=== PATIENT | female | born 1970 ===

== ENCOUNTER 2020-02-21 14:40 | Outpatient (REF) | payer MEDICAID, SELFPAY | END 2020-02-21 14:41 | disposition home or self-care (01) | LOC: HO.LAB 14:40 | PROVIDERS: Visit Provider Internal Medicine | DX: Z20.828 Contact with and (suspected) exposure to other viral communicable diseases (principal) | CPT/HCPCS: 36415; C9803; U0003 ==

== ENCOUNTER 2020-06-12 13:34 | Outpatient (REF) | payer MEDICAID, SELFPAY ==
--- NOTE | ~2020-06-12 | US_ITS ---
EXAMINATION: US ABDOMEN LIMITED CLINICAL INFORMATION: Abdominoplasty wound infection. COMPARISON: CT abdomen and pelvis 11/22/2018. TECHNIQUE: Real-time imaging of the incisions at pelvis and umbilicus. FINDINGS: There is tiny anechoic fluid collection adjacent to the right lateral incision measuring 0.4 x 0.2 x 0.6 cm along the anterior abdominal wall. Intimal increased vascularity seen around this collection. Suspect tiny abscess. US/US abdomen limited IMPRESSION: Suspect tiny abscess/fluid collection adjacent to the right lateral incision along the superficial anterior abdominal wall.
== END 2020-06-12 13:35 | disposition home or self-care (01) ==
LOC: HO.US 13:34
PROVIDERS: PCP Nurse Practitioner Primary Care; Visit Provider Nurse Practitioner Primary Care
DX: T81.49XA Infection following a procedure, other surgical site, initial encounter (principal); Z98.890 Other specified postprocedural states
CPT/HCPCS: 76705

== ENCOUNTER → 2020-07-12 10:30 | Outpatient (BNVA) | payer MEDICAID, SELFPAY | PROVIDERS: PCP Nurse Practitioner Primary Care; Referring Provider Internal Medicine; Visit Provider Surgery | DX: T81.41XA Infection following a procedure, superficial incisional surgical site, initial encounter (principal) | CPT/HCPCS: 99202 ==

== ENCOUNTER → 2020-07-27 10:04 | Outpatient (BNVA) | payer MEDICAID, SELFPAY | PROVIDERS: PCP Internal Medicine; Visit Provider Surgery | DX: Z09 Encounter for follow-up examination after completed treatment for conditions other than malignant neoplasm (principal); T81.41XA Infection following a procedure, superficial incisional surgical site, initial encounter | CPT/HCPCS: 99212 ==

== ENCOUNTER 2021-04-01 20:33 | Emergency (ER) | payer MEDICAID, SELFPAY ==
--- NOTE | ~2021-04-01 | CT_ITS ---
EXAMINATION: CT ANGIOGRAM OF THE CHEST WITH AND WITHOUT CONTRAST (CT PULMONARY ANGIOGRAM FOR PE) CLINICAL INFORMATION: Reason for Exam Shortness breath, tachycardia COMPARISON: None TECHNIQUE: Prior to contrast administration, noncontrast localization images were obtained. Subsequently, multidetector volumetric imaging was performed from the thoracic inlet to below the diaphragms following the administration of 65 mL Omnipaque 350 intravenous contrast. No contrast reaction reported Sagittal, coronal, and MIP oblique sagittal reformatted images were obtained on the CT workstation, uploaded to PACS, and reviewed. This CT examination was performed using dose optimization techniques as appropriate, variously including the following: *Automated exposure control *Adjustment of mA and/or kV according to patient size (this includes techniques or standardized protocols for targeted exams where dose is matched to indication/reason for exam; i.e. extremities or head) *Use of iterative reconstruction technique Total exam dose-length product 360 mGy-cm FINDINGS: QUALITY OF STUDY/CONTRAST BOLUS: Satisfactory. PULMONARY ARTERIES: No central or segmental pulmonary emboli. THORACIC AORTA: No aneurysm or dissection. LUNG: No focal consolidation, nodules or masses. PLEURA: No pleural effusion or pneumothorax. MEDIASTINUM: Normal heart size. No pericardial effusion. No hilar or mediastinal lymphadenopathy. No evidence of septal bowing or right heart strain. CHEST WALL/AXILLA: No axillary or internal mammary lymphadenopathy. OSSEOUS STRUCTURES: No acute or suspicious osseous abnormality. UPPER ABDOMEN: Stable simple fluid attenuating peripherally calcified cyst in the spleen measuring 4.[address]/CT angio chest PE protocol IMPRESSION: No pulmonary embolism. No acute pulmonary parenchymal abnormalities. VTE: negative
[2021-04-01 20:36] VITALS: BP 118/86; PULSE 80; RESP 16; TEMP 36.8; O2SAT 98; BMI 35.2
[2021-04-01 21:28] LABS: Influenza A PCR NEGATIVE (Negative); Influenza B PCR NEGATIVE (Negative); Resp Syncy Virus RNA Qual PCR NEGATIVE (Negative); SARS COV2 PCR INHOUSE NEGATIVE (Negative)
[2021-04-02 00:06] VITALS: PULSE 77; RESP 18; O2SAT 99
--- NOTE | 2021-04-02 00:14 | ED.URI ---
HPI - URI/Sore Throat General Chief Complaint: Upper Respiratory Symptoms Stated Complaint: Chest pain Time Seen by Provider: 04/02/21 01:55 Source: patient Mode of arrival: ambulatory Limitations: no limitations History of Present Illness HPI Narrative: 50-year-old female presents with increasing shortness of breath, chest wall pain on inspiration, and fatigue. Patient had to use rescue inhaler several, including twice while in the emergency department waiting room. MD elicited complaint: other (Shortness breath) Pertinent past history: other (COVID-19) Onset (ago): month(s) Consistency: constant and progressively worsening Severity: moderate Description of mucous: clear and watery Able to tolerate fluids by mouth: Yes Exacerbating factors: exertion and deep breaths Relieving factors: nothing Associated symptoms: chest pain and shortness of breath Treatments prior to arrival: other (Inhalers) Related Data Home Medications Medication Instructions Recorded Confirmed acetaminophen 500 mg oral powder 500 mg PO Q6H PRN 07/12/20 packet (Tylenol Extra Strength) albuterol sulfate 90 mcg/actuation 2 puff INHALATION Q6H PRN 07/12/20 aerosol inhaler (ProAir HFA) blood pressure monitor #1 ea 07/12/20 cetirizine 10 mg tablet (Zyrtec) 10 mg PO DAILY PRN 07/12/20 fluticasone propionate 50 2 spray INTRANASAL DAILY 07/12/20 mcg/actuation nasal spray,suspension ketoconazole 2 % shampoo 1 appl TOPICAL 3XW 07/12/20 Previous Rx's Medication Instructions Recorded cefadroxil 500 mg capsule 500 mg PO BID #20 cap 07/27/20 prednisone 20 mg tablet 40 mg PO DAILY 5 Days #10 tab 04/02/21 Allergies Allergy/AdvReac Type Severity Reaction Status Date / Time Penicillins Allergy Unknown UNKNOWN Unverified 11/03/19 17:58 Review of Systems Review of Systems: Constitutional: No Fever, No Chills ENT/Mouth: No Hoarseness, No sore throat, No Rhinorrhea Eyes: No Redness, No Discharge, No Vision Changes Cardiovascular: Positive Chest Pain, positive SOB, positive Dyspnea on Exertion, No Edema Respiratory: Now Cough, No Sputum, positive Wheezing Gastrointestinal: No Nausea, No Vomiting, No Diarrhea, No abdominal Pain Genitourinary: No Dysuria, No Hematuria Musculoskeletal: No joint pain, No Myalgias Skin: No rash Neuro: No Weakness, No Numbness, No Headache Psych: No anxiety, depression Heme/Lymph: No Bruising, No Bleeding Endocrine: No Polyuria, No Polydipsia Yes all other systems are reviewed and are negative [facility] Past Medical History Attestation statement: The following information was validated with the patient. Source: old records reviewed Surgical History History of abdominoplasty (03/28/20) History of hysterectomy Hx of breast surgery (03/28/20) Social History Social History Alcohol intake: current Alcohol intake frequency: holidays/special occasions only Patient Tobacco Use Status: Never used Tobacco Use of substances other than those prescribed or required for medical reasons: No Advance Directives: No Patient : No Physical Exam Vital Signs: Vital Signs: Last Vital Signs Temp 98.3 F 04/01/21 20:36 Pulse 73 04/02/21 00:34 Resp 16 04/02/21 00:34 BP 118/86 04/01/21 20:36 Pulse Ox 99 04/02/21 00:06 BMI result Body Mass Index 35.2 Appearance: Alert. Oriented X3. Moderate distress. Speaking in short sentences. Eyes: Pupils equal, round and reactive to light. EOMI. Sclera nonicteric. ENT: Pharynx normal. Moist mucous membranes. Neck: Normal inspection. Neck supple. CVS: Tachycardic heart rate and rhythm. Pulses normal. Respiratory: No respiratory distress. Poor air flow throughout, expiratory wheezing. Abdomen: Soft and nontender. Skin: Skin warm and dry. Normal skin color. Normal skin turgor. Extremities: No lower extremity edema. Moves all extremities against resistance. Neuro: No motor deficit. No sensory deficit. Cranial nerves 2-12 intact. Course Course Course Narrative: 50-year-old female presents with increased shortness of breath, chest wall pain on inspiration, and dyspnea on minimal exertion. Was tested positive for COVID-19 in January 2021. Has been using her albuterol inhaler multiple past few days, today has used it every 2-3 hours without relief. Poor air flow throughout lungs, will order CT PE study as patient is tachycardic, pain on inspiration, and had COVID approximately 2 months ago. Will order hour long albuterol, Solu-Medrol, and lab values. COVID RSV influenza negative. 00:40 BUN elevated 22. Will give 1 L of fluid. Other labs within normal limits. COVID RSV influenza negative. Patient states to feel better after our long neb, even unlabored respirations, able to speak in full complete sentences. CT PE study pending. 01:[address] Sanchez MDM - URI/Sore Throat MDM Narrative Medical decision making narrative: PE Differential Diagnosis Differential diagnosis: Likely upper respiratory infection, viral infection, bronchitis, influenza and pharyngitis Medical Records Attestation: I reviewed the patient's medical records. Lab Data Attestation: I reviewed the patient's lab results. Result diagrams: 04/02/21 00:35 04/02/21 00:35 Labs: Lab Results 04/01/21 04/02/21 04/02/21 Range/Units 20:45 00:35 00:35 WBC 7.6 (4.8-10.8) X10*3/uL RBC 5.04 (4.20-5.50) X10*6/uL Hgb 12.1 (12.0-16.0) g/dl Hct 40.2 (37.0-47.0) % MCV 79.8 L (80.0-98.0) fL MCH 24.0 L (27.0-33.0) pg MCHC 30.1 L (31.0-35.0) g/dl RDW 14.7 (11.0-16.0) % Plt Count 313 (160-400) X10*3/uL MPV 10.3 (9.4-12.3) fL Immature Gran % (Auto) 0.4 (0.0-0.4) % Neut % (Auto) 53.8 (45-73) % Lymph % (Auto) 35.0 (20-40) % [place] % (Auto) 6.8 (2-11) % Eos % (Auto) 3.5 (0-4) % Baso % (Auto) 0.5 (0-2) % Lymph # (Auto) 2.7 (1.2-4.9) X10*3/uL [place] # (Auto) 0.5 (0.1-1.2) X10*3/uL Eos # (Auto) 0.3 (0.0-0.4) X10*3/uL Baso # (Auto) 0.0 (0.0-0.2) X10*3/uL Abs Immat Gran (auto) 0.03 (0.00-0.03) X10*3/uL Absolute Neuts (auto) 4.1 (2.0-8.3) x10*3/uL Absolute Nucleated RBC 0.000 (0.0-0.012) X10*3/uL Nucleated RBC % (auto) 0.0 (0.0-0.2) /100WBC Sodium 142 (135-145) mmol/L Potassium 4.1 (3.3-5.1) mmol/L Chloride 108 (96-108) mmol/L Carbon Dioxide 28 (22-29) mmol/L Anion Gap 10 L (12-20) BUN 22 H (9-16) mg/dL Creatinine 0.93 (0.5-1.4) mg/dL Estim Creat Clear Calc 80.8 Estimated GFR > 60 Random Glucose 96 (60-115) mg/dL Calcium 10.2 (8.4-10.2) mg/dL Magnesium 2.2 (1.6-2.6) mg/dL Troponin I High Sens (<3.5-17.0) ng/L Influenza Type A (PCR) NEGATIVE (Negative) Influenza Type B (PCR) NEGATIVE (Negative) RSV RNA Qual (PCR) NEGATIVE (Negative) SARS-CoV-2 RNA (RT-PCR) NEGATIVE (Negative) 04/02/21 Range/Units 00:35 WBC (4.8-10.8) X10*3/uL RBC (4.20-5.50) X10*6/uL Hgb (12.0-16.0) g/dl Hct (37.0-47.0) % MCV (80.0-98.0) fL MCH (27.0-33.0) pg MCHC (31.0-35.0) g/dl RDW (11.0-16.0) % Plt Count (160-400) X10*3/uL MPV (9.4-12.3) fL Immature Gran % (Auto) (0.0-0.4) % Neut % (Auto) (45-73) % Lymph % (Auto) (20-40) % [place] % (Auto) (2-11) % Eos % (Auto) (0-4) % Baso % (Auto) (0-2) % Lymph # (Auto) (1.2-4.9) X10*3/uL [place] # (Auto) (0.1-1.2) X10*3/uL Eos # (Auto) (0.0-0.4) X10*3/uL Baso # (Auto) (0.0-0.2) X10*3/uL Abs Immat Gran (auto) (0.00-0.03) X10*3/uL Absolute Neuts (auto) (2.0-8.3) x10*3/uL Absolute Nucleated RBC (0.0-0.012) X10*3/uL Nucleated RBC % (auto) (0.0-0.2) /100WBC Sodium (135-145) mmol/L Potassium (3.3-5.1) mmol/L Chloride (96-108) mmol/L Carbon Dioxide (22-29) mmol/L Anion Gap (12-20) BUN (9-16) mg/dL Creatinine (0.5-1.4) mg/dL Estim Creat Clear Calc Estimated GFR Random Glucose (60-115) mg/dL Calcium (8.4-10.2) mg/dL Magnesium (1.6-2.6) mg/dL Troponin I High Sens < 3.5 (<3.5-17.0) ng/L Influenza Type A (PCR) (Negative) Influenza Type B (PCR) (Negative) RSV RNA Qual (PCR) (Negative) SARS-CoV-2 RNA (RT-PCR) (Negative) Discharge Plan Discharge Clinical Impression: Asthma exacerbation Patient Disposition: Home, Self-Care Instructions: Asthma (ED), Wheezing (ED) Additional Instructions: You were evaluated for asthma exacerbation, shortness of breath and chest pain. CTA is negative for acute findings requiring emergent intervention. You do not have any blood clots or any findings consistent with pneumonia. Please take prednisone 40 mg daily for the next 5 days. Drink plenty of fluids. Please consider following up with pulmonology. I referred you to Dr. Matt Howard. Please call and request an appointment. Thank you for choosing this emergency department for evaluation. Please follow-up with primary care physician as needed. Return to the emergency department for any new, concerning, or worsening symptoms. Prescriptions: New prednisone 20 mg tablet 40 mg PO DAILY 5 Days Qty: 10 0RF No Action (DME) blood pressure monitor Kit See Rx Instructions .ROUTE .MEDSUPPLY Qty: 1 0RF Rx Instructions: As directed fluticasone propionate 50 mcg/actuation spray,suspension 2 spray intranasal DAILY 0RF Rx Instructions: administer into each nostril ketoconazole 2 % shampoo 1 appl topical 3XW 0RF albuterol sulfate [ProAir HFA] 90 mcg/actuation HFA aerosol inhaler 2 puff inhalation Q6H PRN0RF Tylenol Extra Strength 500 mg powder in packet 500 mg PO Q6H PRN0RF cetirizine [Zyrtec] 10 mg tablet 10 mg PO DAILY PRN0RF cefadroxil 500 mg capsule 500 mg PO BID Qty: 20 0RF Referrals: Matt Howard MD [Physician] - 2 days (Poorly controlled asthma) Stand Alone Forms: Work/School Release
--- NOTE | 2021-04-02 00:15 | ECG_ITS ---
Test Reason : upper resp Blood Pressure : / mmHG Vent. Rate : 069 BPM Atrial Rate : 069 BPM P-R Int : 122 ms QRS Dur : 090 ms QT Int : 416 ms P-R-T Axes : 040 -30 029 degrees QTc Int : 445 ms Normal sinus rhythm Left axis deviation Moderate voltage criteria for LVH, may be normal variant ( R in aVL , [place] product ) Abnormal ECG When compared with ECG of 02-OCT-2009 11:22, Vent. rate has decreased BY [address] no longer depressed in Anterior leads T wave inversion now evident in Inferior leads Referred By: Sara Pearson Electronically Signed By:JUANPABLO FONSECA MD
[2021-04-02] MEDS: Albuterol Sulfate (0.083%) 2.5 MG/3 ML VIAL.NEB 10 MG INHALE (00:30)
[2021-04-02 00:34] VITALS: PULSE 73; RESP 16; O2SAT 98
[2021-04-02] MEDS: methylPREDNISolone Sod Succ 125 MG/2 ML VIAL IVPUSH (00:39)
[2021-04-02 00:40] LABS: MANUAL DIFF FLAG NO
[2021-04-02 00:42] LABS: Basophils Percent Auto 0.5 % (0-2); Eosinophils Absolute Auto 0.3 X10*3/uL (0.0-0.4); Eosinophils Percent Auto 3.5 % (0-4); Hematocrit 40.2 % (37.0-47.0); Hemoglobin 12.1 g/dl (12.0-16.0); Imm Gran Abs Auto 0.03 X10*3/uL (0.00-0.03); Imm Gran Pct Auto 0.4 % (0.0-0.4); Lymphocytes Absolute Auto 2.7 X10*3/uL (1.2-4.9); Mean Corpuscular HGB Conc 30.1 g/dl (31.0-35.0); Mean Corpuscular Volume 79.8 fL (80.0-98.0); Mean Platelet Volume 10.3 fL (9.4-12.3); Monocytes Absolute Auto 0.5 X10*3/uL (0.1-1.2); Monocytes Percent Auto 6.8 % (2-11); Neutrophils Absolute Auto 4.1 x10*3/uL (2.0-8.3); Neutrophils Percent Auto 53.8 % (45-73); Platelet Count 313 X10*3/uL (160-400); Red Blood Count 5.04 X10*6/uL (4.20-5.50); Red Cell Distribution Width 14.7 % (11.0-16.0); White Blood Count 7.6 X10*3/uL (4.8-10.8)
[2021-04-02 00:57] LABS: Anion Gap 10 (12-20); Blood Urea Nitrogen 22 mg/dL (9-16); Calcium 10.2 mg/dL (8.4-10.2); Carbon Dioxide 28 mmol/L (22-29); Chloride 108 mmol/L (96-108); Creatinine Clr Calc Pharmacy 80.8; Estimated Glomerular Filt Rate > 60; Glucose Random 96 mg/dL (60-115); Magnesium 2.2 mg/dL (1.6-2.6); Potassium 4.1 mmol/L (3.3-5.1); Sodium 142 mmol/L (135-145)
[2021-04-02 01:02] LABS: Troponin-I High Sensitivity < 3.5 ng/L (<3.5-17.0)
--- NOTE | 2021-04-02 01:46 | PC.NURSE ---
I assumed care of this pt upon her arrival to bed 4 from the waiting room. She presents for evaluation of difficulty breathing. On arrival the pt appears SOB, RR 22-24 with frequent congested sounding non-productive cough noted. She is speaking in 3-4 word sentences, no cyanosis, room air sat's 95%. Famioly is at the bedside. The pt is calm, cooperative, makes eye contact with RN and has a normal affect. IV access/labs obtained. Will continue to monitor.
[2021-04-02] MEDS: 0.9 % Sodium Chloride 1,000 ML 999 ML IVCONT (01:49)
[2021-04-02] MEDS: iohexoL 350 MG/ML 100 ML INFUS..BTL 65 ML IV (01:54)
[2021-04-02 02:08] VITALS: BP 135/80; PULSE 82; RESP 20; TEMP 36.4; O2SAT 98
== END 2021-04-02 03:09 | disposition home or self-care (01) ==
PROVIDERS: Nurse Practitioner Family; Emergency Provider Emergency Medicine; PCP Internal Medicine
DX: J45.901 Unspecified asthma with (acute) exacerbation (principal); Z20.822 Contact with and (suspected) exposure to COVID-19
CPT/HCPCS: 0241U; 36415; 71275; 80048; 83735; 84484; 85025; 93005; 94640; 94644; 96361; 96374; 99284; 99285; J2930; Q9967

== ENCOUNTER → 2021-04-12 10:56 | Outpatient (BNVA) | payer MEDICAID, SELFPAY | PROVIDERS: PCP Internal Medicine; Visit Provider Internal Medicine Pulmonary Disease | DX: J45.909 Unspecified asthma, uncomplicated (principal); R06.00 Dyspnea, unspecified; Z91.09 Other allergy status, other than to drugs and biological substances | CPT/HCPCS: 99202 ==

== ENCOUNTER 2021-05-18 00:59 | Emergency (ER) | payer MEDICAID, SELFPAY ==
--- NOTE | 2021-05-18 | ECG_ITS ---
Test Reason : CHEST PAIN Blood Pressure : / mmHG Vent. Rate : 084 BPM Atrial Rate : 084 BPM P-R Int : 144 ms QRS Dur : 092 ms QT Int : 384 ms P-R-T Axes : 044 -29 036 degrees QTc Int : 453 ms Normal sinus rhythm Moderate voltage criteria for LVH, may be normal variant ( R in aVL , [place] product ) Borderline ECG When compared with ECG of 02-APR-2021 00:19, No significant change was found Referred By: Generic ED Physician Electronically Signed By:ERIK NESS
--- NOTE | ~2021-05-18 | XR_ITS ---
EXAMINATION: XR CHEST CLINICAL INFORMATION: Chest pain COMPARISON: CTA chest 04/02/2021 and chest x-ray 10/02/2009 TECHNIQUE: 2 views of the chest were obtained. FINDINGS: Cardiac silhouette is normal in size. The lungs are well aerated. There is no lobar consolidation. No pleural effusion or pneumothorax. Mild degenerative changes of the spine. XR/XR chest 2V IMPRESSION: No acute pulmonary pathology.
--- NOTE | ~2021-05-18 | CT_ITS ---
EXAMINATION: CT HEAD WITHOUT CONTRAST CLINICAL INFORMATION: Headache COMPARISON: Head CT 02/19/2019 TECHNIQUE: Contiguous axial imaging was performed from the skull base to vertex without intravenous administration of contrast. This CT examination was performed using dose optimization techniques as appropriate, variously including the following: *Automated exposure control *Adjustment of mA and/or kV according to patient size (this includes techniques or standardized protocols for targeted exams where dose is matched to indication/reason for exam; i.e. extremities or head) *Use of iterative reconstruction technique DLP: 631 mGy-cm FINDINGS: There is no evidence of acute intracranial hemorrhage or territorial infarction. No abnormal mass effect or midline shift is seen. Pryor to white matter differentiation is well preserved. No extra-axial fluid collections are identified. The ventricles are normal in size. There is no abnormal attenuation within the brain parenchyma. The osseous structures and soft tissues are normal. The mastoid air cells and visualized portions of the paranasal sinuses are well aerated. CT/CT head/brain wo con IMPRESSION: No acute intracranial pathology.
[2021-05-18 01:33] VITALS: BP 144/95; PULSE 81; RESP 16; TEMP 36.4; O2SAT 98; BMI 36.0
--- NOTE | 2021-05-18 06:31 | ED_ITS ---
HPI - Chest Pain General Chief Complaint: Chest Pain Stated Complaint: chest pain Time Seen by Provider: 05/18/21 06:31 Source: patient Mode of arrival: ambulatory Limitations: no limitations History of Present Illness MD complaint: chest pain Onset (ago): hour(s) (yesterday during the day > 12) Timing of current episode: now resolved Prior episodes: Yes Onset: during rest Pain location: substernal Pain radiation: left arm Severity: moderate Quality: other (pressure) Relieving factors: nothing Exacerbating factors: nothing Associated symptoms: dyspnea and other (L side of body was tingling, R side felt like there was crawling on it, also has a headache, felt her BP was high so took a lisinopril but did not check pressure, was dizzy) Treatment prior to arrival: none Related Data Home Medications Medication Instructions Recorded Confirmed acetaminophen 500 mg oral powder 500 mg PO Q6H PRN 07/12/20 packet (Tylenol Extra Strength) albuterol sulfate 90 mcg/actuation 2 puff INHALATION Q6H PRN 07/12/20 aerosol inhaler (ProAir HFA) blood pressure monitor #1 ea 07/12/20 cetirizine 10 mg tablet (Zyrtec) 10 mg PO DAILY PRN 07/12/20 fluticasone propionate 50 2 spray INTRANASAL DAILY 07/12/20 mcg/actuation nasal spray,suspension ketoconazole 2 % shampoo 1 appl TOPICAL 3XW 07/12/20 Previous Rx's Medication Instructions Recorded cefadroxil 500 mg capsule 500 mg PO BID #20 cap 07/27/20 prednisone 20 mg tablet 40 mg PO DAILY 5 Days #10 tab 04/02/21 budesonide-formoterol HFA 160 2 puff INHALATION BID 30 Days #1 ea 04/14/21 mcg-4.5 mcg/actuation aerosol inhaler (Symbicort) doxycycline hyclate 100 mg capsule 100 mg PO BID 7 Days #14 cap 05/18/21 ondansetron 4 mg disintegrating 4 mg PO Q8H PRN #20 tab 05/18/21 tablet Allergies Allergy/AdvReac Type Severity Reaction Status Date / Time Penicillins Allergy Unknown UNKNOWN Verified 04/12/21 10:59 Review of Systems Review of Systems: Constitutional : No Weight loss, No Fever, No Chills ENT/Mouth : No sore throat, No Rhinorrhea Eyes: No Eye Pain, No Swelling Cardiovascular : pos Chest Pain, pos SOB, no Dyspnea on Exertion, No Orthopnea, No Edema, pos Palpitations Respiratory : No Cough, No Sputum Gastrointestinal : no Nausea, No Vomiting, No Diarrhea, No abdominal Pain, No Hematochezia, No Melena Genitourinary : No Dysuria, No Urinary Frequency Musculoskeletal : No joint pain, No Myalgias, No Joint Swelling Skin : No Skin Lesions, No rash Neuro : No Weakness, pos Numbness, pos Dizziness, pos Headache Psych : No Anxiety/Panic, No Depression Heme/Lymph: No Bruising, No Lymphadenopathy Endocrine : No Polyuria, No Polydipsia All other systems reviewed and are negative [facility] Past Medical History Attestation statement: The following information was validated with the patient. Medical History Asthma HTN (hypertension) Surgical History History of abdominoplasty (03/28/20) History of hysterectomy Hx of breast surgery (03/28/20) Social History Social History Alcohol intake: current Alcohol intake frequency: holidays/special occasions only Patient Tobacco Use Status: Never used Tobacco Advance Directives: No Advance Directives Information Provided: No Patient : No Physical Exam Vital Signs: Vital Signs: Last Vital Signs Temp 97.6 F 05/18/21 01:33 Pulse 66 05/18/21 07:09 Resp 14 05/18/21 07:09 BP 113/72 05/18/21 07:09 Pulse Ox 97 05/18/21 07:09 BMI result Body Mass Index 36.0 Appearance: Alert. Oriented X3. No acute distress. Eyes: Pupils equal, round and reactive to light. ENT: Pharynx normal. Neck: Normal inspection. Neck supple. CVS: Normal heart rate and rhythm. Pulses normal. Respiratory: No respiratory distress. Breath sounds normal. Abdomen: Soft and non-tender. Skin: Skin warm and dry. Normal skin color. Normal skin turgor. L axilla has small boil not to a point 1 cm no surrounding cellulitis Extremities: No lower extremity edema. No calf ttp Neuro: Oriented X 3. No motor deficit. No sensory deficit. Steady gait. Course Course Course Narrative: trop and ddimer negative, symptoms > 12 hours stable for DC, BP stable CT scan normal MDM - Chest Pain MDM Narrative Medical decision making narrative: 50 yo female with hx of HTN, asthma here with multilple complaints - 1. chest pain since yesterday with associated dyspnea she is worried it was a blood clot as she felt her blood get thick and her R leg hurt. Her symptoms are atypical and seem unlikely for ACS - her BP on my exam is 109/75. She has good distal pulses intact - low prob for ACS/PE. given intact distal pulses doubt dissection. Patient also noted her L side of body was tingling and her R side was as well too but more like crawling - she has a normal neuro exam. 2. Compla ins of occipital headache but she is afebrile and her BP is much lower now given lack of fevers and normal neuro exam doubt SAH/[employer] infection. Given normal neuro exam stroke seems unlikely. 3. Boil in L axilla - too small to I/D warm compressess and PO doxycycline Lab Data Result diagrams: 05/18/21 06:41 05/18/21 06:41 Labs: Lab Results 05/18/21 05/18/21 05/18/21 Range/Units 06:41 06:41 06:41 WBC 5.0 (4.8-10.8) X10*3/uL RBC 4.88 (4.20-5.50) X10*6/uL Hgb 12.0 (12.0-16.0) g/dl Hct 38.8 (37.0-47.0) % MCV 79.5 L (80.0-98.0) fL MCH 24.6 L (27.0-33.0) pg MCHC 30.9 L (31.0-35.0) g/dl RDW 14.9 (11.0-16.0) % Plt Count 252 (160-400) X10*3/uL MPV 10.1 (9.4-12.3) fL Immature Gran % (Auto) 0.4 (0.0-0.4) % Neut % (Auto) 52.3 (45-73) % Lymph % (Auto) 36.7 (20-40) % [place] % (Auto) 7.2 (2-11) % Eos % (Auto) 3.0 (0-4) % Baso % (Auto) 0.4 (0-2) % Lymph # (Auto) 1.8 (1.2-4.9) X10*3/uL [place] # (Auto) 0.4 (0.1-1.2) X10*3/uL Eos # (Auto) 0.2 (0.0-0.4) X10*3/uL Baso # (Auto) 0.0 (0.0-0.2) X10*3/uL Abs Immat Gran (auto) 0.02 (0.00-0.03) X10*3/uL Absolute Neuts (auto) 2.6 (2.0-8.3) x10*3/uL Absolute Nucleated RBC 0.000 (0.0-0.012) X10*3/uL Nucleated RBC % (auto) 0.0 (0.0-0.2) /100WBC D-Dimer High Sensitivty NG/ML Sodium 140 (135-145) mmol/L Potassium 4.2 (3.3-5.1) mmol/L Chloride 105 (96-108) mmol/L Carbon Dioxide 28 (22-29) mmol/L Anion Gap 11 L (12-20) BUN 22 H (9-16) mg/dL Creatinine 0.81 (0.5-1.4) mg/dL Estim Creat Clear Calc 94.0 Estimated GFR > 60 Random Glucose 104 (60-115) mg/dL Calcium 9.7 (8.4-10.2) mg/dL Total Bilirubin 0.9 (0.0-1.0) mg/dL AST 18 (5-31) U/L ALT 17 (0-31) U/L Alkaline Phosphatase 125 H (39-117) U/L Troponin I High Sens < 3.5 (<3.5-17.0) ng/L Total Protein 7.2 (6.5-8.0) g/dL Albumin 4.2 (3.5-5.0) g/dL 05/18/21 Range/Units 06:41 WBC (4.8-10.8) X10*3/uL RBC (4.20-5.50) X10*6/uL Hgb (12.0-16.0) g/dl Hct (37.0-47.0) % MCV (80.0-98.0) fL MCH (27.0-33.0) pg MCHC (31.0-35.0) g/dl RDW (11.0-16.0) % Plt Count (160-400) X10*3/uL MPV (9.4-12.3) fL Immature Gran % (Auto) (0.0-0.4) % Neut % (Auto) (45-73) % Lymph % (Auto) (20-40) % [place] % (Auto) (2-11) % Eos % (Auto) (0-4) % Baso % (Auto) (0-2) % Lymph # (Auto) (1.2-4.9) X10*3/uL [place] # (Auto) (0.1-1.2) X10*3/uL Eos # (Auto) (0.0-0.4) X10*3/uL Baso # (Auto) (0.0-0.2) X10*3/uL Abs Immat Gran (auto) (0.00-0.03) X10*3/uL Absolute Neuts (auto) (2.0-8.3) x10*3/uL Absolute Nucleated RBC (0.0-0.012) X10*3/uL Nucleated RBC % (auto) (0.0-0.2) /100WBC D-Dimer High Sensitivty < 150 NG/ML Sodium (135-145) mmol/L Potassium (3.3-5.1) mmol/L Chloride (96-108) mmol/L Carbon Dioxide (22-29) mmol/L Anion Gap (12-20) BUN (9-16) mg/dL Creatinine (0.5-1.4) mg/dL Estim Creat Clear Calc Estimated GFR Random Glucose (60-115) mg/dL Calcium (8.4-10.2) mg/dL Total Bilirubin (0.0-1.0) mg/dL AST (5-31) U/L ALT (0-31) U/L Alkaline Phosphatase (39-117) U/L Troponin I High Sens (<3.5-17.0) ng/L Total Protein (6.5-8.0) g/dL Albumin (3.5-5.0) g/dL ECG Data ECG #1: Attestation: I personally reviewed and interpreted this ECG as follows: ECG interpretation date: 05/18/21 ECG interpretation time: 06:32 Interpretation: Rate: 84 Rhythm: NSR [place]: left , LVH Normal P waves. Normal VICKI. Normal QRS complex. ST T wave : normal no JOANN qTC: normal prior studies: no acute ischemia The study has been interpreted contemporaneously by me. Discharge Plan Discharge Clinical Impression: Atypical chest pain, Acute headache, Boil Patient Disposition: Home, Self-Care Instructions: Chest Pain (ED), Abscess (ED), General Headache (ED) Additional Instructions: return to ED for any worsening symptoms or concerns CT brain normal Prescriptions: New doxycycline hyclate 100 mg capsule 100 mg PO BID 7 Days Qty: 14 0RF ondansetron 4 mg tablet,disintegrating 4 mg PO Q8H PRN (Reason: nausea and vomiting) Qty: 20 0RF No Action budesonide-formoterol [Symbicort] 160-4.5 mcg/actuation HFA aerosol inhaler 2 puff inhalation BID 30 Days Qty: 1 6RF prednisone 20 mg tablet 40 mg PO DAILY 5 Days Qty: 10 0RF (DME) blood pressure monitor Kit See Rx Instructions .ROUTE .MEDSUPPLY Qty: 1 0RF Rx Instructions: As directed fluticasone propionate 50 mcg/actuation spray,suspension 2 spray intranasal DAILY 0RF Rx Instructions: administer into each nostril ketoconazole 2 % shampoo 1 appl topical 3XW 0RF albuterol sulfate [ProAir HFA] 90 mcg/actuation HFA aerosol inhaler 2 puff inhalation Q6H PRN0RF Tylenol Extra Strength 500 mg powder in packet 500 mg PO Q6H PRN0RF cetirizine [Zyrtec] 10 mg tablet 10 mg PO DAILY PRN0RF cefadroxil 500 mg capsule 500 mg PO BID Qty: 20 0RF Referrals: Sharifa Moncada MD [Primary Care Provider] - 2 days (if not better)
[2021-05-18 06:53] LABS: MANUAL DIFF FLAG NO
[2021-05-18 06:54] LABS: Basophils Percent Auto 0.4 % (0-2); Eosinophils Absolute Auto 0.2 X10*3/uL (0.0-0.4); Hematocrit 38.8 % (37.0-47.0); Imm Gran Abs Auto 0.02 X10*3/uL (0.00-0.03); Imm Gran Pct Auto 0.4 % (0.0-0.4); Lymphocytes Absolute Auto 1.8 X10*3/uL (1.2-4.9); Lymphocytes Percent Auto 36.7 % (20-40); Mean Corpuscular HGB Conc 30.9 g/dl (31.0-35.0); Mean Corpuscular Hemoglobin 24.6 pg (27.0-33.0); Mean Corpuscular Volume 79.5 fL (80.0-98.0); Mean Platelet Volume 10.1 fL (9.4-12.3); Monocytes Absolute Auto 0.4 X10*3/uL (0.1-1.2); Monocytes Percent Auto 7.2 % (2-11); Neutrophils Absolute Auto 2.6 x10*3/uL (2.0-8.3); Neutrophils Percent Auto 52.3 % (45-73); Platelet Count 252 X10*3/uL (160-400); Red Blood Count 4.88 X10*6/uL (4.20-5.50); Red Cell Distribution Width 14.9 % (11.0-16.0)
[2021-05-18 07:04] LABS: D Dimer High Sensitivity < 150 NG/ML
[2021-05-18 07:09] VITALS: BP 113/72; PULSE 66; RESP 14; O2SAT 97
[2021-05-18] MEDS: Ondansetron ODT 4 MG TAB.RAPDIS TRANSLINGU (07:10)
[2021-05-18] MEDS: HYDROcodone Bit/Acetam 5/325 TABLET 1 TAB PO (07:10)
[2021-05-18 07:14] LABS: Troponin-I High Sensitivity < 3.5 ng/L (<3.5-17.0)
[2021-05-18 07:15] LABS: Alanine Aminotransferase 17 U/L (0-31); Albumin Level 4.2 g/dL (3.5-5.0); Alkaline Phosphatase 125 U/L (39-117); Anion Gap 11 (12-20); Aspartate Amino Transferase 18 U/L (5-31); Bilirubin Total 0.9 mg/dL (0.0-1.0); Blood Urea Nitrogen 22 mg/dL (9-16); Calcium 9.7 mg/dL (8.4-10.2); Carbon Dioxide 28 mmol/L (22-29); Chloride 105 mmol/L (96-108); Estimated Glomerular Filt Rate > 60; Glucose Random 104 mg/dL (60-115); Potassium 4.2 mmol/L (3.3-5.1); Sodium 140 mmol/L (135-145); Total Protein 7.2 g/dL (6.5-8.0)
[2021-05-18] MEDS: Butalb/Acetamin/Caff 50/325/40 TABLET 1 TAB PO (07:51)
== END 2021-05-18 11:47 | disposition home or self-care (01) ==
PROVIDERS: Student in an Organized Health Care Education/Training Program; Emergency Provider Emergency Medicine; PCP Internal Medicine
DX: R07.89 Other chest pain (principal); R51.9 Headache, unspecified; L02.422 Furuncle of left axilla; M79.604 Pain in right leg
CPT/HCPCS: 36415; 70450; 71046; 80053; 84484; 85025; 85379; 93005; 99284

== ENCOUNTER → 2021-07-02 11:52 | Outpatient (BNVA) | payer MEDICAID, SELFPAY | PROVIDERS: PCP Internal Medicine; Referring Provider Internal Medicine; Visit Provider Physician Assistant | DX: K21.9 Gastro-esophageal reflux disease without esophagitis (principal); F45.8 Other somatoform disorders; F41.9 Anxiety disorder, unspecified | CPT/HCPCS: 99202 ==

== ENCOUNTER 2021-07-18 10:03 | Outpatient (REF) | payer MEDICAID, SELFPAY ==
[2021-07-20 15:09] LABS: H Pylori Breath Test Negative (Negative)
== END 2021-07-18 10:04 | disposition home or self-care (01) ==
LOC: CF 10:03
PROVIDERS: PCP Internal Medicine; Referring Provider Internal Medicine; Visit Provider Physician Assistant
DX: F45.8 Other somatoform disorders (principal); K21.9 Gastro-esophageal reflux disease without esophagitis; Z11.0 Encounter for screening for intestinal infectious diseases
CPT/HCPCS: 36415; 83013

== ENCOUNTER → 2021-08-13 10:07 | Outpatient (BNVA) | payer MEDICAID, SELFPAY | PROVIDERS: PCP Internal Medicine; Visit Provider Physician Assistant | DX: Z01.818 Encounter for other preprocedural examination (principal); K21.9 Gastro-esophageal reflux disease without esophagitis | CPT/HCPCS: 99212 ==

== ENCOUNTER → 2021-09-10 10:35 | Outpatient (BNVA) | payer MEDICAID, SELFPAY | PROVIDERS: PCP Internal Medicine; Visit Provider Surgery Vascular Surgery | DX: I83.11 Varicose veins of right lower extremity with inflammation (principal) | CPT/HCPCS: 99202 ==

== ENCOUNTER 2021-09-30 14:28 | Emergency (ER) | payer MEDICAID, SELFPAY ==
--- NOTE | 2021-09-30 15:45 | PC.NURSE ---
called x 3 to alice. GUEVARAT
== END 2021-09-30 17:09 | disposition left against medical advice (07) ==
LOC: HO.ED 16:50
PROVIDERS: Emergency Provider Emergency Medicine
DX: Z04.2 Encounter for examination and observation following work accident (principal)

== ENCOUNTER 2021-10-20 22:04 | Emergency (ER) | payer MEDICAID, SELFPAY ==
--- NOTE | 2021-10-20 22:06 | ECG_ITS ---
Test Reason : CHEST PAIN Blood Pressure : / mmHG Vent. Rate : 083 BPM Atrial Rate : 083 BPM P-R Int : 116 ms QRS Dur : 090 ms QT Int : 378 ms P-R-T Axes : 052 -39 063 degrees QTc Int : 444 ms Normal sinus rhythm Left axis deviation Moderate voltage criteria for LVH, may be normal variant ( R in aVL , Deputy product ) Abnormal ECG When compared with ECG of 18-MAY-2021 01:01, No significant change was found Referred By: Generic ED Physician Electronically Signed By:JESS MAX
[2021-10-20 22:15] VITALS: BP 173/113; PULSE 93; RESP 20; TEMP 36.4; O2SAT 93; BMI 36.8
[2021-10-20 22:32] LABS: MANUAL DIFF FLAG NO
[2021-10-20 22:36] LABS: Basophils Percent Auto 0.2 % (0-2); Eosinophils Absolute Auto 0.6 X10*3/uL (0.0-0.4); Hematocrit 39.9 % (37.0-47.0); Hemoglobin 12.5 g/dl (12.0-16.0); Imm Gran Abs Auto 0.04 X10*3/uL (0.00-0.03); Imm Gran Pct Auto 0.5 % (0.0-0.4); Lymphocytes Absolute Auto 2.5 X10*3/uL (1.2-4.9); Lymphocytes Percent Auto 30.6 % (20-40); Mean Corpuscular HGB Conc 31.3 g/dl (31.0-35.0); Mean Corpuscular Hemoglobin 24.9 pg (27.0-33.0); Mean Corpuscular Volume 79.3 fL (80.0-98.0); Mean Platelet Volume 9.7 fL (9.4-12.3); Monocytes Absolute Auto 0.4 X10*3/uL (0.1-1.2); Monocytes Percent Auto 4.4 % (2-11); Neutrophils Absolute Auto 4.6 x10*3/uL (2.0-8.3); Neutrophils Percent Auto 57.3 % (45-73); Platelet Count 364 X10*3/uL (160-400); Red Blood Count 5.03 X10*6/uL (4.20-5.50); Red Cell Distribution Width 14.6 % (11.0-16.0)
[2021-10-20 22:47] LABS: Anion Gap 15 (12-20); Blood Urea Nitrogen 21 mg/dL (9-16); Calcium 9.4 mg/dL (8.4-10.2); Carbon Dioxide 23 mmol/L (22-29); Chloride 108 mmol/L (96-108); Creatinine Clr Calc Pharmacy 86.7; Estimated Glomerular Filt Rate > 60; Glucose Random 122 mg/dL (60-115); Potassium 4.2 mmol/L (3.3-5.1); Sodium 142 mmol/L (135-145)
[2021-10-20 22:54] LABS: Troponin-I High Sensitivity < 3.5 ng/L (<3.5-17.0)
[2021-10-20 22:55] LABS: COVID-19 Test Negative (Negative)
--- NOTE | 2021-10-20 23:11 | ED.CHESTPAIN ---
HPI - Chest Pain General Chief Complaint: Chest Pain Stated Complaint: asthma attack, chest pain, vomit Time Seen by Provider: 10/20/21 23:01 Source: patient and family Mode of arrival: ambulatory History of Present Illness HPI narrative: 51-year-old female with history of asthma presents with acute exacerbation today with multiple attempts use nebulize treatments, otherwise denies fever, chills common but has had some mild nausea after multiple episodes of coughing and now states that she has a headache with some chest pain that is associated with deep inspiration and coughing. Related Data Home Medications Medication Instructions Recorded Confirmed acetaminophen 500 mg oral powder 500 mg PO Q6H PRN 07/12/20 08/13/21 packet (Tylenol Extra Strength) albuterol sulfate 90 mcg/actuation 2 puff inhalation Q6H PRN 07/12/20 08/13/21 aerosol inhaler (ProAir HFA) blood pressure monitor #1 ea 07/12/20 08/13/21 cetirizine 10 mg tablet (Zyrtec) 10 mg PO DAILY PRN 07/12/20 08/13/21 fluticasone propionate 50 2 spray intranasal DAILY 07/12/20 08/13/21 mcg/actuation nasal spray,suspension ketoconazole 2 % shampoo 1 appl topical 3XW 07/12/20 08/13/21 lisinopril 20 mg tablet 20 mg PO DAILY 07/02/21 08/13/21 venlafaxine 37.5 mg 37.5 mg PO DAILY 09/10/21 capsule,extended release 24 hr Previous Rx's Medication Instructions Recorded budesonide-formoterol HFA 160 2 puff inhalation BID 30 days #1 ea 04/14/21 mcg-4.5 mcg/actuation aerosol inhaler (Symbicort) qnjeegcbzb-phytqaixovygg-xrzdgjnz 1 tab PO Q6H PRN pain #20 tabs 05/18/21 50 mg-325 mg-40 mg tablet ondansetron 4 mg disintegrating 4 mg PO Q8H PRN nausea and 05/18/21 tablet vomiting #20 tabs omeprazole 20 mg capsule,delayed 20 mg PO DAILY #30 caps 07/02/21 release bisacodyl 5 mg tablet,delayed 10 mg PO ONCE colonoscopy prep 1 08/13/21 release (Dulcolax (bisacodyl)) day #2 tabs polyethylene glycol 3350 17 238 g PO ONCE 1 day #238 grams 08/13/21 gram/dose oral powder (Miralax) prednisone 50 mg tablet 50 mg PO DAILY 4 days #4 tabs 10/21/21 Allergies Allergy/AdvReac Type Severity Reaction Status Date / Time Penicillins Allergy Unknown UNKNOWN Verified 09/10/21 10:39 Review of Systems Review of Systems: Pertinent positives and negatives as stated in HPI 10 point review of systems is otherwise negative. [facility] Past Medical History Source: nursing notes reviewed Medical History Asthma HTN (hypertension) Surgical History History of abdominoplasty (03/28/20) History of hysterectomy Hx of breast surgery (03/28/20) Family History Family History Father HTN (hypertension) Diabetes Mother Epilepsia Social History Social History Alcohol intake: current Alcohol intake frequency: holidays/special occasions only Patient Tobacco Use Status: Never used Tobacco Advance Directives: No Advance Directives Information Provided: No Physical Exam Vital Signs: Vital Signs: Last Vital Signs Temp 97.6 F 10/20/21 22:15 Pulse 87 10/20/21 23:22 Resp 17 10/20/21 23:22 BP 126/101 H 10/20/21 23:15 Pulse Ox 94 10/20/21 23:15 O2 Del Method 10/20/21 23:15 BMI result Body Mass Index 36.8 VITAL SIGNS: Reviewed. GENERAL: Well developed, well nourished, in no acute distress. HEAD: Normocephalic/atraumatic EYES: PERRLA, EOMI EARS: Ext canals without abnormality OROPHARYNX: no oral lesions noted, posterior pharynx clear LUNGS: Decreased breath sounds with limited air movement appreciated and noted expiratory wheeze, increased work of breathing as well as coughing. SpO2<93> CARDIOVASCULAR: Regular rate and rhythm without noted murmurs ABDOMEN: Soft, non-tender, non-distended with bowel sounds. MUSCULOSKELETAL: No tenderness, deformities, or effusions noted on gross inspection. EXTREMITIES: No cyanosis, clubbing or edema. SKIN: Inspection of the skin reveals no rashes NEUROLOGIC: Alert and oriented x 4. Strength and sensation to light touch were grossly intact x 4. Course Course Course Narrative: 51-year-old female with acute asthma exacerbation, she will be given albuterol treatment, Mg, steroids. Review of all investigations without acute findings and on re-evaluation patient is feeling much better, lungs are clear and patient is oxygenating at 98% on room air with no further difficulty breathing and no more vomiting. Patient discharged home in stable condition. MDM - Chest Pain Lab Data Result diagrams: 10/20/21 22:26 10/20/21 22:26 Labs: Lab Results 10/20/21 10/20/21 10/20/21 Range/Units 22:26 22: 22:26 WBC 8.0 (4.8-10.8) X10*3/uL RBC 5.03 (4.20-5.50) X10*6/uL Hgb 12.5 (12.0-16.0) g/dl Hct 39.9 (37.0-47.0) % MCV 79.3 L (80.0-98.0) fL MCH 24.9 L (27.0-33.0) pg MCHC 31.3 (31.0-35.0) g/dl RDW 14.6 (11.0-16.0) % Plt Count 364 D (160-400) X10*3/uL MPV 9.7 (9.4-12.3) fL Immature Gran % (Auto) 0.5 H (0.0-0.4) % Neut % (Auto) 57.3 (45-73) % Lymph % (Auto) 30.6 (20-40) % [place] % (Auto) 4.4 (2-11) % Eos % (Auto) 7.0 H (0-4) % Baso % (Auto) 0.2 (0-2) % Lymph # (Auto) 2.5 (1.2-4.9) X10*3/uL [place] # (Auto) 0.4 (0.1-1.2) X10*3/uL Eos # (Auto) 0.6 H (0.0-0.4) X10*3/uL Baso # (Auto) 0.0 (0.0-0.2) X10*3/uL Abs Immat Gran (auto) 0.04 H (0.00-0.03) X10*3/uL Absolute Neuts (auto) 4.6 (2.0-8.3) x10*3/uL Absolute Nucleated RBC 0.000 (0.0-0.012) X10*3/uL Nucleated RBC % (auto) 0.0 (0.0-0.2) /100WBC Sodium 142 (135-145) mmol/L Potassium 4.2 (3.3-5.1) mmol/L Chloride 108 (96-108) mmol/L Carbon Dioxide 23 (22-29) mmol/L Anion Gap 15 (12-20) BUN 21 H (9-16) mg/dL Creatinine 0.88 (0.5-1.4) mg/dL Estim Creat Clear Calc 86.7 Estimated GFR > 60 Random Glucose 122 H (60-115) mg/dL Calcium 9.4 (8.4-10.2) mg/dL Troponin I High Sens < 3.5 (<3.5-17.0) ng/L COVID-19 (ROVERTO) (Negative) COVID-19 Clin Com 10/20/21 Range/Units 22:26 WBC (4.8-10.8) X10*3/uL RBC (4.20-5.50) X10*6/uL Hgb (12.0-16.0) g/dl Hct (37.0-47.0) % MCV (80.0-98.0) fL MCH (27.0-33.0) pg MCHC (31.0-35.0) g/dl RDW (11.0-16.0) % Plt Count (160-400) X10*3/uL MPV (9.4-12.3) fL Immature Gran % (Auto) (0.0-0.4) % Neut % (Auto) (45-73) % Lymph % (Auto) (20-40) % [place] % (Auto) (2-11) % Eos % (Auto) (0-4) % Baso % (Auto) (0-2) % Lymph # (Auto) (1.2-4.9) X10*3/uL [place] # (Auto) (0.1-1.2) X10*3/uL Eos # (Auto) (0.0-0.4) X10*3/uL Baso # (Auto) (0.0-0.2) X10*3/uL Abs Immat Gran (auto) (0.00-0.03) X10*3/uL Absolute Neuts (auto) (2.0-8.3) x10*3/uL Absolute Nucleated RBC (0.0-0.012) X10*3/uL Nucleated RBC % (auto) (0.0-0.2) /100WBC Sodium (135-145) mmol/L Potassium (3.3-5.1) mmol/L Chloride (96-108) mmol/L Carbon Dioxide (22-29) mmol/L Anion Gap (12-20) BUN (9-16) mg/dL Creatinine (0.5-1.4) mg/dL Estim Creat Clear Calc Estimated GFR Random Glucose (60-115) mg/dL Calcium (8.4-10.2) mg/dL Troponin I High Sens (<3.5-17.0) ng/L COVID-19 (ROVERTO) Negative (Negative) COVID-19 Clin Com See Note Discharge Plan Discharge Clinical Impression: Asthma exacerbation Patient Disposition: Home, Self-Care Instructions: Asthma (ED) Additional Instructions: 1. Reanudar todos los medicamentos caseros seg?n lo prescrito. 2. Complete el curso de esteroides que le lam proporcionado. 3. Seguimiento con el proveedor de atenci?n primaria los pr?ximos 2 a 3 d?as para joselin reevaluaci?n. Regrese a la regine de emergencias si los s?ntomas empeoran. Prescriptions: New prednisone 50 mg tablet 50 mg PO DAILY 4 Days Qty: 4 0RF No Action budesonide-formoterol [Symbicort] 160-4.5 mcg/actuation HFA aerosol inhaler 2 puff inhalation BID 30 Days Qty: 1 6RF ondansetron 4 mg tablet,disintegrating 4 mg PO Q8H PRN (Reason: nausea and vomiting) Qty: 20 0RF nzemjdtytt-blyfedxzrygxy-ddtw 50-325-40 mg tablet 1 tab PO Q6H PRN (Reason: pain) Qty: 20 0RF (DME) blood pressure monitor Kit See Rx Instructions .ROUTE .MEDSUPPLY Qty: 1 Rx Instructions: As directed fluticasone propionate 50 mcg/actuation spray,suspension 2 spray intranasal DAILY Rx Instructions: administer into each nostril ketoconazole 2 % shampoo 1 appl topical 3XW albuterol sulfate [ProAir HFA] 90 mcg/actuation HFA aerosol inhaler 2 puff inhalation Q6H PRN Tylenol Extra Strength 500 mg powder in packet 500 mg PO Q6H PRN cetirizine [Zyrtec] 10 mg tablet 10 mg PO DAILY PRN lisinopril 20 mg tablet 20 mg PO DAILY omeprazole 20 mg capsule,delayed release(DR/EC) 20 mg PO DAILY Qty: 30 5RF bisacodyl [Dulcolax (bisacodyl)] 5 mg tablet,delayed release (DR/EC) 10 mg PO ONCE 1 Days Qty: 2 0RF Rx Instructions: Take 2 tablets by mouth at 12:00pm the day before your procedure. polyethylene glycol 3350 [Miralax] 17 gram/dose powder 238 g PO ONCE 1 Days Qty: 238 0RF Rx Instructions: Take as directed by mouth the day before your procedure. venlafaxine 37.5 mg capsule,extended release 24hr 37.5 mg PO DAILY Referrals: Sharifa Moncada MD [Primary Care Provider] - Print Language: Anguillan
[2021-10-20 23:15] VITALS: BP 126/101; PULSE 96; RESP 22; O2SAT 94
[2021-10-20] MEDS: Albuterol Sulfate (0.083%) 2.5 MG/3 ML VIAL.NEB 10 MG INHALE (23:21)
[2021-10-20 23:22] VITALS: PULSE 87; RESP 17; O2SAT 97
[2021-10-20] MEDS: Acetaminophen 325 MG TABLET 975 MG PO (23:41)
[2021-10-20] MEDS: Magnesium Sulfate/H2O 2 GM/50 ML PIGGYBACK IV (23:42)
[2021-10-20] MEDS: methylPREDNISolone Sod Succ 125 MG/2 ML VIAL IVPUSH (23:42)
[2021-10-20] MEDS: Ketorolac Tromethamine 30 MG/ML VIAL 15 MG IVPUSH (23:42)
[2021-10-21] MEDS: ondansetron HCL 4 MG/2 ML VIAL IVPUSH (00:18)
[2021-10-21] MEDS: Albuterol Sulfate 90 MCG 8 GM INHALER 4 PUFF INHALE (01:22)
== END 2021-10-21 01:31 | disposition home or self-care (01) ==
PROVIDERS: Emergency Provider Student in an Organized Health Care Education/Training Program; PCP Internal Medicine
DX: R07.89 Other chest pain (principal); R51.9 Headache, unspecified; Z79.899 Other long term (current) drug therapy; Z20.822 Contact with and (suspected) exposure to COVID-19
CPT/HCPCS: 80048; 84484; 85025; 87635; 93005; 94640; 96374; 99284; 99285; J1885; J2405; J2930; J3475

== ENCOUNTER → 2021-11-04 11:03 | Outpatient (BNVA) | payer MEDICAID, SELFPAY | PROVIDERS: PCP Internal Medicine; Visit Provider Internal Medicine Pulmonary Disease | DX: J45.909 Unspecified asthma, uncomplicated (principal); Z91.09 Other allergy status, other than to drugs and biological substances | CPT/HCPCS: 99212 ==

== ENCOUNTER 2021-11-11 10:32 | Outpatient (REF) | payer MEDICAID, SELFPAY ==
--- NOTE | ~2021-11-11 | US_ITS ---
EXAMINATION: US LOWER EXTREMITY VENOUS (REFLUX EXAM), BILATERAL CLINICAL INDICATION: Chronic venous insufficiency with varicose veins COMPARISON: None. TECHNIQUE: Color flow triplex imaging and compression Doppler was performed to evaluate both the deep and the superficial systems bilaterally. To evaluate the superficial system, the examination was performed in the upright position. Color-flow Doppler ultrasound and compression ultrasound were utilized. In addition, maneuvers were utilized to demonstrate reflux. FINDINGS: 1. DEEP VENOUS ULTRASOUND OF THE RIGHT LOWER EXTREMITY: Common Femoral Vein: Compressible, normal respiratory variation and augmented flow. Femoral Vein: Compressible, normal color flow and augmentation. Popliteal Vein: Compressible, normal augmentation. Deep Reflux: There is no evidence of reflux in the deep system in either the common femoral vein or the popliteal vein. There is no evidence of a Felton's cyst. 2. SUPERFICIAL ULTRASOUND WITH DOPPLER OF RIGHT LOWER EXTREMITY: GREAT SAPHENOUS VEIN: Saphenofemoral Junction: 0.5 cm; Reflux: 0 ms Proximal Thigh: 0.5 cm; Reflux: 0 ms Mid Thigh: 0.4 cm; Reflux: 0 ms Above Knee: 0.4 cm; Reflux: 0 ms At Knee: 0.4 cm; Reflux: 0 ms Below Knee: 0.3 cm; Reflux: 0 ms Mid Calf: 0.3 cm; Reflux: 0 ms Ankle: 0.3 cm; Reflux: 0 ms DUPLICATED MEDIAL GREAT SAPHENOUS VEIN: Diameter: 0.3 cm Reflux: None DUPLICATED LATERAL GREAT SAPHENOUS VEIN: Diameter: 0.4 cm Reflux: None SMALL SAPHENOUS VEIN: Proximal: 0.3 cm; Reflux: 0 ms Distal: 0.2 cm; Reflux: 0 ms VEIN OF GIACOMINI: None Imaged. PERFORATORS: Location: None Imaged Size: NA Reflux: NA VARICOSITIES: Location: Posterior calf, mid thigh Size: 0.3 cm Reflux: None 3. DEEP VENOUS ULTRASOUND OF THE LEFT LOWER EXTREMITY: Common Femoral Vein: Compressible, normal respiratory variation and augmented flow. Femoral Vein: Compressible, normal color flow and augmentation. Popliteal Vein: Compressible, normal augmentation. Deep Reflux: There is no evidence of reflux in the deep system in either the common femoral vein or the popliteal vein. There is no evidence of a Felton's cyst. 4. SUPERFICIAL ULTRASOUND WITH DOPPLER OF LEFT LOWER EXTREMITY: GREAT SAPHENOUS VEIN: Saphenofemoral Junction: 0.7 cm; Reflux: 0 ms Proximal Thigh: 0.5 cm; Reflux: 0 ms Mid Thigh: 0.5 cm; Reflux: 0 ms Above Knee: 0.5 cm; Reflux: 0 ms At Knee: 0.4 cm; Reflux: 0 ms Below Knee: 0.3 cm; Reflux: 0 ms Mid Calf: 0.2 cm; Reflux: 0 ms Ankle: 0.2 cm; Reflux: 0 ms DUPLICATED MEDIAL GREAT SAPHENOUS VEIN: Diameter: None Imaged Reflux: NA DUPLICATED LATERAL GREAT SAPHENOUS VEIN: Diameter: 0.4 cm Reflux: None SMALL SAPHENOUS VEIN: Proximal: 0.4 cm; Reflux: 0 ms Distal: 0.2 cm; Reflux: 0 ms VEIN OF GIACOMINI: None Imaged. PERFORATORS: Location: None Imaged Size: NA Reflux: NA VARICOSITIES: Location: Posterior calf and proximal thigh Size: 0.3 cm Reflux: None US/US venous duplex LE BI IMPRESSION: Right: No significant superficial venous reflux. Scattered varicose veins without reflux Left: No significant superficial venous reflux. Scattered varicose veins without reflux
== END 2021-11-11 10:33 | disposition home or self-care (01) ==
LOC: HO.US 10:32
PROVIDERS: Visit Provider Surgery Vascular Surgery
DX: I83.11 Varicose veins of right lower extremity with inflammation (principal); I83.12 Varicose veins of left lower extremity with inflammation
CPT/HCPCS: 93970

== ENCOUNTER → 2021-11-28 13:50 | Outpatient (REF) | payer MEDICAID, SELFPAY ==
--- NOTE | 2021-11-28 14:30 | CA_ITS ---
Transthoracic Echocardiogram Patient (Last, First, Middle): Emerita Keller, Gender: Female Date of : 1970 Age: 51 Procedure Date: 11/28/2021 Procedure Type: Transthoracic Echocardiogram Location: OP Height: 162.56 cm Weight: 96.16 kg BSA: 2.01 m2 Heart Rate: bpm BP: 125 / 60 mmHg Tomato Grader: TO Referring MD: Ender Barroso MD Symptoms: R06.09 OTHER FORMS OF DYSPNEA Study Quality: Technically Difficult/Contrast ECG Rhythm: Sinus Conclusions: - The left ventricular systolic function is normal. The calculated ejection fraction is 59% by biplane method. - No obvious valvular pathology seen on this study. - There is no evidence of pulmonary hypertension. Findings Procedure Information Contrast agent, definity, is being given per protocol without apparent complications. Left Ventricle Normal left ventricular cavity size. There is normal left ventricular wall thickness. The left ventricular systolic function is normal. The calculated ejection fraction is 59% by biplane method. There is no evidence of regional wall motion abnormalities. Diastolic function is normal for age. Right Ventricle Normal right ventricular cavity size and systolic function. Atria Both atria are normal in size. Aortic Valve There is a normal trileaflet aortic valve. There is no aortic valve stenosis. There is trace (trivial) aortic valve regurgitation. Mitral Valve The mitral valve appears normal. There is trace mitral valve regurgitation. There is no mitral valve stenosis. Pulmonic Valve The pulmonic valve is likely normal. Tricuspid Valve Normal tricuspid valve structure. There is trace tricuspid valve regurgitation. There is no evidence of pulmonary hypertension. Great Vessels The asc aorta is normal in size. Venous The inferior vena cava is normal in size and collapses greater than 50% with inspiration. Pericardium/Pleural There is no evidence of pericardial effusion. Prior Study Comparison No prior study available for comparison. Recommendations, Care & Conclusions No obvious valvular pathology seen on this study. Measurements 2D Linear Measurements IVSd: 1.05 0.6-0.9/0.6-1.0 cm LVIDd: 4.86 3.9-5.3/4.2-5.9 cm LVIDd Index: 2.42 2.4-3.2/2.2-3.1 cm/m2 LVIDs: 2.50 2.0-3.6 cm LVPWd: 1.02 0.7-1.1 cm LA Diam: 3.60 2.7-3.8/3.0-4.0 cm LAIDs Index: 1.79 1.5-2.3 cm/m2 LV Mass: 226.74 67-162/88-224 g LV Mass Index: 112.81 43-95/49-115 g/m2 LVOT Diam: 2.00 3.0+(-)1.3 cm 2D Systolic Function EF 4C: 59.50 >55% EF 2C: 60.50 >55% EF BiP: 58.80 >55% Mitral Valve MV Pk E: 0.89 MV PK A: 0.65 MV Decel Time: 197.00 E/A: 1.40 E'Lateral: 12.50 E'Medial: 7.40 E/E' Med: 12.00 E/E' Lat: 7.10 PHT: 58.00 MVA PHT: 3.79 Decel [place]: 4.50 Aortic Valve AoV Pk Darin: 1.36 AoV Mn Darin: 0.94 AoV VTI: 0.28 AoV Pk Grad: 7.00 Aov Mn Grad: 4.00 DOMINGO Cont.VTI: 2.83 LVOT LVOT Pk Darin: 1.03 LVOT Mn Darin: 0.68 LVOT VTI: 0.25 LVOT Pk Grad: 4.00 LVOT Mn Grad: 2.00 LVOT Diam: 2.00 LVOT Area: 3.14 Diastolic Function MV Pk E: 0.89 MV Pk A: 0.65 E/A: 1.40 E'Medial: 7.40 E/E' Med: 12.00 E' Laterial: 12.50 E/E' Lat: 7.10 Right Ventricle TAPSE (mm): 21.70 TVS' Darin: 9.90 Tricuspid Valve TR Pk Darin: 2.24 TR Pk Grad: 20.00 RA Press: 3.00 RVSP: 23.00 Great Vessels Aorta Sinus of Valsalva: 3.79 2.0-3.[address] [place]: 2.96 1.7-3.4 cm Ao Asc: 3.60 2.1-3.4 cm Updated in Other Vendor System with Status of Final Hong De Leon MD electronically signed on 11/29/2021 11:17:15 AM with status of Final
== END ==
LOC: HO.CARD 13:50
PROVIDERS: Visit Provider Internal Medicine Pulmonary Disease
DX: R06.09 Other forms of dyspnea (principal)
CPT/HCPCS: 93306; Q9957

== ENCOUNTER → 2021-12-19 09:29 | Outpatient (BNVA) | payer MEDICAID, SELFPAY | PROVIDERS: PCP Internal Medicine; Visit Provider Surgery Vascular Surgery | DX: M79.604 Pain in right leg (principal); M79.605 Pain in left leg | CPT/HCPCS: 99212 ==

== ENCOUNTER 2021-12-20 13:56 | Outpatient (REF) | payer MEDICAID, SELFPAY ==
--- NOTE | 2021-12-20 15:21 | PFT_ITS ---
INDICATION: Dyspnea. SPIROMETRY: FEV1 to FVC of 89% with an FEV1 of 2.35 L, which is 84% predicted and an FVC of 2.62 L, which is 76% predicted. No significant response to bronchodilators noted. Maximum voluntary ventilation 82% predicted. LUNG VOLUMES: Total lung capacity 74% predicted with an expiratory reserve volume of 24% predicted. DIFFUSION CAPACITY: 90% predicted. COMPARISONS: None. INTERPRETATION: No obstructive ventilatory defect. No significant response to bronchodilators noted. Normal maximum voluntary ventilation. The patient does have a restrictive ventilatory defect consistent with mild restrictive lung disease. In part, this could be explained with a decrease in the expiratory reserve volume, which is due to her elevated BMI. Diffusion capacity is within normal limits. Clinical correlation warranted. MD LANI Howell/JOANNE / [id number]
== END 2021-12-20 13:57 | disposition home or self-care (01) ==
LOC: HO.RESP 13:56
PROVIDERS: Visit Provider Internal Medicine Pulmonary Disease
DX: J45.909 Unspecified asthma, uncomplicated (principal)
CPT/HCPCS: 94060; 94727; 94729

== ENCOUNTER → 2021-12-23 10:46 | Outpatient (BNVA) | payer MEDICAID, SELFPAY | PROVIDERS: PCP Internal Medicine; Visit Provider Internal Medicine Pulmonary Disease | DX: J45.909 Unspecified asthma, uncomplicated (principal); Z91.09 Other allergy status, other than to drugs and biological substances | CPT/HCPCS: 99212 ==

== ENCOUNTER 2022-02-03 10:46 | Outpatient (REF) | payer MEDICAID, SELFPAY | END 2022-02-03 10:47 | disposition home or self-care (01) | LOC: HO.MDS 10:46 | PROVIDERS: PCP Internal Medicine; Visit Provider Internal Medicine Pulmonary Disease | DX: J45.50 Severe persistent asthma, uncomplicated (principal) | CPT/HCPCS: 96372; J2182 ==

== ENCOUNTER 2022-03-03 11:46 | Outpatient (REF) | payer MEDICAID, SELFPAY | END 2022-03-03 11:47 | disposition home or self-care (01) | LOC: HO.MDS 11:46 | PROVIDERS: Visit Provider Internal Medicine Pulmonary Disease | DX: J45.50 Severe persistent asthma, uncomplicated (principal) | CPT/HCPCS: 96372; J2182 ==

== ENCOUNTER 2022-03-08 17:38 | Emergency (ER) | payer MEDICAID, SELFPAY ==
--- NOTE | ~2022-03-08 | XR_ITS ---
EXAMINATION: XR CHEST CLINICAL INFORMATION: Chest pain COMPARISON: None TECHNIQUE: Frontal view of the chest was obtained. FINDINGS: No significant abnormality is noted involving the heart, lungs, mediastinum, bony thorax or soft tissues. XR/XR chest 1V IMPRESSION: Unremarkable examination.
[2022-03-08 18:09] VITALS: BP 140/86; PULSE 126; RESP 18; TEMP 37.1; O2SAT 98; BMI 36.8
--- NOTE | 2022-03-08 18:11 | ECG_ITS ---
Test Reason : CHEST PAIN Blood Pressure : / mmHG Vent. Rate : 111 BPM Atrial Rate : 111 BPM P-R Int : 120 ms QRS Dur : 088 ms QT Int : 330 ms P-R-T Axes : 041 -48 073 degrees QTc Int : 448 ms Sinus tachycardia Pulmonary disease pattern Left anterior fascicular block Moderate voltage criteria for LVH, may be normal variant ( R in aVL , Rock product ) Nonspecific ST abnormality Abnormal ECG When compared to the previous EKG of No significant changes seen Referred By: Generic ED Physician Electronically Signed By:JUANPABLO FONSECA MD
[2022-03-08 19:18] LABS: MANUAL DIFF FLAG NO
[2022-03-08 19:20] VITALS: BP 107/65; PULSE 107; RESP 29; TEMP 37.2; O2SAT 90
[2022-03-08 19:21] LABS: Basophils Percent Auto 0.3 % (0-2); Eosinophils Percent Auto 0.1 % (0-4); Hematocrit 42.4 % (37.0-47.0); Hemoglobin 13.3 g/dl (12.0-16.0); Imm Gran Abs Auto 0.03 X10*3/uL (0.00-0.03); Imm Gran Pct Auto 0.4 % (0.0-0.4); Lymphocytes Absolute Auto 1.2 X10*3/uL (1.2-4.9); Lymphocytes Percent Auto 16.7 % (20-40); Mean Corpuscular HGB Conc 31.4 g/dl (31.0-35.0); Mean Corpuscular Hemoglobin 23.8 pg (27.0-33.0); Mean Corpuscular Volume 75.8 fL (80.0-98.0); Mean Platelet Volume 9.6 fL (9.4-12.3); Monocytes Absolute Auto 0.4 X10*3/uL (0.1-1.2); Monocytes Percent Auto 6.3 % (2-11); Neutrophils Absolute Auto 5.4 x10*3/uL (2.0-8.3); Neutrophils Percent Auto 76.2 % (45-73); Platelet Count 326 X10*3/uL (160-400); Red Blood Count 5.59 X10*6/uL (4.20-5.50); Red Cell Distribution Width 14.6 % (11.0-16.0)
[2022-03-08 19:34] LABS: Anion Gap 16 (12-20); Blood Urea Nitrogen 18 mg/dL (9-16); Calcium 9.2 mg/dL (8.4-10.2); Carbon Dioxide 24 mmol/L (22-29); Chloride 103 mmol/L (96-108); Creatinine Clr Calc Pharmacy 87.7; Estimated Glomerular Filt Rate > 60; Glucose Random 113 mg/dL (60-115); Potassium 3.6 mmol/L (3.3-5.1); Sodium 139 mmol/L (135-145)
[2022-03-08 19:43] VITALS: BP 118/80; PULSE 104; RESP 24; O2SAT 96
--- NOTE | 2022-03-08 19:44 | PC.NURSE ---
Assumed care for pt. Pt RODNEY x 4. traffic monitor specialist on pt reading sinus tach pulse 108. Pt c/o mcmullen generalized body aches and mild cp. Ekg and labs obtained awaiting urine sample. Pt verbalized understanding to press call hart when need of assistance to urinate. -
[2022-03-08 19:49] LABS: Troponin-I High Sensitivity < 3.5 ng/L (<3.5-17.0)
--- NOTE | 2022-03-08 20:01 | ED.GENADULT ---
HPI - General Adult General Chief complaint: General Medical Stated complaint: headache,chest pain Time Seen by Provider: 03/08/22 19:46 Source: patient Mode of arrival: ambulatory Limitations: no limitations History of Present Illness HPI narrative: Patient with History of anxiety depression asthma comes here for having low-grade fever chills body aches weakness since early today pressure with nausea and vomiting x6 , no diarrhea no significant abdominal pain no other family member sick no urinary complaint Related Data Home Medications Medication Instructions Recorded Confirmed acetaminophen 500 mg oral powder 500 mg PO Q6H PRN 07/12/20 08/13/21 packet (Tylenol Extra Strength) albuterol sulfate 90 mcg/actuation 2 puff inhalation Q6H PRN 07/12/20 08/13/21 aerosol inhaler (ProAir HFA) blood pressure monitor #1 ea 07/12/20 08/13/21 cetirizine 10 mg tablet (Zyrtec) 10 mg PO DAILY PRN 07/12/20 08/13/21 fluticasone propionate 50 2 spray intranasal DAILY 07/12/20 08/13/21 mcg/actuation nasal spray,suspension ketoconazole 2 % shampoo 1 appl topical 3XW 07/12/20 08/13/21 lisinopril 20 mg tablet 20 mg PO DAILY 07/02/21 08/13/21 venlafaxine 37.5 mg 37.5 mg PO DAILY 09/10/21 capsule,extended release 24 hr Previous Rx's Medication Instructions Recorded budesonide-formoterol HFA 160 2 puff inhalation BID 30 days #1 ea 04/14/21 mcg-4.5 mcg/actuation aerosol inhaler (Symbicort) hvgpanlzkh-bhpjoersqpdfr-yacsbqwx 1 tab PO Q6H PRN pain #20 tabs 05/18/21 50 mg-325 mg-40 mg tablet ondansetron 4 mg disintegrating 4 mg PO Q8H PRN nausea and 05/18/21 tablet vomiting #20 tabs omeprazole 20 mg capsule,delayed 20 mg PO DAILY #30 caps 07/02/21 release bisacodyl 5 mg tablet,delayed 10 mg PO ONCE colonoscopy prep 1 08/13/21 release (Dulcolax (bisacodyl)) day #2 tabs polyethylene glycol 3350 17 238 g PO ONCE 1 day #238 grams 08/13/21 gram/dose oral powder (Miralax) mepolizumab 100 mg/mL subcutaneous 100 mg subcut Q4W 28 days #1 mL 01/02/22 auto-injector (Nucala) prednisone 20 mg tablet See Rx Instructions PO DAILY 10 01/07/22 days #15 tabs ibuprofen 600 mg tablet 600 mg PO Q6H PRN fever or pain 03/09/22 #30 tabs Allergies Allergy/AdvReac Type Severity Reaction Status Date / Time Penicillins Allergy Unknown UNKNOWN Verified 12/23/21 10:54 Review of Systems Review of Systems: Yes all other systems are reviewed and are negative [facility] Past Medical History Medical History Asthma HTN (hypertension) Surgical History History of abdominoplasty (03/28/20) History of hysterectomy Hx of breast surgery (03/28/20) Family History Family History Father HTN (hypertension) Diabetes Mother Epilepsia Social History Social History Alcohol intake: current Alcohol intake frequency: holidays/special occasions only Patient Tobacco Use Status: Never used Tobacco Smoked in Last 30 Days: No Use of substances other than those prescribed or required for medical reasons: No Advance Directives: No Advance Directives Information Provided: Yes Patient : No Physical Exam ED Vital Signs: Vital Signs - 24 hr 03/08/22 18:09 03/08/22 19:20 03/08/22 19:43 Temperature 98.8 F 99 F Pulse Rate 126 H 107 H 104 H Respiratory Rate 18 29 H 24 H Blood Pressure 140/86 H 107/65 118/80 Pulse Oximetry 98 90 L 96 Oxygen Delivery Method Room Air Room Air Nasal Cannula Oxygen Flow Rate 1 03/08/22 22:13 03/09/22 00:48 Temperature 97.7 F Pulse Rate 78 80 Respiratory Rate 17 18 Blood Pressure 118/73 102/74 Pulse Oximetry 97 99 Oxygen Delivery Method Room Air Room Air Oxygen Flow Rate BMI result Body Mass Index 36.8 Appearance: Alert. Oriented X3. No acute distress. Eyes: PERRLA, No Nystagmus ENT: Pharynx normal. Oral Mucosa moist Neck: Normal inspection. Neck supple. CVS: Normal heart rate and rhythm. Pulses normal. Respiratory: No respiratory distress. Equal air entry bilateral, no wheezing/rales/rhonchi Abdomen: Soft and nontender. Bowel sounds are present, no mass palpable, no CVA tenderness Skin: Skin warm and dry. Normal skin color. Normal skin turgor. Extremities: No lower extremity edema. No calf tenderness Neuro: Oriented X 3. No motor deficit. No sensory deficit.No cerebellar signs , cranial nerves II-XII intact Medications Administered Discontinued Medications Generic Name Dose Route Start Last Admin Trade Name Freq PRN Reason Stop Dose Admin Sodium Chloride 1,000 mls @ 999 mls/hr 03/08/22 21:35 03/08/22 23:33 Ns IV 03/08/22 22:35 Infused .Q1H1M ONE Infusion Ibuprofen 600 mg 03/08/22 20:14 03/08/22 20:31 Ibuprofen 600 Mg Tablet PO 03/08/22 20:15 600 mg ONCE ONE Administration Medical Decision Making Medical Decision Making [facility] Narrative: Patient likely with viral syndrome workup negative as such feeling much better now after IV fluids no active vomiting discharge patient home Lab Data [facility] Lab Attestation statement: I reviewed the patient's lab results. 03/08/22 19:12 03/08/22 19:12 Labs: Lab Results 03/08/22 03/08/22 03/08/22 Range/Units 19:12 19:12 19:12 WBC 7.0 (4.8-10.8) X10*3/uL RBC 5.59 H (4.20-5.50) X10*6/uL Hgb 13.3 (12.0-16.0) g/dl Hct 42.4 (37.0-47.0) % MCV 75.8 L (80.0-98.0) fL MCH 23.8 L (27.0-33.0) pg MCHC 31.4 (31.0-35.0) g/dl RDW 14.6 (11.0-16.0) % Plt Count 326 (160-400) X10*3/uL MPV 9.6 (9.4-12.3) fL Immature Gran % (Auto) 0.4 (0.0-0.4) % Neut % (Auto) 76.2 H (45-73) % Lymph % (Auto) 16.7 L (20-40) % [place] % (Auto) 6.3 (2-11) % Eos % (Auto) 0.1 (0-4) % Baso % (Auto) 0.3 (0-2) % Lymph # (Auto) 1.2 (1.2-4.9) X10*3/uL Lander # (Auto) 0.4 (0.1-1.2) X10*3/uL Eos # (Auto) 0.0 (0.0-0.4) X10*3/uL Baso # (Auto) 0.0 (0.0-0.2) X10*3/uL Abs Immat Gran (auto) 0.03 (0.00-0.03) X10*3/uL Absolute Neuts (auto) 5.4 (2.0-8.3) x10*3/uL Absolute Nucleated RBC 0.000 (0.0-0.012) X10*3/uL Nucleated RBC % (auto) 0.0 (0.0-0.2) /100WBC Sodium 139 (135-145) mmol/L Potassium 3.6 (3.3-5.1) mmol/L Chloride 103 (96-108) mmol/L Carbon Dioxide 24 (22-29) mmol/L Anion Gap 16 (12-20) BUN 18 H (9-16) mg/dL Creatinine 0.87 (0.5-1.4) mg/dL Estim Creat Clear Calc 87.7 Estimated GFR > 60 Random Glucose 113 (60-115) mg/dL Calcium 9.2 (8.4-10.2) mg/dL Total Creatine Kinase 72 (26-140) U/L Troponin I High Sens < 3.5 (<3.5-17.0) ng/L Urine Color Urine Appearance Urine pH (5.0-9.0) Ur Specific [place] (1.005-1.025) Urine Protein (Neg-Trace) mg/dL Urine Glucose (UA) (Negative) mg/dL Urine Ketones (Negative) mg/dL Urine Blood (Negative) Urine Nitrite (Negative) Ur Leukocyte Esterase (Negative) Urine RBC (0-2) /HPF Urine WBC (0-5) /HPF Ur Squamous Epith Cells (0-2) /HPF Urine Bacteria (None Seen) Hyaline Casts (0-2) /LPF Influenza Type A (PCR) (Negative) Influenza Type B (PCR) (Negative) RSV RNA Qual (PCR) (Negative) SARS-CoV-2 RNA (RT-PCR) (Negative) 03/08/22 03/09/22 Range/Units 19:12 00:20 WBC (4.8-10.8) X10*3/uL RBC (4.20-5.50) X10*6/uL Hgb (12.0-16.0) g/dl Hct (37.0-47.0) % MCV (80.0-98.0) fL MCH (27.0-33.0) pg MCHC (31.0-35.0) g/dl RDW (11.0-16.0) % Plt Count (160-400) X10*3/uL MPV (9.4-12.3) fL Immature Gran % (Auto) (0.0-0.4) % Neut % (Auto) (45-73) % Lymph % (Auto) (20-40) % Lander % (Auto) (2-11) % Eos % (Auto) (0-4) % Baso % (Auto) (0-2) % Lymph # (Auto) (1.2-4.9) X10*3/uL Lander # (Auto) (0.1-1.2) X10*3/uL Eos # (Auto) (0.0-0.4) X10*3/uL Baso # (Auto) (0.0-0.2) X10*3/uL Abs Immat Gran (auto) (0.00-0.03) X10*3/uL Absolute Neuts (auto) (2.0-8.3) x10*3/uL Absolute Nucleated RBC (0.0-0.012) X10*3/uL Nucleated RBC % (auto) (0.0-0.2) /100WBC Sodium (135-145) mmol/L Potassium (3.3-5.1) mmol/L Chloride (96-108) mmol/L Carbon Dioxide (22-29) mmol/L Anion Gap (12-20) BUN (9-16) mg/dL Creatinine (0.5-1.4) mg/dL Estim Creat Clear Calc Estimated GFR Random Glucose (60-115) mg/dL Calcium (8.4-10.2) mg/dL Total Creatine Kinase (26-140) U/L Troponin I High Sens (<3.5-17.0) ng/L Urine Color Dark Yellow Urine Appearance Cloudy Urine pH 5.5 (5.0-9.0) Ur Specific [place] >= 1.030 H (1.005-1.025) Urine Protein 30 (1+) H (Neg-Trace) mg/dL Urine Glucose (UA) Negative (Negative) mg/dL Urine Ketones Trace (Negative) mg/dL Urine Blood Trace H (Negative) Urine Nitrite Negative (Negative) Ur Leukocyte Esterase Negative (Negative) Urine RBC >20 H (0-2) /HPF Urine WBC 0-5 (0-5) /HPF Ur Squamous Epith Cells 6-10 (0-2) /HPF Urine Bacteria None Seen (None Seen) Hyaline Casts 11-20 (0-2) /LPF Influenza Type A (PCR) NEGATIVE (Negative) Influenza Type B (PCR) NEGATIVE (Negative) RSV RNA Qual (PCR) NEGATIVE (Negative) SARS-CoV-2 RNA (RT-PCR) NEGATIVE (Negative) Discharge Plan Discharge Clinical Impression: Fever, Acute viral syndrome Patient Disposition: Home, Self-Care Instructions: Viral Syndrome (ED) Additional Instructions: Drink plenty of fluids Ibuprofen for pain and fever Follow with PCP if any concern Prescriptions: New ibuprofen 600 mg tablet 600 mg PO Q6H PRN (Reason: fever or pain) Qty: 30 0RF No Action budesonide-formoterol [Symbicort] 160-4.5 mcg/actuation HFA aerosol inhaler 2 puff inhalation BID 30 Days Qty: 1 6RF Nucala 100 mg/mL auto-injector 100 mg subcut Q4W 28 Days Qty: 1 12RF prednisone 20 mg tablet See Rx Instructions PO DAILY 10 Days Qty: 15 0RF Rx Instructions: PO daily; Take 2 tabs daily x 5 days, then 1 tablet daily x 5 days ondansetron 4 mg tablet,disintegrating 4 mg PO Q8H PRN (Reason: nausea and vomiting) Qty: 20 0RF tynvampthl-jdkiuxedurohw-frew 50-325-40 mg tablet 1 tab PO Q6H PRN (Reason: pain) Qty: 20 0RF (DME) blood pressure monitor Kit See Rx Instructions .ROUTE .MEDSUPPLY Qty: 1 Rx Instructions: As directed fluticasone propionate 50 mcg/actuation spray,suspension 2 spray intranasal DAILY Rx Instructions: administer into each nostril ketoconazole 2 % shampoo 1 appl topical 3XW albuterol sulfate [ProAir HFA] 90 mcg/actuation HFA aerosol inhaler 2 puff inhalation Q6H PRN Tylenol Extra Strength 500 mg powder in packet 500 mg PO Q6H PRN cetirizine [Zyrtec] 10 mg tablet 10 mg PO DAILY PRN lisinopril 20 mg tablet 20 mg PO DAILY omeprazole 20 mg capsule,delayed release(DR/EC) 20 mg PO DAILY Qty: 30 5RF bisacodyl [Dulcolax (bisacodyl)] 5 mg tablet,delayed release (DR/EC) 10 mg PO ONCE 1 Days Qty: 2 0RF Rx Instructions: Take 2 tablets by mouth at 12:00pm the day before your procedure. polyethylene glycol 3350 [Miralax] 17 gram/dose powder 238 g PO ONCE 1 Days Qty: 238 0RF Rx Instructions: Take as directed by mouth the day before your procedure. venlafaxine 37.5 mg capsule,extended release 24hr 37.5 mg PO DAILY
[2022-03-08 20:04] LABS: Influenza A PCR NEGATIVE (Negative); Influenza B PCR NEGATIVE (Negative); Resp Syncy Virus RNA Qual PCR NEGATIVE (Negative); SARS COV2 PCR INHOUSE NEGATIVE (Negative)
[2022-03-08] MEDS: Ibuprofen 600 MG TABLET PO (20:31)
[2022-03-08] MEDS: 0.9 % Sodium Chloride 1,000 ML 999 ML IV (22:07)
--- NOTE | 2022-03-08 22:11 | PC.NURSE ---
RN started administration of 1 L IVF. Pt reports pain decreased to 6/10. Pt is sleep no s/sx of distress noted.
[2022-03-08 22:13] VITALS: BP 118/73; PULSE 78; RESP 17; O2SAT 97
[2022-03-09 00:28] LABS: Appearance Urine Cloudy; Color Urine Dark Yellow; Glucose Urine UA Negative (Negative); Leukocyte Esterase Urine Negative (Negative); Nitrite Urine Negative (Negative); PH 5.5 (5.0-9.0); Specific Gravity - Urine >= 1.030 (1.005-1.025); UMIC TRIGGER UACC YES; Urine Blood Trace (Negative); Urine Ketones Trace mg/dL (Negative); Urine Protein 30 (1+) mg/dL (Neg-Trace)
[2022-03-09 00:35] LABS: Bacteria Urine None Seen (None Seen); RBC Urine >20 /HPF (0-2); WBC Urine 0-5 /HPF (0-5)
[2022-03-09 00:48] VITALS: BP 102/74; PULSE 80; RESP 18; TEMP 36.5; O2SAT 99
== END 2022-03-09 01:11 | disposition home or self-care (01) ==
PROVIDERS: Emergency Provider Internal Medicine; PCP Internal Medicine
DX: B34.9 Viral infection, unspecified (principal); R50.9 Fever, unspecified; Z20.822 Contact with and (suspected) exposure to COVID-19; Z20.828 Contact with and (suspected) exposure to other viral communicable diseases
CPT/HCPCS: 0241U; 71045; 80048; 81001; 82550; 84484; 85025; 93005; 96360; 99284; 99285

== ENCOUNTER 2022-04-16 11:20 | Outpatient (REF) | payer MEDICAID, SELFPAY | END 2022-04-16 11:21 | disposition home or self-care (01) | LOC: HO.MDS 11:20 | PROVIDERS: Visit Provider Internal Medicine Pulmonary Disease | DX: J45.50 Severe persistent asthma, uncomplicated (principal) | CPT/HCPCS: 96372; J2182 ==

== ENCOUNTER 2022-05-14 10:39 | Outpatient (REF) | payer MEDICAID, SELFPAY | END 2022-05-14 10:40 | disposition home or self-care (01) | LOC: HO.MDS 10:39 | PROVIDERS: Visit Provider Internal Medicine Pulmonary Disease | DX: J45.50 Severe persistent asthma, uncomplicated (principal) | CPT/HCPCS: 96372; J2182 ==

== ENCOUNTER 2022-05-15 12:44 | Outpatient (REF) | payer MEDICAID, SELFPAY ==
[2022-05-15 13:14] LABS: MANUAL DIFF FLAG NO
[2022-05-15 13:24] LABS: Basophils Percent Auto 0.4 % (0-2); Eosinophils Absolute Auto 0.1 X10*3/uL (0.0-0.4); Eosinophils Percent Auto 1.3 % (0-4); Hematocrit 39.8 % (37.0-47.0); Hemoglobin 12.4 g/dl (12.0-16.0); Imm Gran Abs Auto 0.02 X10*3/uL (0.00-0.03); Imm Gran Pct Auto 0.4 % (0.0-0.4); Lymphocytes Absolute Auto 1.6 X10*3/uL (1.2-4.9); Lymphocytes Percent Auto 30.2 % (20-40); Mean Corpuscular HGB Conc 31.2 g/dl (31.0-35.0); Mean Corpuscular Hemoglobin 23.8 pg (27.0-33.0); Mean Corpuscular Volume 76.2 fL (80.0-98.0); Mean Platelet Volume 9.9 fL (9.4-12.3); Monocytes Absolute Auto 0.3 X10*3/uL (0.1-1.2); Monocytes Percent Auto 6.3 % (2-11); Neutrophils Absolute Auto 3.2 x10*3/uL (2.0-8.3); Neutrophils Percent Auto 61.4 % (45-73); Platelet Count 287 X10*3/uL (160-400); Red Blood Count 5.22 X10*6/uL (4.20-5.50); Red Cell Distribution Width 14.8 % (11.0-16.0); White Blood Count 5.2 X10*3/uL (4.8-10.8)
[2022-05-15 14:01] LABS: Alanine Aminotransferase 33 U/L (0-31); Albumin Level 4.2 g/dL (3.5-5.0); Alkaline Phosphatase 141 U/L (39-117); Anion Gap 12 (12-20); Aspartate Amino Transferase 31 U/L (5-31); Bilirubin Direct 0.2 mg/dL (0.0-0.5); Bilirubin Total 1.1 mg/dL (0.0-1.0); Blood Urea Nitrogen 17 mg/dL (9-16); C Reactive Protein 1.57 mg/dL (< or = 0.50); Calcium 9.6 mg/dL (8.4-10.2); Carbon Dioxide 27 mmol/L (22-29); Chloride 106 mmol/L (96-108); Cholesterol 235 mg/dL; Estimated Glomerular Filt Rate > 60; Glucose Random 101 mg/dL (60-115); HDL Cholesterol 41 mg/dL; LDL Cholesterol Calculated 150 mg/dl; Potassium 4.2 mmol/L (3.3-5.1); Sodium 141 mmol/L (135-145); Total Protein 7.3 g/dL (6.5-8.0); Triglycerides 223 mg/dL
[2022-05-15 14:04] LABS: Erythrocyte Sedimentation Rate 16 MM/HR (0-20)
[2022-05-15 14:06] LABS: Estimated Average Glucose 131 mg/dL; Hemoglobin A1C 149.3309 umol/L; Hemoglobin A1c % 6.2 %
[2022-05-15 14:20] LABS: Rheumatoid Factor 26.5 IU/mL (<15.0)
[2022-05-15 14:23] LABS: Free T4 (Free Thyroxine) 0.86 ng/dL (0.71-1.85); Thyroid Stimulating Hormone 1.03 uIU/mL (0.32-4.0); Vitamin D 25-OH Total 10.7 ng/mL (>30)
[2022-05-15 18:21] LABS: Creatinine Urine 154.55 mg/dL; Microalbum/Creatinine Ratio Ur 10.3 ug/mg cr
[2022-05-16 07:58] LABS: Syphilis Screen Nonreactive (Nonreactive)
[2022-05-16 08:21] LABS: Hepatitis A Antibody IgM 0.43 Index (0-0.79); ~Hepatitis A Antibody IgM Nonreactive (Nonreactive)
[2022-05-16 08:22] LABS: HBS Num1 0.19 mIU/mL (0-7.99); HBc Num1 0.11 S/CO (0.00-0.79); HBsAGNum1 0.34 S/CO (0.00-0.99); HIV AB/AG Nonreactive (Nonreactive); HIV Num 1 0.07 S/CO (0.00-0.99); Hepatitis B Core Antibody Nonreactive (Nonreactive); Hepatitis B Surface Antigen Negative (Negative); ~Hepatitis B Surface Antibody NONREACTIVE (Nonreactive)
[2022-05-16 15:09] LABS: CT PCR NOT DETECTED (Not Detect.); NG PCR NOT DETECTED (Not Detect.)
[2022-05-16 21:48] LABS: Lyme Abs Screen <0.90 index
[2022-05-18 15:28] LABS: Anti Nuclear Antibody Screen NEGATIVE (NEGATIVE)
== END 2022-05-15 12:45 | disposition home or self-care (01) ==
LOC: HO.LAB 12:44
PROVIDERS: PCP Family Medicine; Visit Provider Family Medicine
DX: Z11.4 Encounter for screening for human immunodeficiency virus [HIV] (principal); M25.50 Pain in unspecified joint; I10 Essential (primary) hypertension; J45.909 Unspecified asthma, uncomplicated; Z91.09 Other allergy status, other than to drugs and biological substances
CPT/HCPCS: 0353U; 36415; 80048; 80061; 80076; 82043; 82306; 83036; 84439; 84443; 85025; 85652; 86038; 86039; 86140; 86431; 86617; 86618; 86704; 86706; 86709; 86780; 87340; 87389; 99212

== ENCOUNTER 2022-05-23 16:52 | Outpatient (REF) | payer MEDICAID, SELFPAY ==
--- NOTE | ~2022-05-23 | XR_ITS ---
EXAMINATION: Bilateral shoulder. CLINICAL INDICATION: Worsening joint pain. COMPARISON: None available. TECHNIQUE: 4 views each shoulder. FINDINGS: Left Shoulder: The glenohumeral and the AC joint spaces are maintained normal. No bony erosive changes or loose bodies or periarticular spurring. The soft tissues are normal. Right Shoulder: The glenohumeral and AC joint spaces are normal. No visible acute fracture, dislocation or subluxation seen. No bony erosive changes. The soft tissues are normal. XR/XR shoulder LT min 2V IMPRESSION: Unremarkable bilateral shoulder exam.
--- NOTE | ~2022-05-23 | XR_ITS ---
EXAMINATION: XR HAND, BILATERAL XR KNEE, BILATERAL CLINICAL INDICATION: Bilateral worsening hand and knee pain. COMPARISON: None. TECHNIQUE: 3 views each hand. 3 views each knee. FINDINGS: Bilateral Hands: There is no visible acute fracture, dislocation or subluxation. There is mild loss of PIP, DIP joint spaces without bony erosive changes or deformity or periapical spurring. No soft tissue swelling seen. There is mild dorsal soft tissue swelling left hand. The intercarpal joint spaces are preserved. Bilateral Knees: There is maintained tricompartment joint space. No periarticular spurring, loose bodies or joint effusion seen. There is no abnormal joint effusion. The soft tissues are normal. XR/XR hand RT min 3V IMPRESSION: Mild early degenerative changes bilateral hands. No visible acute fracture or dislocation. Unremarkable bilateral knee exam.
--- NOTE | ~2022-05-23 | XR_ITS ---
EXAMINATION: XR HAND, BILATERAL XR KNEE, BILATERAL CLINICAL INDICATION: Bilateral worsening hand and knee pain. COMPARISON: None. TECHNIQUE: 3 views each hand. 3 views each knee. FINDINGS: Bilateral Hands: There is no visible acute fracture, dislocation or subluxation. There is mild loss of PIP, DIP joint spaces without bony erosive changes or deformity or periapical spurring. No soft tissue swelling seen. There is mild dorsal soft tissue swelling left hand. The intercarpal joint spaces are preserved. Bilateral Knees: There is maintained tricompartment joint space. No periarticular spurring, loose bodies or joint effusion seen. There is no abnormal joint effusion. The soft tissues are normal. XR/XR knee LT 3V IMPRESSION: Mild early degenerative changes bilateral hands. No visible acute fracture or dislocation. Unremarkable bilateral knee exam.
--- NOTE | ~2022-05-23 | XR_ITS ---
EXAMINATION: Bilateral shoulder. CLINICAL INDICATION: Worsening joint pain. COMPARISON: None available. TECHNIQUE: 4 views each shoulder. FINDINGS: Left Shoulder: The glenohumeral and the AC joint spaces are maintained normal. No bony erosive changes or loose bodies or periarticular spurring. The soft tissues are normal. Right Shoulder: The glenohumeral and AC joint spaces are normal. No visible acute fracture, dislocation or subluxation seen. No bony erosive changes. The soft tissues are normal. XR/XR shoulder RT min 2V IMPRESSION: Unremarkable bilateral shoulder exam.
--- NOTE | ~2022-05-23 | XR_ITS ---
EXAMINATION: XR HAND, BILATERAL XR KNEE, BILATERAL CLINICAL INDICATION: Bilateral worsening hand and knee pain. COMPARISON: None. TECHNIQUE: 3 views each hand. 3 views each knee. FINDINGS: Bilateral Hands: There is no visible acute fracture, dislocation or subluxation. There is mild loss of PIP, DIP joint spaces without bony erosive changes or deformity or periapical spurring. No soft tissue swelling seen. There is mild dorsal soft tissue swelling left hand. The intercarpal joint spaces are preserved. Bilateral Knees: There is maintained tricompartment joint space. No periarticular spurring, loose bodies or joint effusion seen. There is no abnormal joint effusion. The soft tissues are normal. XR/XR knee RT 3V IMPRESSION: Mild early degenerative changes bilateral hands. No visible acute fracture or dislocation. Unremarkable bilateral knee exam.
--- NOTE | ~2022-05-23 | XR_ITS ---
EXAMINATION: XR HAND, BILATERAL XR KNEE, BILATERAL CLINICAL INDICATION: Bilateral worsening hand and knee pain. COMPARISON: None. TECHNIQUE: 3 views each hand. 3 views each knee. FINDINGS: Bilateral Hands: There is no visible acute fracture, dislocation or subluxation. There is mild loss of PIP, DIP joint spaces without bony erosive changes or deformity or periapical spurring. No soft tissue swelling seen. There is mild dorsal soft tissue swelling left hand. The intercarpal joint spaces are preserved. Bilateral Knees: There is maintained tricompartment joint space. No periarticular spurring, loose bodies or joint effusion seen. There is no abnormal joint effusion. The soft tissues are normal. XR/XR hand LT min 3V IMPRESSION: Mild early degenerative changes bilateral hands. No visible acute fracture or dislocation. Unremarkable bilateral knee exam.
== END 2022-05-23 16:53 | disposition home or self-care (01) ==
LOC: HO.XRAY 16:52
PROVIDERS: PCP Family Medicine; Visit Provider Family Medicine
DX: M25.50 Pain in unspecified joint (principal)
CPT/HCPCS: 73030; 73130; 73562

== ENCOUNTER 2022-06-11 09:49 | Outpatient (REF) | payer MEDICAID, SELFPAY | END 2022-06-11 09:50 | disposition home or self-care (01) | LOC: HO.MDS 09:49 | PROVIDERS: Visit Provider Internal Medicine Pulmonary Disease | DX: J45.50 Severe persistent asthma, uncomplicated (principal) | CPT/HCPCS: 96372; J2182 ==

== ENCOUNTER 2022-07-09 09:14 | Outpatient (REF) | payer MEDICAID, SELFPAY | END 2022-07-09 09:15 | disposition home or self-care (01) | LOC: HO.MDS 09:14 | PROVIDERS: Visit Provider Internal Medicine Pulmonary Disease | DX: J45.50 Severe persistent asthma, uncomplicated (principal) | CPT/HCPCS: 96372; J2182 ==

== ENCOUNTER 2022-07-24 03:38 | Emergency (ER) | payer MEDICAID, SELFPAY ==
--- NOTE | 2022-07-24 | ECG_ITS ---
Test Reason : CHEST PAIN Blood Pressure : / mmHG Vent. Rate : 084 BPM Atrial Rate : 084 BPM P-R Int : 124 ms QRS Dur : 094 ms QT Int : 382 ms P-R-T Axes : 052 -31 051 degrees QTc Int : 451 ms Normal sinus rhythm Left axis deviation Moderate voltage criteria for LVH, may be normal variant ( R in aVL , [place] product ) Abnormal ECG When compared with ECG of 08-MAR-2022 18:58, Left anterior fascicular block is no longer Present Referred By: Generic ED Physician Electronically Signed By:Sai Parisi
--- NOTE | ~2022-07-24 | XR_ITS ---
EXAMINATION: XR CHEST CLINICAL INFORMATION: Rule out pneumonia COMPARISON: 03/08/2022 TECHNIQUE: Frontal view of the chest was obtained. FINDINGS: Cardiac leads overlie the chest. The lungs are well expanded. There is no focal consolidation, edema, or effusion. No pneumothorax. The cardiomediastinal silhouette is within normal limits. No acute osseous abnormality. XR/XR chest 1V IMPRESSION: No acute pulmonary disease.
[2022-07-24 03:44] VITALS: TEMP 36.8; BMI 39.5
[2022-07-24 03:53] VITALS: BP 119/72; PULSE 82; RESP 18; TEMP 36.8; O2SAT 94
[2022-07-24 04:02] LABS: Hematocrit 38.3 % (37.0-47.0); Hemoglobin 11.9 g/dl (12.0-16.0); Mean Corpuscular HGB Conc 31.1 g/dl (31.0-35.0); Mean Corpuscular Hemoglobin 24.2 pg (27.0-33.0); Mean Corpuscular Volume 77.8 fL (80.0-98.0); Mean Platelet Volume 9.6 fL (9.4-12.3); Platelet Count 316 X10*3/uL (160-400); Red Blood Count 4.92 X10*6/uL (4.20-5.50); White Blood Count 7.6 X10*3/uL (4.8-10.8)
[2022-07-24 04:12] VITALS: BP 128/81; PULSE 81; RESP 16; TEMP 37.1; O2SAT 96
[2022-07-24 04:22] LABS: Alanine Aminotransferase 18 U/L (0-31); Albumin Level 3.9 g/dL (3.5-5.0); Alkaline Phosphatase 162 U/L (39-117); Anion Gap 12 (12-20); Aspartate Amino Transferase 17 U/L (5-31); Bilirubin Total 0.7 mg/dL (0.0-1.0); Blood Urea Nitrogen 20 mg/dL (9-16); Calcium 9.6 mg/dL (8.4-10.2); Carbon Dioxide 26 mmol/L (22-29); Chloride 104 mmol/L (96-108); Creatinine Clr Calc Pharmacy 95.5; Estimated Glomerular Filt Rate > 60; Glucose Random 114 mg/dL (60-115); Potassium 4.3 mmol/L (3.3-5.1); Sodium 138 mmol/L (135-145); Total Protein 7.1 g/dL (6.5-8.0)
[2022-07-24 04:24] LABS: Troponin-I High Sensitivity < 2.7 ng/L (<3.5-17.0)
--- NOTE | 2022-07-24 04:33 | PC.NURSE ---
Patient received on the unit [id number] complaining of chest soreness patient vitals are stable at this time patient states the pain is a 6/10 patient stated she has been coughing for 2 days patient stated she has stop taking all medications because nothing is helping patient will continue to be monitored for safety
--- NOTE | 2022-07-24 04:53 | ED_ITS ---
HPI - Chest Pain General Chief Complaint: Chest Pain Stated Complaint: Chest Pain Time Seen by Provider: 07/24/22 04:47 Source: patient Mode of arrival: ambulatory Limitations: no limitations History of Present Illness HPI narrative: Patient comes to the emergency room complaining of an asthma exacerbation, cough, chest pressure. No shortness of breath, no nausea vomiting diarrhea, no fever chills. Patient states that she has been using her albuterol inhaler more than usual. Patient states that the reason that she came to the emergency room is because of the symptoms she was coughing she had a leg cramp. Related Data Home Medications Medication Instructions Recorded Confirmed acetaminophen 500 mg oral powder 500 mg PO Q6H PRN 07/12/20 08/13/21 packet (Tylenol Extra Strength) albuterol sulfate 90 mcg/actuation 2 puff inhalation Q6H PRN 07/12/20 08/13/21 aerosol inhaler (ProAir HFA) blood pressure monitor #1 ea 07/12/20 08/13/21 cetirizine 10 mg tablet (Zyrtec) 10 mg PO DAILY PRN 07/12/20 08/13/21 fluticasone propionate 50 2 spray intranasal DAILY 07/12/20 08/13/21 mcg/actuation nasal spray,suspension ketoconazole 2 % shampoo 1 appl topical 3XW 07/12/20 08/13/21 lisinopril 20 mg tablet 20 mg PO DAILY 07/02/21 08/13/21 venlafaxine 37.5 mg 37.5 mg PO DAILY 09/10/21 capsule,extended release 24 hr Previous Rx's Medication Instructions Recorded budesonide-formoterol HFA 160 2 puff inhalation BID 30 days #1 ea 04/14/21 mcg-4.5 mcg/actuation aerosol inhaler (Symbicort) vecgkukdnz-pogjunhwaweep-vfjivabt 1 tab PO Q6H PRN pain #20 tabs 05/18/21 50 mg-325 mg-40 mg tablet ondansetron 4 mg disintegrating 4 mg PO Q8H PRN nausea and 05/18/21 tablet vomiting #20 tabs mepolizumab 100 mg/mL subcutaneous 100 mg subcut Q4W 28 days #1 mL 01/02/22 auto-injector (Nucala) ibuprofen 600 mg tablet 600 mg PO Q6H PRN fever or pain 03/09/22 #30 tabs omeprazole 20 mg capsule,delayed 20 mg PO DAILY #30 caps 05/09/22 release prednisone 10 mg tablet 40 mg PO DAILY 7 days #28 tabs 06/11/22 albuterol sulfate 90 mcg/actuation 2 puff inhalation Q4-6H PRN 07/24/22 aerosol inhaler shortness of breath or wheezing #8.5 grams prednisone 50 mg tablet 50 mg PO DAILY #4 tabs 07/24/22 Allergies Allergy/AdvReac Type Severity Reaction Status Date / Time Penicillins Allergy Unknown UNKNOWN Verified 05/15/22 14:40 Review of Systems Review of Systems: Constitutional : No Weight loss, No Fever, No Chills, No Night Sweats, No Fatigue, No Malaise ENT/Mouth : No Hearing loss, No Ear Pain, No Nasal Congestion, No Sinus Pain, No Hoarseness, No sore throat, No Rhinorrhea, No Swallowing Difficulty Eyes: No Eye Pain, No Swelling, No Redness, No Foreign Body, No Discharge, No Vision Changes Cardiovascular : No Chest Pain, complaining of chest pressure No SOB, No Dyspnea on Exertion, No Orthopnea, No Edema, No Palpitations Respiratory : Complaining of cough, wheezing, Gastrointestinal : No Nausea, No Vomiting, No Diarrhea, No Constipation, No abdominal Pain, No Hematochezia, No Melena Genitourinary : no irregular bleeding, No Dysuria, No Urinary Frequency, No Hematuria, No Urinary Incontinence, No Urgency, No Flank Pain, No Urinary Flow Changes, No Hesitancy Musculoskeletal : No joint pain, No Myalgias, No Joint Swelling Skin : No Skin Lesions, No rash Neuro : No Weakness, No Numbness, No Paresthesias, No Loss of Consciousness, No Dizziness, No Headache Psych : No Anxiety/Panic, No Depression, No SI/HI/AH/VH, No Social Issues, Heme/Lymph: No Bruising, No Bleeding,No Lymphadenopathy Endocrine : No Polyuria, No Polydipsia, No Temperature Intolerance [facility] Past Medical History Medical History Asthma HTN (hypertension) Surgical History History of abdominoplasty (03/28/20) History of hysterectomy Hx of breast surgery (03/28/20) Family History Family History Father HTN (hypertension) Diabetes Mother Epilepsia Social History Social History Alcohol intake: former Patient Tobacco Use Status: Never used Tobacco Smoked in Last 30 Days: No Use of substances other than those prescribed or required for medical reasons: No Advance Directives: No Advance Directives Information Provided: No Patient : No Physical Exam Vital Signs: Vital Signs: Last Vital Signs Temp 98.1 F 07/24/22 06:26 Pulse 67 07/24/22 06:26 Resp 18 07/24/22 06:26 BP 118/76 07/24/22 06:26 Pulse Ox 95 07/24/22 06:26 O2 Del Method Room Air 07/24/22 06:26 BMI result Body Mass Index 39.5 Const: Other: Appearance: Alert. Oriented X3. No acute distress. Eyes: Pupils equal, round and reactive to light. ENT: Pharynx normal. Neck: Normal inspection. Neck supple. No lymph nodes noted. No crepitus CVS: Normal heart rate and rhythm. Pulses normal. Normal S1 and S2 Respiratory: No respiratory distress. Breath sounds normal. No Wheezing. No rales Abdomen: Soft and nontender. No rigidity. No distention. Skin: Skin warm and dry. Normal skin color. Normal skin turgor. Extremities: No lower extremity edema. No Lacerations. No Rash Neuro: Oriented X 3. No motor deficit. No sensory deficit. Moving all extremities. No slurred speech. CN 2 through 12 grossly intact Psych: calm, cooperative, normal affect Course Course Course Narrative: Patient denies frequent leg cramps. I discussed with the patient that the leg cramp was an isolated event, no further treatment needed. Medications Administered Discontinued Medications Generic Name Dose Route Start Last Admin Trade Name Freq PRN Reason Stop Dose Admin Prednisone 60 mg 07/24/22 04:55 07/24/22 05:10 Prednisone 20 Mg Tablet PO 07/24/22 04:56 60 mg ONCE ONE Administration Medical Decision Making Medical Decision Making MDM Narrative: -EKG my interpretation: Normal sinus rhythm, heart rate 84, no ST segment depression or elevation, no T-wave inversion, QTC 451 -of the septum within normal limits -patient given p.o. prednisone in the emergency room. -chest x-ray, COVID and strep all negative Lab Data MDM Lab Attestation statement: I reviewed the patient's lab results. 07/24/22 03:59 07/24/22 03:59 Labs: Lab Results 07/24/22 07/24/22 07/24/22 Range/Units 03:59 03:59 03:59 WBC 7.6 (4.8-10.8) X10*3/uL RBC 4.92 (4.20-5.50) X10*6/uL Hgb 11.9 L (12.0-16.0) g/dl Hct 38.3 (37.0-47.0) % MCV 77.8 L (80.0-98.0) fL MCH 24.2 L (27.0-33.0) pg MCHC 31.1 (31.0-35.0) g/dl RDW 15.0 (11.0-16.0) % Plt Count 316 (160-400) X10*3/uL MPV 9.6 (9.4-12.3) fL Absolute Nucleated RBC 0.000 (0.0-0.012) X10*3/uL Nucleated RBC % (auto) 0.0 (0.0-0.2) /100WBC Sodium 138 (135-145) mmol/L Potassium 4.3 (3.3-5.1) mmol/L Chloride 104 (96-108) mmol/L Carbon Dioxide 26 (22-29) mmol/L Anion Gap 12 (12-20) BUN 20 H (9-16) mg/dL Creatinine 0.82 (0.5-1.4) mg/dL Estim Creat Clear Calc 95.5 Estimated GFR > 60 Random Glucose 114 (60-115) mg/dL Calcium 9.6 (8.4-10.2) mg/dL Total Bilirubin 0.7 (0.0-1.0) mg/dL AST 17 (5-31) U/L ALT 18 (0-31) U/L Alkaline Phosphatase 162 H (39-117) U/L Troponin I High Sens < 2.7 (<3.5-17.0) ng/L Total Protein 7.1 (6.5-8.0) g/dL Albumin 3.9 (3.5-5.0) g/dL COVID-19 (ROVERTO) (Negative) COVID-19 Clin Com S. pyogenes GrpA ALEXIS (Negative) 07/24/22 07/24/22 Range/Units 04:56 04:57 WBC (4.8-10.8) X10*3/uL RBC (4.20-5.50) X10*6/uL Hgb (12.0-16.0) g/dl Hct (37.0-47.0) % MCV (80.0-98.0) fL MCH (27.0-33.0) pg MCHC (31.0-35.0) g/dl RDW (11.0-16.0) % Plt Count (160-400) X10*3/uL MPV (9.4-12.3) fL Absolute Nucleated RBC (0.0-0.012) X10*3/uL Nucleated RBC % (auto) (0.0-0.2) /100WBC Sodium (135-145) mmol/L Potassium (3.3-5.1) mmol/L Chloride (96-108) mmol/L Carbon Dioxide (22-29) mmol/L Anion Gap (12-20) BUN (9-16) mg/dL Creatinine (0.5-1.4) mg/dL Estim Creat Clear Calc Estimated GFR Random Glucose (60-115) mg/dL Calcium (8.4-10.2) mg/dL Total Bilirubin (0.0-1.0) mg/dL AST (5-31) U/L ALT (0-31) U/L Alkaline Phosphatase (39-117) U/L Troponin I High Sens (<3.5-17.0) ng/L Total Protein (6.5-8.0) g/dL Albumin (3.5-5.0) g/dL COVID-19 (ROVERTO) Negative (Negative) COVID-19 Clin Com See Note S. pyogenes GrpA ALEXIS Negative (Negative) Radiology Impression Discussion of test interpretation with radiology: I have reviewed the radiologist's reading. Radiologist Impression: NDINGS: Cardiac leads overlie the chest. The lungs are well expanded. There is no focal consolidation, edema, or effusion. No pneumothorax. The cardiomediastinal silhouette is within normal limits. No acute osseous abnormality. XR/XR chest 1V IMPRESSION: No acute pulmonary disease. Discharge Plan Discharge Clinical Impression: Viral URI, Asthma Patient Disposition: Home, Self-Care Instructions: Asthma (ED), Viral Syndrome (ED) Additional Instructions: Please follow-up with your primary care physician tomorrow. If you have any worsening or new symptoms, please return to the emergency room or call 911 Prescriptions: New prednisone 50 mg tablet 50 mg PO DAILY Qty: 4 0RF albuterol sulfate 90 mcg/actuation HFA aerosol inhaler 2 puff inhalation Q4-6H PRN (Reason: shortness of breath or wheezing) Qty: 8.5 0RF No Action budesonide-formoterol [Symbicort] 160-4.5 mcg/actuation HFA aerosol inhaler 2 puff inhalation BID 30 Days Qty: 1 6RF Nucala 100 mg/mL auto-injector 100 mg subcut Q4W 28 Days Qty: 1 12RF omeprazole 20 mg capsule,delayed release(DR/EC) 20 mg PO DAILY Qty: 30 1RF prednisone 10 mg tablet 40 mg PO DAILY 7 Days Qty: 28 0RF ondansetron 4 mg tablet,disintegrating 4 mg PO Q8H PRN (Reason: nausea and vomiting) Qty: 20 0RF bhbcjrqqtn-ujcrjbeexsxfy-hgmb 50-325-40 mg tablet 1 tab PO Q6H PRN (Reason: pain) Qty: 20 0RF ibuprofen 600 mg tablet 600 mg PO Q6H PRN (Reason: fever or pain) Qty: 30 0RF (DME) blood pressure monitor Kit See Rx Instructions .ROUTE .MEDSUPPLY Qty: 1 Rx Instructions: As directed fluticasone propionate 50 mcg/actuation spray,suspension 2 spray intranasal DAILY Rx Instructions: administer into each nostril ketoconazole 2 % shampoo 1 appl topical 3XW albuterol sulfate [ProAir HFA] 90 mcg/actuation HFA aerosol inhaler 2 puff inhalation Q6H PRN Tylenol Extra Strength 500 mg powder in packet 500 mg PO Q6H PRN cetirizine [Zyrtec] 10 mg tablet 10 mg PO DAILY PRN lisinopril 20 mg tablet 20 mg PO DAILY venlafaxine 37.5 mg capsule,extended release 24hr 37.5 mg PO DAILY Interventions: ED Discharge Assessment Last Done: 07/24/22 06:29 Discharge Date/Time: 07/24/22 06:30
[2022-07-24] MEDS: predniSONE 20 MG TABLET 60 MG PO (05:10)
--- NOTE | 2022-07-24 05:10 | PC.NURSE ---
Patient received all medications with no issues patient showing no distress at this time patient vitals remain to be monitored at this time patient will continue to be monitored for safety
[2022-07-24 05:19] LABS: IDNOW Serial# 08D9AD1C; Strep A Nucleic Acid Negative (Negative)
[2022-07-24 05:23] LABS: COVID-19 Test Negative (Negative); IDNOW Serial# BCCEAD1C
[2022-07-24 06:26] VITALS: BP 118/76; PULSE 67; RESP 18; TEMP 36.7; O2SAT 95
--- NOTE | 2022-07-24 06:26 | PC.NURSE ---
Patient remain in bed with eyes closed patient is not showing any distress at this time patient encoraged to open up to staff if any concerns should occur patient will continue to be monitored for safety .
--- NOTE | 2022-07-24 06:28 | PC.NURSE ---
patient in the process of being released to go home
== END 2022-07-24 06:30 | disposition home or self-care (01) ==
LOC: HO.ED 05:06
PROVIDERS: Emergency Provider Emergency Medicine; PCP Family Medicine
DX: J06.9 Acute upper respiratory infection, unspecified (principal); J45.909 Unspecified asthma, uncomplicated; M79.605 Pain in left leg; M79.604 Pain in right leg; Z20.822 Contact with and (suspected) exposure to COVID-19
CPT/HCPCS: 36415; 71045; 80053; 84484; 85027; 87635; 87651; 93005; 99284; 99285

== ENCOUNTER 2022-08-13 12:46 | Outpatient (REF) | payer MEDICAID, SELFPAY | END 2022-08-13 12:47 | disposition home or self-care (01) | LOC: HO.MDS 12:46 | PROVIDERS: Visit Provider Internal Medicine Pulmonary Disease | DX: J45.50 Severe persistent asthma, uncomplicated (principal) | CPT/HCPCS: 96372; J2182 ==

== ENCOUNTER → 2022-08-18 14:38 | Outpatient (BNVA) | payer MEDICAID, SELFPAY | PROVIDERS: PCP Family Medicine; Visit Provider Urology | DX: N81.89 Other female genital prolapse (principal); R32 Unspecified urinary incontinence | CPT/HCPCS: 51798; 99202 ==

== ENCOUNTER 2022-08-22 10:46 | Outpatient (REF) | payer MEDICAID, SELFPAY | END 2022-08-22 10:47 | disposition home or self-care (01) | LOC: HO.US 10:46 | PROVIDERS: PCP Family Medicine; Visit Provider Urology | DX: Z13.89 Encounter for screening for other disorder (principal) ==

== ENCOUNTER 2022-08-25 14:11 | Outpatient (REF) | payer MEDICAID, SELFPAY ==
--- NOTE | ~2022-08-25 | US_ITS ---
EXAMINATION: US RETROPERITONEAL COMPLETE (RENAL) CLINICAL INFORMATION: Unspecified urinary incontinence. COMPARISON: Ultrasound abdomen limited 06/12/2020. CT abdomen and pelvis with contrast 11/22/2018. TECHNIQUE: Real-time imaging of the kidneys and bladder. FINDINGS: RIGHT KIDNEY: 11.7 x 5.4 x 4.9 cm (SAG x AP x TRV). The kidney is normal in size, contour, and echogenicity. Renal cortical thickness is normal. No focal parenchymal lesions or hydronephrosis. Echogenic foci without twinkle artifact or shadowing may reflect vascular reflectors. No definite nephrolithiasis. LEFT KIDNEY: 11.9 x 6.4 x 5.2 cm (SAG x AP x TRV). The kidney is normal in size, contour, and echogenicity. Renal cortical thickness is normal. No focal parenchymal lesions or hydronephrosis. Echogenic foci without twinkle artifact or shadowing may reflect vascular reflectors. 6 mm nonobstructing mid pole renal stone. BLADDER: Well distended and normal. Bilateral ureteral jets are demonstrated. Prevoid bladder volume is 257 mL. Postvoid bladder volume is 1.7 mL. ADDITIONAL FINDINGS: Incidentally noted. 4.1 cm splenic cyst with peripheral calcification. US/US retroperitoneal comp IMPRESSION: 1. A 6 mm nonobstructing left mid pole renal stone.
== END 2022-08-25 14:12 | disposition home or self-care (01) ==
LOC: HO.US 14:11
PROVIDERS: PCP Family Medicine; Visit Provider Urology
DX: R32 Unspecified urinary incontinence (principal)
CPT/HCPCS: 76770

== ENCOUNTER 2022-09-11 08:16 | Outpatient (REF) | payer MEDICAID, SELFPAY | END 2022-09-11 08:17 | disposition home or self-care (01) | LOC: HO.MDS 08:16 | PROVIDERS: Visit Provider Internal Medicine Pulmonary Disease | DX: J45.50 Severe persistent asthma, uncomplicated (principal) | CPT/HCPCS: 96372; J2182 ==

== ENCOUNTER 2022-09-16 10:54 | Outpatient (AMB) | payer MEDICAID, SELFPAY ==
[2022-09-16 10:56] VITALS: BP 118/84; PULSE 68; RESP 16; TEMP 36.2; O2SAT 98; BMI 39.0
--- NOTE | 2022-09-16 10:56 | MHC.OFFVIS ---
Intake Vital Signs 09/16/22 10:56 Height 5 ft 4 in Weight 227 lb BMI 39.0 BP 118/84 Blood Pressure Location Lt brachial Position Sitting Respiration 16 Pulse 68 Pulse Source Pulse Oximeter Temp 97.1 F Temp Source Temporal Artery Scan Pulse Oximetry (%) 98 Oxygen Delivery Method Room Air Intake Visit Reasons: +RF - Confirmed Guide Foreign Tour Required: Yes Guide Foreign Tour Name: Teresa [id number] Information Interpreted: clinical only Allergies Penicillins Allergy (Unknown, Verified 09/16/22 11:02) UNKNOWN Medication List - Last Reconciled 09/16/22 by Darrell Perdue MD acetaminophen (Tylenol Extra Strength) 500 mg PO Q6H PRN albuterol sulfate 90 mcg/actuation 2 puffs inhalation Q4-6H PRN albuterol sulfate 90 mcg/actuation (ProAir HFA) 2 puffs inhalation Q6H PRN blood pressure monitor As directed budesonide-formoterol 160-4.5 mcg/actuation (Symbicort) 2 puffs inhalation BID cetirizine (Zyrtec) 10 mg PO DAILY PRN diclofenac sodium 1% 2 grams topical fluticasone propionate 50 mcg/actuation 2 sprays intranasal DAILY ibuprofen 600 mg PO Q6H PRN ketotifen fumarate 0.025%(0.035%) (Eye Itch Relief) 1 drp ophthalmic (eye) BID lisinopril 20 mg PO DAILY mepolizumab (Nucala) 100 mg subcut Q4W 28 days montelukast 10 mg PO QPM omeprazole 20 mg PO DAILY solifenacin (Vesicare) 5 mg PO DAILY venlafaxine ER 37.5 mg PO DAILY HPI HPI Comments History of Present Illness Details The patient presents for evaluation of widespread pains, positive rheumatoid factor, and elevated CRP. The visit is facilitated through the use of the iPad translating device. The symptoms have been present for number of years, perhaps a bit worse in the last 2 years. In the last year there has been more pain in the left leg. They seem to be located at the top the knee radiating down into the pretibial region. It is worse with weight-bearing activity and on stairs. The patient has not noticed any swelling. She gets heartburn and is on omeprazole so tends to avoid NSAIDs as they make the heartburn worse. She has tried ibuprofen, naproxen, and diclofenac without any improvement. She has trouble sleeping at night because she feels like she has to move her legs to relax. There is also tingling in the hands and feet. This is much more prominent in the hands. The paresthesias occur every night in the hands. It is worse on the left side where she has numbness and pain when she wakes in the morning. She has had no studies for nerve conduction testing. [facility] Medical History Asthma HTN (hypertension) Surgical History History of abdominoplasty (03/28/20) History of hysterectomy Hx of breast surgery (03/28/20) Family History Father HTN (hypertension) Diabetes Mother Epilepsia Social History Alcohol intake: former Patient Tobacco Use Status: Never used Tobacco Review of Systems Const Details: She gets fatigued with most physical activities. Sleep is disrupted by her pains. Negative for appetite change, weight change, fever, chills, malaise Eyes Details: Dry, itchy eyes. Intermittent headaches. Negative for vision change, and dizziness ENT Details: Nasal congestion and rhinorrhea, worsen she had COVID last year. Negative for hearing change, tinnitus, oral ulcer, nose bleeds and oral dryness. Card Details: Occasional ankle swelling. Negative chest pain, palpitations the and syncope Resp Details: Intermittent cough and wheezing attributed to asthma. This has been worse since her COVID infection last fall. Somewhat better on Nucala. GI Details: For occasional heartburn. Negative nausea, abdominal pain, bowel changes, diarrhea, constipation and bloody stool. Details: Negative for dysuria, hematuria, nocturia, decreased force/flow and genital discharge Skin/Breast Details: Negative for itching, rash, hives, Raynaud's symptoms, sun sensitivity, and skin cancer Neuro Details: Negative for epilepsy, palsy, stroke, changes in speech, tingling and weakness Psych Details: Anxiety somewhat better with current medications. Endo Details: Negative for polyuria and polydypsia Deacon/Lymph Details: Negative for excessive bruising or bleeding. Physical Exam Vital Signs: Last Vital Signs Temp 97.1 F 09/16/22 10:56 Pulse 68 09/16/22 10:56 Resp 16 09/16/22 10:56 BP 118/84 09/16/22 10:56 Pulse Ox 98 09/16/22 10:56 Oxygen Delivery Method Room Air 09/16/22 10:56 BMI result Body Mass Index 39.0 APPEARANCE: Patient in no acute distress EYES no redness, pupils equal and reactive to light, eyelids normal EARS: External ear normal, canal clear and tympanic membrane normal. NOSE/SINUS: Airflow through both nares, no nasal discharge, no bleeding THROAT: Oral mucosa moist, no ulcerations NECK: No thyromegaly or masses, no adenopathy, trachea midline. HEART: Regulrar rhythm, S1-S2 heard, no murmurs, rubs or gallops. LUNG: Clear to percussion and auscultation ABD: Normal bowel sounds, no organomegaly, masses or tenderness. EXTREMITIES: No edema, no calf tenderness, normal peripheral pulses. NEURO: Oriented and alert x3. No focal weakness. Reflexes symmetric. Gait normal. SKIN: No inflammatory or neoplastic lesions. Normal color and turgor JOINT EXAM:.?? Cervical Spine:.? Full range of motion with slight discomfort at the extremes. There is some minimal cervical muscle tenderness. Thoracic Spine:.? No scoliosis.? No tenderness on palpation. Lumbar Spine:.? Alignment normal.? The patient has lumbar pain with extremes of flexion or hyperextension. Some paraspinal muscle tenderness. Chest Wall:.? No tenderness, swelling, increased warmth or erythema. Hands:.? Normal pain-free range of motion without tenderness, swelling, increased warmth or erythema. No sensory loss or thenar atrophy. The Wrists:.? Right: Normal pain-free range of motion without tenderness, swelling, increased warmth or erythema. Negative Phalen's and Tinel signs. Left: Normal pain-free range of motion without tenderness or swelling. There is a positive Phalen's test. Elbows:. Normal pain-free range of motion with lateral epicondylar tenderness. Over the joint spaces there is no a tenderness, swelling, increased warmth or erythema. Shoulders:?? Left: Mild pain with extremes of range of motion with some mild anterior tenderness. No abductor weakness or adenopathy. Right: Full range of motion without pain. No tenderness, weakness, swelling, increased warmth or erythema. Hips:.? Full range of motion without pain. Hip bursa:.? Mild trochanteric tenderness. Knees:.?? Normal pain-free range of motion with slight patellofemoral crepitus. There is some minimal medial lateral tenderness on the left but no effusion is evident. In the other knee there is no tenderness, swelling, increased warmth or erythema.? Ankles:.? Normal pain-free range of motion without tenderness, swelling, increased warmth or erythema. Feet:.? Normal pain-free range of motion without tenderness, swelling, increased warmth or erythema. Tender points:.? mild tenderness to digital palpation at the occiput, trapezius, second rib, lateral epicondyle, knees, greater trochanter and gluteal area bilaterally. ? Results Reviewed Results Reviewed: Laboratory Tests 05/15/22 05/15/22 07/24/22 13:12 13:12 03:59 WBC 7.6 Hgb 11.9 L Creatinine Alkaline Phosphatase TSH 1.03 Rheumatoid Factor 26.5 H LUIS Screen NEGATIVE 07/24/22 03:59 WBC Hgb Creatinine 0.82 Alkaline Phosphatase 162 H TSH Rheumatoid Factor LUIS Screen [place] [id number] XRay Report Signed Patient: Emerita Wills MR#: [id number] : 1970 Acct:[id number] Age/Sex: 51 / F ADM Date: 05/23/22 Loc: [facility] Attending Dr: Cindy Clay DO Ordering Physician: Cindy Clay DO Date of Service: 05/23/22 Procedure(s): XR knee LT 3V Accession Number(s): [id number] cc: Cindy Clay DO~ EXAMINATION: XR HAND, BILATERAL XR KNEE, BILATERAL CLINICAL INDICATION: Bilateral worsening hand and knee pain. COMPARISON: None. TECHNIQUE: 3 views each hand. 3 views each knee. FINDINGS: Bilateral Hands: There is no visible acute fracture, dislocation or subluxation. There is mild loss of PIP, DIP joint spaces without bony erosive changes or deformity or periapical spurring. No soft tissue swelling seen. There is mild dorsal soft tissue swelling left hand. The intercarpal joint spaces are preserved. Bilateral Knees:? There is maintained tricompartment joint space. No periarticular spurring, loose bodies or joint effusion seen. There is no abnormal joint effusion. The soft tissues are normal. XR/XR knee LT 3V IMPRESSION: Mild early degenerative changes bilateral hands. No visible acute fracture or dislocation. ? Unremarkable bilateral knee exam. Dictated By: Pedro Luis Cerrato MD Assessment & Plan Assessment & Plan (1) Rheumatoid factor positive: Code(s): R76.8 - Other specified abnormal immunological findings in serum (2) Bilateral hand numbness: Code(s): R20.0 - Anesthesia of skin (3) Restless leg syndrome: Code(s): G25.81 - Restless legs syndrome Plan The patient has longstanding widespread pains. There are no signs of swollen joints to suggest an active inflammatory arthritis. The rheumatoid factor is mildly elevated. She has some mild radiographic changes in the hands of OA. I think she may have some mild OA in the knees but overall the widespread pain is consistent with fibromyalgia given her many tender points. She also has symptoms suggesting restless leg syndrome. I did prescribe some ropinirole for the nighttime symptoms in the legs. She could talk to her primary doctor about increasing that dose as tolerated see if that would help her evening nighttime restlessness. The upper extremities are symptomatic mostly with nocturnal paresthesias and morning stiffness and numbness consistent with carpal tunnel syndrome. We will obtain nerve conduction studies to look into that further. I issued her a prescription for wrist splints to wear nightly for 6 weeks to see if that would help those symptoms. I will check some inflammatory markers. We will schedule follow-up once the nerve conduction study results return. Today's history, exam, and explanation of her she diagnoses took 52 minutes. Orders: Orders Erythrocyte Sedimentation Rate Today R76.8 - Other specified abnormal immunological findings in serum Cyclic Citrullinated Peptide Today R76.8 - Other specified abnormal immunological findings in serum C Reactive Protein Today R76.8 - Other specified abnormal immunological findings in serum NE electromyogram (EMG) Today R20.0 - Anesthesia of skin Medications: New Brace,wrist (Wrist Brace - one) As directed 2 ea 0RF R20.0 - Anesthesia of skin ropinirole administer 1-3 hours before bedtime 0.5 - 1 mg (1 - 2 x 0.5 mg) PO BEDTIME 45 tabs 0RF G25.81 - Restless legs syndrome Coding Level of Care Code New Pt Level 4 (53169) Diagnoses Rheumatoid factor positive R76.8 Bilateral hand numbness R20.0 Restless leg syndrome G25.81
== END 2022-09-16 12:06 | disposition home or self-care (01) ==
PROVIDERS: PCP Family Medicine; Visit Provider Internal Medicine Rheumatology
DX: R76.8 Other specified abnormal immunological findings in serum (principal); R20.0 Anesthesia of skin; G25.81 Restless legs syndrome
CPT/HCPCS: 99204

== ENCOUNTER → 2022-09-16 10:54 | Outpatient (BNVA) | payer MEDICAID, SELFPAY | PROVIDERS: PCP Family Medicine; Visit Provider Internal Medicine Rheumatology | DX: R76.8 Other specified abnormal immunological findings in serum (principal); R20.0 Anesthesia of skin; G25.81 Restless legs syndrome | CPT/HCPCS: 99202 ==

== ENCOUNTER 2022-09-16 12:11 | Outpatient (REF) | payer MEDICAID, SELFPAY ==
[2022-09-16 14:14] LABS: C Reactive Protein 2.04 mg/dL (< or = 0.50)
[2022-09-16 14:33] LABS: Erythrocyte Sedimentation Rate 18 MM/HR (0-20)
[2022-09-17 15:13] LABS: Cyclic Citrullinated Peptide <16 UNITS
== END 2022-09-16 12:12 | disposition home or self-care (01) ==
LOC: HO.10HDL 12:11
PROVIDERS: Visit Provider Internal Medicine Rheumatology
DX: R76.8 Other specified abnormal immunological findings in serum (principal); R20.0 Anesthesia of skin; G25.81 Restless legs syndrome
CPT/HCPCS: 36415; 85652; 86140; 86200

== ENCOUNTER 2022-10-01 13:48 | Outpatient (REF) | payer MEDICAID, SELFPAY ==
[2022-10-03 12:23] LABS: TS Negative Control Passed; TS Panel A 0; TS Panel B 1; TS Positive Control Passed; TSpotTB Negative (Negative)
== END 2022-10-01 13:49 | disposition home or self-care (01) ==
LOC: HO.HHCL 13:48
PROVIDERS: Visit Provider Family Medicine
DX: Z11.1 Encounter for screening for respiratory tuberculosis (principal)
CPT/HCPCS: 36415; 86481

== ENCOUNTER 2022-10-07 06:40 | Outpatient (REF) | payer MEDICAID, SELFPAY ==
[2022-10-07 07:19] LABS: Estimated Average Glucose 120 mg/dL; Hemoglobin A1c % 5.8 % (<6.0)
[2022-10-07 07:41] LABS: Alanine Aminotransferase 26 U/L (0-31); Albumin Level 4.3 g/dL (3.5-5.0); Alkaline Phosphatase 138 U/L (39-117); Anion Gap 12 (12-20); Aspartate Amino Transferase 24 U/L (5-31); Bilirubin Total 0.9 mg/dL (0.0-1.0); Blood Urea Nitrogen 20 mg/dL (9-16); Carbon Dioxide 27 mmol/L (22-29); Chloride 105 mmol/L (96-108); Cholesterol 223 mg/dL (<200); Estimated Glomerular Filt Rate > 60; Glucose Random 114 mg/dL (60-115); HDL Cholesterol 38 mg/dL (>40); LDL Cholesterol Calculated 136 mg/dL (<100); Potassium 4.3 mmol/L (3.3-5.1); Sodium 140 mmol/L (135-145); Total Protein 7.7 g/dL (6.5-8.0); Triglycerides 246 mg/dL (<150)
[2022-10-07 07:54] LABS: ~HepC Num1 0.07 S/CO (0.00-0.79); ~Hepatitis C Antibody Nonreactive (Nonreactive)
[2022-10-07 07:57] LABS: Vitamin D 25-OH Total 12.7 ng/mL (>30)
[2022-10-07 08:09] LABS: Folate 7.5 ng/mL (> or = 4.0); Vitamin B12 438 pg/mL (200-900)
[2022-10-07 10:38] LABS: Microalbum/Creatinine Ratio Ur 5.8 ug/mg cr (<30)
== END 2022-10-07 06:41 | disposition home or self-care (01) ==
LOC: HO.LAB 06:40
PROVIDERS: Visit Provider Student in an Organized Health Care Education/Training Program
DX: Z00.00 Encounter for general adult medical examination without abnormal findings (principal); E78.5 Hyperlipidemia, unspecified
CPT/HCPCS: 36415; 80053; 80061; 82043; 82306; 82607; 82746; 83036; 86803

== ENCOUNTER 2022-10-09 10:32 | Outpatient (REF) | payer MEDICAID, SELFPAY | END 2022-10-09 10:33 | disposition home or self-care (01) | LOC: HO.MDS 10:32 | PROVIDERS: Visit Provider Internal Medicine Pulmonary Disease | DX: J45.50 Severe persistent asthma, uncomplicated (principal) | CPT/HCPCS: 96372; J2182 ==

== ENCOUNTER 2022-11-06 08:31 | Outpatient (REF) | payer MEDICAID, SELFPAY ==
--- NOTE | ~2022-11-06 | US_ITS ---
EXAMINATION: US PELVIS, LIMITED/FOLLOW UP CLINICAL INFORMATION: Right abdominal nodular sensation near umbilical area status post abdominoplasty, rule out hernia or persistent collection COMPARISON: CT abdomen pelvis 11/22/2018 TECHNIQUE: Transabdominal views of the soft tissues were obtained. FINDINGS: No evidence of hernia. No fluid collection. No lymphadenopathy or soft tissue mass. Post surgical scarring. US/US pelvic limited IMPRESSION: No evidence of hernia or fluid collection.
== END 2022-11-06 08:32 | disposition home or self-care (01) ==
LOC: HO.US 08:31
PROVIDERS: PCP Family Medicine; Visit Provider Student in an Organized Health Care Education/Training Program
DX: Q79.59 Other congenital malformations of abdominal wall (principal)
CPT/HCPCS: 76857

== ENCOUNTER 2022-11-06 08:53 | Outpatient (REF) | payer MEDICAID, SELFPAY | END 2022-11-06 08:54 | disposition home or self-care (01) | LOC: HO.MDS 08:53 | PROVIDERS: Visit Provider Internal Medicine Pulmonary Disease | DX: J45.50 Severe persistent asthma, uncomplicated (principal) | CPT/HCPCS: 96372; J2182 ==

== ENCOUNTER 2023-02-19 09:58 | Outpatient (REF) | payer MEDICAID, SELFPAY | END 2023-02-19 09:59 | disposition home or self-care (01) | LOC: HO.NEURO 09:58 | PROVIDERS: PCP Family Medicine; Visit Provider Family Medicine | DX: R20.2 Paresthesia of skin (principal) | CPT/HCPCS: 95886; 95913 ==

== ENCOUNTER 2023-02-25 11:16 | Outpatient (REF) | payer MEDICAID, SELFPAY ==
--- NOTE | ~2023-02-25 | MM_ITS ---
EXAMINATION: MM SCREENING DIGITAL BREAST TOMOSYNTHESIS, BILATERAL WITH BREAST IMPLANTS. CLINICAL INFORMATION: Screening. Asymptomatic. COMPARISON: Mammography: This study is compared with the prior mammograms dating back to 2020. TECHNIQUE: Digital mammography is performed in craniocaudal and mediolateral oblique views along with computer-aided detection (CAD). Digital breast tomosynthesis is performed in implant-displaced craniocaudal and implant-displaced mediolateral oblique views along with computer-aided detection (CAD). Synthesized 2D images are generated from the tomosynthesis. FINDINGS: There are scattered areas of fibroglandular density (ACR BI-RADS breast composition Category b). There are bilateral, retropectoral, mammographically intact silicone breast implants. There are no significant masses, abnormal calcifications, or other abnormalities. MM/MM tomosynthesis screen imp BI IMPRESSION: There are no significant changes from prior study. ASSESSMENT: BI-RADS BI-RADS 1 - Negative RECOMMENDATION: Routine annual mammography screening. 1 year F/U This patient's information was entered into a reminder system with a target due date for their next mammogram.
== END 2023-02-25 11:17 | disposition home or self-care (01) ==
LOC: HO.MAMMO 11:16
PROVIDERS: PCP Family Medicine; Visit Provider Family Medicine
DX: Z12.31 Encounter for screening mammogram for malignant neoplasm of breast (principal)
CPT/HCPCS: 77063; 77067

== ENCOUNTER → 2023-02-25 11:45 | Outpatient (BNV) | payer MEDICAID, SELFPAY | PROVIDERS: PCP Family Medicine; Visit Provider Radiology Diagnostic Radiology | DX: Z12.31 Encounter for screening mammogram for malignant neoplasm of breast (principal) | CPT/HCPCS: 77063; 77067 ==

== ENCOUNTER 2023-03-12 11:33 | Outpatient (REF) | payer MEDICAID, SELFPAY ==
[2023-03-12 13:58] LABS: Hematocrit 43.2 % (37.0-47.0); Hemoglobin 13.4 g/dl (12.0-16.0); Mean Corpuscular Hemoglobin 24.7 pg (27.0-33.0); Mean Corpuscular Volume 79.7 fL (80.0-98.0); Mean Platelet Volume 10.9 fL (9.4-12.3); Platelet Count 356 X10*3/uL (160-400); Red Blood Count 5.42 X10*6/uL (4.20-5.50); Red Cell Distribution Width 14.9 % (11.0-16.0); White Blood Count 5.2 X10*3/uL (4.8-10.8)
[2023-03-12 14:13] LABS: Estimated Average Glucose 117 mg/dL; Hemoglobin A1c % 5.7 % (<6.0)
[2023-03-12 14:41] LABS: Alanine Aminotransferase 19 U/L (0-31); Albumin Level 4.3 g/dL (3.5-5.0); Alkaline Phosphatase 140 U/L (39-117); Anion Gap 12 (12-20); Aspartate Amino Transferase 19 U/L (5-31); Bilirubin Direct 0.3 mg/dL (0.0-0.5); Bilirubin Total 1.1 mg/dL (0.0-1.0); Blood Urea Nitrogen 16 mg/dL (9-16); Calcium 10.2 mg/dL (8.4-10.2); Carbon Dioxide 29 mmol/L (22-29); Chloride 104 mmol/L (96-108); Cholesterol 214 mg/dL (<200); Estimated Glomerular Filt Rate > 60; Glucose Random 94 mg/dL (60-115); HDL Cholesterol 47 mg/dL (>40); LDL Cholesterol Calculated 131 mg/dL (<100); Sodium 141 mmol/L (135-145); Triglycerides 181 mg/dL (<150)
[2023-03-12 14:44] LABS: Erythrocyte Sedimentation Rate 15 MM/HR (0-20)
[2023-03-12 14:50] LABS: Free T4 (Free Thyroxine) 0.94 ng/dL (0.71-1.85); Thyroid Stimulating Hormone 1.49 uIU/mL (0.32-4.0); Vitamin D 25-OH Total 14.5 ng/mL (>30)
[2023-03-12 15:06] LABS: Folate 8.5 ng/mL (> or = 4.0); Vitamin B12 479 pg/mL (200-900)
[2023-03-13 07:28] LABS: HBS Num1 0.07 mIU/mL (0-7.99); HIV AB/AG Nonreactive (Nonreactive); HIV Num 1 0.09 S/CO (0.00-0.99); Hepatitis B Surface Antigen Negative (Negative); ~HepC Num1 0.08 S/CO (0.00-0.79); ~Hepatitis B Surface Antibody NONREACTIVE (Nonreactive); ~Hepatitis C Antibody Nonreactive (Nonreactive)
[2023-03-13 15:19] LABS: Prot Elec - Albumin 4.3 g/dL (3.8-4.8); Prot Elec - Alpha1 0.3 g/dL (0.2-0.3); Prot Elec - Alpha2 0.9 g/dL (0.5-0.9); Prot Elec - Beta 1 0.5 g/dL (0.4-0.6); Prot Elec - Beta 2 0.4 g/dL (0.2-0.5); Prot Elec - Gamma 1.4 g/dL (0.8-1.7); Prot Elec - Total Protein 7.7 g/dL (6.1-8.1)
[2023-03-18 11:03] LABS: Anti Nuclear Antibody Screen NEGATIVE (NEGATIVE)
== END 2023-03-12 11:34 | disposition home or self-care (01) ==
LOC: HO.HHCL 11:33
PROVIDERS: Visit Provider Family Medicine
DX: G62.9 Polyneuropathy, unspecified (principal)
CPT/HCPCS: 36415; 80048; 80061; 80076; 82306; 82607; 82746; 83036; 84165; 84439; 84443; 85027; 85652; 86038; 86706; 86803; 87340; 87389

== ENCOUNTER 2023-04-11 22:56 | Emergency (ER) | payer MEDICAID, SELFPAY ==
--- NOTE | ~2023-04-11 | CT_ITS ---
EXAMINATION: CT HEAD WITHOUT CONTRAST CLINICAL INFORMATION: Headache. COMPARISON: 05/18/2021. TECHNIQUE: Contiguous axial imaging was performed from the skull base to vertex without intravenous administration of contrast. This CT examination was performed using dose optimization techniques as appropriate, variously including the following: *Automated exposure control *Adjustment of mA and/or kV according to patient size (this includes techniques or standardized protocols for targeted exams where dose is matched to indication/reason for exam; i.e. extremities or head) *Use of iterative reconstruction technique DLP: 633 mGy-cm FINDINGS: The right lateral ventricle is prominent in size compared to the left similar to previous. The third and fourth ventricles are normally outlined. The cortical sulci and basal cisterns are normally outlined as well. There is no acute territorial defect, hemorrhage or midline shift. The extra-axial spaces are unremarkable. Calvarium: Intact. Maxillofacial sinuses and mastoids: There is a left maxillary sinus opacity. The remaining maxillofacial sinuses and mastoids are clear. CT/CT head/brain wo IV con IMPRESSION: 1. No acute intracranial pathology. 2. Left maxillary sinus disease.
[2023-04-11 23:00] VITALS: BP 195/122; PULSE 101; RESP 22; TEMP 36.4; O2SAT 98; BMI 37.8
--- NOTE | 2023-04-11 23:17 | ED.HA ---
HPI - Headache General Chief Complaint: Headache Stated Complaint: Headache Time Seen by Provider: 04/11/23 23:09 Source: patient, family and old records reviewed Mode of arrival: ambulatory Limitations: no limitations History of Present Illness HPI Narrative: 52 yo female with PMH of migraines, anxiety, GERD, dysphagia, restless leg syndrome, chronic chest pain, not on thinners here with c/o being out with her teenage granddaughter roel having a mild headache that acutely worsened just prior to arrival on the R side wrapping around radiating from the tooth on the R upper side and causing heat on the R side of her head. She feels tired and weak. She initially walked in now is stating the pain is too much and she cannot talk. Her teenage granddaughter is very anxious and tearful. Her granddaughter states this all started while they were driving home and it occurred suddenly. MD elicited complaint: headache Pertinent past history: migraines Onset (ago): minute(s) (20) Onset description: suddenly Location: right and temporal Severity: severe Quality & Timing: throbbing, constant, pain radiation and progressively worsening Exacerbating factors: movement of head/neck and other (biting down on her R upper tooth) Relieving factors: nothing Context: occurred at rest Associated symptoms: nausea, photophobia and other (R upper tooth pain) Treatments prior to arrival: none Related Data Home Medications Medication Instructions Recorded Confirmed acetaminophen 500 mg oral powder 500 mg PO Q6H PRN 07/12/20 09/16/22 packet (Tylenol Extra Strength) albuterol sulfate 90 mcg/actuation 2 puff inhalation Q6H PRN 07/12/20 09/16/22 aerosol inhaler (ProAir HFA) blood pressure monitor #1 ea 07/12/20 09/16/22 cetirizine 10 mg tablet (Zyrtec) 10 mg PO DAILY PRN 07/12/20 09/16/22 fluticasone propionate 50 2 spray intranasal DAILY 07/12/20 09/16/22 mcg/actuation nasal spray,suspension lisinopril 20 mg tablet 20 mg PO DAILY 07/02/21 09/16/22 venlafaxine 37.5 mg 37.5 mg PO DAILY 09/10/21 09/16/22 capsule,extended release 24 hr diclofenac sodium 1 % topical gel 2 g topical pain 09/16/22 09/16/22 ketotifen fumarate 0.025 % (0.035 1 drp ophthalmic (eye) BID 09/16/22 09/16/22 %) eye drops (Eye Itch Relief) montelukast 10 mg tablet 10 mg PO QPM 09/16/22 09/16/22 Previous Rx's Medication Instructions Recorded mepolizumab 100 mg/mL subcutaneous 100 mg subcut Q4W 28 days #1 mL 01/02/22 auto-injector (Nucala) ibuprofen 600 mg tablet 600 mg PO Q6H PRN fever or pain 03/09/22 #30 tabs omeprazole 20 mg capsule,delayed 20 mg PO DAILY #30 caps 05/09/22 release albuterol sulfate 90 mcg/actuation 2 puff inhalation Q4-6H PRN 07/24/22 aerosol inhaler shortness of breath or wheezing #8.5 grams budesonide-formoterol HFA 160 2 puff inhalation BID #10.2 grams 09/15/22 mcg-4.5 mcg/actuation aerosol inhaler (Symbicort) Brace,wrist (Wrist Brace - one) #2 ea 09/16/22 ropinirole 0.5 mg tablet 0.5 - 1 mg (1 - 2 x 0.5 mg) PO 09/16/22 BEDTIME #45 tabs solifenacin 5 mg tablet 5 mg PO DAILY #30 tabs 02/06/23 cefuroxime axetil 500 mg tablet 500 mg PO BID 7 days #14 tabs 04/12/23 Allergies Allergy/AdvReac Type Severity Reaction Status Date / Time Penicillins Allergy Unknown UNKNOWN Verified 04/11/23 23:00 Review of Systems Review of Systems: Constitutional : No Fever, No Chills, No Fatigue ENT/Mouth : No sore throat, No Rhinorrhea, pos tooth pain Eyes: No Eye Pain, No Swelling, No Redness Cardiovascular : No Chest Pain, No SOB, No Dyspnea on Exertion Respiratory : No Cough, No Sputum Gastrointestinal : pos Nausea, No Vomiting, No Diarrhea, No abdominal Pain Genitourinary : No Dysuria, No Urinary Frequency, No Hematuria, Musculoskeletal : No joint pain, No Myalgias, No Joint Swelling Skin : No Skin Lesions, No rash Neuro : No Weakness, No Numbness, No Dizziness, positive Headache Psych : No Anxiety/Panic, No Depression Heme/Lymph: No Bruising, No Bleeding,No Lymphadenopathy Endocrine : No Polyuria, No Polydipsia All other systems reviewed and are negative [facility] Past Medical History Attestation statement: The following information was validated with the patient. Source: old records reviewed Medical History HTN (hypertension) Asthma Surgical History History of hysterectomy Hx of breast surgery (03/28/20) History of abdominoplasty (03/28/20) Family History Family History Father HTN (hypertension) Diabetes Mother Epilepsia Social History Social History Alcohol intake: current Alcohol intake frequency: holidays/special occasions only Patient Tobacco Use Status: Never used Tobacco Smoked in Last 30 Days: No Use of substances other than those prescribed or required for medical reasons: No Advance Directives: No Advance Directives Information Provided: No Patient : No Physical Exam Vital Signs: Vital Signs: Last Vital Signs Temp 97.6 F 04/12/23 00:43 Pulse 98 04/12/23 00:43 Resp 18 04/12/23 00:43 BP 165/105 H 04/12/23 00:43 Pulse Ox 98 04/12/23 00:43 O2 Del Method Room Air 04/12/23 00:43 BMI result Body Mass Index 37.8 Appearance: Alert. Oriented X3. No acute distress. initially talking normal then closes eyes will not answer questions then is fluent Eyes: Pupils equal, round and reactive to light. Blood shot eyes bilaterally ENT: Pharynx normal. Atraumatic. R upper first molar dental old fractured tooth noted no abscess or fluctuance Neck: Normal inspection. Neck supple. no meningeal signs CVS: Normal heart rate and rhythm. Pulses normal. Respiratory: No respiratory distress. Breath sounds normal. Abdomen: Soft and non-tender. Skin: Skin warm and dry. Normal skin color. Normal skin turgor. Extremities: No lower extremity edema. Neuro: Oriented X 3. No motor deficit. No sensory deficit. Course Course Course Narrative: was asleep had to be woken up to discuss CT scan - discussed low likelihood of SAH in setting of negative CT scan in 6 hours. was asleep BP down aware of plan Medications Administered Discontinued Medications Generic Name Dose Route Start Last Admin Trade Name Abilio PRN Reason Stop Dose Admin Ketorolac Tromethamine 15 mg 04/12/23 00:24 04/12/23 00:40 Ketorolac Tromethamine 15 Mg/Ml Vial IVPUSH 04/12/23 00:25 15 mg ONCE ONE Administration Lorazepam 1 mg 04/11/23 23:16 04/11/23 23:29 Lorazepam 2 Mg/Ml Vial IVPUSH 04/11/23 23:17 1 mg STAT STA Administration Medical Decision Making Medical Decision Making MDM Narrative: 52 yo female with PMH of migraines, anxiety, GERD, dysphagia, restless leg syndrome, chronic chest pain, not on thinners here with c/o abrupt onset headache and R sided dental pain - at this time no signs of infection will need CT head given abrupt onset headache but at this time she has had headache that started in last [address] scan will be done within [address] scan will rule out SAH. She has non focal exam and presentation is atypical. She notes hx of headaches in the past and is blaming pain from the tooth causing this. At this time CT head and IV medications to treat pain ordered. Differential Diagnosis Differential Diagnoses: The differential diagnosis associated with the presentation includes tension headache, migraine, acute headache, ICH Admission/Observation Consideration of admission/observation: Escalation of care including admission/observation considered feels better CT head negative at this time stable for DC Independent Interpretation I performed an independent interpretation of an: CT Scan (no ICH) Radiology Impression Discussion of test interpretation with radiology: I have reviewed the radiologist's reading. Independent Historian Clinical information obtained from an independent historian. History obtained from or confirmed by: Other (granddaughter) External Record Review External record reviewed: Inpatient record Prescription Management I considered prescription management with: Antibiotic Discharge Plan Discharge Clinical Impression: Migraine Qualifiers: Migraine type: unspecified Status migrainosus presence: without status migrainosus Intractability: not intractable Qualified Code(s): G43.909 - Migraine, unspecified, not intractable, without status migrainosus Sinusitis Qualifiers: Sinusitis location: maxillary Chronicity: acute Recurrence: non-recurrent Qualified Code(s): J01.00 - Acute maxillary sinusitis, unspecified Patient Disposition: Home, Self-Care Instructions: Sinusitis (ED), Migraine Headache (ED) Additional Instructions: no bleeding or mass noted on CT scan. return for worsening symptoms, pain, fevers, confusion or any other concerns. take and finish all antibiotics. No se observ? sangrado ni masa en la tomograf?a computarizada. Regrese si los s?ntomas empeoran, dolor, fiebre, confusi?n o cualquier otra inquietud. kelly y terminar todos los antibi?ticos. Prescriptions: New cefuroxime axetil 500 mg tablet 500 mg PO BID 7 Days Qty: 14 0RF No Action Nucala 100 mg/mL auto-injector 100 mg subcut Q4W 28 Days Qty: 1 12RF omeprazole 20 mg capsule,delayed release(DR/EC) 20 mg PO DAILY Qty: 30 1RF budesonide-formoterol [Symbicort] 160-4.5 mcg/actuation HFA aerosol inhaler 2 puff inhalation BID Qty: 10.2 6RF solifenacin 5 mg tablet 5 mg PO DAILY Qty: 30 1RF ibuprofen 600 mg tablet 600 mg PO Q6H PRN (Reason: fever or pain) Qty: 30 0RF albuterol sulfate 90 mcg/actuation HFA aerosol inhaler 2 puff inhalation Q4-6H PRN (Reason: shortness of breath or wheezing) Qty: 8.5 0RF (DME) blood pressure monitor Kit See Rx Instructions .ROUTE .MEDSUPPLY Qty: 1 Rx Instructions: As directed fluticasone propionate 50 mcg/actuation spray,suspension 2 spray intranasal DAILY Rx Instructions: administer into each nostril albuterol sulfate [ProAir HFA] 90 mcg/actuation HFA aerosol inhaler 2 puff inhalation Q6H PRN Tylenol Extra Strength 500 mg powder in packet 500 mg PO Q6H PRN cetirizine [Zyrtec] 10 mg tablet 10 mg PO DAILY PRN lisinopril 20 mg tablet 20 mg PO DAILY venlafaxine 37.5 mg capsule,extended release 24hr 37.5 mg PO DAILY diclofenac sodium 1 % gel 2 g topical ketotifen fumarate [Eye Itch Relief] 0.025 % (0.035 %) drops 1 drp ophthalmic (eye) BID montelukast 10 mg tablet 10 mg PO QPM (DME) Wrist Brace - one Misc See Rx Instructions .Route Qty: 2 0RF Rx Instructions: As directed ropinirole 0.5 mg tablet 0.5 - 1 mg PO BEDTIME Qty: 45 0RF Rx Instructions: administer 1-3 hours before bedtime Print Language: Tamazight
[2023-04-11] MEDS: LORazepam 2 MG/ML VIAL 1 MG IVPUSH (23:29)
[2023-04-12] MEDS: Ketorolac Tromethamine 15 MG/ML VIAL IVPUSH (00:40)
[2023-04-12 00:43] VITALS: BP 165/105; PULSE 98; RESP 18; TEMP 36.4; O2SAT 98
[2023-04-12] MEDS: Acetaminophen 325 MG TABLET 650 MG PO (02:35)
[2023-04-12] MEDS: oxyCODONE HCl Immed Release 5 MG TABLET PO (02:35)
--- NOTE | 2023-04-12 03:17 | PC.NURSE ---
This RN brought pt discharge papers and patient reporting pain not any better. Pt crying in bed. Discussed with . ordered medication which was administered. Pt requested event organizer for discharge. Reviewed discharge instructions with patient with the assistance of fur trimming machine operator. Pt reports she does not agree with discharge and that the pain feels different then her normal headaches. This RN explained that the CT report only indicated sinusitis and that the doctor sent a prescription to the pharmacy.
== END 2023-04-12 03:20 | disposition home or self-care (01) ==
PROVIDERS: Emergency Provider Emergency Medicine; PCP Family Medicine
DX: G43.909 Migraine, unspecified, not intractable, without status migrainosus (principal); J01.00 Acute maxillary sinusitis, unspecified; Z79.899 Other long term (current) drug therapy
CPT/HCPCS: 70450; 96374; 96375; 99284; J1885; J2060

== ENCOUNTER 2023-04-22 12:30 | Outpatient (REF) | payer MEDICAID, SELFPAY ==
[2023-04-22 13:11] LABS: MANUAL DIFF FLAG NO
[2023-04-22 13:30] LABS: Basophils Percent Auto 0.5 % (0-2); Eosinophils Absolute Auto 0.2 X10*3/uL (0.0-0.4); Eosinophils Percent Auto 3.8 % (0-4); Hematocrit 43.9 % (37.0-47.0); Hemoglobin 13.6 g/dl (12.0-16.0); Imm Gran Abs Auto 0.02 X10*3/uL (0.00-0.03); Imm Gran Pct Auto 0.3 % (0.0-0.4); Lymphocytes Percent Auto 34.2 % (20-40); Mean Corpuscular Hemoglobin 24.6 pg (27.0-33.0); Mean Corpuscular Volume 79.4 fL (80.0-98.0); Mean Platelet Volume 10.4 fL (9.4-12.3); Monocytes Absolute Auto 0.4 X10*3/uL (0.1-1.2); Monocytes Percent Auto 6.7 % (2-11); Neutrophils Absolute Auto 3.2 x10*3/uL (2.0-8.3); Neutrophils Percent Auto 54.5 % (45-73); Platelet Count 356 X10*3/uL (160-400); Red Blood Count 5.53 X10*6/uL (4.20-5.50); Red Cell Distribution Width 14.3 % (11.0-16.0); White Blood Count 5.8 X10*3/uL (4.8-10.8)
[2023-04-22 14:08] LABS: Erythrocyte Sedimentation Rate 17 MM/HR (0-20)
[2023-04-22 15:01] LABS: Alanine Aminotransferase 16 U/L (0-31); Albumin Level 4.5 g/dL (3.5-5.0); Alkaline Phosphatase 138 U/L (39-117); Anion Gap 10 (12-20); Aspartate Amino Transferase 17 U/L (5-31); Bilirubin Total 0.8 mg/dL (0.0-1.0); Blood Urea Nitrogen 17 mg/dL (9-16); C Reactive Protein 1.07 mg/dL (< or = 0.50); Calcium 11.2 mg/dL (8.4-10.2); Carbon Dioxide 28 mmol/L (22-29); Chloride 106 mmol/L (96-108); Estimated Glomerular Filt Rate > 60; Glucose Random 95 mg/dL (60-115); Potassium 4.2 mmol/L (3.3-5.1); Sodium 140 mmol/L (135-145); Total Protein 8.2 g/dL (6.5-8.0)
[2023-04-24 12:43] LABS: Prot Elec - Albumin 4.4 g/dL (3.8-4.8); Prot Elec - Alpha1 0.3 g/dL (0.2-0.3); Prot Elec - Alpha2 0.8 g/dL (0.5-0.9); Prot Elec - Beta 1 0.5 g/dL (0.4-0.6); Prot Elec - Beta 2 0.4 g/dL (0.2-0.5); Prot Elec - Gamma 1.4 g/dL (0.8-1.7); Prot Elec - Total Protein 7.8 g/dL (6.1-8.1)
== END 2023-04-22 12:31 | disposition home or self-care (01) ==
LOC: HO.HHCL 12:30
PROVIDERS: Visit Provider Registered Nurse
DX: R51.9 Headache, unspecified (principal); I10 Essential (primary) hypertension
CPT/HCPCS: 36415; 80053; 84165; 85025; 85652; 86140; 87086; 87088; 87186

== ENCOUNTER 2023-04-28 09:58 | Outpatient (REF) | payer MEDICAID, SELFPAY ==
[2023-04-28 12:06] LABS: Parathyroid Hormone Intact 188.7 pg/mL (8.7-77.1)
[2023-04-28 12:10] LABS: Anion Gap 10 (12-20); Blood Urea Nitrogen 17 mg/dL (9-16); Calcium 9.9 mg/dL (8.4-10.2); Carbon Dioxide 29 mmol/L (22-29); Chloride 106 mmol/L (96-108); Estimated Glomerular Filt Rate > 60; Glucose Random 105 mg/dL (60-115); Potassium 4.3 mmol/L (3.3-5.1); Sodium 141 mmol/L (135-145)
[2023-04-28 12:12] LABS: Thyroid Stimulating Hormone 1.15 uIU/mL (0.32-4.0)
[2023-04-28 12:32] LABS: Folate 6.3 ng/mL (> or = 4.0); Vitamin B12 500 pg/mL (200-900)
[2023-04-29 12:49] LABS: RPR Rapid Plasma Reagin NON-REACTIVE (NON-REACTIVE)
[2023-04-30 15:43] LABS: Calcium, Ionized 5.4 mg/dL (4.7-5.5)
[2023-05-01 06:33] LABS: HPV mRNA E6/E7 rflx Not Detected (Not Detected)
== END 2023-04-28 09:59 | disposition home or self-care (01) ==
LOC: HO.HHCL 09:58
PROVIDERS: Visit Provider Family Medicine
DX: Z12.4 Encounter for screening for malignant neoplasm of cervix (principal); Z11.51 Encounter for screening for human papillomavirus (HPV); E83.52 Hypercalcemia; R68.89 Other general symptoms and signs
CPT/HCPCS: 36415; 80048; 82330; 82607; 82746; 83970; 84443; 86592; 87624; 88142

== ENCOUNTER 2023-05-08 18:49 | Outpatient (REF) | payer MEDICAID, SELFPAY ==
--- NOTE | ~2023-05-08 | MR_ITS ---
EXAMINATION: MR BRAIN WITHOUT CONTRAST CLINICAL INFORMATION: Headache. Maxillary sinus disease. 2 months of episodes and confusion. Memory loss. COMPARISON: CT head from 04/11/2023. TECHNIQUE: MRI of the brain was obtained using routine sequences without contrast. FINDINGS: No focal restricted diffusion is demonstrated to suggest acute or subacute cerebral ischemia. No evidence of acute or chronic hemorrhagic products on heme-sensitive imaging. Scattered periventricular and deep white matter T2 FLAIR hyperintensities consistent with mild underlying microangiopathy. Proportional prominence of the ventricles and sulcal spaces without evidence of obstructive hydrocephalus. No abnormal mass effect. No midline shift. Normal appearance of the pituitary gland. Normal positioning of the cerebellar tonsils. Normal arterial and venous vascular flow voids are present. Normal, homogeneous marrow signal. Mild mucosal thickening of the paranasal sinuses. No signal abnormalities within the mastoids. MR/MR head/brain wo con IMPRESSION: 1. No acute intracranial abnormalities. 2. Mild underlying microangiopathy and generalized cerebral volume loss.
== END 2023-05-08 18:50 | disposition home or self-care (01) ==
LOC: HO.MRI 18:49
PROVIDERS: PCP Family Medicine; Visit Provider Registered Nurse
DX: R51.9 Headache, unspecified (principal)
CPT/HCPCS: 70551

== ENCOUNTER 2023-06-03 15:16 | Outpatient (REF) | payer MEDICAID, SELFPAY ==
[2023-06-03 17:38] LABS: Thyroid Stimulating Hormone 0.95 uIU/mL (0.32-4.0)
[2023-06-03 17:42] LABS: Erythrocyte Sedimentation Rate 17 MM/HR (0-20)
[2023-06-04 10:33] LABS: Lyme Abs Screen <0.90 index
[2023-06-05 14:24] LABS: IgA 140 mg/dL (47-310); IgG 1419 mg/dL (600-1640); IgM 164 mg/dL (50-300)
[2023-06-06 16:19] LABS: Anti Nuclear Antibody Pattern Nuclear, Speckled; Anti Nuclear Antibody Screen POSITIVE (NEGATIVE); Anti Nuclear Antibody Titer 1:40 titer
== END 2023-06-03 15:17 | disposition home or self-care (01) ==
LOC: HO.LAB 15:16
PROVIDERS: PCP Family Medicine; Visit Provider Registered Nurse
DX: G62.9 Polyneuropathy, unspecified (principal); M79.10 Myalgia, unspecified site
CPT/HCPCS: 36415; 82550; 82784; 84436; 84443; 85652; 86038; 86039; 86334; 86617; 86618

== ENCOUNTER 2023-06-28 00:36 | Emergency (ER) | payer MEDICAID, SELFPAY ==
--- NOTE | 2023-06-28 | ECG_ITS ---
Test Reason : CHEST PAIN Blood Pressure : / mmHG Vent. Rate : 086 BPM Atrial Rate : 086 BPM P-R Int : 130 ms QRS Dur : 098 ms QT Int : 376 ms P-R-T Axes : 035 -31 044 degrees QTc Int : 449 ms Normal sinus rhythm Left axis deviation Moderate voltage criteria for LVH, may be normal variant ( R in aVL , [place] product ) Abnormal ECG When compared with ECG of 24-JUL-2022 03:44, No significant change was found Referred By: Generic ED Physician Electronically Signed By:Sai Parisi
--- NOTE | ~2023-06-28 | US_ITS ---
EXAMINATION: US ABDOMEN LIMITED CLINICAL INFORMATION: Right upper quadrant pain. Cholecystitis. COMPARISON: Renal ultrasound from 08/25/2022. TECHNIQUE: Real-time imaging of the right upper quadrant abdominal viscera. FINDINGS: PANCREAS: Normal. LIVER: Liver has normal size and contour. The parenchyma is mildly, diffusely hyperechoic consistent with steatosis and there is an area of relative fat sparing adjacent to the gallbladder fossa. No liver masses are seen. No intrahepatic ductal dilatation. GALLBLADDER: Normal. The gallbladder is physiologically distended without evidence of stones, sludge, polyps, wall thickening or pericholecystic fluid. COMMON DUCT: The visualized common hepatic duct is 0.2 cm diameter. The common bile duct is obscured by bowel gas. RIGHT KIDNEY: Normal. No hydronephrosis. No renal calculi or focal parenchymal lesions. The kidney measures 10.3 cm in maximum dimension. FREE FLUID: None. US/US abdomen limited IMPRESSION: * No evidence of cholelithiasis, cholecystitis or biliary tract obstruction. * Diffuse hepatic steatosis.
[2023-06-28 00:40] VITALS: BP 164/83; PULSE 94; RESP 16; TEMP 36; O2SAT 98; BMI 38.6
[2023-06-28 00:58] LABS: Hematocrit 39.6 % (37.0-47.0); Hemoglobin 12.9 g/dl (12.0-16.0); Mean Corpuscular HGB Conc 32.6 g/dl (31.0-35.0); Mean Corpuscular Hemoglobin 25.4 pg (27.0-33.0); Mean Corpuscular Volume 78.1 fL (80.0-98.0); Mean Platelet Volume 10.2 fL (9.4-12.3); Platelet Count 302 X10*3/uL (160-400); Red Blood Count 5.07 X10*6/uL (4.20-5.50); White Blood Count 7.3 X10*3/uL (4.8-10.8)
[2023-06-28 01:12] LABS: Alanine Aminotransferase 15 U/L (0-31); Albumin Level 4.2 g/dL (3.5-5.0); Alkaline Phosphatase 141 U/L (39-117); Anion Gap 12 (12-20); Aspartate Amino Transferase 15 U/L (5-31); Blood Urea Nitrogen 20 mg/dL (9-16); Calcium 10.5 mg/dL (8.4-10.2); Carbon Dioxide 27 mmol/L (22-29); Chloride 104 mmol/L (96-108); Estimated Glomerular Filt Rate > 60; Glucose Random 116 mg/dL (60-115); Potassium 3.8 mmol/L (3.3-5.1); Sodium 139 mmol/L (135-145); Total Protein 7.7 g/dL (6.5-8.0)
[2023-06-28 01:19] LABS: Troponin-I High Sensitivity < 2.7 ng/L (<3.5-17.0)
[2023-06-28 02:42] VITALS: BP 146/92; PULSE 80; RESP 12; TEMP 36.4; O2SAT 100
[2023-06-28 04:00] VITALS: BP 161/93; PULSE 82; RESP 19; TEMP 36.6; O2SAT 99
--- NOTE | 2023-06-28 04:59 | ED_ITS ---
HPI - Chest Pain General Chief Complaint: Chest Pain Stated Complaint: chest pain Time Seen by Provider: 06/28/23 04:58 Source: patient Mode of arrival: ambulatory Limitations: no limitations History of Present Illness HPI narrative: Patient with history of gastric reflux anxiety no known coronary artery disease complaining of pain in the epigastric area radiating to the mid chest and the right upper quadrant started 2 hours prior to arrival with nausea no vomiting no shortness a breath patient is very anxious on arrival Related Data Home Medications ?Medication ?Instructions ?Recorded ?Confirmed acetaminophen 500 mg oral powder 500 mg PO Q6H PRN 07/12/20 09/16/22 packet (Tylenol Extra Strength) albuterol sulfate 90 mcg/actuation 2 puff inhalation Q6H PRN 07/12/20 09/16/22 aerosol inhaler (ProAir HFA) blood pressure monitor #1 ea 07/12/20 09/16/22 cetirizine 10 mg tablet (Zyrtec) 10 mg PO DAILY PRN 07/12/20 09/16/22 fluticasone propionate 50 2 spray intranasal DAILY 07/12/20 09/16/22 mcg/actuation nasal spray,suspension lisinopril 20 mg tablet 20 mg PO DAILY 07/02/21 09/16/22 venlafaxine 37.5 mg 37.5 mg PO DAILY 09/10/21 09/16/22 capsule,extended release 24 hr diclofenac sodium 1 % topical gel 2 g topical pain 09/16/22 09/16/22 ketotifen fumarate 0.025 % (0.035 1 drp ophthalmic (eye) BID 09/16/22 09/16/22 %) eye drops (Eye Itch Relief) montelukast 10 mg tablet 10 mg PO QPM 09/16/22 09/16/22 Previous Rx's ?Medication ?Instructions ?Recorded mepolizumab 100 mg/mL subcutaneous 100 mg subcut Q4W 28 days #1 mL 01/02/22 auto-injector (Nucala) ibuprofen 600 mg tablet 600 mg PO Q6H PRN fever or pain 03/09/22 #30 tabs omeprazole 20 mg capsule,delayed 20 mg PO DAILY #30 caps 05/09/22 release albuterol sulfate 90 mcg/actuation 2 puff inhalation Q4-6H PRN 07/24/22 aerosol inhaler shortness of breath or wheezing #8.5 grams budesonide-formoterol HFA 160 2 puff inhalation BID #10.2 grams 09/15/22 mcg-4.5 mcg/actuation aerosol inhaler (Symbicort) Brace,wrist (Wrist Brace - one) #2 ea 09/16/22 ropinirole 0.5 mg tablet 0.5 - 1 mg (1 - 2 x 0.5 mg) PO 09/16/22 BEDTIME #45 tabs solifenacin 5 mg tablet 5 mg PO DAILY #30 tabs 02/06/23 cefuroxime axetil 500 mg tablet 500 mg PO BID 7 days #14 tabs 04/12/23 omeprazole 40 mg capsule,delayed 40 mg PO DAILY #30 caps 06/28/23 release sucralfate 1 gram tablet 1 g PO TID #90 tabs 06/28/23 Allergies Allergy/AdvReac Type Severity Reaction Status Date / Time Penicillins Allergy Unknown UNKNOWN Verified 06/28/23 00:43 Review of Systems 2 Review of Systems: Yes all other systems are reviewed and are negative [facility] Past Medical History Medical History HTN (hypertension) Asthma Surgical History History of hysterectomy Hx of breast surgery (03/28/20) History of abdominoplasty (03/28/20) Family History Family History Father HTN (hypertension) Diabetes Mother Epilepsia Social History Social History Alcohol intake: current Alcohol intake frequency: holidays/special occasions only Patient Tobacco Use Status: Never used Tobacco Advance Directives: No Advance Directives Information Provided: No Do you have a plan to hurt others: No Plan Physical Exam 2 Vital Signs: Vital Signs: Last Vital Signs Temp 97.8 F 06/28/23 07:15 Pulse 92 06/28/23 07:15 Resp 18 06/28/23 07:15 BP 153/91 H 06/28/23 07:15 Pulse Ox 99 06/28/23 07:15 O2 Del Method Room Air 06/28/23 07:15 BMI result Body Mass Index 38.6 Appearance: Alert. Oriented X3. No acute distress. Anxious Eyes: No pallor or icterus ENT: Pharynx normal. Oral Mucosa moist Neck: Normal inspection. Neck supple. CVS: Normal heart rate and rhythm. Pulses normal. Respiratory: No respiratory distress. Equal air entry bilateral, no wheezing/rales/rhonchi Abdomen: Soft , mild tenderness epigastric area Bowel sounds are present, no mass palpable, no CVA tenderness Skin: Skin warm and dry. Normal skin color. Normal skin turgor. Extremities: No lower extremity edema. No calf tenderness Neuro: Oriented X 3. No motor deficit. Medications Administered Discontinued Medications Generic Name Dose Route Start Last Admin Trade Name Freq PRN Reason Stop Dose Admin Al Hydroxide/Mg Hydroxide 30 ml 06/28/23 06:47 06/28/23 07:13 Magnesium Hydrox/Alum Hydrox 30 Ml Oral.Susp PO 06/28/23 06:48 30 ml ONCE ONE Administration Morphine Sulfate 15 mg 06/28/23 05:25 06/28/23 05:34 Morphine Sulfate Immed Release 15 Mg Tablet PO 06/28/23 05:26 15 mg ONCE ONE Administration Medical Decision Making Medical Decision Making [facility] Narrative: Patient has atypical chest pain with epigastric pain likely gastritis does have history of anxiety EKG without any ischemic changes 2 sets of cardiac enzymes negative heart score of 0 atypical chest pain from gastritis ultrasound of the abdomen done which was negative for gallstones Differential Diagnosis Differential Diagnoses: The differential diagnosis associated with the presentation includes ACS/gastritis/pancreatitis/ gallstones Lab Data [facility] Lab Attestation statement: I reviewed the patient's lab results. 06/28/23 00:53 06/28/23 00:53 Labs: Lab Results 06/28/23 06/28/23 Range/Units 00:53 05:50 WBC 7.3 (4.8-10.8) X10*3/uL RBC 5.07 (4.20-5.50) X10*6/uL Hgb 12.9 (12.0-16.0) g/dl Hct 39.6 (37.0-47.0) % MCV 78.1 L (80.0-98.0) fL MCH 25.4 L (27.0-33.0) pg MCHC 32.6 (31.0-35.0) g/dl RDW 14.0 (11.0-16.0) % Plt Count 302 (160-400) X10*3/uL MPV 10.2 (9.4-12.3) fL Absolute Nucleated RBC 0.000 (0.0-0.012) X10*3/uL Nucleated RBC % (auto) 0.0 (0.0-0.2) /100WBC Sodium 139 (135-145) mmol/L Potassium 3.8 (3.3-5.1) mmol/L Chloride 104 (96-108) mmol/L Carbon Dioxide 27 (22-29) mmol/L Anion Gap 12 (12-20) BUN 20 H (9-16) mg/dL Creatinine 0.73 (0.5-1.4) mg/dL Estim Creat Clear Calc 106.0 Estimated GFR > 60 Random Glucose 116 H (60-115) mg/dL Calcium 10.5 H D (8.4-10.2) mg/dL Total Bilirubin 1.0 (0.0-1.0) mg/dL AST 15 (5-31) U/L ALT 15 (0-31) U/L Alkaline Phosphatase 141 H (39-117) U/L Troponin I High Sens < 2.7 < 2.7 (<3.5-17.0) ng/L Total Protein 7.7 (6.5-8.0) g/dL Albumin 4.2 (3.5-5.0) g/dL Independent Interpretation I performed an independent interpretation of an: EKG and Ultrasound Interpretation: US :Negative gallstones EKGRate: 86 Rhythm: Sinus [place]: Labs Normal P waves. ?Normal VICKI. ST T wave : No acute ischemic changes LVH No acute ischemia Discharge Plan Discharge Clinical Impression: Chest pain, Gastritis Patient Disposition: Home, Self-Care Instructions: Chest Pain (ED), Gastritis (ED) Additional Instructions: Your ultrasound is negative for gallstones Workup is negative for heart attack Take acid medication as prescribed and follow with PCP Prescriptions: New omeprazole 40 mg capsule,delayed release(DR/EC) 40 mg PO DAILY Qty: 30 0RF sucralfate 1 gram tablet 1 g PO TID Qty: 90 0RF No Action Nucala 100 mg/mL auto-injector 100 mg subcut Q4W 28 Days Qty: 1 12RF omeprazole 20 mg capsule,delayed release(DR/EC) 20 mg PO DAILY Qty: 30 1RF budesonide-formoterol [Symbicort] 160-4.5 mcg/actuation HFA aerosol inhaler 2 puff inhalation BID Qty: 10.2 6RF solifenacin 5 mg tablet 5 mg PO DAILY Qty: 30 1RF ibuprofen 600 mg tablet 600 mg PO Q6H PRN (Reason: fever or pain) Qty: 30 0RF albuterol sulfate 90 mcg/actuation HFA aerosol inhaler 2 puff inhalation Q4-6H PRN (Reason: shortness of breath or wheezing) Qty: 8.5 0RF cefuroxime axetil 500 mg tablet 500 mg PO BID 7 Days Qty: 14 0RF (DME) blood pressure monitor Kit See Rx Instructions .ROUTE .MEDSUPPLY Qty: 1 Rx Instructions: As directed fluticasone propionate 50 mcg/actuation spray,suspension 2 spray intranasal DAILY Rx Instructions: administer into each nostril albuterol sulfate [ProAir HFA] 90 mcg/actuation HFA aerosol inhaler 2 puff inhalation Q6H PRN Tylenol Extra Strength 500 mg powder in packet 500 mg PO Q6H PRN cetirizine [Zyrtec] 10 mg tablet 10 mg PO DAILY PRN lisinopril 20 mg tablet 20 mg PO DAILY venlafaxine 37.5 mg capsule,extended release 24hr 37.5 mg PO DAILY diclofenac sodium 1 % gel 2 g topical ketotifen fumarate [Eye Itch Relief] 0.025 % (0.035 %) drops 1 drp ophthalmic (eye) BID montelukast 10 mg tablet 10 mg PO QPM (DME) Wrist Brace - one Misc See Rx Instructions .Route Qty: 2 0RF Rx Instructions: As directed ropinirole 0.5 mg tablet 0.5 - 1 mg PO BEDTIME Qty: 45 0RF Rx Instructions: administer 1-3 hours before bedtime Interventions: ED Discharge Assessment Last Done: 06/28/23 07:15 Print Language: Azeri
[2023-06-28] MEDS: Morphine Sulfate Immed Release 15 MG TABLET PO (05:34)
[2023-06-28 05:40] VITALS: BP 149/96; PULSE 82; RESP 14; TEMP 36.6; O2SAT 100
[2023-06-28 06:14] LABS: Troponin-I High Sensitivity < 2.7 ng/L (<3.5-17.0)
[2023-06-28] MEDS: Magnesium Hydrox/Alum Hydrox 30 ML ORAL.SUSP PO (07:13)
[2023-06-28 07:15] VITALS: BP 153/91; PULSE 92; RESP 18; TEMP 36.6; O2SAT 99
== END 2023-06-28 07:21 | disposition home or self-care (01) ==
PROVIDERS: Emergency Provider Internal Medicine; PCP Family Medicine
DX: R07.89 Other chest pain (principal); K29.70 Gastritis, unspecified, without bleeding; I25.10 Atherosclerotic heart disease of native coronary artery without angina pectoris; Z79.899 Other long term (current) drug therapy
CPT/HCPCS: 36415; 76705; 80053; 84484; 85027; 93005; 99284

== ENCOUNTER → 2023-06-28 00:43 | Outpatient (BNV) | payer MEDICAID, SELFPAY | PROVIDERS: Emergency Provider Internal Medicine; PCP Family Medicine; Visit Provider Internal Medicine Cardiovascular Disease | DX: R94.31 Abnormal electrocardiogram [ECG] [EKG] (principal) | CPT/HCPCS: 93010 ==

== ENCOUNTER 2024-02-12 12:22 | Outpatient (REF) | payer MEDICAID, SELFPAY ==
[2024-02-12 13:08] LABS: Hematocrit 42.7 % (37.0-47.0); Hemoglobin 13.5 g/dl (12.0-16.0); Mean Corpuscular HGB Conc 31.6 g/dl (31.0-35.0); Mean Corpuscular Hemoglobin 25.8 pg (27.0-33.0); Mean Corpuscular Volume 81.6 fL (80.0-98.0); Mean Platelet Volume 10.1 fL (9.4-12.3); Platelet Count 305 X10*3/uL (160-400); Red Blood Count 5.23 X10*6/uL (4.20-5.50); Red Cell Distribution Width 13.2 % (11.0-16.0); White Blood Count 5.3 X10*3/uL (4.8-10.8)
[2024-02-12 13:16] LABS: Estimated Average Glucose 117 mg/dL; Hemoglobin A1C 130.9322 umol/L; Hemoglobin A1c % 5.7 % (<6.0); Total Hemoglobin (HGBA1C) 3351.0436 umol/L
[2024-02-12 13:47] LABS: Creatinine Urine 147.31 mg/dL; Microalbum/Creatinine Ratio Ur 7.4 ug/mg cr (<30)
[2024-02-12 13:50] LABS: Parathyroid Hormone Intact 160.1 pg/mL (8.7-77.1)
[2024-02-12 13:55] LABS: Alanine Aminotransferase 22 U/L (0-31); Albumin Level 4.2 g/dL (3.5-5.0); Alkaline Phosphatase 138 U/L (39-117); Anion Gap 11 (12-20); Aspartate Amino Transferase 22 U/L (5-31); Bilirubin Direct 0.3 mg/dL (0.0-0.5); Blood Urea Nitrogen 21 mg/dL (9-16); Calcium 9.6 mg/dL (8.4-10.2); Carbon Dioxide 30 mmol/L (22-29); Chloride 104 mmol/L (96-108); Cholesterol 229 mg/dL (<200); Estimated Glomerular Filt Rate > 60; Glucose Random 95 mg/dL (60-115); HDL Cholesterol 47 mg/dL (>40); LDL Cholesterol Calculated 141 mg/dL (<100); Sodium 141 mmol/L (135-145); Total Protein 7.5 g/dL (6.5-8.0); Triglycerides 207 mg/dL (<150)
[2024-02-12 13:57] LABS: Free T4 (Free Thyroxine) 0.94 ng/dL (0.71-1.85); Thyroid Stimulating Hormone 1.92 uIU/mL (0.32-4.0); Vitamin D 25-OH Total 19.3 ng/mL (>30)
[2024-02-12 14:01] LABS: Hepatitis A Antibody IgG Nonreactive (Nonreactive)
[2024-02-12 14:02] LABS: HBS Num1 0.68 mIU/mL (0-7.99); HBc Num1 0.11 S/CO (0.00-0.79); HBsAGNum1 0.38 S/CO (0.00-0.99); HIV AB/AG Nonreactive (Nonreactive); HIV Num 1 0.07 S/CO (0.00-0.99); Hepatitis B Core Antibody Nonreactive (Nonreactive); Hepatitis B Surface Antigen Negative (Negative); ~HepC Num1 0.07 S/CO (0.00-0.79); ~Hepatitis B Surface Antibody NONREACTIVE (Nonreactive); ~Hepatitis C Antibody Nonreactive (Nonreactive)
[2024-02-12 14:29] LABS: CT PCR NOT DETECTED (Not Detect.); NG PCR NOT DETECTED (Not Detect.)
[2024-02-16 18:08] LABS: RPR Rapid Plasma Reagin NON-REACTIVE (NON-REACTIVE)
== END 2024-02-12 12:23 | disposition home or self-care (01) ==
LOC: HO.HHCL 12:22
PROVIDERS: Visit Provider Family Medicine
DX: Z00.00 Encounter for general adult medical examination without abnormal findings (principal); I10 Essential (primary) hypertension; E78.49 Other hyperlipidemia; R73.03 Prediabetes; F33.9 Major depressive disorder, recurrent, unspecified; J45.50 Severe persistent asthma, uncomplicated; J30.9 Allergic rhinitis, unspecified; G43.909 Migraine, unspecified, not intractable, without status migrainosus; M25.50 Pain in unspecified joint; R32 Unspecified urinary incontinence; R68.89 Other general symptoms and signs; R79.89 Other specified abnormal findings of blood chemistry; Z68.36 Body mass index [BMI] 36.0-36.9, adult; Z12.11 Encounter for screening for malignant neoplasm of colon
CPT/HCPCS: 80048; 80061; 80076; 82043; 82306; 82570; 83036; 83970; 84439; 84443; 85027; 86592; 86704; 86706; 86708; 86803; 87340; 87389; 87491; 87591

== ENCOUNTER 2024-05-03 13:50 | Outpatient (AMB) | payer MEDICAID, SELFPAY ==
--- NOTE | 2024-05-03 14:02 | MHC.OFFVIS ---
Vital Signs 05/03/24 14:04 Height 5 ft 4 in Weight 222 lb 0.088 oz BMI 38.1 BP 110/86 Blood Pressure Location Rt brachial Position Sitting Pulse 135 H Pulse Source Pulse Oximeter Pulse Oximetry (%) 96 Oxygen Delivery Method Room Air Intake Visit Reasons: Elevated PTH Intake Note: New patient externally referred by PCP for Elevated PTH levels. Straight Knife Machine Cutter Required: Yes Straight Knife Machine Cutter Language: Process Treater Services: Straight Knife Machine Cutter Present Straight Knife Machine Cutter Name: Sharifa Information Interpreted: non-clinical & clinical Accompanied by: Self / Same As Patient Allergies Penicillins Allergy (Unknown, Verified 05/03/24 14:05) UNKNOWN Medication List - Last Reconciled 05/03/24 by Florentino Boss MD acetaminophen (Tylenol Extra Strength) 500 mg PO Q6H PRN albuterol sulfate 90 mcg/actuation 2 puffs inhalation Q4-6H PRN albuterol sulfate 90 mcg/actuation (ProAir HFA) 2 puffs inhalation Q6H PRN blood pressure monitor As directed Brace,wrist (Wrist Brace - one) As directed budesonide-formoterol 160-4.5 mcg/actuation (Symbicort) 2 puffs inhalation BID cetirizine (Zyrtec) 10 mg PO DAILY PRN cholecalciferol (vitamin D3) (Vitamin D3) 50 mcg PO QAM diclofenac sodium 1% 2 grams topical duloxetine 30 mg PO fluticasone propionate 50 mcg/actuation 2 sprays intranasal DAILY ibuprofen 600 mg PO Q6H PRN ketotifen fumarate 0.025%(0.035%) (Eye Itch Relief) 1 drp ophthalmic (eye) BID lisinopril 20 mg PO DAILY mepolizumab (Nucala) 100 mg subcut Q4W 28 days montelukast 10 mg PO QPM omeprazole 40 mg PO DAILY omeprazole 20 mg PO DAILY ropinirole 0.5 - 1 mg (1 - 2 x 0.5 mg) PO BEDTIME solifenacin 5 mg PO DAILY sucralfate 1 g PO TID venlafaxine ER 37.5 mg PO DAILY HPI Comments Details: 53 YO F with who is seen in consultation at the request of PCP for secondary hyperparathyroidism . No previous hx The patient is a 53-year-old female presenting with elevated parathyroid hormone levels and vitamin D deficiency. A previous examination revealed a parathyroid hormone level of 160, which exceeds the normal upper limit of 77. Concurrently, a vitamin D level of 19 was reported, where the desired level is above 30. She has a prescription for vitamin D at 2000 IU daily but admits irregular use. There is no personal history of kidney stones or osteoporosis, despite a family history of these conditions. Additionally, she denies using medications like lithium or hydrochlorothiazide, which could affect calcium levels. Compliance with vitamin D has been inconsistent, partly due to perceived side effects such as fatigue, although these are not definitively linked. The patient's physical activities at home recently led to a minor injury, which, although not related to her endocrine issues, contributes to understanding her overall health and lifestyle. Not Currently using Calcium supplement []. Takes 2000 IU of Vitamin D daily but no taking . Was prescribed 1 yr ago Not Currently using HCTZ. Kidney stones: No Osteoporosis: No History of [place] use: Biotin use: No Family history of high calcium or kidney stones: No Renal imaging: [] DXA: Labs: PTH was 160, 25 hydroxy vitamin-D is 16 PFSH Medical History (Updated 05/03/24 @ 14:06 by Florentino Boss MD) Secondary hyperparathyroidism HTN (hypertension) Asthma Surgical History History of hysterectomy Hx of breast surgery (03/28/20) History of abdominoplasty (03/28/20) Family History Father HTN (hypertension) Diabetes Mother Epilepsia Social History Alcohol intake: current Alcohol intake frequency: holidays/special occasions only Patient Tobacco Use Status: Never used Tobacco Physical Exam Vital Signs: Last Vital Signs Pulse 135 H 05/03/24 14:04 BP 110/86 05/03/24 14:04 Pulse Ox 96 05/03/24 14:04 Oxygen Delivery Method Room Air 05/03/24 14:04 BMI result Body Mass Index 38.1 Assessment & Plan Assessment & Plan (1) Secondary hyperparathyroidism: Code(s): N25.81 - Secondary hyperparathyroidism of renal origin Category: Medical Plan: Is a 53-year-old female with a history of elevated PTH most likely secondary hyperparathyroidism during low vitamin-D level. 1. Elevated Parathyroid Hormone (Hyperparathyroidism): Elevated levels likely linked to vitamin D deficiency, with current emphasis on normalizing vitamin D levels to mitigate secondary effects. Plan includes re-evaluation after a three-month vitamin D regimen to determine if levels normalize. 2. Vitamin D Deficiency: Continued prescription of 2000 IU vitamin D is essential, emphasizing consistent daily intake to address the deficiency and indirectly manage hyperparathyroid hormone levels. The patient had an opportunity to ask questions regarding treatment plan. The patient expressed understanding and agreement with the above treatment plan. The patient and I discussed the implications of her laboratory findings, focusing on elevated parathyroid hormone levels likely driven by vitamin D deficiency. I explained that adequately supplementing with vitamin D should address the hormone imbalance and avert potential complications such as bone density loss and any elevation-related calcium imbalances. We explored the causal relationship of inadequate vitamin D and potential consequences for the bones and calcium levels, framing possible development of kidney stones or osteoporosis if unresolved. I informed the patient about the planned re-evaluation timeline and the necessity of lab work at a different venue to ensure accuracy of parathyroid hormone testing. Compliance with daily vitamin D was reinforced, and strategies for obtaining supplements [id number] were suggested as alternatives to prescriptions to encourage adherence. Any potential for parathyroid growth will be considered only after addressing vitamin D levels successfully. - Take vitamin D 2000 IU daily without missing doses. - Return for lab tests at a [facility] lab ([facility])in three months. - Follow-up two weeks after blood tests. - Seek [id number] vitamin D if needed to ensure compliance. - Patient was informed and verbally consented to the use of an ambient scribe for clinic note documentation during this visit. Orders: Orders Calcium 3 Months N25.81 - Secondary hyperparathyroidism of renal origin Albumin Level 3 Months N25.81 - Secondary hyperparathyroidism of renal origin Vitamin D 25-OH Total 3 Months N25.81 - Secondary hyperparathyroidism of renal origin Parathyroid Hormone Intact 3 Months N25.81 - Secondary hyperparathyroidism of renal origin Coding Level of Care Code New Pt Level 4 (02107) Diagnoses Secondary hyperparathyroidism N25.81
[2024-05-03 14:04] VITALS: BP 110/86; PULSE 135; O2SAT 96; BMI 38.1
== END 2024-05-03 14:32 | disposition home or self-care (01) ==
LOC: HO.ENCR 13:51
PROVIDERS: PCP Family Medicine; Visit Provider Internal Medicine Endocrinology, Diabetes & Metabolism
DX: N25.81 Secondary hyperparathyroidism of renal origin (principal)
CPT/HCPCS: 99204

== ENCOUNTER → 2024-05-03 13:50 | Outpatient (BNVA) | payer MEDICAID, SELFPAY | PROVIDERS: PCP Family Medicine; Visit Provider Internal Medicine Endocrinology, Diabetes & Metabolism | DX: N25.81 Secondary hyperparathyroidism of renal origin (principal) | CPT/HCPCS: 99202 ==

== ENCOUNTER 2024-06-08 14:47 | Outpatient (AMB) | payer MEDICAID, SELFPAY ==
--- NOTE | 2024-06-08 14:51 | A.OFFVIS_ITS ---
Vital Signs 06/08/24 14:52 Height 5 ft 4 in Weight 213 lb BMI 36.6 BP 140/90 H Blood Pressure Location Lt brachial Position Sitting Pulse 92 Pulse Oximetry (%) 97 Oxygen Delivery Method Room Air Intake Visit Reasons: pre colonoscopy/Damari bowen 07/2021 Intake Note: Patient complex follow up for acid reflux. jessi was with damari 08/13/2021. Patient was order a EGD/Colonoscopy but never was schedule. Patient cc: upper abdominal pain with bloating on and off, acid reflux, between soft stool and constipation on and off, and some swallowing difficulty on and off. Slurry Mixer Required: Yes Slurry Mixer Name: [facility] Interpeter Accompanied by: Self / Same As Patient Allergies Penicillins Allergy (Unknown, Verified 06/08/24 14:50) UNKNOWN Medication List - Last Reconciled 06/08/24 by Kathia Irizarry CNP acetaminophen (Tylenol Extra Strength) 500 mg PO Q6H PRN albuterol sulfate 90 mcg/actuation 2 puffs inhalation Q4-6H PRN albuterol sulfate 90 mcg/actuation (ProAir HFA) 2 puffs inhalation Q6H PRN blood pressure monitor As directed Brace,wrist (Wrist Brace - one) As directed budesonide-formoterol 160-4.5 mcg/actuation (Symbicort) 2 puffs inhalation BID cetirizine (Zyrtec) 10 mg PO DAILY PRN cholecalciferol (vitamin D3) (Vitamin D3) 50 mcg PO QAM diclofenac sodium 1% 2 grams topical duloxetine 30 mg PO fluticasone propionate 50 mcg/actuation 2 sprays intranasal DAILY ketotifen fumarate 0.025%(0.035%) (Eye Itch Relief) 1 drp ophthalmic (eye) BID lisinopril 20 mg PO DAILY mepolizumab (Nucala) 100 mg subcut Q4W 28 days montelukast 10 mg PO QPM ropinirole 0.5 - 1 mg (1 - 2 x 0.5 mg) PO BEDTIME solifenacin 5 mg PO DAILY venlafaxine ER 37.5 mg PO DAILY HPI HPI pre colonoscopy/Damari bowen 07/2021: Details: Patient is a 53-year-old female with PMH of hypertension, asthma, anxiety, RLS and acid reflux. Last visit with SIMONE Ferrer 08/13/2021 for follow-up labs. Pt is here today for follow up. States she forgot about the procedure planned for 2021 and also had personal stressors at that time. She reports intermittent burning epigastric pain X 2-3 years. She reports symptoms have slightly improved but continues with: Associated symptoms:pyrosis, regurgitation, heavy when I swallow , intermittent nausea Aggravating factors: unable identify Alleviating attempts: Maalox 2-3x/weeks Patient denies: fever/chills, vomiting, appetite changes or unintentional wt loss She reports barium swallow obtained approximately 3 years ago at [facility]. She reports history of constipation. Shares symptoms improved to type 4 after starting daily consumption of coffee with evaporated milk and cream approx 1.5 years ago. She shares a 15 day period of constipation when she did not have access to her coffee drink last month when visiting [place]. States as of last week her stools are now back to baseline. She is not keen on pharmacological management, including MiraLax. She denies obvious melena/hematochezia but does reports a few days of dark stools approx 4-5 months ago. Social hx: social ETOH use denies recreational drug use former some day a smoker, cessation 2 years. family hx -mother, breast CA denies personal hx of CA reports asthma has been stable the past 4-5 months, using daily inhaler. She denies other significant cardiopulmonary history tolerated anesthesia in the past without difficulty. [facility] Medical History (Updated 06/08/24 @ 16:20 by Kathia Irizarry CNP) Secondary hyperparathyroidism HTN (hypertension) Asthma Surgical History History of hysterectomy Hx of breast surgery (03/28/20) History of abdominoplasty (03/28/20) Family History (Updated 06/08/24 @ 15:53 by Kathia Irizarry CNP) Father HTN (hypertension) Diabetes Mother Epilepsia Breast cancer Social History Alcohol intake: current Alcohol intake frequency: holidays/special occasions only Patient Tobacco Use Status: Never used Tobacco Physical Exam Vital Signs: Last Vital Signs Pulse 92 06/08/24 14:52 BP 140/90 H 06/08/24 14:52 Pulse Ox 97 06/08/24 14:52 Oxygen Delivery Method Room Air 06/08/24 14:52 BMI result Body Mass Index 36.6 Const General: healthy appearing, no acute distress and well developed Nutritional Appearance: obese Orientation/consciousness: patient oriented x3 HEENT Head: Yes normal to inspection, Yes normocephalic and Yes atraumatic Face and sinus: Yes normal facial exam Eyes General: appearance normal, both eyes and all related structures Neck Neck: Yes normal visual inspection Resp Effort & Inspection: normal respiratory effort, able to speak in complete sentences, no tracheal deviation and symmetric chest movement Auscultation: clear to auscultation bilaterally and diminished lung sounds (bases only, otherwise CTA) Cardio Jugular venous distension: no JVD Rate: regular rate Rhythm: regular rhythm Heart sounds: S1 normal heart sound present, S2 normal heart sound present, no gallops and no murmurs GI Inspection: Yes normal to inspection and No distended Palpation (GI): Soft to palpation, not firm, nontender and No hepatosplenomegaly present Auscultation: normal bowel sounds Neuro General: patient oriented x3 Gait exam (Neuro): Normal gait present Psych Appearance: grossly normal Mental Status: mental status grossly normal Speech and movement: Normal speech and movement present Affect: normal affect Attitude: cooperative Thought process: Normal thought process present Thought content: Normal thought content present Insight: Good insight present (Psych) Judgement: Good judgement present (Psych) Results Reviewed Results Reviewed: Laboratory Tests 07/18/21 02/12/24 10:39 12:25 H. pylori Breath Test Negative Hep Bs Antigen Negative Hep Bs Antibody NONREACTIVE Hep B Core Total Ab Nonreactive Hepatitis C Ab (EIA) Nonreactive HIV 1&2 Ab/P24 Ag 4thGn Nonreactive Assessment & Plan Assessment & Plan (1) Acid reflux: Code(s): K21.9 - Gastro-esophageal reflux disease without esophagitis Category: Medical Qualifiers: Esophagitis presence: esophagitis presence not specified Qualified Code(s): K21.9 - Gastro-esophageal reflux disease without esophagitis Plan: She is not keen on taking a daily medication. She is agreeable to trial famotidine 20 mg to take as needed. Unable to locate previous barium swallow results. Given persistent symptoms we will repeat AND obtain EGD as previously planned. Education on GERD prevention-Advised against heavy meals. Encouraged small frequent meals VS large meals, remaining upright after meals x 2-3 hours, avoid late night eating/spicy foods/caffeine/alcohol/known triggers and tight fitting clothes (2) Encounter for screening colonoscopy: Code(s): Z12.11 - Encounter for screening for malignant neoplasm of colon Category: Medical Plan: Overdue for index colonoscopy screening. Previous history of constipation, managed well with lifestyle changes. Reviewed prep and procedure expectations. Prep Rx'd to preferred pharmacy. (3) Need for vaccination: Code(s): Z23 - Encounter for immunization Plan: Lack of hep B immunity per January 2024 labs. We will discuss immunizations status at future visit. Plan Follow-up after EGD/colonoscopy are sooner as needed Time: I spent a total of 45 minutes on the date of encounter which includes: Preparing to see the patient (reviewed previous documentation, test results and medical history) Performing a medically appropriate exam and/or evaluation Ordering medications, tests, and procedures Documenting clinical information in the health record Orders: Orders [place] barium swallow Today R13.10 - Dysphagia, unspecified Medications: New famotidine Take one tablet daily as needed for acid reflux 20 mg PO DAILY PRN 90 tabs 1RF GERD bisacodyl per colonoscopy instructions 5 mg PO ONCE 1 day 3 tabs 0RF polyethylene glycol 3350 (Miralax) per colonoscopy prep instructions 238 grams PO ONCE 238 grams 0RF Coding Level of Care Code New Pt Est Pt Level 3 (83773) Patient Type New Diagnoses Gastroesophageal reflux disease, unspecified whether esophagitis present K21.9 Esophagitis presence: esophagitis presence not specified Encounter for screening colonoscopy Z12.11 Need for vaccination Z23
[2024-06-08 14:52] VITALS: BP 140/90; PULSE 92; O2SAT 97; BMI 36.6
--- OUTSIDE RECORDS SUMMARY | 2024-06-08 17:37 | XMS_ITS | Encounter Summary ---
Author Organization [employer] Address [address] [place] [address] Care Team Providers Care Academy Director Name Role Phone DannaCindy Primary Care Provider + [phone] Reason for Visit * Reason Comments Med Refill Encounter Details Date Type Department Care Team ([facility] st Contact Info) Description 04/03/2024 Refill [facility] MED[facility]INE [address] [place] [address] Taryn Parsons MD [address] [place] [address] Social History Tobacco Use Types Packs/Day Years Used Date Smoking Tobacco: Never Passive Smoke Exposure: Never Smokeless Tobacco: Never Alcohol Use Standard Drinks/Week Comments Yes 0 (1 standard drink = 0.6 oz pur e alcohol) social Depression Answer Date Recorded Patient Health Questionnaire-9 Score 09/04/2023 Patient Health Questionnaire-9 Score 09/04/2023 Last PHQ-9: Questionnaire Data Not on file 0 09/04/2023 Housing Stability Answer Date Recorded What is your housing situation today? I have yelena hope 12/03/[address] you li ve. Do you have problems with any of the following? None of the above 12/03/2022 Food Insecurity Answer Date Recorded Within the past 12 months, y ou worried that your food would run out before you got money to buy more: Never True 12/03/2022 Within the past 12 months,th e food you bought just didn't last and you didn't have enough money to get more: Never True Transportation Answer Date Recorded In the past 12 months, has l ack of transportation kept you from medical appts, meetings, work or from getting things needed for daily living? Yes, it has kept me from non-medical meetings, work, or getting things that I need 09/23/2023 Utilities Answer Date Recorded In the past 12 months, has t he electric, gas, oil or water company threatened to shut off services in your home? No 12/03/2022 Depression Answer Date Recorded Patient Health Questionnaire-2 Score 6 09/04/2023 Internet Access Answer Date Recorded Internet Access Q1 Yes 10/19/2023 Internet Access Q2 Not on file 10/19/2023 Comments Unknown Sex and Gender Information Value Date Recorded Sex Assigned at Female 12/16/2021 10:20 AM EDT Legal Sex Female 10:20 AM EDT Gender Identity Female 12/16/2021 10:20 AM EDT Sexual Orientation Straight 12/16/2021 10 :20 AM EDT documented as of this encounter Plan of Treatment Not on file documented as of this encounter Visit Diagnoses Not on filedocumented in this encounter Additional Health Concerns Assessment Noted Time PHQ-9 Depression Total Score: 19 024 10:31 AM EDT documented as of this encounter Care Teams Academy Director Relationship Specialty Start Date End Date Cindy Clay DO [address] [place] [address] PCP - General Family Medicine 05/13/22 documented as of this encounter
--- OUTSIDE RECORDS SUMMARY | 2024-06-08 17:37 | XMS_ITS | Encounter Summary ---
Author Organization [employer] Address [address] [place] [address] Care Team Providers Care Therapist Respiratory Name Role Phone Sharifa Moncada MD Primary Care Provider + Cindy Clay DO Primary Care Provider + [phone] Encounter Details Date Type Department Care Team ([facility] st Contact Info) Description 05/09/2022 Orders Only [facility] MED[facility]INE [address] [place] [address] Alayna Newberry LPN Social History Tobacco Use Types Packs/Day Years Used Date Smoking Tobacco: Never Assessed Comments Unknown Sex and Gender Information Value Date Recorded Sex Assigned at Female 12/16/2021 10:20 AM EDT Legal Sex Female 10:20 AM EDT Gender Identity Female 12/16/2021 10:20 AM EDT Sexual Orientation Straight 12/16/2021 10 :20 AM EDT COVID-19 Exposure Response Date Recorded In the last 10 days, have yo u been in contact with someone who was confirmed or suspected to have Coronavirus/COVID-19? No / Unsure 05/12/2022 1:59 PM EDT documented as of this encounter Plan of Treatment Not on file documented as of this encounter Visit Diagnoses Not on filedocumented in this encounter Care Teams Therapist Respiratory Relationship Specialty Start Date End Date Sharifa Moncada MD [address] [place] [address] PCP - General Family Medicine 02/25/16 05/12/22 Cindy Clay DO [address] [place] [id number] PCP - General Family Medicine 05/13/22 documented as of this encounter
--- OUTSIDE RECORDS SUMMARY | 2024-06-08 17:37 | XMS_ITS | Clinical Summary ---
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 solifenacin (VESIcare) 5 MG tablet Take 5 mg by mouth in the morning. 08/19/19 23 Active mepolizumab (Nucala) 100 mg/mL solution auto-injector Inject under the skin every 28 (twenty-eight ) days. Active Eye Itch Relief 0.035 % solution INSTILL 1 DROP INTO THE AFFECTED EYE(S) TWICE DAILY 01/15/20 23 Active hydrOXYzine pamoate (Vistaril) 25 MG capsule Take 1 capsule (25 mg) by mouth every 6 (six) hours if needed for anxiety. 30 capsule 2 02/17/19 24 Active Blood Pressure kit 1 each 2 (two) times a week. 1 kit 02/19/19 24 Active ergocalciferol (Vitamin D2) 1.25 MG (60209 UT) capsuleIndicat ions:Vitamin D deficiency Take 1 capsule (1.25 mg) by mouth 1 (one) time per week. 12 capsule 3 03/20/19 24 Active triamcinolone (Nasacort) 55 MCG/ACT nasal inhaler INSTILL 2 SPRAYS IN EACH NOSTRIL ONCE DAILY IN THE MORNING 16.9 mL 11 09/25/19 24 Active gabapentin (Neurontin) 100 MG capsule TAKE 1 CAPSULE BY MOUTH EVERY DAY AT BEDTIME 09/03/19 24 Active albuterol (2.5 MG/3ML) 0.083% nebulizer solution INHALE 1 AMPULE USING A NEBULIZER THREE TIMES DAILY NEEDED SHORTNESS OF BREATH NEEDED FOR ASTHMA 90 mL 3 10/23/19 24 Active polyvinyl alcohol (Liquifilm Tears) 1.4 % ophthalmic solution INSTILL 1 DROP IN EACH EYE NEEDED FOR DRY EYES 15 mL 3 10/28/19 24 Active montelukast (Singulair) 10 MG tablet TAKE 1 TABLET BY MOUTH EVERY DAY IN THE EVENING 90 tablet 1 11/10/19 24 Active SUMAtriptan (Imitrex) 100 MG tablet TAKE 1/2 TO 1 TABLET BY MOUTH AFTER ONSET OF MIGRAINE. MAY REPEAT AFTER 2 HOURS IF HEADACHE RETURN . DO NOT TAKE MORE THAN 2 TABLETS IN 24 HOURS. DO NOT EXCEED 4 TABLETS PER WEEK 9 tablet 2 01/28/20 24 Active melatonin 5 MG tablet Take 2 tablets (10 mg) by mouth at bedtime. 180 tablet 1 02/02/20 24 Active cholecalcifero l (Vitamin D-3) 50 MCG (2000 UT) capsule Take 1 capsule (50 mcg) by mouth Once per day. 90 capsule 3 02/16/20 24 025 Active Symbicort 160-4.5 MCG/ACT inhaler INHALE 2 PUFFS BY MOUTH TWICE DAILY 10.2 g 11 02/25/19 25 Active albuterol (Ventolin HFA) 108 (90 Base) MCG/ACT inhaler INHALE 2 PUFFS BY MOUTH EVERY 4 TO 6 HOURS NEEDED 18 g 1 03/04/19 25 Active topiramate 50 MG tablet TAKE 1 TABLET BY MOUTH TWICE DAILY IN THE MORNING AND IN THE EVENING 60 tablet 2 04/29/19 25 Active omeprazole (PriLOSEC) [address] capsule TAKE 1 CAPSULE BY MOUTH EVERY MORNING 90 capsule 1 04/29/19 25 Active lisinopril 10 MG tablet TAKE 1 TABLET BY MOUTH EVERY MORNING 90 tablet 1 04/29/19 25 Active cetirizine (ZyrTEC) 10 MG tablet TAKE 1 TABLET BY MOUTH EVERY MORNING 90 tablet 1 04/29/19 25 Active Tirzepatide-We ight Management (Zepbound) 2.5 MG/0.5ML solution auto-injector Inject 0.5 mL (2.5 mg) under the skin 1 (one) time per week. 2 mL 3 05/05/19 25 Active amitriptyline (Elavil) 25 MG tablet TAKE 1 TABLET BY MOUTH AT BEDTIME 30 tablet 3 05/27/19 25 Active DULoxetine (Cymbalta) [address] capsule TAKE 1 CAPSULE BY MOUTH TWICE DAILY IN THE MORNING AND IN THE EVENING 60 capsule 3 05/27/19 25 Active amitriptyline (Elavil) 25 MG tablet TAKE 1 TABLET BY MOUTH EVERY DAY AT BEDTIME 30 tablet 3 12/11/19 24 025 Discontinued DULoxetine (Cymbalta) [address] capsule Take 1 capsule (30 mg) by mouth 2 times daily. Do not crush or chew. 60 capsule 3 01/18/20 24 025 Discontinued Active Problems Problem Noted Date Diagnosed Date Healthcare maintenance 10/04/2022 Assessment & Plan (10/04/2022 7:16 PM EDT): -Quantiferon 09/2022 neg. -pap smear: reports >10y per pt, referred today here for Pap smear w Delisa TatumMM: 2020 - BIRADS 2, referred today. -colonoscopy: never - referred today. -vaccines: s/p Covid x2, wants to hold on Bivalent offered today, as well recommended p20 and Shingrix, but wants to hold for now. S/p Tdap 2018. Hep B neg, refused vaccination. -labs x annual exam today -pt agreed to have STI testing including HIV to have for baseline. Pt had multiple labs done already on 05/08/2022 - reviewed w pt. Will order today rest of annual lab exams, and labs that needed to be repeated. -Letter today of physical exam done today w no contraindications for work and neg Quantiferon test, w letter handed to pt. Obesity (BMI 30-39.9) 07/09/2022 Assessment & Plan (10/04/2022 7:09 PM EDT): BMI 38.69 -Advised pt to improve diet and exercise,discussed healthy life style -Will need to discuss anesthesiologist assistant referral at next apt. -Will monitor HbA1c today and will consider for GLP-1 Pre-diabetes 07/09/2022 Assessment & Plan (10/04/2022 7:18 PM EDT): 04/2022: HbA1c 6.2 -Repeat HbA1c today. Hyperlipidemia 07/09/2022 Assessment & Plan (10/04/2022 7:20 PM EDT): 04/2022: total chol: 235, HDL 41, LDL 150, TG 223. ALT 33, Total Bilirubin 1.1, Alk Phos 141. -Will repeat chem and fasting lipids Vitamin D deficiency 05/27/2022 Assessment & Plan (10/04/2022 7:19 PM EDT): 04/2022 Vit D 10.7 - already started on Vit D, will recheck level today. Assessment & Plan (05/27/2022 4:10 PM EDT): I started ergocalciferol weekly Polyarthralgia 05/27/2022 Assessment & Plan (10/04/2022 7:07 PM EDT): Pt w Dx of fibromyalgia and polyarthralgia, has pos LUIS, RF, and elevated CRP. F w research worker encyclopedia. Not yet Dx w inflammatory arthritis. Pt was referred for further lab testing. -Tylenol PRN -Prescribed today Meloxicam PRN for moderate pain. Pt not taking Ibuprofen. -Continue w research worker encyclopedia f up. Assessment & Plan (05/27/2022 4:10 PM EDT): I referred patient to rheumatology Rheumatoid factor positive 05/27/2022 History of COVID-19 05/13/2022 Essential hypertension 05/13/2022 Assessment & Plan (10/04/2022 7:05 PM EDT): BP well controlled. 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 -Microalb ordered today. Chronic gastroesophageal reflux disease 05/14/19 23 Severe persistent asthma 05/13/2022 Assessment & Plan (10/04/2022 7:20 PM EDT): Currently reported as better controlled. -Continue treatment -Pt referred for hole digger operator before. I request medical front desk specialist to check for status of referral. Recommend pt to discuss w hole digger operator as well about penicillin allergy and test to confirm if it's true allergy. -Continue to f w field agronomist. Recurrent major depressive disorder 05/13/2022 Assessment & Plan (10/04/2022 7:10 PM EDT): Currently reports feeling stable w her depression and anxiety. PHQ9 - 8. Denies SI. -Following already w therapist and on waiting list to see psychiatrist. -Continue w antidepressant. Varicose veins of lower extremity 05/13/2022 Chronic migraine 05/13/2022 Assessment & Plan (10/04/2022 7:21 PM EDT): Controlled currently. Pt not taking Amitriptyline. Chronic allergic rhinitis 05/13/2022 Diverticulosis 05/13/2022 History of hysterectomy for benign disease 02/26 Resolved Problems Problem Noted Date Diagnosed Date Resolved Date Abdominal discomfort 10/04/2022 023 Assessment & Plan (10/04/2022 7:03 PM EDT): -Previous abdominal US: Suspect tiny abscess/fluid collection adjacent to the right lateral incision along the superficial anterior abdominal wall. -Pt w right abdominal nodular sensation next to umbilical area causing discomfort -hx of small collection there after abdominoplasty, referred today for abdominal wall US to r/o persisit collection vs hernia. -Pt has apt scheduled w PCP 10/21/2022. Will f image result then Acute bilateral ankle pain 05/27/2022 0 07/09/2022 Bilateral plantar fasciitis 05/27/2022 07/09/2022 Assessment & Plan (05/27/2022 4:11 PM EDT): Patient information for plantar fascitis was provided, patient instructed to do the exercises at home and I referred her to podiatry Allergic rhinitis due to pollen 05/13/2022 05/13/2022 Anxiety 05/13/2022 04/28/2023 Cough 05/13/2022 05/13/2022 Cyst of ovary 05/13/2022 05/13/2022 Disturbance in sleep behavior 05/13/2022 05/13/2022 Elevated blood pressure reading 05/13/2022 05/13/2022 Homeless 05/13/2022 05/13/2022 Lower abdominal pain 05/13/2022 023 Microcytosis 05/13/2022 05/13/2022 Complicated migraine 05/13/2022 023 Migraine with aura 05/13/2022 Neck pain 05/13/2022 05/13/2022 Oropharyngeal dysphagia 05/13/202204/17 Postoperative pain 05/13/2022 Right leg pain 05/13/2022 05/13/2022 Superficial incisional surgi kale site infection 05/13/2022 05/13/2022 Xerostomia 05/13/2022 05/13/2022 Knee pain 03/04/2016 05/13/2022 Skin tag 03/04/2016 05/13/2022 Encounters Date Type Department Care Team Description 05/21/2024 Refill [facility] [address] [facility] [place] [address] Cindy Clay DO 05/04/2024 Orders Only [facility] [address] [facility] [place] [address] Cindy Clay DO 05/03/2024 Telephone [facility] [address] [facility] [address] Beatriz Lee LPN 04/29/2024 Population Health Risk Score [facility] Department [address] [place] [address] [phone] Provider, Population Health Generic 04/28/2024 Refill [facility] [address] [facility] [place] [address] Cindy Clay DO 04/21/2024 Telephone [facility] [address] [facility] [place] [address] Cindy Clay DO Recall Letter (Recall Letter sent 04/21/24) 04/03/2024 Refill [facility] [address] [facility] [place] [address] Taryn Parsons MD 03/28/2024 Orders Only [facility] [address] [facility] [place] [address] Cindy Clay DO Elevated parathyroid hormone (Primary Dx) 03/24/2024 Refill [facility] [address] [facility] [place] [address] Jami Allan MD from Last 3 Months Immunizations Name Administration Dates Next Due Tdap 02/26/2017 Family History Medical History Relation Name Comments Diabetes Brother Heart disease Brother Hypertension Brother Diabetes Father Hypertension Father Breast cancer ? Mother Heart attack Mother Relation Name Status Comments Brother Father Mother Social History Tobacco Use Types Packs/Day Years Used Date Smoking Tobacco: Never Passive Smoke Exposure: Never Smokeless Tobacco: Never Tobacco Cessation:Counseling Given: Not Answered Alcohol Use Standard Drinks/Week Comments Yes 0 (1 standard drink = 0.6 oz pur e alcohol) social Depression Answer Date Recorded Patient Health Questionnaire-9 Score 19 09/04/2023 Patient Health Questionnaire-9 Score 19 09/04/2023 Last PHQ-9: Questionnaire Data Not on file 0 09/04/2023 Housing Stability Answer Date Recorded What is your housing situation today? I have yelena herminia 12/03/[address] you li [...] Orientation Straight 12/16/2021 10 :20 AM EDT Last Filed Vital Signs Vital Sign Reading Time Taken Comments Blood Pressure 136/93 01/08/2024 10:02 AM EST Pulse 107 01/08/2024 10:02 AM EST Temperature 36.1 ??C (97 ??F) 01/08/2024 10:02 AM EST Respiratory Rate 19 01/08/2024 10:02 AM EST Oxygen Saturation 98% 01/08/2024 10:02 AM EST Inhaled Oxygen Concentration - - Weight 98.4 kg (217 lb) 01/08/2024 10:02 AM EST Height 162.6 cm (5' 4 ) 01/08/2024 10:02 AM EST Body Mass Index 37.25 01/08/2024 10:02 AM EST Plan of Treatment Health Maintenance Due Date Last Done Comments CT Colonography 1971 Colonoscopy 1971 Colorectal Cancer Screening 1970 FIT DNA/Cologuard 1971 FIT 1971 FOBT 1970 Sigmoidoscopy 1971 Alcohol/Substance Use Screening 1983 Family Planning (PISQ) 07/06/1986 Hepatitis B Vaccines (1 of 3 - 19+ 3-dose series) 07/06/1990 Pneumococcal Vaccine: 50+ Years (1 of 2 - PCV) 07/06/1990 Zoster Vaccines (1 of 2) 07/06/2021 COVID-19 Vaccine (3 - 2023- season) 2023 11/01/2020, 10/11/2020 Influenza Vaccine (#1) 2023 Depression Monitoring 03/06/2024 09/04/2023, 024 Depression Screening 09/03/2024 09/04/2023, 09/04/19 24 SDOH Screening 09/22/2024 09/23/2023 Tobacco Screening 01/07/2025 01/08/2024 Diabetes: Hemoglobin A1C 02/11/2025 024, 03/12/2023, 02/17/2023, Additional history exists Mammogram 02/25/2025 02/25/2023 DTaP/Tdap/Td Vaccines (2 - Td or Tdap) 02/26/2027 02/26/2017 Cervical Cancer Screening 04/27/2028 HPV/Cotest 04/27/2028 04/28/2023 Pap Smear 04/27/2028 04/28/2023 Lipid Panel 02/11/2029 02/12/2024, 02/17, 10/07/2022, Additional history exists RSV Patients and Patients Aged 60 years or older (1 - 1-dose 75+ series) 07/06/2046 HIV Screening Completed 02/12/2024, 02/17, 05/15/2022 Hepatitis C Screening Completed 02/12/2024 , 03/12/2023, 10/07/2022 HIB Vaccines Aged Out No longer eligi ble based on patient's age to complete this topic HPV Vaccines Aged Out No longer eligi ble based on patient's age to complete this topic Hepatitis A Vaccines Aged Out No long er eligible based on patient's age to complete this topic IPV Vaccines Aged Out No longer eligi ble based on patient's age to complete this topic Meningococcal Vaccine Aged Out No cain sim eligible based on patient's age to complete this topic RSV under 20 months Aged Out No longe r eligible based on patient's age to complete this topic Rotavirus Vaccines Aged Out No longer eligible based on patient's age to complete this topic Procedures Procedure Name Priority Date/Time Associated Diagnosis Comments HEPATITIS C AB W/REFL TO HCV RNA, QN, PCR Routine 02/12/2024 12:25 PM EST Routine history and physical examination of adult Essential hypertension Other hyperlipidemia Pre-diabetes Major depression, recurrent, chronic (CMS/HCC) Severe persistent asthma without complication Chronic allergic rhinitis Chronic migraine Polyarthralgia Urinary incontinence, unspecified type Forgetfulness Elevated parathyroid hormone BMI 36.0-36.9,adult Encounter for screening for malignant neoplasm of colon HIV 1/2 ANTIGEN/ANTIBODY, FOURTH GENERATION W/RFL Routine 02/12/2024 12:25 PM EST Routine history and physical examination of adult Essential hypertension Other hyperlipidemia Pre-diabetes Major depression, recurrent, chronic (CMS/HCC) Severe persistent asthma without complication Chronic allergic rhinitis Chronic migraine Polyarthralgia Urinary incontinence, unspecified type Forgetfulness Elevated parathyroid hormone BMI 36.0-36.9,adult Encounter for screening for malignant neoplasm of colon HEMOGLOBIN A1C Routine 02/12/2024 12:25 PM EST Routine history and physical examination of adult Essential hypertension Other hyperlipidemia Pre-diabetes Major depression, recurrent, chronic (CMS/HCC) Severe persistent asthma without complication Chronic allergic rhinitis Chronic migraine Polyarthralgia Urinary incontinence, unspecified type Forgetfulness Elevated parathyroid hormone BMI 36.0-36.9,adult Encounter for screening for malignant neoplasm of colon LIPID PANEL, STANDARD Routine 02/12/2024 12:25 PM EST Routine history and physical examination of adult Essential hypertension Other hyperlipidemia Pre-diabetes Major depression, recurrent, chronic (CMS/HCC) Severe persistent asthma without complication Chronic allergic rhinitis Chronic migraine Polyarthralgia Urinary incontinence, unspecified type Forgetfulness Elevated parathyroid hormone BMI 36.0-36.9,adult Encounter for screening for malignant neoplasm of colon PAP SMEAR Routine 04/28/2023 1:03 PM EDT HPV MRNA E6/E7 REFLEX TO HPV 16, 18/45 Routine 04/28/2023 10:30 AM EDT BI MAMMOGRAM SCREEN W SCOTT W IMPLANTS ROSALIO Routine 02/25/2023 11:55 AM EST from Last 3 Months or Most Recently Relevant to Health Maintenance Results * Hepatitis C Antibody with Reflex to HCV, RNA, Quantitative, Real-Time PCR (02/12/2024 12:25 PM EST) Hepatitis C Antibody Nonreactive Nonreactive [facility] Comment:Antibodies to HCV no t detected; does not exclude early acuteHCV infection. Blood Venous blood specimen / Unknown 02/12/2024 12:25 PM EST 02/12/2024 1:00 PM EST Cindy Danna DO LAB BLOOD ORDERABLES Final R esult [facility] [address] [place] [address] [phone] * HIV-1/2 Antigen and Antibodies, Fourth Generation, with Reflexes (02/12/2024 12:25 PM EST) HIV AB/AG Nonreactive Nonreactive [facility] Comment:HIV-1 p24 Ag and/or HIV-1/HIV-2 Ab not detected.A test result that is nonreactive does not exclude thepossibility of exposure to or infection with HIV-1 and/orHIV-2. Nonreactive results in this assay for individualswith prior exposure to HIV-1 and/or HIV-2 may be due toantigen and antibody levels that are below the limit ofdetection of this assay.The [employer] HIV Ag/Ab Combo assay result andsupplemental assay results should be interpreted inconjunction with the patient's clinical presentation,history and other laboratory results. If the results areinconsistent with clinical evidence, additional testing issuggested to confirm the result. Blood Venous blood specimen / Unknown 02/12/2024 12:25 PM EST 02/12/2024 1:00 PM EST Cindy Danna DO LAB BLOOD ORDERABLES Final R esult Performing Organization Address City/[facility]/ZIP Co de Phone Number [facility] [address] [place] [address] [phone] * Hemoglobin A1c (02/12/2024 12:25 PM EST) Hemoglobin A1c 5.7 <6.0 % [facility] Comment:Hemoglobin A1C Refer ence Range Adults: 4.8 - 6.0 % Non diabetic: < 6.0 % Goal: < 7.0 %Additional Action Suggested: > 8.0 %Note: Hemoglobin A1c results are invalid for patients with abnormal amounts of HbF. Blood transfusions may impact the HbA1c concentration in the patient sample. Estimated Average Glucose 117 mg/dL [facility] Comment:eAG = Estimated ave rage glucose which is %A1C expressed asaverage glucose, using the formula of the A5R-VzcwcnsVtyvncq Glucose study (ADAG), Diabetes Care, Vol.31,#8,Sep. 2007 Blood Venous blood specimen / Unknown 02/12/2024 12:25 PM EST 02/12/2024 1:00 PM EST Cindy Clay DO LAB BLOOD ORDERABLES Final R esult Performing Organization Address [facility] Co de Phone Number [facility] [address] [place] [phone] * (ABNORMAL) Lipid Panel, Standard (02/12/2024 12:25 PM EST) Triglycerides 207(H) <150 mg/dL [facility] Comment:Desirable Triglyceri de: less than 150 mg/dLBorderline High Triglyceride 150-199 mg/dLHigh Triglyceride: 200-499 mg/dLVery High Triglyceride: greater than or equal to 5OO mg/dL Cholesterol 229(H) <200 mg/dL [facility] Comment:Desirable Cholestero l: less than 200 mg/dLBorderline High Cholesterol: 200-239 mg/dLHigh Cholesterol: greater than 239 mg/dL LDL Cholesterol Calculated 141(H) <100 mg/dL [facility] Comment:Desirable LDL: less than 100 mg/dLNear Optimal/Above Optimal LDL: 110- 129 mg/dLBorderline High LDL: 130-159 mg/dLHigh LDL: 160-189 mg/dLVery High LDL: greater than or equal to 190 mg/dL HDL Cholesterol 47 >40 mg/dL [facility] Comment:Desirable HDL: great er than 40 mg/dL Note: This HDL assay may give artificially low results in patients with liver disease. Blood Venous blood specimen / Unknown 02/12/2024 12:25 PM EST 02/12/2024 1:00 PM EST Cindy Clay DO LAB BLOOD ORDERABLES Final R esult [facility] [address] [place] [address] [phone] * Pap Smear (04/28/2023 1:03 PM EDT) 04/28/2023 1:03 PM EDT 04/29/2023 12:25 PM EDT Narrative [facility] - 05/05/2023 9:33 AM EDT ----- ------- Name: Emerita Wills ? Age/Sex: 52/F ? : 1970 Unit#: [id number] ?? Attend Dr: Cindy Clay DO ?Re04/28/23 ?Status: DEP REF ? Location: [facility] ? Disch: ? ----- ------- SPEC : [id number] ? RECD: 04/29/23-5 ? STATUS: ??SOUT ? REQ NUM: [id number] ? MANJULA: 04/28/23-1303 ? SUBM DR: Cindy Clay DO ? ENTERED: ??04/29/23-1253 ?SP TYPE: Pap Smr ?OTHR DR: ? ORDERED: ??Pap Smear ? Interpretation ?? Satisfactory for evaluation. ?? Negative for intraepithelial lesion or malignancy. ?HPV mRNA E6/E7: ?NOT DETECTED ? This assay detects E6/E7 viral messenger RNA (mRNA) from 14 high-risk HPV types (16, 18, ?? 31, 33, 35, 39, 45, 51, 52, 56, 58, 59, 66, 68) ?? HPV testing performed by [employer], [place], [place]. ??See reference laboratory ?? portion of the EMR for entire report. ?Clinical Information LMP: Unknown date Previous PAP test: Unknown date, WNL Other surgery: s/p hysterectomy ? Material Received ?? ThinPrep-Vaginal ----- ------- Signed (signature on file) RAN Church (ASCP) 05/05/23 0933 ? ----- ------- ? END OF REPORT ? us Cindy Clay DO LAB CYTOLOGY ORDERABLES Jenelle kumar Result [facility] [address] [place] [address] [phone] * HPV mRNA E6/E7 w/Reflex to HPV Genotypes 16, 18/45 (04/28/2023 10:30 AM EDT) HPV nRNA E6/E7 Not Detected Not Detected [facility] Comment:Methodology: Transcr iption-Mediated AmplificationThis assay detects E6/E7 viral messenger RNA (mRNA) from 14high-risk HPV types (16,18,31,33,35,39,45,51,52,56,58,59,66,68).Cervical sources are required for HPV testing.If a vaginal source from a patient who has had atotal hysterectomy with removal of cervix wassubmitted, please contact the testing laboratoryfor alternative testing options.For additional information, please refer [email or web address](This link if provided for information/educational purposes only.)THIS TEST WAS PERFORMED AT:[facility] [place] [phone] YOUNG MD HPV mRNA E6/E7 TNP [facility] HPV 16 RNA TNP [facility] HPV 18/45 RNA [facility] 04/28/2023 10:3 0 AM EDT 04/29/2023 12:25 PM EDT us Cindy Danna DO LAB CYTOLOGY ORDERABLES Jenelle stacy Result [facility] [address] [place] [address] [phone] * BI Mammogram Screen w/ Scott w/ Implants Rosalio (02/25/2023 11:55 AM EST) Anatomical Region Laterality Modality Mammography 02/25/2023 11:5 5 AM EST Narrative 03/16/2023 10:51 AM EST ? [facility] ? [address] ?[place] [id number] ? Mammography Report ? Signed ? Patient: Tosado Gallagher,Emerita ?MR#: ?? [id number] ? : 1970 ?Acct:[id number] ? Age/Sex: 52 / F ?ADM Date: 02/25/23 ? Loc: HO.MAMMO ? Attending : Cindy Clay DO ? Ordering Physician: Cindy Clay DO ?Results: 1N ?? egative ? Date of Service: 02/25/23 ?Follow Up: 1 Year From Orig ?? inal Mammogram ? Procedure(s): MM tomosynthesis screen imp BI ?? Accession Number(s): [id number] ? cc: Cindy Clay DO ? EXAMINATION: ?? MM SCREENING DIGITAL BREAST TOMOSYNTHESIS, BILATERAL WITH BREAST ?? IMPLANTS. ? CLINICAL INFORMATION: ? Screening. Asymptomatic. ? COMPARISON: ?? Mammography: This study is compared with the prior mammograms dating ?? back to 2019. ? TECHNIQUE: ?? Digital mammography is performed in craniocaudal and mediolateral ?? oblique views along with computer-aided detection (CAD). Digital breast ?? tomosynthesis is performed in implant-displaced craniocaudal and ?? implant-displaced mediolateral oblique views along with computer-aided ?? detection (CAD). Synthesized 2D images are generated from the ?? tomosynthesis. ? FINDINGS: ?? There are scattered areas of fibroglandular density (ACR BI-RADS breast ?? composition Category b). ? There are bilateral, retropectoral, mammographically intact silicone ?? breast implants. ? There are no significant masses, abnormal calcifications, or other ?? abnormalities. ? MM/MM tomosynthesis screen imp BI ?? IMPRESSION: ?? There are no significant changes from prior study. ? ASSESSMENT: ? BI-RADS BI-RADS 1 - Negative ? RECOMMENDATION: ?? Routine annual mammography screening. ? 1 year F/U ? This patient's information was entered into a reminder system with a ?? target due date for their next mammogram. ? Dictated By: ?Naila Villeda MD ? Signed By: ?<Electronically signed by Naila Villeda MD in OV> ? 03/16/23 1047 ? DD/ 1155 ? TD/TT: ? Material Man: ? Procedure Note Jessica, Andreina - 03/16/2023 [facility] [address] [place] [address] Dr. Sung, [place] [address] Mammography Report Signed Patient: Jey Wills#: [id number] : 1970Acct:[id number] Age/Sex: 52 / FADM Date: 02/25/23 Loc: HO.MAMMO Attending Dr: Cindy Clay DO Ordering Physician: Cindy Clayults: 1N egative Date of Service: 02/25/23Follow Up: 1 Year From Orig inal Mammogram Procedure(s): MM tomosynthesis screen imp BI Accession Number(s): [id number] cc: Cindy Clay DO EXAMINATION: MM SCREENING DIGITAL BREAST TOMOSYNTHESIS, BILATERAL WITH BREAST IMPLANTS. CLINICAL INFORMATION: Screening. Asymptomatic. COMPARISON: Mammography: This study is compared with the prior mammograms dating back to 2019. TECHNIQUE: Digital mammography is performed in craniocaudal and mediolateral oblique views along with computer-aided detection (CAD). Digital breast tomosynthesis is performed in implant-displaced craniocaudal and implant-displaced mediolateral oblique views along with computer-aided detection (CAD). Synthesized 2D images are generated from the tomosynthesis. FINDINGS: There are scattered areas of fibroglandular density (ACR BI-RADS breast composition Category b). There are bilateral, retropectoral, mammographically intact silicone breast implants. There are no significant masses, abnormal calcifications, or other abnormalities. MM/MM tomosynthesis screen imp BI IMPRESSION: There are no significant changes from prior study. ASSESSMENT: BI-RADS BI-RADS 1 - Negative RECOMMENDATION: Routine annual mammography screening. 1 year F/U This patient's information was entered into a reminder system with a target due date for their next mammogram. Dictated By: Naila Villeda MD Signed By: <Electronically signed by Naila Villeda MD in OV> 03/16/23 1047 DD/ 1155 TD/TT: Material Man: Cindy Clay DO IMG BI PROCEDURES Final Resu lt from Last 3 Months or Most Recently Relevant to Health Maintenance Insurance [facility] C3 HSN PARTIAL Care Teams Field Tax Auditor Relationship Specialty Start Date End Date Cindy Clay DO [address] [place] [address] PCP - General Family Medicine 05/13/22
--- OUTSIDE RECORDS SUMMARY | 2024-06-08 17:37 | XMS_ITS | Encounter Summary ---
Author Organization [employer] Address [address] [facility] 7t [place] [address] Care Team Providers Care Account Development Representative Name Role Phone DannaCindy Primary Care Provider + [phone] Reason for Visit * Reason Comments Med Refill Encounter Details Date Type Department Care Team ([facility] st Contact Info) Description 04/01/2023 Refill [facility] MEDICINE [address] [place] [address] Taryn Parsons MD [address] [place] [address] Vitamin D deficiency Social History Tobacco Use Types Packs/Day Years Used Date Smoking Tobacco: Never Passive Smoke Exposure: Never Smokeless Tobacco: Never Alcohol Use Standard Drinks/Week Comments Yes 0 (1 standard drink = 0.6 oz pur e alcohol) social Depression Answer Date Recorded Patient Health Questionnaire-9 Score 24 10/21/2022 Housing Stability Answer Date Recorded What is [...] from getting things needed for daily living? No 12/03/2022 Utilities Answer Date Recorded In the past 12 months, has t he electric, gas, oil or water company threatened to shut off services in your home? No 12/03/2022 Depression Answer Date Recorded Patient Health Questionnaire-2 Score 6 10/21/2022 Comments Unknown Sex and Gender Information Value Date Recorded Sex Assigned at Female 12/16/2021 10:20 AM EDT Legal Sex Female 10:20 AM EDT Gender Identity Female 12/16/2021 10:20 AM EDT Sexual Orientation Straight 12/16/2021 10 :20 AM EDT documented as of this encounter Plan of Treatment Not on file documented as of this encounter Visit Diagnoses Diagnosis Vitamin D deficiency documented in this encounter Additional Health Concerns Assessment Noted Time PHQ-9 Depression Total Score: 24 023 10:07 AM EDT documented as of this encounter Care Teams Account Development Representative Relationship Specialty Start Date End Date Cindy Clay DO [address] [place] [id number] PCP - General Family Medicine 05/13/22 documented as of this encounter
--- OUTSIDE RECORDS SUMMARY | 2024-06-08 17:37 | XMS_ITS | Encounter Summary ---
Author Organization [employer] Address [address] [facility] 7t [place] [address] Care Team Providers Care Cement Or Concrete Finishing Supervisor Name Role Phone Cindy Clay DO Primary Care Provider + [phone] Reason for Visit * Reason Comments Med Refill Encounter Details Date Type Department Care Team ([facility] st Contact Info) Description 11/03/2022 Refill [facility] MEDICINE [address] [place] [address] Sharifa Moncada MD [address] [place] [address] Anxiety Social History Tobacco Use Types Packs/Day Years Used Date Smoking Tobacco: Never Passive Smoke Exposure: Never Smokeless Tobacco: Never Alcohol Use Standard Drinks/Week Comments Yes 0 (1 standard drink = 0.6 oz pur e alcohol) social Depression Answer Date Recorded Patient Health Questionnaire-9 Score 24 10/21/2022 Depression Answer Date Recorded Patient Health Questionnaire-2 [...] as of this encounter Visit Diagnoses Diagnosis Anxiety Anxiety state, unspecified documented in this encounter Additional Health Concerns Assessment Noted Time PHQ-9 Depression Total Score: 24 023 10:07 AM EDT documented as of this encounter Care Teams Cement Or Concrete Finishing Supervisor Relationship Specialty Start Date End Date Cindy Clay DO [address] [place] [address] PCP - General Family Medicine 05/13/22 documented as of this encounter
--- OUTSIDE RECORDS SUMMARY | 2024-06-08 17:37 | XMS_ITS | Encounter Summary ---
Author Organization [employer] Address [address] [facility] [address] 7[address] [place] [address] Care Team Providers Care Federal Appellate Clerk Name Role Phone Cindy Clay DO Primary Care Provider + [phone] Reason for Visit * Reason Comments Med Refill Encounter Details Date Type Department Care Team ([facility] st Contact Info) Description 07/27/2022 Refill [facility] [address] [place] [address] Kendell Nolasco MD [address] [place] [address] Social History Tobacco Use Types Packs/Day Years Used Date Smoking Tobacco: Former Cigarettes Passive Smoke Exposure: Never Smokeless Tobacco: Never Alcohol Use Standard Drinks/Week Comments Never 0 (1 standard drink = 0.6 oz pur e alcohol) Comments Unknown Sex and Gender Information Value [...] suspected to have Coronavirus/COVID-19? No / Unsure 07/09/2022 10:06 AM EDT documented as of this encounter Plan of Treatment Not on file documented as of this encounter Visit Diagnoses Not on filedocumented in this encounter Additional Health Concerns Assessment Noted Time PHQ-9 Depression Total Score: 18 05/13/2 023 9:31 AM EDT documented as of this encounter Care Teams Federal Appellate Clerk Relationship Specialty Start Date End Date Cindy Clay DO [address] [place] [address] PCP - General Family Medicine 05/13/22 documented as of this encounter
--- OUTSIDE RECORDS SUMMARY | 2024-06-08 17:37 | XMS_ITS | Encounter Summary ---
Author Organization [employer] Address [address] [facility] [address] 7[address] [place] [address] Care Team Providers Care Generation Engineering Technologist Name Role Phone Cindy Clay DO Primary Care Provider + [phone] Encounter Details Date Type Department Care Team ([facility] st Contact Info) Description 02/20/[address] [facility] MEDICINE [address] [place] [address] Cindy Clay DO [address] [place] [address] Social History Tobacco Use Types Packs/Day Years Used Date Smoking Tobacco: Never Passive Smoke Exposure: Never Smokeless Tobacco: Never Alcohol Use Standard Drinks/Week Comments Yes 0 (1 standard drink = 0.6 oz pur e alcohol) social Depression Answer Date Recorded Patient Health Questionnaire-9 Score 24 10/21/2022 Housing Stability Answer Date Recorded What is your housing situation today? I have yelen[employer] hope 12/03/[address] you [...] documented as of this encounter Care Teams Generation Engineering Technologist Relationship Specialty Start Date End Date Cindy lCay DO [address] [place] [address] PCP - General Family Medicine 05/13/22 documented as of this encounter
== END 2024-06-08 15:37 | disposition home or self-care (01) ==
PROVIDERS: PCP Family Medicine; Visit Provider Nurse Practitioner Family
DX: K21.9 Gastro-esophageal reflux disease without esophagitis (principal); Z12.11 Encounter for screening for malignant neoplasm of colon; Z23 Encounter for immunization
CPT/HCPCS: 99204

== ENCOUNTER → 2024-06-08 14:47 | Outpatient (BNVA) | payer MEDICAID, SELFPAY | PROVIDERS: PCP Family Medicine; Visit Provider Nurse Practitioner Family | DX: K21.9 Gastro-esophageal reflux disease without esophagitis (principal); R13.10 Dysphagia, unspecified; K59.00 Constipation, unspecified | CPT/HCPCS: 99212 ==

== ENCOUNTER 2024-11-16 12:09 | Outpatient (REF) | payer MEDICAID, SELFPAY ==
--- NOTE | ~2024-11-16 | XR_ITS ---
EXAMINATION: XR CLAVICLE, RIGHT CLINICAL INFORMATION: painful lump medial R clavicle COMPARISON: Right shoulder x-ray May 23, 2022. TECHNIQUE: AP views of the right clavicle. FINDINGS: No acute cortical disruption. No periosteal bone reaction. No soft tissue calcification. No lytic or blastic lesions. XR/XR clavicle RT IMPRESSION: Normal x-ray right clavicle. Electronically signed by: Benito Pena MD 11/16/2024 12:30 PM EDT
--- OUTSIDE RECORDS SUMMARY | 2024-11-16 13:41 | XMS_ITS | Clinical Summary ---
Author Organization [facility] Address [address] [address] Phone Care Team Providers Care Pipe Fitter Fire Sprinkler Systems Name Role Phone Sharifa Moncada MD Primary Care Provider + Allergies No known active allergies Medications lisinopril (PRINIVIL,ZESTRI L) 5 MG tablet Take 5 mg by mouth daily. 03/12/2021 Active ibuprofen (ADVIL,MOTRIN) 800 MG tablet Take 800 mg by mouth 3 (three) times a day as needed. 01/22/2021 Active PROAIR HFA 90 mcg/actuation inhaler Inhale 1 puff into the lungs every 6 (six) hours as needed. 04/02/2021 Active cetirizine (ZYRTEC) 10 MG tablet Take 10 mg by mouth daily. 02/26/2021 Active FLOVENT HFA 110 mcg/actuation inhaler Inhale 1 puff into the lungs 2 (two) times a day. 04/05/2021 Active Active Problems Problem Noted Date Diagnosed Date Dysarthria 04/16/2021 Assessment & Plan (04/16/2021 6:47 PM EST): Brief episode of dysarthria witnessed by a colleague. With ZHENG and bilateral paraesthesias. Possibility of complex migraine rather than stroke. Status post MRI, showing no stroke. Telemetry neuro reviewed the case and recommended no further work-up. Other dysphagia 04/16/2021 Assessment & Plan (04/16/2021 6:46 PM EST): She mentions difficulty initiating her swallow and intermittent vomiting. She was seen by the speech pathologist who did not have any concerns for aspiration. I discussed the case with GI who recommended doing a barium swallow. This has been ordered for tomorrow. She will be n.p.o. after midnight Social History Tobacco Use Types Packs/Day Years Used Date Smoking Tobacco: Former Smokeless Tobacco: Never Alcohol Use Standard Drinks/Week Comments Yes 0 (1 standard drink = 0.6 oz pur e alcohol) socially Education Answer Date Recorded Are you interested in more education? Not on wali e 06/13/2022 Are you concerned about learning? Not on file 06/13/2022 No 06/13/2022 No 06/13/2022 Digital Access Answer Date Recorded No 07/08/2022 No 07/08/2022 No 07/08/2022 Reliable internet access at home? Not on file 07/08/2022 Device with a working camera? Not on file Comments Unknown Sex and Gender Information Value Date Recorded Sex Assigned at Female 11/11/2019 3:40 PM EDT Legal Sex Female 3:22 PM EDT Gender Identity Female 11/11/2019 3:40 PM EDT Sexual Orientation Straight 06/23/2020 3: 57 PM EDT Last Filed Vital Signs Vital Sign Reading Time Taken Comments Blood Pressure 129/83 10/24/2021 5:27 AM EDT Pulse 78 10/24/2021 5:23 AM EDT Temperature 36.1 C (97 F) 10/24/2021 5:23 AM EDT Respiratory Rate 18 10/24/2021 5:23 AM EDT Oxygen Saturation 96% 10/24/2021 5:23 AM EDT Inhaled Oxygen Concentration - - Weight 97.5 kg (215 lb) 10/10/2021 7:30 AM EDT Height 162.6 cm (5' 4 ) 10/10/2021 7:30 AM EDT Body Mass Index 36.9 10/10/2021 7:30 AM EDT Plan of Treatment Health Maintenance Due Date Last Done Comments LIPID PANEL 1971 DEPRESSION SCREENING 1983 SMOKING Hx and SMOKELESS TOBACCO SCREENING 07/06/1984 HEPATITIS C SCREENING 07/06/1989 HIV ONE-TIME SCREENING (18-65 YEARS) 07/06/1989 MAMMOGRAM 2011 COLOGUARD 07/06/2016 COLONOSCOPY 07/06/2016 COLORECTAL CANCER SCREENING 07/06/2016 FIT TEST 07/06/2016 FOBT 07/06/2016 SIGMOIDOSCOPY 07/06/2016 VIRTUAL COLONOSCOPY 07/06/2016 PNEUMOCOCCAL VACCINES (50+ years) (1 of 1 - PCV) 07/06/2021 ZOSTER VACCINES (1 of 2) 07/06/2021 CREATININE LEVEL 10/24/2022 10/24/2021, , 06/23/2020, Additional history exists POTASSIUM LEVEL 10/24/2022 10/24/2021, 03/20, 06/23/2020, Additional history exists INFLUENZA VACCINE (#1) 2024 COVID-19 VACCINE ( - season) 2024 11/01/2020, 10/11/2020 Adult Td,Tdap Booster 02/26/2027 02/26/2017 HEPATITIS A VACCINES Aged Out No long er eligible based on patient's age to complete this topic HIB VACCINES Aged Out No longer eligi ble based on patient's age to complete this topic MENINGOCOCCAL VACCINES (ACWY) Aged Out No longer eligible based on patient's age to complete this topic MENINGOCOCCAL VACCINES (B) Aged Out N o longer eligible based on patient's age to complete this topic Medical Devices Not on file Procedures Procedure Name Priority Date/Time Associated Diagnosis Comments BASIC METABOLIC PANEL STAT 10/24/2021 6:01 AM EDT from Last 3 Months or Most Recently Relevant to Health Maintenance Results * (ABNORMAL) Basic metabolic panel (10/24/2021 6:01 AM EDT) SODIUM 136 133 - 146 mmol/L [facility] CHLORIDE 101 96 - 108 mmol/L [facility] POTASSIUM 4.5 3.3 - 5.1 mmol/L [facility] CO2 26 21 - 35 mmol/L [facility] BUN 23(H) 6 - 19 mg/dL [facility] CREATININE 0.50 0.5 - 1.5 mg/dL [facility] GLUCOSE 183(H) 70 - 99 mg/dL [facility] CALCIUM 9.3 8.4 - 10.3 mg/dL [facility] EGFR 114 >59 mL/min/1.7 3m2 [facility] Comment:Estimated glomerular filtration rate calculated using the CKD-EPI refit equation. ANION GAP 14 10 - 20 mmol/L [facility] Blood 10/24/2021 6:01 AM EDT 10/24/2021 6:05 AM EDT us Bala Grimm MD LAB BLOOD ORDERABLES Final Resu lt [facility] [address] [place] [address] from Last 3 Months or Most Recently Relevant to Health Maintenance Insurance C3 ACO C3 ACO C3 ACO C3 ACO C3 ACO C3 ACO C3 ACO C3 ACO #[facility] [place] [address] [facility] C3 ACO [place] [facility] [place] [address] WORKERS COMPENSATION Advance Directives For more information, please contact: [phone] (9AM - 5PM [facility], Thursday-Thursday) * Full Code (Latest Code Status on File) Date Activated Date Inactivated Comments 04/16/2021 12:49 AM Question Answer Comments Code Status Confirmed With: Patient Care Teams Pipe Fitter Fire Sprinkler Systems Relationship Specialty Start Date End Date Sharifa Moncada MD [address] [place] [address] [address] [place] [phone] PCP - General Internal Medicine 06/23/20 Additional Source Comments The information contained in this document represents components of the legal health record. It is not the complete legal health record.[facility]
--- OUTSIDE RECORDS SUMMARY | 2024-11-16 13:41 | XMS_ITS | Encounter Summary ---
Author Organization [facility] Address [address] [place] [address] Phone Care Team Providers Care Sterile Processing Tech Name Role Phone Sharifa Moncada MD Primary Care Provider + Encounter Details Date Type Department Care Team (Late st Contact Info) Description 04/15/2021 Procedure Pass [facility], Ct Scan - [address] [address] Social History Tobacco Use Types Packs/Day Years Used Date Smoking Tobacco: Former Smokeless Tobacco: Never Alcohol Use Standard Drinks/Week Comments Yes 0 (1 standard drink = 0.6 oz pur e alcohol) socially Comments Unknown Sex and Gender Information Value Date Recorded Sex Assigned at Female 11/11/2019 3:40 PM EDT Legal Sex Female 3:22 PM EDT Gender Identity Female 11/11/2019 3:40 PM EDT Sexual Orientation Straight 06/23/2020 3: 57 PM EDT documented as of this encounter Functional Status * Calculated C-SSRS Risk Score (Lifetime/Recent) Answer Date of Assessment Author No Risk Indicated 04/15/2021 7:47 PM [place] Haas RN * [place] Suicide Severity Rating Scale (Screener/Recent Self-Report) Question Answer Date of Assessment Author 1. Wish to be (Past 1 Month) No 022 7:47 PM [place] Haas, LEN 2. Non-Specific Active Suici nick Thoughts (Past 1 Month) No 04/15/2021 7:47 PM [place] Haas , LEN 6. Suicidal Behavior (Lifetime) No 7:47 PM [place] Haas, LEN documented as of this encounter Plan of Treatment Not on file documented as of this encounter Visit Diagnoses Not on filedocumented in this encounter Additional Health Concerns Infection Onset Date Last Indicated Resolved Time CoV-Risk 10/24/2021 10/24/2021 11/04/2021 1:22 AM EDT documented as of this encounter Care Teams Sterile Processing Tech Relationship Specialty Start Date End Date Sharifa Moncada MD [address] [place] [phone] PCP - General Internal Medicine 06/23/20 documented as of this encounter Additional Source Comments The information contained in this document represents components of the legal health record. It is not the complete legal health record.[facility]
--- OUTSIDE RECORDS SUMMARY | 2024-11-16 13:41 | XMS_ITS | Encounter Summary ---
Author Organization [facility] Address [address] [place] [address] Phone Care Team Providers Care Belt Turner Name Role Phone Sharifa Moncada MD Primary Care Provider + Encounter Details Date Type Department Care Team (Late st Contact Info) Description 04/16/2021 Procedure Pass [facility], [address] [address] Social History Tobacco Use Types Packs/Day Years [...] documented as of this encounter Care Teams Belt Turner Relationship Specialty Start Date End Date Sharifa Moncada MD [address] [place] [address] [address] [place] [phone] PCP - General Internal Medicine 06/23/20 documented as of this encounter Additional Source Comments The information contained in this document represents components of the legal health record. It is not the complete legal health record.[facility]
--- OUTSIDE RECORDS SUMMARY | 2024-11-16 13:41 | XMS_ITS | Encounter Summary ---
Author Organization [facility] Address [address] [place] [address] Phone Care Team Providers Care Cash Applications Analyst Name Role Phone Sharifa Moncada MD Primary Care Provider + Encounter Details Date Type Department Care Team (Late st Contact Info) Description 04/16/2021 Procedure Pass [facility] [address] [place] [address] Social History Tobacco Use Types Packs/Day Years [...] documented as of this encounter Care Teams Cash Applications Analyst Relationship Specialty Start Date End Date Sharifa Moncada MD [address] [place] [address] [address] [place] [address] PCP - General Internal Medicine 06/23/20 documented as of this encounter Additional Source Comments The information contained in this document represents components of the legal health record. It is not the complete legal health record.[facility]
== END 2024-11-16 12:10 | disposition home or self-care (01) ==
LOC: HO.HHCX 12:09
PROVIDERS: PCP Family Medicine; Visit Provider Family Medicine
DX: R22.9 Localized swelling, mass and lump, unspecified (principal)
CPT/HCPCS: 73000

== ENCOUNTER → 2024-11-16 12:13 | Outpatient (BNV) | payer MEDICAID, SELFPAY | PROVIDERS: PCP Family Medicine; Visit Provider Radiology Diagnostic Radiology | DX: R22.31 Localized swelling, mass and lump, right upper limb (principal); M25.512 Pain in left shoulder | CPT/HCPCS: 73000 ==

== ENCOUNTER 2024-12-03 18:04 | Emergency (ER) | payer MEDICAID, SELFPAY ==
--- NOTE | ~2024-12-03 | CT_ITS ---
CLINICAL HISTORY: fall on Mon, pain radiating down R leg CT lumbar spine without contrast Comparison: None provided Findings: Vertebral alignment is within normal limits. Mild osteopenia. L5-S1: Broad-based disc bulge with mild central canal stenosis and no significant neural foraminal stenosis. Partly visualized splenic partly calcified rim low-attenuation center lesion, 3.9 x 3.2 cm. IMPRESSION: 1. L5-S1 broad-based disc bulge with mild central canal stenosis. 2. Mild osteopenia. 3. Partly visualized splenic lesion with calcified rim and low-attenuation center, measuring 3.9 x 3.2 cm. 4. No acute osseous injury. This document has been electronically signed by: Valdemar Raymundo MD on 12/03/2024 20:42:28
--- NOTE | ~2024-12-03 | CT_ITS ---
CLINICAL HISTORY: Fall; BLQ Pain Tenderness; R Gluteus Tenderness CT abdomen and pelvis with contrast Comparison: None provided Findings: Minor atelectasis at the lung bases. Partially peripherally calcified splenic cyst 4.5 cm. Hepatosplenomegaly. Gallbladder and solid organs otherwise unremarkable. No urolithiasis. No bowel obstruction, pneumoperitoneum, or pneumatosis. Mesenteric vessels patent. Moderate stool. Distal colonic diverticulosis without diverticulitis. Hysterectomy. Ovaries unremarkable. Normal appendix. Mild urinary bladder distention. No inflammatory changes. The bones are intact. IMPRESSION: 1. No acute injury of the abdomen or pelvis. 2. Partially peripherally calcified splenic cyst. Correlate with history of prior infection. 3. Hepatosplenomegaly. This document has been electronically signed by: Dannielle Flores MD on 12/04/2024 03:44:39
--- NOTE | ~2024-12-03 | CT_ITS ---
CLINICAL HISTORY: Fall; Trauma; R leg severe pain limited ROM CT right femur with contrast Comparison: None provided Findings: No fracture, dislocation, arthritic changes, or joint effusions. No mass, adenopathy, or fluid collection. There is edema at the proximal tendon of the semimembranosus muscle. No abnormal contrast enhancement. Impression: 1. There is likely a partial tear at the musculotendinous junction of proximal semimembranosus muscle. This document has been electronically signed by: Dannielle Flores MD on 12/04/2024 03:47:28
[2024-12-03 18:22] VITALS: BP 151/91; PULSE 76; RESP 18; TEMP 37; O2SAT 95; BMI 33.1
--- NOTE | 2024-12-03 18:23 | ED_ITS ---
HPI - General Adult General Chief complaint: Fall Stated complaint: fell and hurt back Time Seen by Provider: 12/04/24 00:06 Source: patient Mode of arrival: ambulatory Limitations: no limitations History of Present Illness ED Provider: Venkatesh NICHOLS HPI narrative: The patient is a 54-year-old female presenting to the ED reporting on Thursday while she was visiting [place] she suffered a mechanical fall on wet floor in her bathroom resulting in a splitting motion before eventually falling onto her back. The patient denies head strike or LOC. The patient was seen at at a local hospital in [place] on the day of the fall. Patient reports she underwent x-rays which showed no acute fracture, however patient had severe pain in the right buttock radiating to the right leg and also up into the right back. The patient was admitted to the hospital until , during hospital admission the patient was receiving IV pain medication and also had a Brush catheter placed due to her pain, not due to retention. The patient reports the Brush catheter was removed on , and she was discharged. The patient reports she flew back home today and came to the ED here for evaluation. The patient reports she has been able to move her urine since Brush catheter was removed, last moved her urine today. The patient denies associated bowel/bladder incontinence or urinary retention. The patient denies lower extremity weakness but reports impaired range of motion of the right lower extremity secondary to pain. The patient denies recurrent fall or other injury. The patient denies surgical spinal history. Related Data Home Medications ?Medication ?Instructions ?Recorded ?Confirmed blood pressure monitor #1 ea 07/12/20 06/08/24 cetirizine 10 mg tablet (Zyrtec) 10 mg PO DAILY 12/04/24 amitriptyline 25 mg tablet 25 mg PO BEDTIME 12/04/24 1 budesonide-formoterol HFA 160 2 puff inhalation BID 12/04/24 mcg-4.5 mcg/actuation aerosol inhaler (Symbicort) cholecalciferol (vitamin D3) 50 50 mcg PO QAM 12/04/24 12/04/24 mcg (2,000 unit) capsule (Vitamin D3) hydrochlorothiazide 25 mg tablet 25 mg PO QAM 12/04/24 12/04/24 hydroxyzine pamoate 25 mg capsule 25 mg PO Q6H PRN anx iety 12/04/24 12/04/24 losartan 25 mg tablet 25 mg PO QAM 12/04/24 melatonin 5 mg tablet 10 mg PO BEDTIME 12/04/24 montelukast 10 mg tablet 10 mg PO QPM 12/04/24 omeprazole 20 mg capsule,delayed 20 mg PO QAM 12/04/24 12/04/24 release sertraline 25 mg tablet 25 mg PO QAM 12/04/24 topiramate 50 mg tablet 50 mg PO BID 12/04/24 Previous Rx's ?Medication ?Instructions ?Recorded Brace,wrist (Wrist Brace - one) #2 ea 09/16/22 oxycodone 5 mg tablet 5 mg PO Q6H PRN pain 3 days #12 12/06/24 tabs Allergies Allergy/AdvReac Type Severity Reaction Status Date / Time Penicillins Allergy Unknown UNKNOWN Verified 12/03/24 18:29 Review of Systems 2 Review of Systems: Yes all other systems are reviewed and are negative [facility] Past Medical History Medical History Secondary hyperparathyroidism HTN (hypertension) Asthma Surgical History History of hysterectomy Hx of breast surgery (03/28/20) History of abdominoplasty (03/28/20) Family History Family History (Updated 06/08/24 @ 15:53 by Kathia Irizarry CNP) Father HTN (hypertension) Diabetes Mother Epilepsia Breast cancer Social History Social History Alcohol intake: current Alcohol intake frequency: does not drink Patient Tobacco Use Status: Never used Tobacco Smoked in Last 30 Days: No Use of substances other than those prescribed or required for medical reasons: No Advance Directives: Yes Advance Directives on File: Yes Advance Directives Date on File: 12/06/24 Patient : No Physical Exam ED Vital Signs: Vital Signs - 24 hr 12/06/24 08:56 12/06/24 08:57 12/06/24 14:00 Temperature 98.2 F Pulse Rate 96 Respiratory Rate 18 Blood Pressure 116/65 116/65 115/60 Pulse Oximetry 97 Oxygen Delivery Method Room Air 12/06/24 20:49 12/07/24 02:29 12/07/24 06:14 Temperature 97.3 F 97.3 F 97.1 F Pulse Rate 97 97 85 Respiratory Rate 18 18 16 Blood Pressure 93/63 93/63 121/78 Pulse Oximetry 94 94 94 Oxygen Delivery Method Room Air Room Air Room Air 12/07/24 08:40 Temperature Pulse Rate 74 Respiratory Rate 12 Blood Pressure Pulse Oximetry Oxygen Delivery Method BMI result Body Mass Index 33.1 CONSTITUTIONAL: The patient appears non-toxic, well nourished and in no acute distress. Vital signs as documented. HEAD: Atraumatic, normocephalic. EYES: EOMs grossly intact, pupils equal, conjunctiva clear, no exudate. ENT: Nares patent, no discharge. Airway patent, no audible stridor, visible mucosa is pink and moist without noted lesions. NECK: Trachea is midline, no obvious masses or gross abnormalities. CHEST: Symmetric movement, normal appearance. LUNGS: LS present and CTAB, no w/r/r. Non-labored work of breathing. CARDIAC: Regular Rhythm, S1/S2 appreciated, no murmurs, rubs or gallops. ABDOMEN: Abdomen soft x4 quadrants, positive tenderness to palpation of the bilateral lower quadrants, negative rebound, no palpable masses or organomegaly. : Deferred. EXTREMITIES: There is tenderness to palpation of the right gluteus and posterior thigh with evidence of healing ecchymosis on the posterior thigh. Distal CSM is intact bilaterally, 2+ DP/PT pulses bilaterally. The patient has strength 5/5 in the bilateral lower extremities, but with painful range of motion on the right. Normal tone, moves all other extremities spontaneously without reported pain. No other obvious acute injury or deformity noted. NEURO: Alert and oriented x3, CN II-XII appear grossly intact. Cerebellar Functioning grossly intact. No obvious sensory or motor deficits. Speech clear and appropriate. PSYCH: normal affect, appropriate eye contact, fluid speech, with appropriate response to questioning. No reported suicidality or homicidality. SKIN: Warm, dry, color appropriate, normal turgor. No rashes noted. Course Course Course Narrative: This is a rapid medical exam performed by C. Laz, PT ESCORT: Additional HPI, ROS, PE not included below will be deferred to primary provider. Patient is a 54y/o Chadian speaking female with pmhx of asthma, RLS, secondary hyperparathyroidism, dysphagia, anxiety presenting to the ED with complaint of lower back pain radiating down right leg to knee. Had a fall on Thursday in [place], had x- rays, told no fractures but states she has been unable to move her right leg. Was given Percocet, meloxicam, and solumedrol without relief. Had a brush from Thu to . Has not been able to go to the bathroom except for yesterday morning. States immediately after the fall she could move her left leg but when put into the ambulance couldn't move either leg. Just flew back from [place] today. When directed back to the waiting room, patient then complained of chest pain/pressure. Plan: lumbar CT, UA, EKG Reevaluation(s) Reevaluation #1: Time: 08:41 Date: 12/06/24 Provider: Ritesh Leyva PA-C Patient in physician observation for case management needs. No acute events reported overnight.? No current issues or complaints. VS stable. Awaiting finalization of placement at [facility] for [facility]. Will continue to monitor as we await disposition. - Patient to discharge to [facility] tomorrow VIA BLS for 11am. Time: 08:41 Reevaluation #2: Time: 08:54 Date: 12/07/24 Provider: Ritesh Leyva PA-C Patient in physician observation for case management needs. No acute events reported overnight.? No current issues or complaints. VS stable. Patient discharging to [facility] at 11am this morning. Will continue to monitor as we await transportation for discharge to [facility]. Time: 08:54 Medications Administered Generic Name Dose Route Start Last Admin Trade Name Freq PRN Reason Stop Dose Admin Acetaminophen 975 mg 12/04/24 10:55 12/06/24 20:06 Acetaminophen 325 Mg Tablet PO 975 mg QID PRN Administration Pain, Moderate(Pain Scale 4-6) Amitriptyline HCl 25 mg 12/04/24 21:00 12/06/24 21:21 Amitriptyline Hcl 25 Mg Tablet PO 25 mg BEDTIME MAHESH Administration Cefuroxime Axetil 250 mg 12/05/24 09:30 12/06/24 20:06 Cefuroxime Axetil 250 Mg Tablet PO 12/10/24 09:29 250 mg Q12H MAHESH Administration Fluticasone/Vilanterol 1 puff 12/05/24 08:00 12/07/24 08:39 Fluticasone/Vilanterol 200/25 Blst.W.Dev INHALE 1 puff RDAILY MAHESH Administration Hydrochlorothiazide 25 mg 12/05/24 09:15 12/06/24 08:56 Hydrochlorothiazide 25 Mg Tablet PO 25 mg DAILY MAHESH Administration Protocol Hydroxyzine HCl 25 mg 12/04/24 16:14 12/06/24 12:31 Hydroxyzine Hcl 25 Mg Tablet PO 25 mg Q6H PRN Administration Anxiety Loratadine 10 mg 12/05/24 09:00 12/06/24 08:08 Loratadine 10 Mg Tablet PO 10 mg DAILY MAHESH Administration Losartan Potassium 25 mg 12/05/24 09:15 12/06/24 08:57 Losartan Potassium 25 Mg Tablet PO 25 mg DAILY MAHESH Administration Protocol Melatonin 9 mg 12/04/24 21:00 12/06/24 20:08 Melatonin 3 Mg Tablet PO Not Given BEDTIME MAHESH Montelukast Sodium 10 mg 12/04/24 21:00 12/06/24 20:06 Montelukast Sodium 10 Mg Tablet PO 10 mg BEDTIME MAHESH Administration Omeprazole 20 mg 12/05/24 06:30 12/07/24 06:08 Omeprazole 20 Mg Capsule.Dr PO 20 mg DAILY@0630 MAHESH Administration Oxycodone HCl 5 mg 12/04/24 10:54 12/07/24 06:08 Oxycodone Hcl Immed Release 5 Mg Tablet PO 5 mg Q6H PRN Administration Pain, Severe (Pain Scale 7-10) Sertraline HCl 25 mg 12/05/24 09:00 12/06/24 08:08 Sertraline Hcl 25 Mg Tablet PO 25 mg DAILY MAHESH Administration Topiramate 50 mg 12/05/24 09:15 12/06/24 21:21 Topiramate 25 Mg Tablet PO 50 mg BID MAHESH Administration Vitamin D 50 mcg 12/05/24 09:15 12/06/24 08:08 Cholecalciferol (Vitamin D3) 25 Mcg Tablet PO 50 mcg DAILY MAHESH Administration Discontinued Medications Generic Name Dose Route Start Last Admin Trade Name Freq PRN Reason Stop Dose Admin Iohexol 100 ml 12/04/24 02:13 12/04/24 02:13 Iohexol 350 Mg/Ml 100 Ml Infus..Btl IV 12/04/24 02:14 100 ml ONCE ONE Administration Ketorolac Tromethamine 15 mg 12/04/24 01:12 12/04/24 02:18 Ketorolac Tromethamine 15 Mg/Ml Vial IVPUSH 12/04/24 01:13 15 mg ONCE ONE Administration Morphine Sulfate 4 mg 12/04/24 01:12 12/04/24 02:18 Morphine Sulfate 4 Mg/Ml Cartridge IVPUSH 12/04/24 01:13 4 mg ONCE ONE Administration Protocol Trimethoprim/Sulfamethoxazole 1 tab 12/04/24 23:15 12/05/24 12:16 Sulfamethox/Trimeth 800/160 Tablet PO Not Given BID MAHEHS Medical Decision Making Medical Decision Making MDM Narrative: 1:19 AM 12/04/2024 (Liane NICHOLS): The patient is a 54-year-old female presenting to the ED reporting on Thursday while she was visiting [place] she suffered a mechanical fall on wet floor in her bathroom resulting in a splitting motion before eventually falling onto her back. The patient denies head strike or LOC. The patient was seen at at a local hospital in [place] on the day of the fall. Patient reports she underwent x-rays which showed no acute fracture, however patient had severe pain in the right buttock radiating to the right leg and also up into the right back. The patient was admitted to the hospital until , during hospital admission the patient was receiving IV pain medication and also had a Brush catheter placed due to her pain, not due to retention. The patient reports the Brush catheter was removed on , and she was discharged. The patient reports she flew back home today and came to the ED here for evaluation. The patient reports she has been able to move her urine since Brush catheter was removed, last moved her urine today. The patient denies associated bowel/bladder incontinence or urinary retention. The patient denies lower extremity weakness but reports impaired range of motion of the right lower extremity secondary to pain. The patient denies recurrent fall or other injury. The patient denies surgical spinal history. On exam the patient appears in discomfort but in no acute distress, vital signs stable. The patient has tenderness to palpation of the right gluteus and posterior thigh with evidence of healing ecchymosis on the posterior thigh. Distal CSM is intact bilaterally, 2+ DP/PT pulses bilaterally. The patient has strength 5/5 in the bilateral lower extremities, but with painful range of motion on the right. The patient also reports tenderness to palpation of the bilateral lower quadrants/pelvis, denies any bony tenderness of the bilateral hips. The patient was sent for a lumbar CT upon triage, CT shows a significant disc bulge at L5/S1 with mild central canal stenosis and no significant neural foraminal stenosis. No other acute findings. The patient's presentation is currently not concerning for cauda equina, we will obtain CT abdomen/pelvis and right lower extremity with contrast to evaluate for musculoskeletal injury versus hematoma. If no evidence of acute pathology the patient will likely require observation in the ED for consideration of MRI tomorrow as she is currently unable to ambulate or bear weight secondary to pain. 4:05 AM 12/04/2024 (Liane NICHOLS): The patient's CT abdomen and pelvis shows no acute findings, CT lower extremity demonstrates likely partial tear of the proximal insertion of the semimembranosus hamstring muscle. This is likely the source of the patient's pain. We will hold the patient overnight for PT/case management consultation as the patient is still expressing severe pain with weight-bearing or ambulation. Time: 16:14 Date: 12/04/24 Provider: SIMONE Calderon Patient in physician observation for case management needs. Med reconciliation performed. Vital signs stable. Pending PT case management evaluation. We will continue to monitor. Attempted to do code status with patient with client business manager at bedside however patient reporting that she is very tired physically. Mention that she did not want to be resuscitated however given patient appearing to be upset regarding injury, I am deferring this decision at this time. Time: 08:33 Date: 12/05/24 Provider: SIMONE Thomason Patient in physician observation for case management needs. No acute events reported overnight.? No current issues or complaints. VS stable. Patient is pending PT eval. Will continue to monitor. Admission/Observation Consideration of admission/observation: Escalation of care including admission/observation considered Lab Data MDM Lab Attestation statement: I reviewed the patient's lab results. 12/04/24 03:03 12/04/24 03:03 Labs: Lab Results 12/04/24 12/04/24 12/05/24 Range/Units 03:03 22:22 10:25 WBC 11.5 H (4.8-10.8) X10*3/uL RBC 5.45 (4.20-5.50) X10*6/uL Hgb 13.9 (12.0-16.0) g/dl Hct 43.5 (37.0-47.0) % MCV 79.8 L (80.0-98.0) fL MCH 25.5 L (27.0-33.0) pg MCHC 32.0 (31.0-35.0) g/dl RDW 13.8 (11.0-16.0) % Plt Count 341 (160-400) X10*3/uL MPV 10.0 (9.4-12.3) fL Immature Gran % (Auto) 0.3 (0.0-0.4) % Neut % (Auto) 67.0 (45-73) % Lymph % (Auto) 26.3 (20-40) % Leslie % (Auto) 5.5 (2-11) % Eos % (Auto) 0.6 (0-4) % Baso % (Auto) 0.3 (0-2) % Lymph # (Auto) 3.0 (1.2-4.9) X10*3/uL Leslie # (Auto) 0.6 (0.1-1.2) X10*3/uL Eos # (Auto) 0.1 (0.0-0.4) X10*3/uL Baso # (Auto) 0.0 (0.0-0.2) X10*3/uL Abs Immat Gran (auto) 0.04 H (0.00-0.03) X10*3/uL Absolute Neuts (auto) 7.7 (2.0-8.3) x10*3/uL Absolute Nucleated RBC 0.000 (0.0-0.012) X10*3/uL Nucleated RBC % (auto) 0.0 (0.0-0.2) /100WBC Sodium 138 (135-145) mmol/L Potassium 4.4 (3.3-5.1) mmol/L Chloride 105 (96-108) mmol/L Carbon Dioxide 25 (22-29) mmol/L Anion Gap 12 (12-20) BUN 25 H (9-16) mg/dL Creatinine 0.67 (0.5-1.4) mg/dL Estim Creat Clear Calc 111.5 Estimated GFR > 60 Random Glucose 90 (60-115) mg/dL Calcium 9.6 (8.4-10.2) mg/dL Total Bilirubin 0.9 (0.0-1.0) mg/dL AST 19 (5-31) U/L ALT 14 (0-31) U/L Alkaline Phosphatase 126 H (39-117) U/L Total Protein 6.9 (6.5-8.0) g/dL Albumin 4.0 (3.5-5.0) g/dL Urine Color Yellow Urine Appearance Clear Urine pH 5.5 (5.0-9.0) Ur Specific [place] >= 1.030 H (1.005-1.025) Urine Protein Negative (Neg-Trace) mg/dL Urine Glucose (UA) Negative (Negative) mg/dL Urine Ketones Negative (Negative) mg/dL Urine Blood Small (1+) H (Negative) Urine Nitrite Positive H (Negative) Ur Leukocyte Esterase Trace H (Negative) Urine RBC 0-2 (0-2) /HPF Urine WBC 0-5 (0-5) /HPF Ur Squamous Epith Cells 6-10 (0-2) /HPF Urine Bacteria 4+ (None Seen) Hyaline Casts 0-2 (0-2) /LPF Influenza Type A (PCR) NEGATIVE (Negative) Influenza Type B (PCR) NEGATIVE (Negative) RSV RNA Qual (PCR) NEGATIVE (Negative) SARS-CoV-2 RNA (RT-PCR) NEGATIVE (Negative) Independent Interpretation I performed an independent interpretation of an: EKG (EKG shows sinus rhythm with a rate of 78, with left axis deviation, no evidence of acute ischemia, no ST elevation, no ectopy. QTC 405. Compared to previous on 06/28/2023 there are no significant morphology changes. ) Radiology Impression Discussion of test interpretation with radiology: I have reviewed the radiologist's reading. Radiologist Impression: CT lumbar spine without contrast Comparison: None provided Findings: Vertebral alignment is within normal limits. Mild osteopenia. L5-S1: Broad-based disc bulge with mild central canal stenosis and no significant neural foraminal stenosis. Partly visualized splenic partly calcified rim low-attenuation center lesion, 3.9 x 3.2 cm. IMPRESSION: 1. L5-S1 broad-based disc bulge with mild central canal stenosis. 2. Mild osteopenia. 3. Partly visualized splenic lesion with calcified rim and low-attenuation center, measuring 3.9 x 3.2 cm. 4. No acute osseous injury. This document has been electronically signed by: Valdemar Raymundo MD on 12/03/2024 20:42:28 CT right femur with contrast Comparison: None provided Findings: No fracture, dislocation, arthritic changes, or joint effusions. No mass, adenopathy, or fluid collection. There is edema at the proximal tendon of the semimembranosus muscle. No abnormal contrast enhancement. Impression: 1. There is likely a partial tear at the musculotendinous junction of proximal semimembranosus muscle. This document has been electronically signed by: Dannielle Flores MD on 12/04/2024 03:47:28 CLINICAL HISTORY: Fall; BLQ Pain Tenderness; R Gluteus Tenderness CT abdomen and pelvis with contrast Comparison: None provided Findings: Minor atelectasis at the lung bases. Partially peripherally calcified splenic cyst 4.5 cm. Hepatosplenomegaly. Gallbladder and solid organs otherwise unremarkable. No urolithiasis. No bowel obstruction, pneumoperitoneum, or pneumatosis. Mesenteric vessels patent. Moderate stool. Distal colonic diverticulosis without diverticulitis. Hysterectomy. Ovaries unremarkable. Normal appendix. Mild urinary bladder distention. No inflammatory changes. The bones are intact. IMPRESSION: 1. No acute injury of the abdomen or pelvis. 2. Partially peripherally calcified splenic cyst. Correlate with history of prior infection. 3. Hepatosplenomegaly. This document has been electronically signed by: Dannielle Flores MD on 12/04/2024 03:44:39 Prescription Management I considered prescription management with: Pain Medication Discharge Plan Discharge Clinical Impression: Partial tear of right hamstring Patient Disposition: er Inpatient Rehab Fac Transfer Details: TO: [facility] ACCEPT[facility] Prescriptions: New oxycodone 5 mg tablet 5 mg PO Q6H PRN (Reason: pain) 3 Days Qty: 12 0RF Rx Instructions: Partial Fill upon patient request. No Action amitriptyline 25 mg tablet 25 mg PO BEDTIME sertraline 25 mg tablet 25 mg PO QAM omeprazole 20 mg capsule,delayed release(DR/EC) 20 mg PO QAM montelukast 10 mg tablet 10 mg PO QPM hydroxyzine pamoate 25 mg capsule 25 mg PO Q6H PRN (Reason: anxiety) topiramate 50 mg tablet 50 mg PO BID budesonide-formoterol [Symbicort] 160-4.5 mcg/actuation HFA aerosol inhaler 2 puff INHALATION BID melatonin 5 mg tablet 10 mg PO BEDTIME losartan 25 mg tablet 25 mg PO QAM hydrochlorothiazide 25 mg tablet 25 mg PO QAM cholecalciferol (vitamin D3) [Vitamin D3] 50 mcg (2,000 unit) capsule 50 mcg PO QAM (DME) blood pressure monitor Kit See Rx Instructions .ROUTE .MEDSUPPLY Qty: 1 Rx Instructions: As directed cetirizine [Zyrtec] 10 mg tablet 10 mg PO DAILY (DME) Wrist Brace - one Misc See Rx Instructions .Route Qty: 2 0RF Rx Instructions: As directed Referrals: [facility] [Outside] Cindy Clay DO [Primary Care Provider, Internal Medicine] Print Language: Chadian
--- NOTE | 2024-12-03 18:34 | ECG_ITS ---
Test Reason : CHEST PAIN Blood Pressure : */* mmHG Vent. Rate : 78 BPM Atrial Rate : 78 BPM P-R Int : 132 ms QRS Dur : 90 ms QT Int : 356 ms P-R-T Axes : 43 -35 50 degrees QTcB Int : 405 ms Normal sinus rhythm Left axis deviation Moderate voltage criteria for LVH, may be normal variant ( R in aVL , [place] product ) Abnormal ECG When compared with ECG of 28-Jun-2023 00:43, No significant change was found Referred By: Radha Nesbitt Electronically Signed By: Sai Parisi
--- OUTSIDE RECORDS SUMMARY | 2024-12-04 00:28 | XMS_ITS | Encounter Summary ---
Author Organization [facility] Address [address] [place] [id number] Phone Care Team Providers Care Core Analyst Name Role Phone Sharifa Moncada MD Primary Care Provider + Encounter Details Date Type Department Care Team (Late st Contact Info) Description 04/15/2021 Procedure Pass [facility], Ct Scan - [address] [id number] Social History Tobacco Use Types Packs/Day Years [...] 04/15/2021 7:47 PM [place] Haas RN * [place] Suicide Severity Rating Scale (Screener/Recent Self-Report) Question [...] documented as of this encounter Care Teams Core Analyst Relationship Specialty Start Date End Date Sharifa Moncada MD [address] [place] [phone] PCP - General Internal Medicine 06/23/20 documented as of this encounter Additional Source Comments The information contained in this document represents components of the legal health record. It is not the complete legal health record[facility]
--- OUTSIDE RECORDS SUMMARY | 2024-12-04 00:28 | XMS_ITS | Encounter Summary ---
Author Organization [employer] Address [address] [facility] [address] [place] [address] Care Team Providers Care Paper Roll Machine Operator Name Role Phone Cindy Clay DO Primary Care Provider + [phone] Reason for Visit * Reason Comments Med Refill Encounter Details Date Type Department Care Team (Late st Contact Info) Description 04/01/2023 Refill [facility] MEDICINE [address] [place] [address] Taryn Parsons MD [address] [place] [address] Vitamin D deficiency Social History Tobacco Use [...] t he electric, gas, oil or water [employer] threatened to shut off services in your [...] documented as of this encounter Care Teams Paper Roll Machine Operator Relationship Specialty Start Date End Date Cindy Clay DO [address] [place] [id number] PCP - General Family Medicine 05/13/22 documented as of this encounter
--- OUTSIDE RECORDS SUMMARY | 2024-12-04 00:28 | XMS_ITS | Clinical Summary ---
Author Organization [facility] Address [address] [address] Phone Care Team Providers Care Reimbursement Spec Name Role Phone Sharifa Moncada MD Primary [...] 11/01/2020, 10/11/2020 Adult Td,Tdap Booster 02/26/2027 02/26/2017 RSV VACCINE (1 - 1-dose 75+ series) 07/06/2046 HEPATITIS A VACCINES Aged Out No long [...] EDT) SODIUM 136 133 - 146 mmol/L [facility] CHLORIDE 101 96 - 108 mmol/L [facility] POTASSIUM 4.5 3.3 - 5.1 mmol/L [facility] CO2 26 21 - 35 mmol/L [facility] BUN 23(H) 6 - 19 mg/dL [facility] CREATININE 0.50 0.5 - 1.5 mg/dL [facility] GLUCOSE 183(H) 70 - 99 mg/dL [facility] CALCIUM 9.3 8.4 - 10.3 mg/dL [facility] EGFR 114 >59 mL/min/1.7 3m2 [facility] Comment:Estimated glomerular filtration rate calculated using the CKD-EPI refit equation. ANION GAP 14 10 - 20 mmol/L [facility] Blood 10/24/2021 6:01 AM EDT 10/24/2021 6:05 AM EDT us Bala Grimm MD LAB BLOOD ORDERABLES Final Resu lt [facility] [address] [place], [place] [phone] from Last 3 Months or Most Recently Relevant to Health Maintenance Insurance [address] [place] [address] [employer] [address] [place] [id number] [facility] [employer]3 [employer]CO [address] [employer] [address] [place] [id number] [place] [address] C3 [employer] [place] [facility] [address] [place] [id number] [facility] C3 [employer] WORKERS COMPENSATION Advance Directives For more information, please contact: [phone] (9AM - 5PM [facility], Thursday-Thursday) * Full Code (Latest Code Status on File) Date Activated Date Inactivated Comments 04/16/2021 12:49 AM Question Answer Comments Code Status Confirmed With: Patient Care Teams Reimbursement Spec Relationship Specialty Start Date End Date Sharifa Moncada MD [address] [place] [address] [address] [place] [id number] PCP - General Internal Medicine 06/23/20 Additional Source Comments The information contained in this document represents components of the legal health record. It is not the complete legal health record.[facility]
--- OUTSIDE RECORDS SUMMARY | 2024-12-04 00:28 | XMS_ITS | Encounter Summary ---
Author Organization [employer] Address [address] [facility] 7[address] [place] [address] Care Team Providers Care Funeral Director/Embalmer Name Role Phone Cindy Clay DO Primary Care Provider + [phone] Encounter Details Date Type Department Care Team (Late st Contact Info) Description 02/20/2023 Orders Only [facility] MEDICINE [address] [place], [place] [phone] Cindy Clay DO [address] [place], [place] [phone] Social History Tobacco Use Types Packs/Day Years [...] documented as of this encounter Care Teams Funeral Director/Embalmer Relationship Specialty Start Date End Date Cindy Clay DO [address] [place] [address] PCP - General Family Medicine 05/13/22 documented as of this encounter
--- OUTSIDE RECORDS SUMMARY | 2024-12-04 00:28 | XMS_ITS | Clinical Summary ---
Author Organization [employer] Address [address] [facility] [address] [place] [address] Care Team Providers Care Head Start Teacher Name Role Phone Cindy Clay DO Primary Care Provider [phone] Allergies Active Allergy Reactions Criticality Noted Date Comments Penicillin G 10/08/2015 Medications * This document contains information received from the source organization and may not represent a complete record from that organization. solifenacin (VESIcare) 5 MG tablet Take 5 mg by mouth in the morning. 023 Active mepolizumab (Nucala) 100 mg/mL solution auto-injector Inject under the skin every 28 (twenty-eight) days. Active Eye Itch Relief 0.035 % solution INSTILL 1 DROP INTO THE AFFECTED EYE(S) TWICE DAILY 023 Active ergocalcifero l (Vitamin D2) 1.25 MG (01913 UT) capsuleIndica tions:Vitamin D deficiency Take 1 capsule (1.25 mg) by mouth 1 (one) time per week. 12 capsule 3 024 Active triamcinolone (Nasacort) 55 MCG/ACT nasal inhaler INSTILL 2 SPRAYS IN EACH NOSTRIL ONCE DAILY IN THE MORNING 16.9 mL 11 024 Active gabapentin (Neurontin) 100 MG capsule TAKE 1 CAPSULE BY MOUTH EVERY DAY AT BEDTIME 024 Active albuterol (2.5 MG/3ML) 0.083% nebulizer solution INHALE 1 AMPULE USING A NEBULIZER THREE TIMES DAILY NEEDED SHORTNESS OF BREATH NEEDED FOR ASTHMA 90 mL 3 024 Active polyvinyl alcohol (Liquifilm Tears) 1.4 % ophthalmic solution INSTILL 1 DROP IN EACH EYE NEEDED FOR DRY EYES 15 mL 3 024 Active SUMAtriptan (Imitrex) 100 MG tablet TAKE 1/2 TO 1 TABLET BY MOUTH AFTER ONSET OF MIGRAINE. MAY REPEAT AFTER 2 HOURS IF HEADACHE RETURN . DO NOT TAKE MORE THAN 2 TABLETS IN 24 HOURS. DO NOT EXCEED 4 TABLETS PER WEEK 9 tablet 2 024 Active Symbicort 160-4.5 MCG/ACT inhaler INHALE 2 PUFFS BY MOUTH TWICE DAILY 10.2 g Active Blood Pressure kit 1 each 2 (two) times a week. 1 kit Active losartan (Cozaar) 25 MG tablet Take 1 tablet (25 mg) by mouth Once per day. 30 tablet 2025 Active hydroCHLOROth iazide (HYDRODiuril) 25 MG tablet Take 1 tablet (25 mg) by mouth Once per day. 30 tablet 025 2025 Active cholecalcifer ol (Vitamin D-3) 50 MCG (2000 UT) capsule Take 1 capsule (50 mcg) by mouth Once per day. 30 capsule Active melatonin 5 MG tablet TAKE 2 TABLETS BY MOUTH EVERY DAY AT BEDTIME 180 tablet 1 025 Active montelukast (Singulair) 10 MG tablet TAKE 1 TABLET BY MOUTH EVERY EVENING 90 tablet 025 Active hydrOXYzine pamoate (Vistaril) 25 MG capsule TAKE 1 CAPSULE BY MOUTH EVERY SIX HOURS NEEDED FOR ANXIETY 60 capsule 1 025 Active amitriptyline (Elavil) 25 MG tablet TAKE 1 TABLET BY MOUTH AT BEDTIME 30 tablet 3 025 Active cetirizine (ZyrTEC) 10 MG tablet TAKE 1 TABLET BY MOUTH EVERY MORNING 90 tablet 1 025 Active omeprazole (PriLOSEC) [address] capsule TAKE 1 CAPSULE BY MOUTH EVERY MORNING 90 capsule 025 Active Ventolin HFA 108 (90 Base) MCG/ACT inhaler INHALE 2 PUFFS BY MOUTH EVERY 4 TO 6 HOURS NEEDED 18 g 025 Active topiramate 50 MG tablet TAKE 1 TABLET BY MOUTH TWICE DAILY IN THE MORNING AND IN THE EVENING 60 tablet 2 025 Active venlafaxine XR (Effexor XR) 37.5 MG 24 hr capsule Take 1 capsule (37.5 mg) by mouth Once per day. Do not crush or chew. 30 capsule 2 025 2025 Active Tirzepatide-W eight Management (Zepbound) 2.5 MG/0.5ML solution auto-injector Inject 0.5 mL (2.5 mg) under the skin 1 (one) time per week. 2 mL 3 Active famotidine (Pepcid) 20 MG tablet TAKE 1 TABLET BY MOUTH ONCE DAILY NEEDED HEARTBURN 025 2024 Discontinued(M ed list cleanup (will not trigger notification to Pharmacy)) Zepbound 2.5 MG/0.5ML solution auto-injector INJECT ONE PEN (=2.5MG) SUBCUTANEOUSLY ONCE A WEEK DIRECTED 2 mL 3 025 2024 Discontinued(R eorder (will not trigger notification to Pharmacy)) sertraline (Zoloft) 25 MG tablet TAKE 1 TABLET BY MOUTH EVERY MORNING 30 tablet 3 025 2024 Discontinued Active Problems Problem Noted Date Diagnosed Date Forgetfulness 06/17/2024 Urinary incontinence 06/17/2024 Elevated parathyroid hormone 06/17/2024 ANDREA (generalized anxiety disorder) 06/17/2024 Housing instability 06/17/2024 History of suicidal ideation 06/17/2024 Healthcare maintenance 10/04/2022 Assessment & Plan (10/04/2022 7:16 PM EDT): -Quantiferon 09/2022 neg. -pap smear: reports >10y per pt, referred today here for Pap smear w Delisa Rob -MM: 2020 - BIRADS 2, referred today. -colonoscopy: [...] healthy life style -Will need to discuss stockroom selector referral at next apt. -Will monitor HbA1c [...] LUIS, RF, and elevated CRP. F w website admin. Not yet Dx w inflammatory arthritis. Pt was referred for further lab testing. -Tylenol PRN -Prescribed today Meloxicam PRN for moderate pain. Pt not taking Ibuprofen. -Continue w website admin f up. Assessment & Plan (05/27/2022 4:10 PM EDT): I referred patient to rheumatology Rheumatoid factor positive 05/27/2022 History of COVID-19 05/13/2022 Essential hypertension 05/13/2022 Assessment & Plan (10/04/2022 7:05 PM EDT): BP well controlled. -Perl Programmer has f up apt on 11/12/2022 w Hx of macular edema of R eye and apt w retinal specialist today. -Microalb ordered today. Chronic gastroesophageal reflux disease 05/14/19 Severe persistent asthma 05/13/2022 Assessment & Plan (10/04/2022 7:20 PM EDT): Currently reported as better controlled. -Continue treatment -Pt referred for child life therapist before. I request refrigeration specialist to check for status of referral. Recommend pt to discuss w child life therapist as well about penicillin allergy and test to confirm if it's true allergy. -Continue to f w jewelry sales coordinator. Major depressive disorder, r ecurrent, severe with psychotic features (CMS/HCC) 05/13/2022 Assessment & Plan (10/04/2022 7:10 PM [...] migraine 05/13/2022 023 Migraine with aura 05/13/2022 3 Neck pain 05/13/2022 05/13/2022 Oropharyngeal dysphagia 05/13/202204/17 Postoperative pain 05/13/2022 3 Right leg pain 05/13/2022 05/13/2022 Superficial incisional surgi kale site infection 05/13/2022 05/13/2022 Xerostomia 05/13/2022 05/13/2022 Knee pain 03/04/2016 05/13/2022 Skin tag 03/04/2016 05/13/2022 Encounters * This document contains information received from the source organization and may not represent a complete record from that organization. Date Type Department Care Team Description 11/30/2024 Telephone [facility] [address] [place] [address] Cindy Clay DO Nurse Triage 11/17/2024 Telephone [facility] [address] [place] [address] Cindy Clay DO EYE CARE REFERRAL 11/16/2024 10:00 AM EDT Office Visit [facility] [address] [facility], [place] [address] Cindy Clay DO Essential hypertension (Primary Dx); Other hyperlipidemia; Pre-diabetes; Obesity (BMI 30-39.9); Major depression, recurrent, chronic (CMS/HCC); Severe persistent asthma without complication (HCC); Chronic allergic rhinitis; Chronic migraine; Chronic gastroesophageal reflux disease; Polyarthralgia; Forgetfulness; Urinary incontinence, unspecified type; Elevated parathyroid hormone; Vitamin D deficiency; Subcutaneous nodule; Healthcare maintenance; Dietary counseling; Exercise counseling; Encounter for screening mammogram for malignant neoplasm of breast 11/16/2024 Travel 11/15/2024 Telephone [facility] [address] [place] [address] Cindy Clay DO Chart Prep 10/22/2024 Refill [facility] [address] [place] [address] Cindy Clay DO 10/20/2024 Refill [facility] [address] [place] [address] Taryn Parsons MD 10/13/2024 Refill [facility] [address] [place] [address] Cindy Clay DO 10/04/2024 Telephone [facility] [address] [place] [address] Cindy Clay DO Recall Letter (Recall Letter sent 10/04/24.) 09/29/2024 Refill [facility] [address] [place] [address] Cindy Clay DO 09/15/2024 Refill [facility] [address] [place] [address] Cindy Clay DO 09/13/2024 Telephone [facility] [address] [place] [address] Cindy Clay DO Prior Authorization 09/08/2024 Refill [facility] [address] [place] [address] Cindy Clay DO from Last 3 Months Immunizations Immunization Administration Dates Next Due Tdap 02/26/2017 Family [...] Date Recorded Patient Health Questionnaire-9 Score 24 11/16/2024 Patient Health Questionnaire-9 Score 24 11/16/2024 Last PHQ-9: Questionnaire Data Not on file 1 Housing Stability Answer Date Recorded What is your housing situation today? I do not have housing (Staying with others, in a hotel, in a long-term, living outside on the street, on a beach, in a car, or in a park 06/17/[address] you li ve. Do you have problems with any of the following? None of the above 06/17/2024 Food Insecurity Answer Date Recorded Within the [...] getting things needed for daily living? No 06/17/2024 Utilities Answer Date Recorded In the past 12 months, has t he electric, gas, oil or water company threatened to shut off services in your home? No 12/03/2022 Depression Answer Date Recorded Patient Health Questionnaire-2 Score 6 11/16/2024 Internet Access Answer Date Recorded Internet Access Q1 Yes 10/19/2023 Internet Access Q2 Not on file 10/19/2023 Comments No Sex and Gender Information Value Date Recorded Sex Assigned at Female 12/16/2021 10:20 AM EDT Legal Sex Female 10:20 AM EDT Gender Identity Female 12/16/2021 10:20 AM EDT Sexual Orientation Straight 12/16/2021 10 :20 AM EDT Last Filed Vital Signs Vital Sign Reading Time Taken Comments Blood Pressure 136/78 11/16/2024 10:11 AM EDT Pulse 89 11/16/2024 10:11 AM EDT Temperature 36.1 C (97 F) 11/16/2024 10:11 AM EDT Respiratory Rate 20 11/16/2024 10:11 AM EDT Oxygen Saturation 97% 11/16/2024 10:11 AM EDT Inhaled Oxygen Concentration - - Weight 93.4 kg (206 lb) 11/16/2024 10:11 AM EDT Height 162.6 cm (5' 4 ) 11/16/2024 10:11 AM EDT Body Mass Index 35.36 11/16/2024 10:11 AM EDT Plan of Treatment Health Maintenance Due Date Last Done Comments CT Colonography 1970 Colonoscopy 1970 Colorectal Cancer Screening 1970 FIT DNA/Cologuard 1971 FIT 1970 FOBT 1970 Sigmoidoscopy 1971 Hepatitis B Vaccines (1 of 3 - 19+ 3-dose series) 07/06/1990 Pneumococcal Vaccine: 50+ Years (1 of 2 - PCV) 07/06/1990 Zoster Vaccines (1 of 2) 07/06/2021 COVID-19 Vaccine (3 - season) 2024 11/01/2020, 10/11/2020 Influenza Vaccine (#1) 2024 Diabetes: Hemoglobin A1C 02/11/2025 024, 03/12/2023, 02/17/2023, Additional history exists Mammogram 02/25/2025 02/25/2023 Depression Monitoring 05/17/2025 11/16/2024, 025 Alcohol/Substance Use Screening 06/17/2025 06/17/2024 Disability Screening 06/17/2025 06/17/2024 SDOH Screening 06/17/2025 06/17/2024 Tobacco Screening 11/16/2025 11/16/2024 DTaP/Tdap/Td Vaccines (2 - Td or Tdap) [...] patient's age to complete this topic Meningococcal B Vaccine Aged Out No l onger eligible based on patient's age to complete [...] Procedure Name Priority Date/Time Associated Diagnosis Comments CT LUMBAR SPINE WO CONTRAST Routine 12/03/2024 8:42 PM EDT XR CLAVICLE RIGHT Routine 11/16/2024 12: 20 PM EDT Subcutaneous nodule HEPATITIS C AB W/REFL TO HCV RNA, [...] Recently Relevant to Health Maintenance Results * CT Lumbar Spine w/o Contrast (12/03/2024 8:42 PM EDT) Anatomical Region Laterality Modality Spine, L-spine Computed Tomogra phy 12/03/2024 8:42 PM EDT Narrative 12/03/2024 8:43 PM EDT [address] [address] [address] Scan Report Signed Patient: Emerita Wills MR#: [id number] : 1970 Acct:[id number] Age/Sex: 54 / F ADM Date: 12/03/24 Loc: HO.ED Attending Dr: Ordering Physician: Radha Nesbitt NP Date of Service: 12/03/24 Procedure(s): CT lumbar spine wo IV con Accession Number(s): [id number] cc: Cindy Clay DO; Radha Nesbitt NP Report Number: [id number]: Total DLP = 683.00 mGy-cm Reason for Exam: fall on Mon, pain radiating down R leg CLINICAL HISTORY: fall on Mon, pain radiating down R leg CT lumbar spine without contrast Comparison: None provided Findings: Vertebral alignment is within normal limits. Mild osteopenia. L5-S1: Broad-based disc bulge with mild central canal stenosis and no significant neural foraminal stenosis. Partly visualized splenic partly calcified rim low-attenuation center lesion, 3.9 x 3.2 cm. IMPRESSION: 1. L5-S1 broad-based disc bulge with mild central canal stenosis. 2. Mild osteopenia. 3. Partly visualized splenic lesion with calcified rim and low-attenuation center, measuring 3.9 x 3.2 cm. 4. No acute osseous injury. This document has been electronically signed by: Valdemar Raymundo MD on 12/03/2024 20:42:28 Dictated By: Valdemar Raymundo MD Signed By: <Electronically signed by Valdemar Raymundo MD in OV> 12/03/242042 DD/ 41 TD/TT: 12/03/242041 Edging Supervisor: Procedure Note Donotuseinterpreter, Image - 12/03/[address] [place] [address] [address] Scan Report Signed Patient: Jey Wills#: [id number] : 1970Acct:[id number] Age/Sex: 54 / FADM Date: 12/03/24 Loc: HO.ED Attending Dr: Ordering Physician: Radha Nesbitt NP Date of Service: 12/03/24 Procedure(s): CT lumbar spine wo IV con Accession Number(s): [id number] cc: Cindy Clay DO; Radha Nesbitt OUTBOARD MOTOR TESTER Report Number: [id number]: Total DLP = 683.00 mGy-cm Reason for Exam: fall on Mon, pain radiating down R leg CLINICAL HISTORY: fall on Mon, pain radiating down R leg CT lumbar spine without contrast Comparison: None provided Findings: Vertebral alignment is within normal limits. Mild osteopenia. L5-S1: Broad-based disc bulge with mild central canal stenosis and no significant neural foraminal stenosis. Partly visualized splenic partly calcified rim low-attenuation center lesion, 3.9 x 3.2 cm. IMPRESSION: 1. L5-S1 broad-based disc bulge with mild central canal stenosis. 2. Mild osteopenia. 3. Partly visualized splenic lesion with calcified rim and low-attenuation center, measuring 3.9 x 3.2 cm. 4. No acute osseous injury. This document has been electronically signed by: Valdemar Raymundo MD on 12/03/2024 20:42:28 Dictated By: Valdemar Raymundo MD Signed By: <Electronically signed by Valdemar Raymundo MD in OV> 12/03/242042 DD/ 41 TD/TT: 12/03/242041 Edging Supervisor: [facility] External Provider IMG CT PROCEDURES Edited Result - Final * XR Clavicle Right (11/16/2024 12:20 PM EDT) Anatomical Region Laterality Modality Body, Clavicle Right Radiographic Latricia ging 11/16/2024 12:2 0 PM EDT Narrative 11/16/2024 12:33 PM EDT [address] [address] XRay Report Signed Patient: Emerita Wills MR#: [id number] : 1970 Acct:[id number] Age/Sex: 54 / F ADM Date: 11/16/24 Loc: HO.HHCX Attending Dr: Cindy Clay DO Ordering Physician: Cindy Clay DO Date of Service: 11/16/24 Procedure(s): XR clavicle RT Accession Number(s): [id number] cc: Cindy Clay DO Reason for Exam: painful lump medial R clavicle EXAMINATION: XR CLAVICLE, RIGHT CLINICAL INFORMATION: painful lump medial R clavicle COMPARISON: Right shoulder x-ray May 23, 2022. TECHNIQUE: AP views of the right clavicle. FINDINGS: No acute cortical disruption. No periosteal bone reaction. No soft tissue calcification. No lytic or blastic lesions. XR/XR clavicle RT IMPRESSION: Normal x-ray right clavicle. Electronically signed by: Benito Pena MD 11/16/2024 12:30 PM EDT RP Dictated By: Benito Finn MD Signed By: <Electronically signed by Benito Rivero MD in OV> 11/16/24 1230 DD/ 1220 TD/TT: 11/16/24 1224 Edging Supervisor: Procedure Note Donotuseinterpreter, Image - 11/16/[address] [address] XRay Report Signed Patient: Jey Wills#: [id number] : 1970Acct:[id number] Age/Sex: 54 / FADM Date: 11/16/24 Loc: HO.HHCX Attending Dr: Cindy Clay DO Ordering Physician: Cindy Clay DO Date of Service: 11/16/24 Procedure(s): XR clavicle RT Accession Number(s): [id number] cc: Cindy Clay DO Reason for Exam: painful lump medial R clavicle EXAMINATION: XR CLAVICLE, RIGHT CLINICAL INFORMATION: painful lump medial R clavicle COMPARISON: Right shoulder x-ray May 23, 2022. TECHNIQUE: AP views of the right clavicle. FINDINGS: No acute cortical disruption. No periosteal bone reaction. No soft tissue calcification. No lytic or blastic lesions. XR/XR clavicle RT IMPRESSION: Normal x-ray right clavicle. Electronically signed by: Benito Pena MD 11/16/2024 12:30 PM EDT RP Dictated By: Benito Finn MD Signed By: <Electronically signed by Vasquez Peñaloza OV> 11/16/24 1230 DD/ 1220 TD/TT: 11/16/24 1224 Edging Supervisor: us Cindy Clay DO IMG XR PROCEDURES Final Resu lt * Hepatitis C Antibody with Reflex to HCV, RNA, Quantitative, Real-Time PCR (02/12/2024 12:25 PM EST) Hepatitis C Antibody Nonreactive Nonreactive [facility] Comment:Antibodies to HCV no t detected; does not exclude early acuteHCV infection. Blood Venous blood specimen / Unknown 02/12/2024 12:25 PM EST 02/12/2024 1:00 PM EST us Cindy Clay DO LAB BLOOD ORDERABLES Final R esult [facility] [address] [place] [address] [phone] * HIV-1/2 Antigen and Antibodies, Fourth Generation, with Reflexes (02/12/2024 12:25 PM EST) HIV AB/AG Nonreactive Nonreactive [facility] Comment:HIV-1 p24 Ag and/or HIV-1/HIV-2 Ab not detected.A test result that is nonreactive does not exclude thepossibility of exposure to or infection with HIV-1 and/orHIV-2. Nonreactive results in this assay for individualswith prior exposure to HIV-1 and/or HIV-2 may be due toantigen and antibody levels that are below the limit ofdetection of this assay.The Apsmart HIV Ag/Ab Combo assay result andsupplemental assay results should be interpreted inconjunction with the patient's clinical presentation,history and other laboratory results. If the results areinconsistent with clinical evidence, additional testing issuggested to confirm the result. Blood Venous blood specimen / Unknown 02/12/2024 12:25 PM EST 02/12/2024 1:00 PM EST Cindy Clay DO LAB BLOOD ORDERABLES Final R esult Performing Organization Address [facility] Co de Phone Number [facility] [address] [place] [address] [phone] * Hemoglobin A1c (02/12/2024 12:25 PM EST) Hemoglobin A1c 5.7 <6.0 % [facility] Comment:Hemoglobin A1C Refer ence Range Adults: 4.8 - 6.0 % Non diabetic: < 6.0 % Goal: < 7.0 %Additional Action Suggested: > 8.0 %Note: Hemoglobin A1c results are invalid for patients with abnormal amounts of HbF. Blood transfusions may impact the HbA1c concentration in the patient sample. Estimated Average Glucose 117 mg/dL [facility] Comment:eAG = Estimated ave rage glucose which is %A1C expressed asaverage glucose, using the formula of the O8H-RafarciNzmmlxx Glucose study (ADAG), Diabetes Care, Vol.31,#8,Sep. 2007 Blood Venous blood specimen / Unknown 02/12/2024 12:25 PM EST 02/12/2024 1:00 PM EST Cindy Clay DO LAB BLOOD ORDERABLES Final R esult Performing Organization Address City/[facility]/ZIP Co de Phone Number [facility] [address] [place] [phone] * (ABNORMAL) Lipid Panel, Standard (02/12/2024 12:25 PM EST) Triglycerides 207(H) <150 mg/dL [facility] Comment:Desirable Triglyceri de: less than 150 mg/dLBorderline High Triglyceride 150-199 mg/dLHigh Triglyceride: 200-499 mg/dLVery High Triglyceride: greater than or equal to 5OO mg/dL Cholesterol 229(H) <200 mg/dL [facility] Comment:Desirable Cholestero l: less than 200 mg/dLBorderline High Cholesterol: 200-239 mg/dLHigh Cholesterol: greater than 239 mg/dL LDL Cholesterol Calculated 141(H) <100 mg/dL [facility] Comment:Desirable LDL: less than 100 mg/dLNear Optimal/Above Optimal LDL: 110- 129 mg/dLBorderline High LDL: 130-159 mg/dLHigh LDL: 160-189 mg/dLVery High LDL: greater than or equal to 190 mg/dL HDL Cholesterol 47 >40 mg/dL [facility] Comment:Desirable HDL: great er than 40 mg/dL Note: This HDL assay may give artificially low results in patients with liver disease. Blood Venous blood specimen / Unknown 02/12/2024 12:25 PM EST 02/12/2024 1:00 PM EST us Cindy Clay DO LAB BLOOD ORDERABLES Final R esult [facility] [address] [place] [phone] * Pap Smear (04/28/2023 1:03 PM EDT) 04/28/2023 1:03 PM EDT 04/29/2023 12:25 PM EDT Narrative [facility] - 05/05/2023 9:33 AM EDT ----- ------- Name: Emerita Wills Age/Sex: 52/F : 1970 Unit#: [id number] Attend Dr: Cindy Clay DO Re04/28/23 Status: DEP REF Location: [facility] Disch: ----- ------- SPEC : [id number] RECD: 04/29/23-1224 STATUS: ASHLEY MACIEL NUM: [id number] MANJULA: 04/28/23-1303 [facility] DR: Cindy Clay DO ENTERED: 04/29/23-1254 SP TYPE: Pap Smr OTHR DR: ORDERED: Pap Smear Interpretation Satisfactory for evaluation. Negative for intraepithelial lesion or malignancy. HPV mRNA E6/E7: NOT DETECTED This assay detects E6/E7 viral messenger RNA (mRNA) from 14 high-risk HPV types (16, 18, 31, 33, 35, 39, 45, 51, 52, 56, 58, 59, 66, 68) HPV testing performed by [facility], [place], [place]. See reference laboratory portion of the EMR for entire report. Clinical Information LMP: Unknown date Previous PAP test: Unknown date, WNL Other surgery: s/p hysterectomy Material Received ThinPrep-Vaginal ----- ------- Signed (signature on file) RAN Church ([facility]) 05/05/23 0933 ----- ------- END OF REPORT Cindy Clay DO LAB CYTOLOGY ORDERABLES Jenelle l Result Performing Organization Address [facility]/ZIP Co de Phone Number [facility] [address] [place] [address] [phone] * HPV mRNA E6/E7 w/Reflex to HPV Genotypes 16, 18/45 (04/28/2023 10:30 AM EDT) HPV nRNA E6/E7 Not Detected Not Detected [facility] Comment:Methodology: Transcr iption-Mediated AmplificationThis assay detects E6/E7 viral messenger RNA (mRNA) from 14high-risk HPV types (16,18,31,33,35,39,45,51,52,56,58,59,66,68).Cervical sources are required for HPV testing.If a vaginal source from a patient who has had atotal hysterectomy with removal of cervix wassubmitted, please contact the testing laboratoryfor alternative testing options.For additional information, please refer [email or web address]/PQT595o8(This link if provided for information/educational purposes only.)THIS TEST WAS PERFORMED AT:[employer] [place] [phone] YOUNG MD HPV mRNA E6/E7 [facility] HPV 16 RNA [facility] HPV 18/45 RNA [facility] 04/28/2023 10:3 0 AM EDT 04/29/2023 12:25 PM EDT Cindy Clay DO LAB CYTOLOGY ORDERABLES Jenelle l Result Performing Organization Address [facility]/ZIP Co de Phone Number [facility] [address] [place] [phone] * BI Mammogram Screen w/ Scott w/ Implants Rosalio (02/25/2023 11:55 AM EST) Anatomical Region Laterality Modality Mammography 02/25/2023 11:5 5 AM EST Narrative 03/16/2023 10:51 AM EST [facility] [address] [place] [address] [place] [address] Mammography Report Signed Patient: Emerita Wills MR#: [id number] : 1970 Acct:[id number] Age/Sex: 52 / F ADM Date: 02/25/23 Loc: EMERITA Attending Dr: Cindy Clay DO Ordering Physician: Cindy Clay DO Results: 1N egative Date of Service: 02/25/23 Follow Up: 1 Year From Orig inal Mammogram Procedure(s): MM tomosynthesis screen imp BI Accession Number(s): [id number] cc: Cindy Clay DO EXAMINATION: MM SCREENING [...] in OV> 03/16/23 1047 DD/ 1155 TD/TT: Edging Supervisor: Procedure Note Donotuseinterpreter, Image - 03/16/2023 [place] [facility] [address] [place] [address] Mammography Report Signed Patient: Jey Wills#: [id number] : 1970Acct:[id number] Age/Sex: 52 / FADM Date: 02/25/23 Loc: HO.MAMMO Attending Dr: Cindy Clay DO Ordering Physician: Cindy Clayults: 1N egative Date of Service: 02/25/23Follow Up: 1 Year From Orig inal Mammogram Procedure(s): MM tomosynthesis screen imp BI Accession Number(s): [id number] cc: Cindy Clay DO EXAMINATION: MM SCREENING [...] in OV> 03/16/23 1047 DD/ 1155 TD/TT: Edging Supervisor: us Cindy Clay DO IMG BI PROCEDURES Final Resu lt from Last 3 Months or Most Recently Relevant to Health Maintenance Insurance [employer] C3 HSN PARTIAL Care Teams Head Start Teacher Relationship Specialty Start Date End Date Cindy Clay DO [address] [place], [place] PCP - General Family Medicine 05/13/22
--- OUTSIDE RECORDS SUMMARY | 2024-12-04 00:28 | XMS_ITS | Encounter Summary ---
Author Organization [employer] Address [address] [place] [address] 7t [place] [address] Care Team Providers Care Solar Field Installation Crew Member Name Role Phone Cindy Clay DO Primary Care Provider + [phone] Reason for Visit * Reason Comments Med Refill Encounter Details Date Type Department Care Team (Late st Contact Info) Description 11/03/[address] [facility] [address] [place] [address] Sharifa Moncada MD [address] [place], [place] [phone] Anxiety Social History Tobacco Use Types Packs/Day [...] documented as of this encounter Care Teams Solar Field Installation Crew Member Relationship Specialty Start Date End Date Cindy Clay DO [address] [place], [place] [phone] PCP - General Family Medicine 05/13/22 documented as of this encounter
--- OUTSIDE RECORDS SUMMARY | 2024-12-04 00:28 | XMS_ITS | Encounter Summary ---
Author Organization [employer] Address [address] [facility] 7t [place] [address] Care Team Providers Care Reserves Clerk Name Role Phone Sharifa Moncada MD Primary Care Provider + Cindy Clay DO Primary Care Provider [phone] Encounter Details Date Type Department Care Team ([facility] st Contact Info) Description 05/09/2022 Orders Only [facility] [address] [place], [place] [phone] Alayna Newberry LPN Social History Tobacco Use [...] on filedocumented in this encounter Care Teams Reserves Clerk Relationship Specialty Start Date End Date Sharifa Moncada MD [address] [place], [place] [phone] PCP - General Family Medicine 02/25/16 05/12/22 Cindy Clay DO [address] [place], [place] [phone] PCP - General Family Medicine 05/13/22 documented as of this encounter
--- OUTSIDE RECORDS SUMMARY | 2024-12-04 00:28 | XMS_ITS | Encounter Summary ---
Author Organization [facility] Address [address] [place] [phone] Phone Care Team Providers Care Geophysical Data Technician Name Role Phone Sharifa Moncada MD Primary Care Provider + Encounter Details Date Type Department Care Team (Late st Contact Info) Description 04/16/2021 Procedure Pass [facility] [address] [place] [address] Social History Tobacco Use Types Packs/Day Years [...] documented as of this encounter Care Teams Geophysical Data Technician Relationship Specialty Start Date End Date Sharifa Moncada MD [address] [place] [address] [address] [place] [address] PCP - General Internal Medicine 06/23/20 documented as of this encounter Additional Source Comments The information contained in this document represents components of the legal health record. It is not the complete legal health record.[facility]
--- OUTSIDE RECORDS SUMMARY | 2024-12-04 00:28 | XMS_ITS | Encounter Summary ---
Author Organization [employer] Address [address] [facility] 7t [place] [address] Care Team Providers Care Unit Manager [employer] Name Role Phone Cindy Clay DO Primary Care Provider + [phone] Reason for Visit * Reason Comments Med Refill Encounter Details Date Type Department Care Team (Late st Contact Info) Description 07/27/2022 Refill [facility] [address] [place] [address] Kendell Nolasco MD [address] [place] [address] Social History Tobacco Use Types Packs/Day Years [...] Noted Time PHQ-9 Depression Total Score: 18 05/13/ 023 9:31 AM EDT documented as of this encounter Care Teams Unit Manager [employer] Relationship Specialty Start Date End Date Cindy Clay DO [address] [place] [address] PCP - General Family Medicine 05/13/22 documented as of this encounter
--- OUTSIDE RECORDS SUMMARY | 2024-12-04 00:28 | XMS_ITS | Encounter Summary ---
Author Organization [facility] Address [address] [place] [address] Phone Care Team Providers Care Cna Gna Name Role Phone Sharifa Moncada MD Primary Care Provider + Encounter Details Date Type Department Care Team (Late st Contact Info) Description 04/16/2021 Procedure Pass [facility], [address] [address] Social History Tobacco Use Types Packs/Day Years [...] documented as of this encounter Care Teams Cna Gna Relationship Specialty Start Date End Date Sharifa Moncada MD [address] [place] [address] [address] [place] [phone] PCP - General Internal Medicine 06/23/20 documented as of this encounter Additional Source Comments The information contained in this document represents components of the legal health record. It is not the complete legal health record.[facility]
--- OUTSIDE RECORDS SUMMARY | 2024-12-04 00:28 | XMS_ITS | Encounter Summary ---
Author Organization [employer] Address [address] [facility] 7t [place] [address] Care Team Providers Care Helminthology Teacher Name Role Phone Cindy Clay DO Primary Care Provider + [phone] Reason for Visit * Reason Comments Med Refill Encounter Details Date Type Department Care Team (Late st Contact Info) Description 08/12/2024 Refill [facility] [address] [place] [address] Cindy Clay DO [address] [place] [address] Social History Tobacco Use Types Packs/Day Years Used Date Smoking Tobacco: Never Passive Smoke Exposure: Never Smokeless Tobacco: Never Alcohol Use Standard Drinks/Week Comments Yes 0 (1 standard drink = 0.6 oz pur e alcohol) social Depression Answer Date Recorded Patient Health Questionnaire-9 Score 25 06/17/2024 Patient Health Questionnaire-9 Score 25 06/17/2024 Last PHQ-9: Questionnaire Data Not on file 0 06/17/2024 Housing Stability Answer Date Recorded What is your housing situation today? I do not have housing (Staying with others, in a hotel, in a mcc, living outside on the street, on a [...] Date Recorded Patient Health Questionnaire-2 Score 6 06/17/2024 Internet Access Answer Date Recorded Internet Access [...] Assessment Noted Time PHQ-9 Depression Total Score: 25 025 12:05 PM EDT documented as of this encounter Care Teams Helminthology Teacher Relationship Specialty Start Date End Date Cindy Clay DO [address] [place] [address] PCP - General Family Medicine 05/13/22 documented as of this encounter
--- OUTSIDE RECORDS SUMMARY | 2024-12-04 00:28 | XMS_ITS | Encounter Summary ---
Author Organization [employer] Address [address] [facility] 7t [place] [address] Care Team Providers Care Product Lead Name Role Phone Cindy Clay DO Primary Care Provider + [phone] Reason for Visit * Reason Onset Date Comments Nurse Triage 11/30/2024 Encounter Details Date Type Department Care Team ([facility] st Contact Info) Description 11/30/2024 Telephone [facility] [address] [place] [address] Cindy Clay DO [address] [place] [address] Nurse Triage Social History Tobacco Use Types Packs/Day Years [...] with others, in a hotel, in a penitentiary, living outside on the street, on a [...] AM EDT documented as of this encounter Miscellaneous Notes * Telephone Encounter - Caren Murrieta RN - 11/30/2024 12:31 PM EDT TC placed to patient [phone] via [employer] (#[id number]) in regards to below message. Patient reports she is currently in [place] d/t an emergency and slipped in the bathroom on Thursday. Patient reports she was unable to get up alone and had to wait for an ambulance to arrive. Patient reports she has been unable to bear any weight on her R leg since the fall. Patient reports she was transported to the ED and has been in the hospital since Thursday. Patient reports they completed a CT scan and Xrays however she is located in the hallway as they have a lot of patients. It is unclear to triagerwhat the patients question/concern is. Initially the gas leak inspector stated she was wondering if we cantransport her from [place] to [place] to the hospital. Patient informed we do not have such transportation to so however patient then stated that wasn't her question. Patient reports she is able to travel back to [place] but will be landing in [place]. RN informed patient we do not have any service to p/u patient at [place] airport and transport patient to hospital in [place]. Patient again repeated that was not her question and reported the gas leak inspector was not translating the information correctly. Patient in [facility] then asked if she could travel back home for her 4 hour flight, RN advised patient we cannot safely make that decision as we have not evaluated the patient as she is in [place]. Patient was advised to discusswith the ED provider in [place] as they are the ones currently evaluating the patient and she should notleave the ED [place]. Patient then stated this is still not her question, stated ok thank you and disconnected the call. Patient to f/u PRN. Protocol Used: Falls and Falling (Adult) Protocol-Based Disposition: Call EMS 911 Now Positive Triage Questions: * Severe weakness (e.g., unable to walk or barely able to walk, requires support) and new-onset or getting worse * Can't stand (bear weight) or walk and new-onset after fall * Unable to get up until help (e.g., caregiver, family, friend) arrived and on the ground 1 hour ormore * All higher-acuity triage questions were negative * Telephone Encounter - Corky Gonsales - 11/30/2024 11:54 AM EDT Symptom: Fall Outcome: Transfer to a nurse or provider NOW! Reason: Trouble walking that started after the fall The caller accepted this outcome. Contact pt at [phone] (sao tomean) Pt currently in [place] , stating she will be coming from . She is saying that she can not move her legs. She is wondering if hospital can set up ambulance merchandise pickup/receiving associate at airport to hospital Contact pt at [phone] (sao tomean) documented in this encounter Plan of Treatment Not on file documented as of this encounter Visit Diagnoses Not on filedocumented in this encounter Additional Health Concerns Assessment Noted Time PHQ-9 Depression Total Score: 24 025 10:42 AM EDT documented as of this encounter Care Teams Product Lead Relationship Specialty Start Date End Date Cindy Clay DO [address] [place] [address] PCP - General Family Medicine 3/28/23 documented as of this encounter
--- OUTSIDE RECORDS SUMMARY | 2024-12-04 00:28 | XMS_ITS | Encounter Summary ---
Author Organization [employer] Address [address] [facility] [address]t [place] [address] Care Team Providers Care Network Desktop Support Specialist Name Role Phone Cindy Clay DO Primary Care Provider + [phone] Reason for Visit * Reason Comments Med Refill Encounter Details Date Type Department Care Team (Late st Contact Info) Description 04/03/2024 Refill [facility] [address] [place] [address] Taryn Parsons MD [address] [place] [address] Social History Tobacco Use Types Packs/Day Years [...] documented as of this encounter Care Teams Network Desktop Support Specialist Relationship Specialty Start Date End Date Cindy Clay DO [address] [place] [address] PCP - General Family Medicine 05/13/22 documented as of this encounter
[2024-12-04 02:00] VITALS: BP 135/85; PULSE 66; RESP 16; TEMP 36.3; O2SAT 97
[2024-12-04] MEDS: iohexoL 350 MG/ML 100 ML INFUS..BTL IV (02:13)
--- NOTE | 2024-12-04 02:22 | PC.NURSE ---
this rn assumed care of pt @ 0215. 20 g iv placed in L Ac pt medicated according to mar
[2024-12-04 03:08] LABS: Hematocrit 43.5 % (37.0-47.0); Hemoglobin 13.9 g/dl (12.0-16.0); Imm Gran Abs Auto 0.04 X10*3/uL (0.00-0.03); Imm Gran Pct Auto 0.3 % (0.0-0.4); Lymphocytes Absolute Auto 3.0 X10*3/uL (1.2-4.9); MANUAL DIFF FLAG NO; Mean Corpuscular HGB Conc 32.0 g/dl (31.0-35.0); Mean Corpuscular Hemoglobin 25.5 pg (27.0-33.0); Mean Corpuscular Volume 79.8 fL (80.0-98.0); NRBC Abs Auto 0.000 X10*3/uL (0.0-0.012); NRBC Pct Auto 0.0 /100WBC (0.0-0.2); Platelet Count 341 X10*3/uL (160-400); Red Blood Count 5.45 X10*6/uL (4.20-5.50); White Blood Count 11.5 X10*3/uL (4.8-10.8)
[2024-12-04 03:22] LABS: Alanine Aminotransferase 14 U/L (0-31); Albumin Level 4.0 g/dL (3.5-5.0); Alkaline Phosphatase 126 U/L (39-117); Anion Gap 12 (12-20); Aspartate Amino Transferase 19 U/L (5-31); Blood Urea Nitrogen 25 mg/dL (9-16); Calcium 9.6 mg/dL (8.4-10.2); Carbon Dioxide 25 mmol/L (22-29); Chloride 105 mmol/L (96-108); Creatinine Clr Calc Pharmacy 111.5; Estimated Glomerular Filt Rate > 60; Potassium 4.4 mmol/L (3.3-5.1); Sodium 138 mmol/L (135-145); Total Protein 6.9 g/dL (6.5-8.0)
[2024-12-04 09:05] VITALS: BP 115/78; PULSE 72; RESP 16; O2SAT 96
--- NOTE | 2024-12-04 11:40 | MHC.CM.PN ---
Received consult for assessment of d/c needs: pt presents after fall with hip/leg/back injury causing pain and impairing her mobility. She is requesting placement in [facility]: PT eval pending. Pt states she lives with people but does not have a residence of her own. She states she has no DME or current services. Discussion limited by pt's complaints of increased pain/anxiety. Broad referrals made: PT eval to occur on 12/05. Declined HCP completion.
[2024-12-04] MEDS: oxyCODONE HCl Immed Release 5 MG TABLET PO ×2 (12:03→21:36)
[2024-12-04 12:06] VITALS: BP 122/84; PULSE 74; RESP 16; TEMP 36.4; O2SAT 98
--- NOTE | 2024-12-04 13:25 | PC.NURSE ---
RE: MED REC. Spoke to patient about home meds. Pt stated she did not know all her meds by name because she gets a med box filled from her pharmacy. Pt also stated she had not taken her meds in at least 3 weeks. Med rec completed from external med fill. CM provider Janice made aware.
--- NOTE | 2024-12-04 14:42 | PC.NURSE ---
Pt requesting pain medication for all over fibromyalgia pain. ED Case Management Provider Janice Kumari made aware. Pt medicated with PRN Tylenol.
--- NOTE | 2024-12-04 17:11 | PHA.MEDREC ---
Pharmacy Consult ? Medication Reconciliation RN has completed the medication reconciliation, pharmacy reviewed.
--- NOTE | 2024-12-04 17:12 | HO.NURTONUR ---
Addendum entered by Lynne Collins RN 12/04/24 17:20: Previous CT done here should L1/L2 compression fxrs. Original Note: PT presenting to ED w/ diffuse pain s/p fall in [place] lower extremity demonstrates likely partial tear of the proximal insertion of the semimembranosus hamstring muscle. Pt continues to be in pain, states she is physically tired after all she has been through . Primarily slovak speaking, alert & oriented, has not gotten OOB during her time in ED. VSS.
[2024-12-04 17:33] VITALS: BP 105/64; PULSE 76; RESP 18; TEMP 36.5; O2SAT 94
--- NOTE | 2024-12-04 19:18 | PC.NURSE ---
Verbal report given to Onel pt transported to overflow unit w/ On[facility].
[2024-12-04 21:11] VITALS: BP 116/69; PULSE 82; RESP 16; TEMP 36.7; O2SAT 97
[2024-12-04 22:32] LABS: Appearance Urine Clear; Glucose Urine UA Negative (Negative); PH 5.5 (5.0-9.0); Specific Gravity - Urine >= 1.030 (1.005-1.025); UMIC TRIGGER UACC YES
[2024-12-04 22:44] LABS: UACC Culture Trigger YES
[2024-12-04] MEDS: Sulfamethox/Trimeth 800/160 TABLET 1 TAB PO (23:53)
[2024-12-05 05:47] VITALS: BP 110/70; PULSE 70; RESP 16; TEMP 37.1; O2SAT 97
[2024-12-05] MEDS: oxyCODONE HCl Immed Release 5 MG TABLET PO ×3 (05:49→20:56)
[2024-12-05 08:51] VITALS: PULSE 73; RESP 16; O2SAT 98
[2024-12-05] MEDS: Fluticasone/Vilanterol 200/25 BLST.W.DEV 1 PUFF INHALE (08:51)
--- NOTE | 2024-12-05 10:21 | PC.NURSE ---
Meds requested from pharmacy, not in ED Overflow Pyxis at this time. Will medicate upon receipt. Meds were previously requested via [employer] (per previous RN Maris Christian), however, [employer] is down/malfunctioning.
--- NOTE | 2024-12-05 11:22 | MHC.CM.ED ---
Addendum entered by Anna Vila 12/05/24 13:01: [facility] able to offer a bed. Patient accepts. MDS will be completed, and sent to [facility] and [facility]. Original Note: Patient remains in ER overflow. Physical therapy eval completed. Short term rehab is rec. [facility] is only facility willing to offer a bed at this time. Met with patient and flap maker. Patient's daughter lives in [place]. Patient requesting referral in that area. Referral will be made. Continue to monitor for d/c needs.
[2024-12-05 11:24] LABS: Resp Syncy Virus RNA Qual PCR NEGATIVE (Negative); SARS COV2 PCR INHOUSE NEGATIVE (Negative)
[2024-12-05 11:46] VITALS: BP 110/70
--- NOTE | 2024-12-05 14:15 | PC.NURSE ---
vs at 1330 [id number] 139/78, 93%
[2024-12-05 14:19] VITALS: BP 139/78; PULSE 81; RESP 18; TEMP 36.6; O2SAT 93
[2024-12-05 21:33] VITALS: BP 103/71; PULSE 82; RESP 20; TEMP 36.8; O2SAT 96
[2024-12-06] VITALS (7 sets, daily range): BP systolic 93–116; BP diastolic 60–78; PULSE 63–97; RESP 16–18; TEMP 36.3–36.8; O2SAT 94–97
[2024-12-06] MEDS: oxyCODONE HCl Immed Release 5 MG TABLET PO ×4 (02:07→21:21)
--- NOTE | 2024-12-06 07:21 | PC.NURSE ---
0710 patient c/o dizzyness while attempting to get to bedside commode and she had to lay back down. ALEXANDRA, h.r 73, b.p 112/65
[2024-12-06] MEDS: Fluticasone/Vilanterol 200/25 BLST.W.DEV 1 PUFF INHALE (08:04)
--- NOTE | 2024-12-06 15:48 | MHC.CM.ED ---
Patient remains in ER overflow. [facility] approval obtained by [facility]. Patient can leave tomorrow 12/07 at 11am. Celeste RODRÍGUEZ booked. Med nec with chart. Patient, Georgie HARRINGTON and Ritesh NICHOLS aware. Continue to monitor for d/c needs.
--- NOTE | 2024-12-06 17:28 | MHC.EDTECH ---
Patient given dinner tray
[2024-12-07 02:29] VITALS: BP 93/63; PULSE 97; RESP 18; TEMP 36.3; O2SAT 94
[2024-12-07] MEDS: oxyCODONE HCl Immed Release 5 MG TABLET PO (06:08)
[2024-12-07 06:14] VITALS: BP 121/78; PULSE 85; RESP 16; TEMP 36.2; O2SAT 94
[2024-12-07] MEDS: Fluticasone/Vilanterol 200/25 BLST.W.DEV 1 PUFF INHALE (08:39)
[2024-12-07 08:40] VITALS: PULSE 74; RESP 12; O2SAT 97
[2024-12-07 11:32] VITALS: BP 121/78; PULSE 74; RESP 12; TEMP -17.7; TEMP 0; O2SAT 94
--- NOTE | 2024-12-07 11:39 | PC.NURSE ---
Nurse to nurse given to Radha at [facility].
== END 2024-12-07 11:40 ==
PROVIDERS: Physician Assistant; Emergency Provider Emergency Medicine; PCP Family Medicine
DX: S86.811A Strain of other muscle(s) and tendon(s) at lower leg level, right leg, initial encounter (principal); M54.50 Low back pain, unspecified; R07.89 Other chest pain; I10 Essential (primary) hypertension; G25.81 Restless legs syndrome; M51.379 Other intervertebral disc degeneration, lumbosacral region without mention of lumbar back pain or lower extremity pain; W01.0XXA Fall on same level from slipping, tripping and stumbling without subsequent striking against object, initial encounter; Y93.89 Activity, other specified; Y92.89 Other specified places as the place of occurrence of the external cause; Y99.8 Other external cause status
CPT/HCPCS: 36415; 72131; 73701; 74177; 80053; 81001; 85025; 87086; 87088; 87186; 87637; 93005; 94640; 96374; 96375; 97162; 99285; J1885; J2270; Q9967

== ENCOUNTER → 2024-12-03 18:28 | Outpatient (BNV) | payer MEDICAID, SELFPAY | PROVIDERS: PCP Family Medicine; Visit Provider Radiology Diagnostic Radiology | DX: M48.07 Spinal stenosis, lumbosacral region (principal); M85.88 Other specified disorders of bone density and structure, other site; M51.87 Other intervertebral disc disorders, lumbosacral region; Z04.3 Encounter for examination and observation following other accident | CPT/HCPCS: 72131 ==

== ENCOUNTER → 2024-12-03 18:34 | Outpatient (BNV) | payer MEDICAID, SELFPAY | PROVIDERS: Emergency Provider Emergency Medicine; PCP Family Medicine; Visit Provider Internal Medicine Cardiovascular Disease | DX: R94.31 Abnormal electrocardiogram [ECG] [EKG] (principal); R07.9 Chest pain, unspecified | CPT/HCPCS: 93010 ==

== ENCOUNTER → 2024-12-04 01:04 | Outpatient (BNV) | payer MEDICAID, SELFPAY | PROVIDERS: Emergency Provider Emergency Medicine; PCP Family Medicine; Visit Provider Radiology Diagnostic Radiology | DX: D73.4 Cyst of spleen (principal); R16.2 Hepatomegaly with splenomegaly, not elsewhere classified; M79.661 Pain in right lower leg; W19.XXXA Unspecified fall, initial encounter | CPT/HCPCS: 73701; 74177 ==

== ENCOUNTER 2025-01-04 11:36 | Outpatient (REF) | payer MEDICAID, SELFPAY ==
--- OUTSIDE RECORDS SUMMARY | 2024-12-30 10:00 | XMS_ITS | Encounter Summary ---
Author Organization [facility] Address [address] [facility] [address] [place] [phone] Phone Care Team Providers Care Advertising Sales Executive Name Role Phone Gaby Clayfer Primary Care Provider [phone] Reason for Visit * Auth/Cert (Routine) Specialty Diagnoses / Procedures Referred By Cholo t Referred To Contact Referral ID Status Reason Start Date Expiration Date Visits Re quested Visits Authorized [id number] 1 1 Encounter Details Date Type Department Care Team (Late st Contact Info) Description 12/30/2024 10:00 AM EST Home Care Visit [facility] [address] [place] [phone] Mark Pepper, OT [address] [place] [address] [email or web address] OT HOME VISIT Social History Tobacco Use Types Packs/Day Years Used Date Smoking Tobacco: Former Smokeless Tobacco: Never Alcohol Use Standard Drinks/Week Comments Yes 0 (1 standard drink = 0.6 oz pur e alcohol) socially Home Health Assessment: Transportation Answer Date Recorded Lack of Transportation (Medical) No 12/26/2024 Lack of Transportation (Non-Medical) No 12/26/2024 Patient Unable or Declines to Respond No 12/26/2024 Education Answer Date Recorded Are you interested [...] PM EDT documented as of this encounter Last Filed Vital Signs Vital Sign Reading Time Taken Comments Blood Pressure 120/78 12/30/2024 10:22 AM EST Pulse 98 12/30/2024 10:22 AM EST Temperature 36.6 C (97.9 F) 12/30/2024 10:22 AM EST Respiratory Rate 16 12/30/2024 10:22 AM EST Oxygen Saturation 96% 12/30/2024 10:22 AM EST Inhaled Oxygen Concentration - - Weight - - Height - - Body Mass Index - - documented in this encounter Plan of Treatment Upcoming Encounters Date Type Department Care Team (Late st Contact Info) Description 01/05/2025 10:00 AM EST Appointment [facility] [address] [place] [address] Melany Bishop, PT [address] [place] [address] 01/05/2025 12:30 PM EST Appointment [facility] [address] [place] [address] Mark Pepper, OT [address] [place] [address] 01/09/2025 Appointment [facility] [address] [place] [address] Melany Bishop, PT [address] [place] [address] 01/10/2025 Appointment [facility] [address] [place] [address] Mark Pepper, OT [address] [place] [address] 01/11/2025 App[facility]ment [facility] [address] [place] [phone] Melany Bishop, PT [address] [place] [address] 01/16/2025 Appointment [facility] [address] [place] [phone] Melany Bishop, PT [address] [place] [address] 01/17/2025 Appointment [facility] [address] [place] [phone] Mark Pepper, OT [address] [place] [address] 01/19/2025 Appointment [facility] [address] [place] [phone] Melany Bishop, PT [address] [place] [address] 01/19/2025 12:45 AM EST Appointment [facility] [address] [place] [phone] Mark Pepper, OT [address] [place] [address] documented as of this encounter Visit Diagnoses Not on filedocumented in this encounter Home Health Visit - Care Plan Visit Details Visit Type -OT HOME VISIT Discipline -Occupational Therapy Problems Problem Description Start Date Status Goals Interve ntions HH - Depression - Actual or Risk of Impairment Disciplines: All Active Home Health Disciplines 12/26/2024 Active 1 goal linked to scheduled/document ed intervention 1 goal intervention scheduled/document ed in this visit HH - Medication Management Disciplines: All Active Home Health Disciplines 12/26/2024 Active 1 goal linked to scheduled/document ed intervention 2 goal interventions scheduled/document ed in this visit HH - Focus of Care and Teaching Disciplines: All Active Home Health Disciplines w/RD 12/26/2024 Active 1 goal linked to scheduled/document ed intervention 1 goal intervention scheduled/document ed in this visit HH - Emergency Planning - Knowledge of Disciplines: All Active Home Health Disciplines 12/26/2024 Active 1 goal linked to scheduled/document ed intervention 2 goal interventions scheduled/document ed in this visit HH - Infection - Actual or Risk of Disciplines: All Active Home Health Disciplines 12/26/2024 Active 1 goal linked to scheduled/document ed intervention 1 goal intervention scheduled/document ed in this visit HH - Community Resources - Lack of Knowledge/Access Disciplines: All Active Home Health Disciplines 12/26/2024 Active 1 goal linked to scheduled/document ed intervention 2 goal interventions scheduled/document ed in this visit HH - Falls - Risk of Disciplines: All Active Home Health Disciplines 12/26/2024 Active 1 goal linked to scheduled/document ed intervention 2 goal interventions scheduled/document ed in this visit HH - Standard of Care Disciplines: All Active Home Health Disciplines 12/26/2024 Active 1 goal linked to scheduled/document ed intervention 4 goal interventions scheduled/document ed in this visit HH - Pain Disciplines: All Active Home Health Disciplines 12/26/2024 Active 1 goal linked to scheduled/document ed intervention 2 goal interventions scheduled/document ed in this visit HH - ADL/IADL Impairment and Therapeutic Interventions Disciplines: Occupational Therapy 12/28/2024 Active 1 goal linked to scheduled/document ed intervention 2 goal interventions scheduled/document ed in this visit Goals Goal Associated Problem Outcome Goal Met? Visit Notes HH - Demonstrate/verbalize improvement in depressive symptoms HH - Depression - Actual or Risk of Impairment No HH - Safe medication management, avoid unnecessary harm related to medication errors and/or interactions HH - Medication Management No HH - Communication and collaboration to achieve patient goals HH - Focus of Care and Teaching No HH - Knowledge of options for managing care in the event of an emergency related situation. HH - Emergency Planning - Knowledge of No HH - Patient will have no new infection; any new infection that occurs will be identified and treated promptly; existing infection will resolve without complication Description: Patient and caregiver(s) will demonstrate understanding of infection prevention, monitoring, and treatment as appropriate HH - Infection - Actual or Risk of No HH - Demonstrate/verbalize knowledge of community resources HH - Community Resources - Lack of Knowledge/Access No HH - Knowledge and management of fall prevention measures. HH - Falls - Risk of No HH - Achieve care management for a safe to home/community discharge from homecare HH - Standard of Care No HH - Frequency of pain interfering with patient's activity or movement will improve with activity or movement by discharge. Description: Pain will be managed over the course of care. Patient's acceptable level of pain is 3 - daily, but not constantly. HH - Pain No HH - Promote higher level of independence with performance of ADLs/IADLs. Description: Pt will be spv with tub xfer using DME/AT/LRAD as needed by 01/20/25. Pt will be spv with showering using DME/AT/LRAD as needed by 01/20/25. Pt will be Mod I with light meal prep using AE/AT/LRAD by 01/20/25. Pt will be ind with HEP focus on strengthenin g, endurance training by 01/20/25. Pt will be ind with ECT by 01/20/25. Pt will be Mod I with LB dressing using AE/AT/LRAD as needed by 01/20/25. Pt will be Mod I with toileting using DME/AT/LRAD as needed by 01/20/25. HH - ADL/IADL Impairment and Therapeutic Interventions Progressing No Interventions Intervention Associated Problem/Goal Status Variance Visit Notes HH - Assess s/s of depression Problem:HH - Depression - Actual or Risk of Impairment Goal:HH - Demonstrate/verbalize improvement in depressive symptoms Performed HH - I/E medication management: administration, purpose, dosages, preparation, setup, scheduling, side effects, food/drug interactions, and potential complications as indicated Description: Update patient's copy of medication list as needed. Problem:HH - Medication Management Goal:HH - Safe medication management, avoid unnecessary harm related to medication errors and/or interactions Performed HH - Complete medication review every visit and medication reconciliation as indicated. Pharmacy information: Problem:HH - Medication Management Goal:HH - Safe medication management, avoid unnecessary harm related to medication errors and/or interactions Performed HH - Focus of care, teaching completed and plan for next visit Problem:HH - Focus of Care and Teaching Goal:HH - Communication and collaboration to achieve patient goals Performed Primary Clinical Focus this Visit & Instruction Provided: Pt agreed to tx session denied fall. pt stated w/c received from [facility] is small and will be changed. OT called [facility] left VM for tub bench, presser cotton ginning, and walker tray. pt ED with proper tech for radha leting and toilet xfer using commode next to couch pt demo her skill at , pt ED with toileting clothing MGMT recommended to place xfer chair in front of commode for hand support if needed pt demo her skill with clothing MGMT at [facility] pt able to WB on L L E, , pt stated can't WB on L LE d/t pain. pt ED with safety and proper use of xfer chair and locking it as needed for fxnl xfers, pt instructed with prper xfer tech for commode<>xfer chair pt returned demonstration at [facility] vc/tc. pt instructed with walkin g feet in xfer chair to go to kitchen pt able to use xfer chair went to kitchen and opened refrigerator door demo ability to retrieve items at [facility] vc/tc. pt participated in therex seated BUE AROM shoulders flex, Abd, horz Abd 1x10 rest btw sets pt limite d shoulder abd/flex. Call back received from [facility] stating pt is too young to receive services from [facility] and they can't help her; notified pt. pt ED with community resources recommended to [facility] agreed. Instruction Provided to: patient Response to Instruction/Teaching : Is partially able to teach back topics as evidenced by vc/tc. Plan for Next Visit Specific Focus & Education Needed: LB dresssing New Orders: n /a Updated Discharge Plan: n/a HH - I/E management of care in an urgent or emergency (ER) situation: When to call your Home Care Team/911, ER plans, supplies, evacuation, when to contact local ER officials and how to stay informed Problem:HH - Emergency Planning - Knowledge of Goal:HH - Knowledge of options for managing care in the event of an emergency related situation. Performed HH - Emergency planning assessment: the emergency plan, supplies needed, emergency contact numbers and an evacuation plan were reviewed Description: Patient and Caregiver is/are knowledgeable of emergency plans. Problem:HH - Emergency Planning - Knowledge of Goal:HH - Knowledge of options for managing care in the event of an emergency related situation. Performed HH - Assess infection risk and s/s Problem: - Infection - Actual or Risk of Goal:HH - Patient will have no new infection; any new infection that occurs will be identified and treated promptly; existing infection will resolve without complication Performed HH - Assess need for community resources Problem:HH - Community Resources - Lack of Knowledge/Access Goal:HH - Demonstrate/verbalize knowledge of community resources Performed HH - Assist in accessing community resources Problem:HH - Community Resources - Lack of Knowledge/Access Goal:HH - Demonstrate/verbalize knowledge of community resources Performed HH - Complete fall risk assessment scale Problem:HH - Falls - Risk of Goal:HH - Knowledge and management of fall prevention measures. Performed HH - I/E fall prevention measures Description: diagnosis/age related changes/prior history of falls: symptoms and side effects of illness/injury/history of falls placing patient at increased risk for falls. may include management of dizziness/orthostasis, environmental hazards: modification of enviro nment to include clear walkways, secure animals, and move frequently used items within reach, use of equipment, impaired functional mobility: supervision for mobility/activity, appropriate footwear and as indicated safe use of assistive device(s), incont inence: management of incontinence to include safe toileting, need for absorbent garments, address urgency/frequency , pain affecting level of function: impact of pain on an increased risk of falls, poly pharmacy: side effects of medications placing a pa tient at high risk for a fall and visual impairment: address need to optimize vision, adequate lighting, and functional vision Problem: - Falls - Risk of Goal: - Knowledge and management of fall prevention measures. Performed HH - Assess vital signs, pulse oximetry, pain, and as indicated, orthostatic vital signs Description: use agency-specific parameters Problem: - Standard of Care Goal:HH - Achieve care management for a safe to home/community discharge from homecare Performed HH - Assess skin integrity Problem: - Standard of Care Goal:HH - Achieve care management for a safe to home/community discharge from homecare Performed HH - Assess safety needs of patient (other than falls) Problem: - Standard of Care Goal:HH - Achieve care management for a safe to home/community discharge from homecare Performed HH - I/E discharge plan Problem:HH - Standard of Care Goal:HH - Achieve care management for a safe to home/community discharge from homecare Performed HH - Assess pain Problem:HH - Pain Goal:HH - Frequency of pain interfering with patient's activity or movement will improve with activity or movement by discharge. Performed HH - I/E pain management Problem:HH - Pain Goal:HH - Frequency of pain interfering with patient's activity or movement will improve with activity or movement by discharge. Performed HH - I/E ADL/IADL performance, safety, and management Description: As indicated: ADL/IADL training, functional mobility training, adaptive equipment: recommendations and use, therapeutic exercise and home exercise program, safety, energy conservation/pacing, cognitive training, and visual/perceptual strategies. Problem:HH - ADL/IADL Impairment and Therapeutic Interventions Goal:HH - Promote higher level of independence with performance of ADLs/IADLs. Performed HH - Assess ADL/IADL performance, safety, management, and durable medical equipment Problem:HH - ADL/IADL Impairment and Therapeutic Interventions Goal:HH - Promote higher level of independence with performance of ADLs/IADLs. Performed documented in this encounter Care Teams Advertising Sales Executive Relationship Specialty Start Date End Date Cindy Clay DO [address] [place] [id number] PCP - General Family Medicine 12/23/24 documented as of this encounter Additional Source Comments The information contained in this document represents components of the legal health record. It is not the complete legal health record.[facility]
--- OUTSIDE RECORDS SUMMARY | 2025-01-03 10:00 | XMS_ITS | Encounter Summary ---
Author Organization [facility] Address [address] [facility] [address] [place] [address] Phone Care Team Providers Care Bank Operations Officer Name Role Phone Gaby Clayfer Primary Care Provider [phone] Reason for Visit * Auth/Cert (Routine) Specialty Diagnoses / Procedures Referred By Cholo t Referred To Contact Referral ID Status Reason Start Date Expiration Date Visits Re quested Visits Authorized [id number] 1 1 Encounter Details Date Type Department Care Team (Late st Contact Info) Description 01/03/2025 10:00 AM EST Home Care Visit [facility] [address] [place] [address] Melany Bishop, PT [address] [place] [address] [email or web address] PT HOME VISIT Social History Tobacco Use Types [...] Sign Reading Time Taken Comments Blood Pressure 120/72 01/03/2025 10:19 AM EST Pulse 100 01/03/2025 10:19 AM EST Temperature 36.6 C (97.9 F) 01/03/2025 10:19 AM EST Respiratory Rate 16 01/03/2025 10:19 AM EST Oxygen Saturation 97% 01/03/2025 10:19 AM EST Inhaled Oxygen Concentration - - Weight - - Height - - Body Mass Index - - documented in this encounter Plan of Treatment Upcoming Encounters Date Type Department Care Team (Late st Contact Info) Description 01/05/2025 10:00 AM EST Appointment [facility] [address] [place] [address] Melany Bishop, PT [address] [place] [address] 01/05/2025 12:30 PM EST Appointment [facility] [address] [place] [address] Mark Pepper, OT [address] [place] [address] 01/09/2025 Appointment [facility] [address] [place] [address] Melany Bishop, PT [address] [place] [address] 01/10/2025 Appointment [facility] [address] [place] [address] Mark Pepper, OT [address] [place] [address] 01/11/2025 Appointment [facility] [address] [place] [phone] Melany Bishop, PT [address] [place] [address] 01/16/2025 Appointment [facility] [address] [place] [address] Melany Bishop, PT [address] [place] [address] 01/17/2025 Appointment [facility] [address] [place] [phone] Mark Pepper, OT [address] [place] [address] 01/19/2025 Appointment [facility] [address] [place] [phone] Melany Bishop, PT [address] [place] [address] 01/19/2025 12:45 AM EST Appointment [facility] [address] [place] [phone] Mark Pepper, OT [address] [place] [address] documented as of this encounter Visit Diagnoses Not on filedocumented in this encounter Home Health Visit - Care Plan Visit Details Visit Type -PT HOME VISIT Discipline -Physical Therapy Problems Problem Description Start Date Status Goals Interve ntions HH - Depression - Actual or Risk of Impairment Disciplines: All Active Home Health Disciplines 12/26/2024 Active 1 goal linked to scheduled/document ed intervention 1 goal intervention scheduled/document ed in this visit HH - Anxiety - Actual or Risk of Impairment Disciplines: All Active Home Health Disciplines 12/26/2024 Active 1 goal linked to scheduled/document ed intervention HH - Medication Management Disciplines: All Active [...] 1 goal linked to scheduled/document ed intervention 3 goal interventions scheduled/document ed in this visit HH - Pain Disciplines: All Active Home Health Disciplines 12/26/2024 Active 1 goal linked to scheduled/document ed intervention 3 goal interventions scheduled/document ed in this visit HH - Mobility and Activity Tolerance - Impaired Disciplines: Physical Therapy 12/26/2024 Active 1 goal linked to scheduled/document ed intervention 2 goal interventions scheduled/document ed in this visit Goals Goal Associated Problem Outcome Goal Met? Visit Notes HH - Demonstrate/verbalize improvement in depressive symptoms HH - Depression - Actual or Risk of Impairment No HH - Decrease anxiety through knowledge and management of triggers. HH - Anxiety - Actual or Risk of Impairment Progressing No HH - Safe medication management, avoid unnecessary harm related to medication errors and/or interactions HH - Medication Management Progressing No HH - Communication and collaboration to achieve patient goals HH - Focus of Care and Teaching Progressing No HH - Knowledge of options for [...] - Infection - Actual or Risk of Progressing No HH - Knowledge and management of fall prevention measures. HH - Falls - Risk of Progressing No HH - Achieve care management for [...] constantly. HH - Pain No HH - Demonstrate maximum mobility and activity level for safe function Description: 1. Patient will demonstrate knowledge in fall prevention techniques so patient can remain safe at home by: 01/21/25. 2. Patient will demonstrate ind transfers using LRD from all surfaces in her home in order to safely access home enviroment by 01/21/25 3. Patient will demon . mod ind standing with LRD WB bilat le's x 10 minutes for task performance, transfers, and ambulation by 01/21/25. 4. Patient will demonsrate mod ind ambulation wbat RLE, using LRD x 100 ft in order to access home enviromen t by 01/21/25. 5. Patient will demonstrate independance with HEP in order to decrease pain and increase strength/ ROM to improve/maintain mobility and safety in home by: 01/21/25. 6. Patient will demonstrate stair negotiation to enter/exit home and FO S to 2nd floor bathroom with supervision (using HR) by 01/21/25. HH - Mobility and Activity Tolerance - Impaired Progressing No Interventions Intervention Associated Problem/Goal Status Variance Visit Notes HH - Assess s/s of depression Problem:HH - Depression - Actual or Risk of Impairment Goal:HH - Demonstrate/verbalize improvement in depressive symptoms Performed no s/sx depression HH - I/E medication management: administration, purpose, [...] Clinical Focus this Visit & Instruction Provided: ther ex, supine RLE arom, and gentle stretching (R ankle DF with knee straight /leg resting on sofa , heel slide, hooklying add squeeze, partial bridge (for assessment of pelvic alignment), positioning for pain relief (back/ le's) in supine , and to avoid L s/l (pt reports does exacerbate back/ RLE pain at times) Pt saw provider at pcp office yesterday. Pt reports provider made referrals for pt to see specialist (for back/ RLE pain) and for MRI (prior to fall/ back injury pt had been referred for cervical MRI, was not done yet, new order for lumbar MRI), and increased gabapentin dose from 100 fto 300 mg at HS. Pt c/o cold sx (dry cough, some post nasal drip) started yesterday . Pt also reports that when back pain is exacerbated (erika with standing, taking some steps and negotiating stairs to exit/ enter home yesterday when went to pcp) feels burning all the way up her back with spasm like feelings. PT rx. ther ex, sup ine RLE arom, and gentle active stretching (R ankle DF with knee in ext /leg resting on sofa , heel slide, hooklying add squeeze 5 reps 5 sec hold, partial bridge (for assessment of pelvic alignment), positioning for pain relief (back/ le's) in supine , and to avoid L s/l (pt reports does exacerbate back/ RLE pain at times) Demonstrated and educated patient on standing with wheel walker, weight-bearing on arms and allowing me to band to provide some gentle decompression of spine. Patient decli mary to perform during visit report she will trial later. Advised patient to do only a few times for a short amount of time and not to overdo. Also, if increases her pain to stop performing Despite cold sx (cough post nasal drip), pt demon good partici pation in supine exercise. Pt declined to work on standing/ off loading using ww due to feeling tired. Ed. pt re: managing cold sx (rest, hydration, and use of inhalers) and to contact pcp if feeling worse (ie cough/ sob / and if develops productive c ough/ fever). Instruction Provided to: patient Response to Instruction/Teaching: Is fully able to teach back topics as evidenced by . Plan for Next Visit Specific Focus & Education Needed: New Orders: Updated Discharge Plan: HH - I/E management of care in [...] HH - Assess infection risk and s/s Problem:HH - Infection - Actual or Risk of Goal:HH - Patient will have no new infection; any new infection that occurs will be identified and treated promptly; existing infection will resolve without complication Performed HH - I/E fall prevention measures [...] vision Problem: - Falls - Risk of Goal:HH - Knowledge and management of fall prevention measures. Performed HH - Assess vital signs, pulse oximetry, pain, and as indicated, orthostatic vital signs Description: use agency-specific parameters Problem:HH - Standard of Care Goal:HH - Achieve care management for a safe to home/community discharge from homecare Performed HH - Assess skin integrity Problem:HH - Standard of Care Goal:HH - Achieve care management for a safe to home/community discharge from homecare Performed HH - I/E management of skin integrity and non-wound impairment Description: s/s of pressure injury, pressure reduction, and injury prevention measures Problem:HH - Standard of Care Goal:HH - Achieve care management for a safe to home/community discharge from homecare Performed HH - Ice/heat therapy Problem:HH - Pain Goal:HH - Frequency of pain interfering with patient's activity or movement will improve with activity or movement by discharge. Performed HH - Assess pain Problem:HH - Pain Goal:HH - Frequency of pain interfering with patient's activity or movement will improve with activity or movement by discharge. Performed HH - I/E pain management Problem:HH - Pain Goal:HH - Frequency of pain interfering with patient's activity or movement will improve with activity or movement by discharge. Performed HH - Therapeutic interventions, as indicated: Description: balance training, bed mobility training, durable medical equipment training, gait/stair training, home modification, manual therapy/soft tissue mobilization , therapeutic exercise/home exercise program, transfer training, including bathroom transfers and wheelchair mobility training Problem:HH - Mobility and Activity Tolerance - Impaired Goal:HH - Demonstrate maximum mobility and activity level for safe function Performed This visit ther ex hooklying/ supine, back protection, instruction to stand as tolerated (support of ww), fall prevention HH - I/E therapeutic function/activity: Description: As indicated: activity promotion and management, functional mobility training, therapeutic exercise and home exercise program, device use. Problem:HH - Mobility and Activity Tolerance - Impaired Goal:HH - Demonstrate maximum mobility and activity level for safe function Performed documented in this encounter Care Teams Bank Operations Officer Relationship Specialty Start Date End Date Cindy Clay DO [address] [place] [phone] PCP - General Family Medicine 12/23/24 documented as of this encounter Additional Source Comments The information contained in this document represents components of the legal health record. It is not the complete legal health record.[facility]
--- OUTSIDE RECORDS SUMMARY | 2025-01-03 13:30 | XMS_ITS | Encounter Summary ---
Author Organization [facility] Address [address] [facility] [address] [place] [address] Phone Care Team Providers Care Dye Feeder Name Role Phone Cindy Clay DO Primary Care Provider [phone] Reason for Visit * Auth/Cert (Routine) Specialty Diagnoses / Procedures Referred By Cholo t Referred To Contact Referral ID Status Reason Start Date Expiration Date Visits Re quested Visits Authorized [id number] 1 1 Encounter Details Date Type Department Care Team (Late st Contact Info) Description 01/03/2025 1:30 PM EST Home Care Visit [facility] [address] [place] [phone] Mark Pepper, OT [address] [place] [address] [email or web address] HOME VISIT Social History [...] Reading Time Taken Comments Blood Pressure 120/78 01/03/2025 1:55 PM EST Pulse 84 01/03/2025 1:55 PM EST Temperature 36.6 C (97.8 F) 01/03/2025 1:55 PM EST Respiratory Rate 16 01/03/2025 1:55 PM EST Oxygen Saturation 97% 01/03/2025 1:55 PM EST Inhaled Oxygen Concentration - - Weight - - Height - - Body Mass Index - - documented in this encounter Plan of Treatment Upcoming Encounters Date Type Department Care Team (Late st Contact Info) Description 01/05/2025 10:00 AM EST Appointment [facility] [address] [place] [address] Melany Bishop, PT [address] [place] [address] [email or web address] 01/05/2025 12:30 PM EST Appointment [facility] [address] [place] [address] Mark Pepper, OT [address] [place] [address] [email or web address] 01/09/2025 Appointment [facility] [address] [place] [address] Melany Bishop, PT [address] [place] [address] [email or web address] 01/10/2025 Appointment [facility] [address] [place] [address] Mark Pepper, OT [address] [place] [address] [email or web address] 01/11/2025 Appointment [facility] [address] [place] [address] Melany Bishop, PT [address] [place] [address] 01/16/2025 Appointment [facility] [address] [place] [address] Melany Bishop, PT [address] [place] [address] 01/17/2025 Appointment [facility] [address] [place] [phone] Mark Pepper, OT [address] [place] [address] [email or web address] 01/19/2025 Appointment [facility] [address] [place] [phone] Melany Bishop, PT [address] [place] [address] [email or web address] 01/19/2025 12:45 AM EST Appointment [facility] [address] [place] [phone] Mark Pepper, OT [address] [place] [address] [email or web address] documented as of this encounter Visit Diagnoses [...] & Instruction Provided: Pt agreed to tx session. pt has a cold with cough. Pt denied fall. pt stated didn't f/u with [facility] for tub bench m y is going to send a prescription for that and takes care of it . Pt stated can't WB on R LE d/t pain. pt participated in dressing training: seated sofa chair pt used locked xfer chair as VICKIE for LB dressing pt demo doff/done short seated hiking aspect standing with one hand support on xfer chair and sofa chair. Pt stated needs help for bra: pt ED AT to done bra pt demo her skill seated on sofa chair done bra SBA vc. pt participated in therex BUE AROM seated shoulders flex, Abd, horz Abd, ER, IR 1x10 rest btw sets vc/vc. pt stated has not gone upstairs d/t unabl e r/t back pain and can't walk. Pt ED with use of microwave shower cap and or dry shampoo for washing hair in the meantime to be able to shower. Pt stated I use dry shampoo sometimes . Instruction Provided to: patient Response to Instruction/Teachi ng: Is partially able to teach back topics as evidenced by vc/vc. Plan for Next Visit Specific Focus & Education Needed: ADL per pt choice, ther ex/act New Orders: n/a Updated Discharge Plan: n/a HH - I/E [...] HH - Assist in accessing community resources Problem: - Community Resources - Lack of Knowledge/Access Goal:HH - Demonstrate/verbalize knowledge of community resources Performed HH - Complete fall risk assessment scale Problem: - Falls - Risk of Goal:HH [...] agency-specific parameters Problem: - Standard of Care Goal: - Achieve care management for a safe [...] homecare Performed HH - I/E discharge plan Problem: - Standard of Care Goal:HH - Achieve care management for a safe to home/community discharge from homecare Performed HH - Assess pain Problem: - Pain Goal:HH - Frequency of pain [...] Performed documented in this encounter Care Teams Dye Feeder Relationship Specialty Start Date End Date Cindy Clay DO [address] [place] [phone] PCP - General Family Medicine 12/23/24 documented as of this encounter Additional Source Comments The information contained in this document represents components of the legal health record. It is not the complete legal health record.[facility]
[2025-01-04 13:37] LABS: Hematocrit 45.2 % (37.0-47.0); Hemoglobin 14.4 g/dl (12.0-16.0); Mean Corpuscular HGB Conc 31.9 g/dl (31.0-35.0); Mean Corpuscular Hemoglobin 25.9 pg (27.0-33.0); Mean Corpuscular Volume 81.1 fL (80.0-98.0); NRBC Abs Auto 0.000 X10*3/uL (0.0-0.012); NRBC Pct Auto 0.0 /100WBC (0.0-0.2); Platelet Count 294 X10*3/uL (160-400); Red Blood Count 5.57 X10*6/uL (4.20-5.50); White Blood Count 6.0 X10*3/uL (4.8-10.8)
[2025-01-04 14:14] LABS: Microalbum/Creatinine Ratio Ur 15.7 ug/mg cr (<30)
[2025-01-04 14:39] LABS: Parathyroid Hormone Intact 136.5 pg/mL (8.7-77.1)
[2025-01-04 15:07] LABS: Alanine Aminotransferase 23 U/L (0-31); Albumin Level 4.5 g/dL (3.5-5.0); Alkaline Phosphatase 135 U/L (39-117); Anion Gap 10 (12-20); Aspartate Amino Transferase 25 U/L (5-31); Blood Urea Nitrogen 17 mg/dL (9-16); Calcium 10.1 mg/dL (8.4-10.2); Carbon Dioxide 28 mmol/L (22-29); Chloride 107 mmol/L (96-108); Cholesterol 241 mg/dL (<200); Estimated Glomerular Filt Rate > 60; HDL Cholesterol 37 mg/dL (>40); Potassium 3.9 mmol/L (3.3-5.1); Sodium 141 mmol/L (135-145); Total Protein 7.6 g/dL (6.5-8.0); Triglycerides 291 mg/dL (<150)
[2025-01-04 15:21] LABS: Free T4 (Free Thyroxine) 0.92 ng/dL (0.71-1.85)
[2025-01-04 15:27] LABS: Thyroid Stimulating Hormone 1.54 uIU/mL (0.32-4.0)
--- OUTSIDE RECORDS SUMMARY | 2025-01-04 22:42 | XMS_ITS | Encounter Summary ---
Author Organization [facility] Address [address] [facility] [address] [place] [address] Phone Care Team Providers Care Au Pair Name Role Phone Sharifa Moncada MD Primary Care Provider + Cindy Clay DO Primary Care Provider + [phone] Encounter Details Date Type Department Care Team (Late st Contact Info) Description 04/16/2021 Procedure [facility], [facility] [address] [place] [address] Social History Tobacco Use Types Packs/Day Years [...] as of this encounter Plan of Treatment Upcoming Encounters Date Type Department Care Team (Late st Contact Info) Description 01/05/2025 10:00 AM EST Appointment [facility] [address] [place] [phone] Melany Bishop, PT [address] [place] [address] 01/05/2025 12:30 PM EST Appointment [facility] [address] [place] [phone] BennieAna Wernerdis, OT [address] [place] [address] 01/09/2025 Appointment [facility] [address] [place] [address] Melany Bishop, PT [address] [place] [address] 01/10/2025 Appointment [facility] [address] [place] [address] Bikhbhaskar Underwood, Anadis, OT [address] [place] [address] 01/11/2025 Appointment [facility] [address] [place] [address] Melany Bishop, PT [address] [place] [address] 01/16/2025 Appointment [facility] [address] [place] [address] Melany Bishop, PT [address] [place] [address] 01/17/2025 Appointment [facility] [address] [place] [address] Ana Pepperdis, OT [address] [place] [address] 01/19/2025 Appointment [facility] [address] [place] [address] Melany Bishop, PT [address] [place] [address] 01/19/2025 12:45 AM EST Appointment [facility] [address] [place], [place] [phone] Mark Pepper, OT [address] [place] [address] [email or web address] documented as of this encounter Visit Diagnoses Not on filedocumented in this encounter Additional Health Concerns Infection Onset Date Last Indicated Resolved Time CoV-Risk 10/24/2021 10/24/2021 11/04/2021 1:22 AM EDT documented as of this encounter Care Teams Au Pair Relationship Specialty Start Date End Date Sharifa Moncada MD [address] [place] [phone] PCP - General Internal Medicine 06/23/20 12/22/24 Cindy Clay DO [address] [place] [phone] PCP - General Family Medicine 12/23/24 documented as of this encounter Additional Source Comments The information contained in this document represents components of the legal health record. It is not the complete legal health record.[facility]
--- OUTSIDE RECORDS SUMMARY | 2025-01-04 22:42 | XMS_ITS | Clinical Summary ---
Author Organization [facility] Address [address] [address] Phone Care Team Providers Care Millstone Cleaner Name Role Phone Danna Cindy Primary Care Provider + [phone] Allergies No known active allergies Medications lisinopril (PRINIVIL,ZESTR IL) 5 MG tablet Take 5 mg by [...] 2 (two) times a day. 04/05/2021 Active gabapentin (NEURONTIN) 100 MG capsule Take 100 mg by mouth nightly at bedtime. 12/26/2024 Active sertraline (ZOLOFT) 25 MG tablet Take 50 mg by mouth daily. daily in am 12/26/2024 Active oxyCODONE 5 MG immediate release tablet Take 5 mg by mouth every 8 (eight) hours as needed for pain (specific location in comments). 12/26/2024 Active budesonide-form oterol 160-4.5 mcg/actuation inhaler Inhale 2 puffs into the lungs 2 (two) times a day. 12/26/2024 Active topiramate (TOPAMAX) 50 MG tablet Take 50 mg by mouth 2 (two) times a day. 12/26/2024 Active hydrOXYzine (VISTARIL) 25 MG capsule Take 25 mg by mouth every 6 (six) hours as needed for anxiety. 12/26/2024 Active montelukast (SINGULAIR) 10 mg tablet Take 10 mg by mouth nightly at bedtime. 12/26/2024 Active omeprazole (PRILOSEC) 20 MG capsule Take 20 mg by mouth daily. in am for GERD 12/26/2024 Active amitriptyline (ELAVIL) 25 MG tablet Take 25 mg by mouth nightly at bedtime. 12/26/2024 Active cholecalciferol (VITAMIN D3) 2,000 unit capsule Take 2,000 Units by mouth daily. 12/26/2024 Active hydroCHLOROthia zide 25 MG tablet Take 25 mg by mouth daily. 12/26/2024 Active losartan (COZAAR) 25 MG tablet Take 25 mg by mouth daily. daily in AM 12/26/2024 Active Active Problems Problem Noted Date Diagnosed [...] tomorrow. She will be n.p.o. after midnight Encounters Date Type Department Care Team Description 01/03/2025 1:30 PM EST Home [facility] Visit [facility] [address] [place] [address] Mark Pepper, OT OT HOME VISIT 01/03/2025 10:00 AM EST [facility] Visit [facility] [address] [place] [address] Melany Bishop, PT PT HOME VISIT 12/30/2024 10:00 AM EST Home Care Visit [facility] [address] [place] [address] Mark Pepper, OT OT HOME VISIT 12/29/2024 10:30 AM EST Home Care Visit [facility] [address] [place] [address] Melany Bishop, PT PT HOME VISIT 12/28/2024 2:30 PM EST Home Care Visit [facility] [address] [place] [address] Mark Pepper, OT OT EVALUATION 12/26/2024 11:45 AM EST Home Care Visit [facility] [address] [place] [address] Melany Bishop, PT PT OASIS START OF CARE (SOC) 12/26/2024 Plan of Care Documentation [facility] [address] [place] [address] 12/25/2024 Home Care Visit [facility] [address] [place] [address] Evelyn Meadows, RN CASE COMMUNICATION 12/21/2024 Orders Only [facility] [address] [place] [address] Homehealth, Interface MD Sunny 12/10/2024 4:08 PM EDT - 12/10/2024 11:59 PM EDT Hospital Encounter [facility] [address] [place] [address] Rhett Palafox MD Discharge Disposition: Home or Self Care 12/10/2024 Transcribe Orders [facility] Main [address] [place] [id number] Rhett Palafox MD Illness (Primary Dx) 12/08/2024 7:27 AM EDT - 12/08/2024 11:59 PM EDT Hospital Encounter [facility] Laboratory [address] [facility] [place] [address] Johnna Bright NP Discharge Disposition: Home or Self Care 12/08/2024 Transcribe Orders [facility] Specimen Processing [address] [place] [address] Johnna Bright NP Fall, subsequent encounter (Primary Dx) from Last 3 Months Social History Tobacco Use Types Packs/Day Years [...] EST Inhaled Oxygen Concentration - - Weight 97.5 kg (215 lb) 10/10/2021 7:30 AM EDT Height 162.6 cm (5' 4 ) 10/10/2021 7:30 AM EDT Body Mass Index 36.9 10/10/2021 7:30 AM EDT Plan of Treatment Upcoming Encounters Date Type Department Care Team (Late st Contact Info) Description 01/05/2025 10:00 AM EST Appointment [facility] [address] [place] [phone] Melany Bishop, PT [address] [place] [address] 01/05/2025 12:30 PM EST Appointment [facility] [address] [place] [phone] Mark Pepper, OT [address] [place] [address] 01/09/2025 Appointment [facility] [address] [place] [phone] Melany Bishop, PT [address] [place] [address] 01/10/2025 Appointment [facility] [address] [place] [phone] Mark Pepper, OT [address] [place] [address] 01/11/2025 Appointment [facility] [address] [place] [phone] Melany Bishop, PT [address] [place] [address] 01/16/2025 Appointment [facility] [address] [place] [phone] Melany Bishop, PT [address] [place] [address] 01/17/2025 Appointment [facility] [address] [place] [address] BiMark Werner, OT [address] [place] [address] 01/19/2025 Appointment [facility] [address] [place] [phone] Melany Bishop, PT [address] [place] [address] 01/19/2025 12:45 AM EST Appointment [facility] [address] [place] [address] Mark Pepper, OT [address] [place] [address] Health Maintenance Due Date Last Done Comments DEPRESSION SCREENING 1983 SMOKING Hx and SMOKELESS TOBACCO SCREENING 07/06/1984 HEPATITIS C SCREENING 07/06/1989 HIV ONE-TIME SCREENING (18-65 YEARS) 07/06/1989 MAMMOGRAM 2011 COLOGUARD 07/06/2016 COLONOSCOPY 07/06/2016 COLORECTAL CANCER SCREENING 07/06/2016 FIT TEST 07/06/2016 FOBT 07/06/2016 SIGMOIDOSCOPY 07/06/2016 VIRTUAL COLONOSCOPY 07/06/2016 PNEUMOCOCCAL VACCINES (50+ years) (1 of 1 - PCV) 07/06/2021 ZOSTER VACCINES (1 of 2) 07/06/2021 INFLUENZA VACCINE (#1) 2024 COVID-19 VACCINE ( - season) 2024 11/01/2020, 10/11/2020 CREATININE LEVEL 12/08/2025 12/08/2024, 09/2021, 04/15/2021, Additional history exists POTASSIUM LEVEL 12/08/2025 12/08/2024, 090 09/2021, 04/15/2021, Additional history exists Adult Td,Tdap Booster 02/26/2027 02/26/2017 LIPID PANEL 02/11/2029 02/12/2024 RSV VACCINE (1 - 1-dose 75+ series) [...] Procedure Name Priority Date/Time Associated Diagnosis Comments URINALYSIS Routine 12/10/2024 1:00 PM EDT Illness URINE CULTURE Routine 12/10/2024 1:00 PM EDT Illness COMPREHENSIVE METABOLIC PANEL (CMP) Routine 12/08/2024 6:30 AM EDT Fall, subsequent encounter CBC Routine 12/08/2024 6:30 AM EDT Fall, subsequent encounter from Last 3 Months Results * (ABNORMAL) Urine Culture (12/10/2024 1:00 PM EDT) Special Requests None 12/10/2024 4:10 PM EDT [facility] Urine Culture 10,000 to 100,000 colony forming units per mL MIXED DIANA (3 OR MORE COLONY TYPES) Culture indicates contamination . Please resubmit if necessary.(A) 12/12/2024 7:31 AM EDT [facility] Urine (Urine) 12/10/2024 1:0 0 PM EDT 12/10/2024 6:15 PM EDT Comment:CLEAN CATCH us Rhett Palafox MD LAB MICROBIOLOGY CULTURE ORDERAB LES Final Result [facility] [address] [place] [address] * Urinalysis (12/10/2024 1:00 PM EDT) COLOR Yellow Yellow [facility] CLARITY Clear [facility] GLUCOSE Negative Negative [facility] BILI Negative Negative [facility] KETONES Negative Negative [facility] SPECIFIC GRAVITY 1.020 1.005 - 1.030 [facility] BLOOD Negative Negative [facility] PH 6.0 5.0 - 8.0 [facility] Protein-UA Negative Negative [facility] NITRITE Negative Negative [facility] Leukocyte esterase, ur Negative Negative [facility] Urine (Urine) 12/10/2024 1:0 0 PM EDT 12/10/2024 6:16 PM EDT us Rhett Palafox MD LAB URINE ORDERABLES Final Resul t Performing Organization Address City/State/[facility] Co de Phone Number [facility] [address] [place] [address] * (ABNORMAL) Comprehensive metabolic panel (12/08/2024 6:30 AM EDT) SODIUM 138 133 - 146 mmol/L [facility] POTASSIUM 4.1 3.3 - 5.1 mmol/L [facility] CHLORIDE 100 96 - 108 mmol/L [facility] CO2 28 21 - 35 mmol/L [facility] BUN 31(H) 6 - 19 mg/dL [facility] CREATININE 1.10 0.5 - 1.5 mg/dL [facility] GLUCOSE 102(H) 70 - 99 mg/dL [facility] ALBUMIN 3.7(L) 3.9 - 4.8 g/dL [facility] TOTAL PROTEIN 6.6 6.5 - 8.0 g/dL [facility] CALCIUM 10.1 8.4 - 10.3 mg/dL [facility] ALKALINE PHOSPHATASE 139(H) 39 - 117 U/L [facility] TOTAL BILIRUBIN 0.6 0.0 - 1.2 mg/dL [facility] AST 15 0 - 37 U/L [facility] ALT 14 0 - 40 U/L [facility] GLOBULIN 2.9 1 - 4.8 g/dL [facility] EGFR 60 >59 mL/min/1.7 3m2 [facility] Comment:Estimated glomerular filtration rate calculated using the CKD-EPI refit equation. ANION GAP 14 10 - 20 mmol/L [facility] Blood 12/08/2024 6:30 AM EDT 12/08/2024 7:32 AM EDT us Johnna Bright CORRESPONDENCE COORDINATOR LAB BLOOD BKR ORDERABLES Final R esult Performing Organization Address City/[facility]/ZIP Co de Phone Number [address] [address] * (ABNORMAL) CBC (12/08/2024 6:30 AM EDT) WBC 7.31 4.00 - 11.00 K/uL [facility] RBC 5.42(H) 4.00 - 5.20 M/uL [facility] HGB 14.1 12.0 - 16.0 g/dL [facility] HCT 44.6 36.0 - 46.0 % [facility] PLT 389 150 - 450 K/uL [facility] MCV 82.3 80.0 - 100.0 fL [facility] MCH 26.0(L) 27.0 - 31.0 pg [facility] MCHC 31.6(L) 32.0 - 36.0 g/dL [facility] RDW 14.0 11.5 - 14.5 % [facility] MPV 10.6 8.4 - 12.0 fL [facility] NRBC 0.00 0.00 /100 WBCs [facility] ABSOLUTE NRBC 0.00 0.00 K/uL [facility] Blood 12/08/2024 6:30 AM EDT 12/08/2024 7:32 AM EDT us Johnna Bright CORRESPONDENCE COORDINATOR LAB BLOOD BKR ORDERABLES Final R esult [address] [address] from Last [address] [address] [place] [address] [employer] [address] [place] [address] [place] [address] [employer]3 [employer] [facility] C3 [employer] [facility] C3 [employer] [facility] C3 [employer] COMPENS[employer] Advance Directives For more information, please contact: [phone] (9AM - 5PM [facility], Thursday-Thursday) * Full Code (Latest Code Status on File) Date Activated Date Inactivated Comments 04/16/2021 12:49 AM Question Answer Comments Code Status Confirmed With: Patient Care Teams Millstone Cleaner Relationship Specialty Start Date End Date Cindy Clay DO [address] [place] [phone] PCP - General Family Medicine 12/23/24 Additional Source Comments The information contained in this document represents components of the legal health record. It is not the complete legal health record.[facility]
--- OUTSIDE RECORDS SUMMARY | 2025-01-04 22:42 | XMS_ITS | Encounter Summary ---
Author Organization [facility] Address [address] [facility] [address] [place] [address] Phone Care Team Providers Care Woods Manager Name Role Phone Sharifa Moncada MD Primary Care Provider + Cindy Clay DO Primary Care Provider + [phone] Encounter Details Date Type Department Care Team (Late st Contact Info) Description 04/16/2021 Procedure Pass [facility] [address] [place] [address] Social History Tobacco Use Types Packs/Day Years [...] Info) Description 01/05/2025 10:00 AM EST Appointment [facility] [address] [place] [address] Melany Bishop, PT [address] [place] [address] 01/05/2025 12:30 PM EST Appointment [facility] [address] [place] [address] Mark Pepper, OT [address] [place] [address] 01/09/2025 Appointment [facility] [address] [place] [address] Melany Bishop, PT [address] [place] [address] 01/10/2025 Appointment [facility] [address] [place] [phone] Mark Pepper, OT [address] [place] [address] 01/11/2025 Appointment [facility] [address] [place] [address] Melany Bishop, PT [address] [place] [address] 01/16/2025 Appointment [facility] [address] [place] [phone] Melany Bishop, PT [address] [place] [address] 01/17/2025 Appointment [facility] [address] [place] [phone] Ana Pepperdis, OT [address] [place] [address] 01/19/2025 Appointment [facility] [address] [place] [address] Melany Bishop, PT [address] [place] [address] 01/19/2025 12:45 AM EST Appointment [facility] [address] [place], [place] [phone] Mark Pepper, OT [address] [place] [address] [email or web address] documented as of this encounter Visit Diagnoses Not on filedocumented in this encounter Additional Health Concerns Infection Onset Date Last Indicated Resolved Time CoV-Risk 10/24/2021 10/24/2021 11/04/2021 1:22 AM EDT documented as of this encounter Care Teams Woods Manager Relationship Specialty Start Date End Date Sharifa Moncada MD [address] [place] [address] [place] [phone] PCP - General Internal Medicine 06/23/20 12/22/24 Cindy Clay DO [address] [place] [phone] PCP - General Family Medicine 12/23/24 documented as of this encounter Additional Source Comments The information contained in this document represents components of the legal health record. It is not the complete legal health record.[facility]
--- OUTSIDE RECORDS SUMMARY | 2025-01-04 22:43 | XMS_ITS | Encounter Summary ---
Author Organization [facility] Address [address] [facility] [address] [place] [address] Phone Care Team Providers Care Wheat Buyer Name Role Phone Sharifa Moncada MD Primary Care Provider + Cindy Clay DO Primary Care Provider + [phone] Encounter Details Date Type Department Care Team (Late st Contact Info) Description 04/15/2021 Procedure Pass [facility], Ct Scan - [address] [address] Social History Tobacco Use Types Packs/Day Years [...] 04/15/2021 7:47 PM Florida Haas RN * [place] Suicide Severity Rating Scale (Screener/Recent Self-Report) Question Answer Date of Assessment Author 1. Wish to be (Past 1 Month) No 022 7:47 PM Florida Haas, LEN 2. Non-Specific Active Suici nick Thoughts (Past 1 Month) No 04/15/2021 7:47 PM Florida Haas , LEN 6. Suicidal Behavior (Lifetime) No 7:47 PM EST Florida Norris RN documented as of this encounter Plan of Treatment Upcoming Encounters Date Type Department Care Team (Late st Contact Info) Description 01/05/2025 10:00 AM EST Appointment [facility] [address] [place] [phone] Melany Bishop, PT [address] [place] [address] [email or web address] 01/05/2025 12:30 PM EST Appointment [facility] [address] [place] [phone] Mark Pepper, OT [address] [place] [address] [email or web address] 01/09/2025 Appointment [facility] [address] [place] [phone] Melany Bishop, PT [address] [place] [address] [email or web address] 01/10/2025 Appointment [facility] [address] [place] [phone] Mark Pepper, OT [address] [place] [address] [email or web address] 01/11/2025 Appointment [facility] [address] [place] [phone] Melany Bishop, PT [address] [place] [address] [email or web address] 01/16/2025 Appointment [facility] [address] [place] [phone] Melany Bishop, PT [address] [place] [address] 01/17/2025 Appointment [facility] [address] [place] [phone] BiMark Werner, OT [address] [place] [address] 01/19/2025 Appointment [facility] [address] [place] [address] Melany Bishop, PT [address] [place] [address] 01/19/2025 12:45 AM EST Appointment [facility] [address] [place] [phone] Salome Millerbhavanachema Mark, OT [address] [place] [address] documented as of this encounter Visit Diagnoses Not on filedocumented in this encounter Additional Health Concerns Infection Onset Date Last Indicated Resolved Time CoV-Risk 10/24/2021 10/24/2021 11/04/2021 1:22 AM EDT documented as of this encounter Care Teams Wheat Buyer Relationship Specialty Start Date End Date Sharifa Moncada MD [address] [place] [phone] PCP - General Internal Medicine 06/23/20 12/22/24 Cindy Clay DO [address] [place] [address] PCP - General Family Medicine 12/23/24 documented as of this encounter Additional Source Comments The information contained in this document represents components of the legal health record. It is not the complete legal health record.[facility]
[2025-01-05 09:27] LABS: HBS Num1 0.12 mIU/mL (0-7.99); HBsAGNum1 0.35 S/CO (0.00-0.99); HIV Num 1 0.06 S/CO (0.00-0.99); Hepatitis B Surface Antigen Negative (Negative); ~HepC Num1 0.09 S/CO (0.00-0.79); ~Hepatitis B Surface Antibody NONREACTIVE (Nonreactive); ~Hepatitis C Antibody Nonreactive (Nonreactive)
== END 2025-01-04 11:37 | disposition home or self-care (01) ==
LOC: HO.HHCL 11:36
PROVIDERS: Internal Medicine Endocrinology, Diabetes & Metabolism; PCP Family Medicine; Visit Provider Family Medicine
DX: Z00.00 Encounter for general adult medical examination without abnormal findings (principal); Z11.4 Encounter for screening for human immunodeficiency virus [HIV]; Z11.3 Encounter for screening for infections with a predominantly sexual mode of transmission; Z11.59 Encounter for screening for other viral diseases; N25.81 Secondary hyperparathyroidism of renal origin; I10 Essential (primary) hypertension; E78.49 Other hyperlipidemia; R73.03 Prediabetes; E66.9 Obesity, unspecified; F33.9 Major depressive disorder, recurrent, unspecified; J45.50 Severe persistent asthma, uncomplicated; G43.909 Migraine, unspecified, not intractable, without status migrainosus; K21.9 Gastro-esophageal reflux disease without esophagitis; M25.50 Pain in unspecified joint; R68.89 Other general symptoms and signs; R32 Unspecified urinary incontinence; R79.89 Other specified abnormal findings of blood chemistry; E55.9 Vitamin D deficiency, unspecified; R22.9 Localized swelling, mass and lump, unspecified; Z71.3 Dietary counseling and surveillance; Z71.82 Exercise counseling; Z12.31 Encounter for screening mammogram for malignant neoplasm of breast
CPT/HCPCS: 36415; 80048; 80061; 80076; 82043; 82306; 82570; 83036; 83970; 84439; 84443; 85027; 86592; 86706; 86803; 87340; 87389

== ENCOUNTER 2025-01-26 14:12 | Outpatient (AMB) | payer MEDICAID, SELFPAY ==
--- OUTSIDE RECORDS SUMMARY | 2025-01-25 15:00 | XMS_ITS | Encounter Summary ---
Author Organization [employer] Address [address] [facility] 7[address] [place] [address] Care Team Providers Care Jacquard Loom Weaver Name Role Phone Cindy Clay DO Primary Care Provider + [phone] Encounter Details Date Type Department Care Team (Late st Contact Info) Description 01/25/2025 3:00 PM EST Office Visit [facility] [address] [place] [address] Cindy Clay DO [address] [place] [address] Pre-diabetes; Partial tear of right hamstring Social History Tobacco Use Types Packs/Day Years [...] with others, in a hotel, in a skilled nursing, living outside on the street, on a [...] AM EDT documented as of this encounter Last Filed Vital Signs Vital Sign Reading Time Taken Comments Blood Pressure 128/70 01/25/2025 3:21 PM EST Pulse 93 01/25/2025 3:21 PM EST Temperature 34.7 C (94.5 F) 01/25/2025 3:21 PM EST Respiratory Rate 20 01/25/2025 3:21 PM EST Oxygen Saturation 99% 01/25/2025 3:21 PM EST Inhaled Oxygen Concentration - - Weight 97.5 kg (215 lb) 01/25/2025 3:21 PM EST Height 162.6 cm (5' 4 ) 01/25/2025 3:21 PM EST Body Mass Index 36.9 01/25/2025 3:21 PM EST documented in this encounter Plan of Treatment Not on file documented as of this encounter Procedures Procedure Name Priority Date/Time Associated Diagnosis Comments POCT GLUCOSE Routine 01/25/2025 3:23 PM EST Pre-diabetes documented in this encounter Results * POCT Glucose (01/25/2025 3:23 PM EST) Glucose Blood, POC 108 60 - 200 mg/dL QC Media Lot # [id number] Lot# Expiration Date 026 Blood Capillary blood specimen / Unknown 01/25/2025 3:23 PM EST Cindy Clay DO POINT OF CARE TEST ENTER/MELISSA T ORDERABLES Final Result documented in this encounter Visit Diagnoses Diagnosis Pre-diabetes Other abnormal glucose Partial tear of right hamstring documented in this encounter Additional Health Concerns Assessment Noted Time PHQ-9 Depression Total Score: 24 025 10:42 AM EDT documented as of this encounter Care Teams Jacquard Loom Weaver Relationship Specialty Start Date End Date Cindy Clay DO [address] [place] [phone] PCP - General Family Medicine 05/13/22 E[facility] 12/28/24 documented as of this encounter
--- NOTE | 2025-01-26 14:20 | MHC.OFFVIS ---
Vital Signs 01/26/25 14:25 Height 5 ft 4 in Weight 220 lb BMI 37.8 BP 140/95 H Blood Pressure Location Rt brachial Position Sitting Pulse 97 Pulse Source Pulse Oximeter Pulse Oximetry (%) 98 Oxygen Delivery Method Room Air Intake Visit Reasons: CHRONIC MIDLINE LOW BACK PAIN Tawer Required: No Accompanied by: Self / Same As Patient Allergies Penicillins Allergy (Unknown, Verified 01/26/25 14:25) UNKNOWN HPI Comments Details: The patient is a 54 year old female presenting for evaluation of chronic low back pain. She has been experiencing low back pain for approximately 3 years, which was significantly exacerbated by a mechanical fall in her bathroom in November. The fall in November resulted in a right hamstring partial tear, for which she received a physical therapy evaluation in the emergency department due to her inability to ambulate. She subsequently started home physical therapy sessions in November after being discharged from a recovery facility, which focused on her leg but not her back. Functionally, the patient is unable to walk without the assistance of a walker, and she reports that using the walker increases her back pain. Today she arrived by wheelchair which she self-maneuvers to get around. A prior CT scan of her back revealed L5-S1 degeneration, and shoulder X-rays were normal. Her medical history is notable for prediabetes. Her current medications include amitriptyline, oxycodone, ibuprofen, and gabapentin. Pain Description - Onset: The patient reports suffering from back pain for approximately three years, with a significant worsening after a fall in November. - Location: The pain is located in the back, starting from the upper back down to the lower back. Constant stabbing, shooting, throbbing, burning, and aching. - Radiation: The pain radiates down bilateral legs, worse on the right. - Exacerbating Factors: Pain is worsened with bending forward and when trying to ambulate with a walker. - Interference with Function: The pain prevents her from walking without a walker. Pain Management - Analgesia: The patient currently takes amitriptyline, oxycodone, ibuprofen, and gabapentin for pain. - Activities of Daily Living: The patient is unable to walk without assistance and uses a walker for mobility, but this device increases her back pain. [facility] Medical History Secondary hyperparathyroidism HTN (hypertension) Asthma Surgical History History of hysterectomy Hx of breast surgery (03/28/20) History of abdominoplasty (03/28/20) Family History Father HTN (hypertension) Diabetes Mother Epilepsia Breast cancer Social History Alcohol intake: current Alcohol intake frequency: does not drink Patient Tobacco Use Status: Never used Tobacco Advance Directives Date on File: 12/06/24 Review of Systems Narrative - Musculoskeletal: Reports chronic low back pain for three years, which worsened after a fall in November. - She also reports a severe pain in the back of her shoulder. - Constitutional: Reports inability to walk without assistance. Uses wheelchair for transfers and mobility. Const All systems reviewed & are unremarkable except as noted in HPI and below Physical Exam Vital Signs: Last Vital Signs Pulse 97 01/26/25 14:25 BP 140/95 H 01/26/25 14:25 Pulse Ox 98 01/26/25 14:25 Oxygen Delivery Method Room Air 01/26/25 14:25 BMI result Body Mass Index 37.8 General: Appears afebrile. Alert and oriented. Mood and affect appropriate. Follows and participates in conversation appropriately. Respiratory effort is unlabored. No cough. Able to transition from sit to stand with assistance. Arrived via wheelchair. Ambulates with left normal heel strike and toe off, avoids stepping on right foot due to right hampstring pain. Back/Spine/Pelvis Other: Limited lumbar ROM due to pain. Lumbar extension and forward flexion is limited and elicits significant pain. Patient experiences difficulty with active right leg lift, which causes midline back pain and posterior right thigh tenderness. Cervical Spine: cervical ROM normal, cervical muscular tenderness, pain with cervical ROM and No Cervical spine tenderness Thoracic/Lumbar Spine: thoracic and lumbar spine normal to inspection, Lasegue's sign positive on the right and diffuse, pain with thoraco-lumbar ROM, paraspinal muscle tenderness bilaterally in the lower thoracic, in the upper lumbar and in the lower lumbar, thoraco-lumbar ROM limited, No thoracic spinal tenderness and lumbar spinal tenderness at L4 and at L5 Sacroiliac joints: bilaterally tender to palpation Results Reviewed Results Reviewed: CT lumbar spine wo IV con 12/03/24 CLINICAL HISTORY: fall on Mon, pain radiating down R leg CT lumbar spine without contrast Comparison: None provided Findings: Vertebral alignment is within normal limits. Mild osteopenia. L5-S1: Broad-based disc bulge with mild central canal stenosis and no significant neural foraminal stenosis. Partly visualized splenic partly calcified rim low-attenuation center lesion, 3.9 x 3.2 cm. IMPRESSION: 1. L5-S1 broad-based disc bulge with mild central canal stenosis. 2. Mild osteopenia. 3. Partly visualized splenic lesion with calcified rim and low-attenuation center, measuring 3.9 x 3.2 cm. 4. No acute osseous injury. CT femur RT w IV con 12/04/24 Comparison: None provided Findings: No fracture, dislocation, arthritic changes, or joint effusions. No mass, adenopathy, or fluid collection. There is edema at the proximal tendon of the semimembranosus muscle. No abnormal contrast enhancement. Impression: 1. There is likely a partial tear at the musculotendinous junction of proximal semimembranosus muscle. Assessment & Plan Assessment & Plan (1) Leg pain, bilateral: Code(s): M79.604 - Pain in right leg; M79.605 - Pain in left leg Category: Medical (2) Partial tear of right hamstring: Code(s): S76.311A - Strain of muscle, fascia and tendon of the posterior muscle group at thigh level, right thigh, initial encounter Category: Medical (3) Lumbar radiculopathy: Code(s): M54.16 - Radiculopathy, lumbar region Category: Medical (4) Lumbosacral spondylosis: Code(s): M47.817 - Spondylosis without myelopathy or radiculopathy, lumbosacral region Category: Medical (5) Lumbar degenerative disc disease: Code(s): M51.369 - Other intervertebral disc degeneration, lumbar region without mention of lumbar back pain or lower extremity pain Category: Medical Plan The patient will undergo a lumbar spine MRI on 02/13, which will guide further management. Based on the MRI findings, an epidural steroid injection could be offered to alleviate radicular symptoms. The patient expressed hesitation about receiving injections. Other procedural options for arthritis pain, such as diagnostic injections for potential nerve ablation or stimulation, were discussed. A referral has been sent to an customer retention specialist for management of the right hamstring partial tear. The patient also has a neck CT scan scheduled for February. The patient was given brochures detailing the procedures offered at the clinic and was instructed to sign up for the patient portal for access to appointments. All questions and concerns have been answered and patient agreed with the treatment plan. Follow up for MRI results and sooner as needed. Patient was informed and verbally consented to the use of an ambient scribe for clinic note documentation during this visit. Orders: Referrals Orthopedics Referral M79.604 - Pain in right leg, M79.605 - Pain in left leg, S76.311A - Strain of muscle, fascia and tendon of the posterior muscle group at thigh level, right thigh, initial encounter Coding Level of Care Code New Pt Level 4 (80474) Diagnoses Leg pain, bilateral M79.604; M79.605 Partial tear of right hamstring S76.311A Lumbar radiculopathy M54.16 Lumbosacral spondylosis M47.817 Lumbar degenerative disc disease M51.369
[2025-01-26 14:25] VITALS: BP 140/95; PULSE 97; O2SAT 98; BMI 37.8
--- OUTSIDE RECORDS SUMMARY | 2025-01-26 21:44 | XMS_ITS | Encounter Summary ---
Author Organization [employer] Address [address] [facility] 7t [place] [address] Care Team Providers Care Explosive Specialist Name Role Phone Sharifa Moncada MD Primary Care Provider + Cindy Clay DO Primary Care Provider [phone] Encounter Details Date Type Department Care Team ([facility] st Contact Info) Description 05/09/2022 Orders Only [facility] MED[facility]INE [address] [place] [address] Alayna Newberry LPN Social History Tobacco Use [...] on filedocumented in this encounter Care Teams Explosive Specialist Relationship Specialty Start Date End Date Sharifa Moncada MD [address] [place] [address] PCP - General Family Medicine 02/25/16 05/12/22 Cindy Clay DO [address] [place] [address] [id number] PCP - General Family Medicine 05/13/22 Erika RIVERA 12/28/24 documented as of this encounter
--- OUTSIDE RECORDS SUMMARY | 2025-01-26 21:44 | XMS_ITS | Encounter Summary ---
Author Organization [employer] Address [address] [facility] 7t [place] [address] Care Team Providers Care Lead Infrastructure Architect Name Role Phone Cindy Clay DO Primary Care Provider + [phone] Reason for Visit * Reason Comments Med Refill Encounter Details Date Type Department Care Team ([facility] st Contact Info) Description 04/01/2023 Refill [facility] MED[facility] [address] [place] [address] Taryn Parsons MD [address] [place] [address] Vitamin D deficiency Social History Tobacco Use [...] documented as of this encounter Care Teams Lead Infrastructure Architect Relationship Specialty Start Date End Date Cindy Clay DO [address] [place] [address] PCP - General Family Medicine 05/13/22 Erika RIVERA 12/28/24 documented as of this encounter
--- OUTSIDE RECORDS SUMMARY | 2025-01-26 21:44 | XMS_ITS | Encounter Summary ---
Author Organization [facility] Address [address] [facility] [address] [place] [address] Phone Care Team Providers Care Bookkeeping Assistant Name Role Phone Cindy Clay DO Primary Care Provider + [phone] Reason for Visit * Auth/Cert (Routine) Specialty Diagnoses / Procedures Referred By Cholo t Referred To Contact Referral ID Status Reason Start Date Expiration Date Visits Re quested Visits Authorized [id number] 1 1 Encounter Details Date Type Department Care Team (Late st Contact Info) Description 01/24/2025 Home Care Visit [facility] [address] [place] [address] Mark Pepper, OT [address] [place] [address] [email or web address] TELEPHONE ENCOUNTER Social History Tobacco Use Types Packs/Day Years [...] Care Team (Late st Contact Info) Description 01/27/2025 12:45 AM EST Appointment [facility] [address] [place] [address] Melany Bishop, PT [address] [place] [address] documented as of this encounter Visit Diagnoses Not on filedocumented in this encounter Care Teams Bookkeeping Assistant Relationship Specialty Start Date End Date Cindy Clay DO [address] [place] [id number] PCP - General Family Medicine 12/23/24 documented as of this encounter Additional Source Comments The information contained in this document represents components of the legal health record. It is not the complete legal health record.[facility]
--- OUTSIDE RECORDS SUMMARY | 2025-01-26 21:44 | XMS_ITS | Encounter Summary ---
Author Organization [employer] Address [address] [facility] 7t [place] [address] Care Team Providers Care Saxophone Teacher Name Role Phone Cindy Clay DO Primary Care Provider + [phone] Encounter Details Date Type Department Care Team (Latest Contact Info) Description 01/25/2025 Travel Social History Tobacco Use Types Packs/Day Years [...] with others, in a hotel, in a group home, living outside on the street, on a [...] documented as of this encounter Care Teams Saxophone Teacher Relationship Specialty Start Date End Date Cindy Clay DO [address] [place] [address] PCP - General Family Medicine 05/13/22 Erika RIVERA 12/28/24 documented as of this encounter
--- OUTSIDE RECORDS SUMMARY | 2025-01-26 21:44 | XMS_ITS | Encounter Summary ---
Author Organization [employer] Address [address] [facility] 7t [place] [address] Care Team Providers Care Geomagnetician Name Role Phone Cindy Clay DO Primary Care Provider + [phone] Reason for Visit * Reason Comments Med Refill Encounter Details Date Type Department Care Team ([facility] st Contact Info) Description 07/27/2022 Refill [facility] [address] [place] [address] Kendell Nolasco MD [address] [place] [address] Social History Tobacco Use Types Packs/Day Years [...] Noted Time PHQ-9 Depression Total Score: 18 03/2 023 9:31 AM EDT documented as of this encounter Care Teams Geomagnetician Relationship Specialty Start Date End Date Cindy Clay DO [address] [place] [address] PCP - General Family Medicine 05/13/22 Erika RIVERA 12/28/24 documented as of this encounter
--- OUTSIDE RECORDS SUMMARY | 2025-01-26 21:44 | XMS_ITS | Encounter Summary ---
Author Organization [employer] Address [address] [facility] [address]t h Floor [place] [id number] Care Team Providers Care Math And Sciences Department Chair Name Role Phone Cindy Clay DO Primary Care Provider + [phone] Reason for Visit * Reason Comments Med Refill Encounter Details Date Type Department Care Team ([facility] st Contact Info) Description 11/03/2022 Refill [facility] [address] [place] [address] Sharifa Moncada MD [address] [place] [address] Anxiety Social History Tobacco Use Types Packs/Day [...] documented as of this encounter Care Teams Math And Sciences Department Chair Relationship Specialty Start Date End Date Cindy Clay DO [address] [place] [address] PCP - General Family Medicine 05/13/22 Erika RIVERA 12/28/24 documented as of this encounter
--- OUTSIDE RECORDS SUMMARY | 2025-01-26 21:44 | XMS_ITS | Encounter Summary ---
Author Organization [employer] Address [address] [facility] 7t [place] [address] Care Team Providers Care Guest Room Inspector Name Role Phone Cindy Clay DO Primary Care Provider + [phone] Reason for Visit * Reason Comments Med Refill Encounter Details Date Type Department Care Team ([facility] st Contact Info) Description 08/12/2024 Refill [facility] MED[facility] [address] [place] [address] Cindy Clay DO [address] [place] [address] Social History Tobacco Use Types Packs/Day Years [...] with others, in a hotel, in a snf, living outside on the street, on a [...] documented as of this encounter Care Teams Guest Room Inspector Relationship Specialty Start Date End Date Cindy Clay DO [address] [place] [id number] PCP - General Family Medicine 05/13/22 Erika RIVERA 12/28/24 documented as of this encounter
--- OUTSIDE RECORDS SUMMARY | 2025-01-26 21:44 | XMS_ITS | Encounter Summary ---
Author Organization [employer] Address [address] [facility] 7[address] [place] [address] Care Team Providers Care Information Services Vice President Name Role Phone Cindy Clay DO Primary Care Provider + [phone] Encounter Details Date Type Department Care Team (Late st Contact Info) Description 02/20/2023 Orders Only [facility] MED[facility]INE [address] [place] [address] Cindy Clay DO [address] [place] [address] Social History Tobacco Use Types Packs/Day Years [...] documented as of this encounter Care Teams Information Services Vice President Relationship Specialty Start Date End Date Cindy Clay DO [address] [place] [address] PCP - General Family Medicine 05/13/22 Erika RIVERA 12/28/24 documented as of this encounter
--- OUTSIDE RECORDS SUMMARY | 2025-01-26 21:44 | XMS_ITS | Encounter Summary ---
Author Organization [employer] Address [address] [facility] 7t [place] [address] Care Team Providers Care Decision Support Manager Name Role Phone Cindy Clay DO Primary Care Provider + [phone] Reason for Visit * Reason Comments Med Refill Encounter Details Date Type Department Care Team ([facility] st Contact Info) Description 04/03/2024 Refill [facility] MED[facility]INE [address] [place] [address] Taryn Parsons MD [address] [place] [address] Social History Tobacco Use Types Packs/Day Years [...] documented as of this encounter Care Teams Decision Support Manager Relationship Specialty Start Date End Date Cindy Clay DO [address] [place] [address] PCP - General Family Medicine 05/13/22 Erika RIVERA 12/28/24 documented as of this encounter
--- OUTSIDE RECORDS SUMMARY | 2025-01-26 21:44 | XMS_ITS | Clinical Summary ---
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 mepolizumab (Nucala) 100 mg/mL solution auto-injector Inject under the skin every 28 (twenty-eight ) days. Active Eye Itch Relief 0.035 % solution INSTILL 1 DROP INTO THE AFFECTED EYE(S) TWICE DAILY 01/15/20 23 Active triamcinolone (Nasacort) 55 MCG/ACT nasal inhaler INSTILL 2 SPRAYS IN EACH NOSTRIL ONCE DAILY IN THE MORNING 16.9 mL 11 09/25/19 24 Active albuterol (2.5 MG/3ML) 0.083% nebulizer solution INHALE 1 AMPULE USING A NEBULIZER THREE TIMES DAILY NEEDED SHORTNESS OF BREATH NEEDED FOR ASTHMA 90 mL 3 10/23/19 24 Active polyvinyl alcohol (Liquifilm Tears) 1.4 % ophthalmic solution INSTILL 1 DROP IN EACH EYE NEEDED FOR DRY EYES 15 mL 3 10/28/19 24 Active SUMAtriptan (Imitrex) 100 MG tablet TAKE 1/2 TO 1 TABLET BY MOUTH AFTER ONSET OF MIGRAINE. MAY REPEAT AFTER 2 HOURS IF HEADACHE RETURN . DO NOT TAKE MORE THAN 2 TABLETS IN 24 HOURS. DO NOT EXCEED 4 TABLETS PER WEEK 9 tablet 2 01/28/20 24 Active Symbicort 160-4.5 MCG/ACT inhaler INHALE 2 PUFFS BY MOUTH TWICE DAILY 10.2 g 11 5 3:54 PM EST 02/25/19 25 Active Blood Pressure kit 1 each 2 (two) times a week. 1 kit 06/21/19 25 Active cholecalcifero l (Vitamin D-3) 50 MCG (1999) capsule Take 1 capsule (50 mcg) by mouth Once per day. 30 capsule 11 06/18/19 25 Active melatonin 5 MG tablet TAKE 2 TABLETS BY MOUTH EVERY DAY AT BEDTIME 180 tablet 1 07/21/19 25 Active montelukast (Singulair) 10 MG tablet TAKE 1 TABLET BY MOUTH EVERY EVENING 90 tablet 1 07/21/19 25 Active amitriptyline (Elavil) 25 MG tablet TAKE 1 TABLET BY MOUTH AT BEDTIME 30 tablet 3 5 3:54 PM EST 09/17/19 25 Active cetirizine (ZyrTEC) 10 MG tablet TAKE 1 TABLET BY MOUTH EVERY MORNING 90 tablet 1 10/14/19 25 Active omeprazole (PriLOSEC) [address] capsule TAKE 1 CAPSULE BY MOUTH EVERY MORNING 90 capsule 1 10/14/19 25 Active Ventolin HFA 108 (90 Base) MCG/ACT inhaler INHALE 2 PUFFS BY MOUTH EVERY 4 TO 6 HOURS NEEDED 18 g 1 5 12:06 PM EST 10/22/19 25 Active topiramate 50 MG tablet TAKE 1 TABLET BY MOUTH TWICE DAILY IN THE MORNING AND IN THE EVENING 60 tablet 2 5 3:54 PM EST 10/26/19 25 Active venlafaxine XR (Effexor XR) 37.5 MG 24 hr capsule Take 1 capsule (37.5 mg) by mouth Once per day. Do not crush or chew. 30 capsule 2 5 2:16 PM EST 11/18/19 25 026 Active Tirzepatide-We ight Management (Zepbound) 2.5 MG/0.5ML solution auto-injector Inject 0.5 mL (2.5 mg) under the skin 1 (one) time per week. 2 mL 3 11/18/19 25 Active hydrOXYzine pamoate (Vistaril) 25 MG capsule TAKE 1 CAPSULE BY MOUTH EVERY SIX HOURS NEEDED FOR ANXIETY 60 capsule 1 5 3:54 PM EST 12/17/19 25 Active gabapentin (Neurontin) 300 MG capsuleIndicat ions:Chronic midline low back pain with bilateral sciatica Take 1 capsule (300 mg) by mouth at bedtime. 30 capsule 2 5 12:06 PM EST 01/03/20 Active losartan (Cozaar) 50 MG tablet Take 1 tablet (50 mg) by mouth Once per day. 30 tablet 11 5 3:54 PM EST 01/06/20 25 Active atorvastatin (Lipitor) 10 MG tablet Take 1 tablet (10 mg) by mouth Once per day. 30 tablet 11 5 3:53 PM EST 01/26/20 25 Active ARIPiprazole (Abilify) 2 MG tablet Take 2 mg by mouth Once per day. 01/06/20 Active DULoxetine (Cymbalta) [address] capsule Take 60 mg by mouth 2 times daily. 01/06/20 Active hydroCHLOROthi azide (HYDRODiuril) 25 MG tablet Take 25 mg by mouth. 12/05/19 Active oxyCODONE (Roxicodone) 5 MG immediate release tabletIndicati ons:Partial tear of right hamstring Take 1 tablet (5 mg) by mouth if needed at bedtime for severe pain. 7 tablet 5 3:54 PM EST 01/26/20 Active acetaminophen (Tylenol 8 Hour) 650 MG ER tablet Take 1 tablet (650 mg) by mouth every 8 (eight) hours if needed for mild pain. Do not crush, chew, or split. 60 tablet 3 5 3:54 PM EST 01/26/20 25 Active baclofen (Lioresal) 10 MG tablet Take 1 tablet (10 mg) by mouth if needed in the morning, at noon, and at bedtime for muscle spasms. 60 tablet 3 5 3:54 PM EST 01/26/20 25 Active naproxen (Naprosyn) 500 MG tablet Take 1 tablet (500 mg) by mouth if needed in the morning and at bedtime for mild pain. 60 tablet 1 5 3:54 PM EST 01/26/20 25 12/10/2 026 Active Diclofenac Sodium 1 % gel Apply 2 g topically if needed in the morning, at noon, in the evening, and at bedtime (pain). 150 g 3 5 3:54 PM EST 01/26/20 Active lidocaine (Lidoderm) 5 % patch Apply 1-2 patches topically if needed each day for mild pain. Remove & discard patch within 12 hours or as directed by MD. 60 patch 3 5 3:54 PM EST 01/26/20 25 Active losartan (Cozaar) 25 MG tablet Take 1 tablet (25 mg) by mouth Once per day. 30 tablet 06/18/19 25 Discontinued hydroCHLOROthi azide (HYDRODiuril) 25 MG tablet Take 1 tablet (25 mg) by mouth Once per day. 30 tablet 06/18/19 Discontinued(Si de effects) gabapentin (Neurontin) 100 MG capsule Discontinued oxyCODONE (Roxicodone) 5 MG immediate release tabletIndicati ons:Partial tear of right hamstring Take 1 tablet (5 mg) by mouth every 8 (eight) hours if needed for severe pain for up to 7 days. Do not start before December 29, 2024. 21 tablet 5 3:22 PM EST 12/30/19 025 Discontinued(Re order (will not trigger notification to Pharmacy)) oxyCODONE (Roxicodone) 5 MG immediate release tabletIndicati ons:Partial tear of right hamstring Take 1 tablet (5 mg) by mouth every 8 (eight) hours if needed for severe pain for up to 7 days. 21 tablet 5 12:50 PM EST 01/03/20 25 025 Discontinued(Re order (will not trigger notification to Pharmacy)) oxyCODONE (Roxicodone) 5 MG immediate release tabletIndicati ons:Partial tear of right hamstring Take 1 tablet (5 mg) by mouth every 12 (twelve) hours if needed for severe pain for up to 7 days. 14 tablet 5 3:04 PM EST 01/12/20 25 025 Discontinued oxyCODONE (Roxicodone) 5 MG immediate release tabletIndicati ons:Partial tear of right hamstring Take 1 tablet (5 mg) by mouth if needed each day for severe pain. 7 tablet 5 12:06 PM EST 01/19/20 25 025 Discontinued(Re order (will not trigger notification to Pharmacy)) Active Problems Problem Noted Date Diagnosed Date Chronic midline low back pain with bilateral sci atica 01/02/2025 Hyperparathyroidism 01/02/2025 Tear of right hamstring 01/02/2025 Partial tear of right hamstring 12/26/2024 Forgetfulness 06/17/2024 Urinary incontinence 06/17/2024 Elevated parathyroid [...] healthy life style -Will need to discuss dye tub tender referral at next apt. -Will monitor HbA1c [...] LUIS, RF, and elevated CRP. 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 Not yet Dx w inflammatory arthritis. Pt was referred for further lab testing. -Tylenol PRN -Prescribed today Meloxicam PRN for moderate pain. Pt not taking Ibuprofen. -Continue w milling machine set up operator f up. Assessment & Plan (05/27/2022 4:10 PM EDT): I referred patient to rheumatology Rheumatoid factor positive 05/27/2022 History of COVID-19 05/13/2022 Essential hypertension 05/13/2022 Assessment & Plan (10/04/2022 7:05 PM EDT): BP well controlled. -Mobile Qa Tester has f up apt on 11/12/2022 w Hx of macular edema of R eye and apt w retinal specialist today. -Microalb ordered today. Chronic gastroesophageal reflux disease 05/14/19 23 Severe persistent asthma 05/13/2022 Assessment & Plan (10/04/2022 7:20 PM EDT): Currently reported as better controlled. -Continue treatment -Pt referred for component technician before. I request applied behavior specialist to check for status of referral. Recommend pt to discuss w component technician as well about penicillin allergy and test to confirm if it's true allergy. 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 Major depressive disorder, r ecurrent, severe with [...] organization. Date Type Department Care Team Description 01/25/2025 3:00 PM EST Office Visit [facility] [place] [address] Cindy Clay DO Pre-diabetes; Partial tear of right hamstring 01/25/2025 Travel 01/24/2025 Travel 01/24/2025 Telephone [facility] [place] [address] Cindy Clay DO chart prep 01/20/2025 Refill [facility] [place] [address] Cindy Clay DO 01/19/2025 Telephone [place] [address] Cindy Clay DO Recall Appointment 01/19/2025 Travel 01/19/2025 Telephone [place] [address] Cindy Clay DO verbal orders 01/18/2025 Telephone [facility] [address] [place] [address] Cindy Clay, FYI 01/17/2025 Refill [facility] [address] [place] [address] Boley, Swetha, AUTOMOBILE BODY REPAIR CHIEF Partial tear of right hamstring 01/16/2025 Telephone [facility] [address] [place] [address] Cindy Clay, FYI 01/10/2025 Telephone [facility] [address] [place] [phone] Cindy Clay, FYI 01/10/2025 Telephone [facility] [address] [place] [phone] Cindy Clay, fyi 01/05/[address] [address] Cindy Clay DO Medication Question 01/04/2025 Orders Only GENERIC EXTERNAL DATA DEPARTMENT Provider, Generic External Data 01/02/2025 1:00 PM EST Office Visit [address] [address] Taryn Parsons MD Chronic midline low back pain with bilateral sciatica; Hyperparathyroidism (CMS/HCC); Tear of right hamstring; Partial tear of right hamstring 01/02/2025 Travel 12/28/[address] [address] Cindy Clay DO verbal order 12/28/2024 Telephone [facility] [address] [place] [phone] Cindy Clay DO Call Back Request 12/27/2024 Telephone [facility] [address] [place] [phone] Cindy Clay DO FYi 12/26/[address] [address] Cindy Clay DO Durable Medical Equipment (DME: Transfer Bench) 12/26/2024 Refill [facility] [address] [place] [phone] Cindy Clay DO Partial tear of right hamstring (Primary Dx) 12/22/2024 Patient Outreach [facility] [address] [place] [phone] Cindy Clay DO Transition Of Care (Tcm) (HDF- Scheduled Direct) 12/16/[address] [address] Cindy Clay DO 12/13/[address] [address] Cindy Clay DO Nurse Triage 12/05/2024 Orders Only GENERIC EXTERNAL DATA DEPARTMENT Provider, Generic External Data 12/04/2024 Orders Only GENERIC EXTERNAL DATA DEPARTMENT Provider, Generic External Data 11/30/[address] [address] Cindy Clay DO Nurse Triage 11/17/2024 Telephone [facility] [address] [place] [phone] Cinyd Clay DO EYE CARE REFERRAL 11/16/2024 10:00 AM EDT Office Visit [address] [phone] Cindy Clay DO Essential hypertension (Primary Dx); Other hyperlipidemia; Pre-diabetes; Obesity (BMI 30-39.9); Major depression, recurrent, chronic (CMS/HCC); Severe persistent asthma without complication ([facility]); Chronic allergic rhinitis; Chronic migraine; Chronic gastroesophageal reflux disease; Polyarthralgia; Forgetfulness; Urinary incontinence, unspecified type; Elevated parathyroid hormone; Vitamin D deficiency; Subcutaneous nodule; Healthcare maintenance; Dietary counseling; Exercise counseling; Encounter for screening mammogram for malignant neoplasm of breast 11/16/2024 Travel 11/15/[address] [address] Cindy Clay DO Chart Prep from Last 3 Months Immunizations Immunization Administration [...] Mass Index 36.9 01/25/2025 3:21 PM EST Plan of Treatment Health Maintenance Due Date Last Done Comments CT Colonography 1971 Colonoscopy 1971 Colorectal Cancer Screening 1971 FIT DNA/Cologuard 1971 FIT 1971 FOBT 1971 Sigmoidoscopy 1971 Hepatitis A Vaccines (1 of 2 - Risk 2-dose series) 07/06/1990 Hepatitis B Vaccines (1 of 3 - 19+ 3-dose series) 07/06/1990 Pneumococcal Vaccine: 50+ Years (1 of 2 - PCV) 07/06/1990 RSV Patients and Patients Aged 60 years or older (1 - Risk 50-74 years 1-dose series) 07/06/2021 Zoster Vaccines (1 of 2) 07/06/2021 COVID-19 Vaccine (3 - 2024- season) 2024 11/01/2020, 10/11/2020 Influenza Vaccine (#1) 2024 Mammogram 02/25/2025 02/25/2023 Depression Monitoring 05/17/2025 11/16/2024, 025 Alcohol/Substance Use Screening 06/17/2025 06/17/2024 SDOH Screening 06/17/2025 06/17/2024 Diabetes: Hemoglobin A1C 01/04/2026 025, 02/12/2024, 03/12/2023, Additional history exists Disability Screening 01/24/2026 01/24/2025 Tobacco Screening 01/25/2026 01/25/2025 DTaP/Tdap/Td Vaccines (2 - Td or Tdap) 02/26/2027 02/26/2017 Cervical Cancer Screening 04/27/2028 HPV/Cotest 04/27/2028 04/28/2023 Pap Smear 04/27/2028 04/28/2023 Lipid Panel 01/04/2030 01/04/2025, 01/17, 03/12/2023, Additional history exists HIV Screening Completed 01/04/2025, 01/17, 03/12/2023, Additional history exists Hepatitis C Screening Completed 01/04/2025 , 02/12/2024, 03/12/2023, Additional history exists HIB Vaccines Aged Out No longer eligi [...] GLUCOSE Routine 01/25/2025 3:23 PM EST Pre-diabetes VITAMIN D,25-OH,TOTAL,IA Routine 01/04/2025 11:44 AM EST PTH, INTACT WITHOUT CALCIUM Routine 01/04/2025 11:44 AM EST HEPATITIS B SURFACE ANTIBODY, QUALITATIVE Routine 01/04/2025 11:44 AM EST Essential hypertension Other hyperlipidemia Pre-diabetes Obesity (BMI 30-39.9) Major depression, recurrent, chronic (CMS/HCC) Severe persistent asthma without complication (HCC) Chronic allergic rhinitis Chronic migraine Chronic gastroesophageal reflux disease Polyarthralgia Forgetfulness Urinary incontinence, unspecified type Elevated parathyroid hormone Vitamin D deficiency Subcutaneous nodule Healthcare maintenance Dietary counseling Exercise counseling Encounter for screening mammogram for malignant neoplasm of breast RPR (MONITOR) W/REFL TITER Routine 01/04/2025 11:44 AM EST Essential hypertension Other hyperlipidemia Pre-diabetes Obesity (BMI 30-39.9) Major depression, recurrent, chronic (CMS/HCC) Severe persistent asthma without complication (HCC) Chronic allergic rhinitis Chronic migraine Chronic gastroesophageal reflux disease Polyarthralgia Forgetfulness Urinary incontinence, unspecified type Elevated parathyroid hormone Vitamin D deficiency Subcutaneous nodule Healthcare maintenance Dietary counseling Exercise counseling Encounter for screening mammogram for malignant neoplasm of breast HEPATITIS C AB W/REFL TO HCV RNA, QN, PCR Routine 01/04/2025 11:44 AM EST Essential hypertension Other hyperlipidemia Pre-diabetes Obesity (BMI 30-39.9) Major depression, recurrent, chronic (CMS/HCC) Severe persistent asthma without complication (HCC) Chronic allergic rhinitis Chronic migraine Chronic gastroesophageal reflux disease Polyarthralgia Forgetfulness Urinary incontinence, unspecified type Elevated parathyroid hormone Vitamin D deficiency Subcutaneous nodule Healthcare maintenance Dietary counseling Exercise counseling Encounter for screening mammogram for malignant neoplasm of breast HIV 1/2 ANTIGEN/ANTIBODY, FOURTH GENERATION W/RFL Routine 01/04/2025 11:44 AM EST Essential hypertension Other hyperlipidemia Pre-diabetes Obesity (BMI 30-39.9) Major depression, recurrent, chronic (CMS/HCC) Severe persistent asthma without complication (HCC) Chronic allergic rhinitis Chronic migraine Chronic gastroesophageal reflux disease Polyarthralgia Forgetfulness Urinary incontinence, unspecified type Elevated parathyroid hormone Vitamin D deficiency Subcutaneous nodule Healthcare maintenance Dietary counseling Exercise counseling Encounter for screening mammogram for malignant neoplasm of breast HEPATITIS B SURFACE ANTIGEN, EIA Routine 01/04/2025 11:44 AM EST Essential hypertension Other hyperlipidemia Pre-diabetes Obesity (BMI 30-39.9) Major depression, recurrent, chronic (CMS/HCC) Severe persistent asthma without complication (HCC) Chronic allergic rhinitis Chronic migraine Chronic gastroesophageal reflux disease Polyarthralgia Forgetfulness Urinary incontinence, unspecified type Elevated parathyroid hormone Vitamin D deficiency Subcutaneous nodule Healthcare maintenance Dietary counseling Exercise counseling Encounter for screening mammogram for malignant neoplasm of breast ALBUMIN, RANDOM URINE W/CREATININE Routine 01/04/2025 11:44 AM EST Essential hypertension Other hyperlipidemia Pre-diabetes Obesity (BMI 30-39.9) Major depression, recurrent, chronic (CMS/HCC) Severe persistent asthma without complication (HCC) Chronic allergic rhinitis Chronic migraine Chronic gastroesophageal reflux disease Polyarthralgia Forgetfulness Urinary incontinence, unspecified type Elevated parathyroid hormone Vitamin D deficiency Subcutaneous nodule Healthcare maintenance Dietary counseling Exercise counseling Encounter for screening mammogram for malignant neoplasm of breast CBC Routine 01/04/2025 11:44 AM EST Essential hypertension Other hyperlipidemia Pre-diabetes Obesity (BMI 30-39.9) Major depression, recurrent, chronic (CMS/HCC) Severe persistent asthma without complication (HCC) Chronic allergic rhinitis Chronic migraine Chronic gastroesophageal reflux disease Polyarthralgia Forgetfulness Urinary incontinence, unspecified type Elevated parathyroid hormone Vitamin D deficiency Subcutaneous nodule Healthcare maintenance Dietary counseling Exercise counseling Encounter for screening mammogram for malignant neoplasm of breast BASIC METABOLIC PANEL Routine 01/04/2025 11:44 AM EST Essential hypertension Other hyperlipidemia Pre-diabetes Obesity (BMI 30-39.9) Major depression, recurrent, chronic (CMS/HCC) Severe persistent asthma without complication (HCC) Chronic allergic rhinitis Chronic migraine Chronic gastroesophageal reflux disease Polyarthralgia Forgetfulness Urinary incontinence, unspecified type Elevated parathyroid hormone Vitamin D deficiency Subcutaneous nodule Healthcare maintenance Dietary counseling Exercise counseling Encounter for screening mammogram for malignant neoplasm of breast HEMOGLOBIN A1C Routine 01/04/2025 11:44 AM EST Essential hypertension Other hyperlipidemia Pre-diabetes Obesity (BMI 30-39.9) Major depression, recurrent, chronic (CMS/HCC) Severe persistent asthma without complication (HCC) Chronic allergic rhinitis Chronic migraine Chronic gastroesophageal reflux disease Polyarthralgia Forgetfulness Urinary incontinence, unspecified type Elevated parathyroid hormone Vitamin D deficiency Subcutaneous nodule Healthcare maintenance Dietary counseling Exercise counseling Encounter for screening mammogram for malignant neoplasm of breast HEPATIC FUNCTION PANEL Routine 01/04/2025 11:44 AM EST Essential hypertension Other hyperlipidemia Pre-diabetes Obesity (BMI 30-39.9) Major depression, recurrent, chronic (CMS/HCC) Severe persistent asthma without complication (HCC) Chronic allergic rhinitis Chronic migraine Chronic gastroesophageal reflux disease Polyarthralgia Forgetfulness Urinary incontinence, unspecified type Elevated parathyroid hormone Vitamin D deficiency Subcutaneous nodule Healthcare maintenance Dietary counseling Exercise counseling Encounter for screening mammogram for malignant neoplasm of breast TSH Routine 01/04/2025 11:44 AM EST Essential hypertension Other hyperlipidemia Pre-diabetes Obesity (BMI 30-39.9) Major depression, recurrent, chronic (CMS/HCC) Severe persistent asthma without complication (HCC) Chronic allergic rhinitis Chronic migraine Chronic gastroesophageal reflux disease Polyarthralgia Forgetfulness Urinary incontinence, unspecified type Elevated parathyroid hormone Vitamin D deficiency Subcutaneous nodule Healthcare maintenance Dietary counseling Exercise counseling Encounter for screening mammogram for malignant neoplasm of breast LIPID PANEL, STANDARD Routine 01/04/2025 11:44 AM EST Essential hypertension Other hyperlipidemia Pre-diabetes Obesity (BMI 30-39.9) Major depression, recurrent, chronic (CMS/HCC) Severe persistent asthma without complication (HCC) Chronic allergic rhinitis Chronic migraine Chronic gastroesophageal reflux disease Polyarthralgia Forgetfulness Urinary incontinence, unspecified type Elevated parathyroid hormone Vitamin D deficiency Subcutaneous nodule Healthcare maintenance Dietary counseling Exercise counseling Encounter for screening mammogram for malignant neoplasm of breast T4, FREE Routine 01/04/2025 11:44 AM EST Essential hypertension Other hyperlipidemia Pre-diabetes Obesity (BMI 30-39.9) Major depression, recurrent, chronic (CMS/HCC) Severe persistent asthma without complication (HCC) Chronic allergic rhinitis Chronic migraine Chronic gastroesophageal reflux disease Polyarthralgia Forgetfulness Urinary incontinence, unspecified type Elevated parathyroid hormone Vitamin D deficiency Subcutaneous nodule Healthcare maintenance Dietary counseling Exercise counseling Encounter for screening mammogram for malignant neoplasm of breast SARS COV2/INFLUENZA A/B AND RSV RNA QL NAAT Routine 12/05/2024 10:25 AM EDT URINALYSIS, COMPLETE, WITH REFLEX TO CULTURE Routine 12/04/2024 10:22 PM EDT CULTURE, URINE, ROUTINE Routine 12/04/2024 10:[address] FEMUR W CONTRAST RIGHT Routine 12/04/2024 3:[address] ABDOMEN PELVIS W CONTRAST Routine 12/04/2024 3:44 AM EDT COMPREHENSIVE METABOLIC PANEL Routine 12/04/2024 3:03 AM EDT CBC WITH AUTO DIFFERENTIAL Routine 12/04/2024 3:[address] LUMBAR SPINE WO CONTRAST Routine 12/03/2024 8:42 PM EDT XR CLAVICLE RIGHT Routine 11/16/2024 12: 20 PM EDT Subcutaneous nodule PAP SMEAR Routine 04/28/2023 1:03 PM EDT HPV MRNA E6/E7 REFLEX TO HPV 16, 18/45 Routine 04/28/2023 10:30 AM EDT BI MAMMOGRAM SCREEN W SCOTT W IMPLANTS ROSALIO Routine 02/25/2023 11:55 AM EST from Last 3 Months or Most Recently Relevant to Health Maintenance Results * POCT Glucose (01/25/2025 3:23 PM EST) Glucose Blood, POC 108 60 - 200 mg/dL QC Media Lot # [id number] Lot# Expiration Date 665 Blood Capillary blood specimen / Unknown 01/25/2025 3:23 PM EST Cindy Clay DO POINT OF CARE TEST ENTER/MELISSA T ORDERABLES Final Result * (ABNORMAL) Vitamin D, 25-Hydroxy, Total, Immunoassay (01/04/2025 11:44 AM EST) Vitamin D 25-OH Total 23.5(L) >30 ng/mL [facility] Comment: Health Based Reference Values*< 20 ng/mL [id number] ng/mL Insufficient> 30 ng/mL Sufficient*Shyann DORADO. N Engl J Med. 2007;357:266-280There is no well-established upper level of normal vitamin Dlevels. Some laboratories use 50 ng/mL as an upper limit ofnormal. However, toxicity is patient-dependent and may occurat any level. Careful correlation with the patient'spresentation is necessary and, if there is concern forvitamin D toxicity, treatment should be consideredirrespective of the serum level.Care must be taken in interpreting Vitamin D results fromdifferent laboratories and methodologies. Published datademonstrated that results from patients undergoinghemodialysis may show a negative bias when tested withvarious automated 25-OH vitamin D assays when compared toLC-MS/MS.When testing samples from patients whose predominant form ofVitamin D is Vitamin D2, such as patients receiving VitaminD2 supplementation, results that are subtherapeutic shouldbe confirmed with another method such as LC-MS/MS. 01/04/2025 11:4 4 AM EST 01/04/2025 1:27 PM EST us Generic External Data Provider LAB BLOOD ORDERAB LES Final Result Performing Organization Address [facility] Co de Phone Number [facility] [address] [place] [phone] * Albumin, Random Urine W/Creatinine (01/04/2025 11:44 AM EST) Creatinine, Urine 184.68 mg/dL [facility] Microalbumin Urine 29.0 mg/L [facility] Microalbum Creatinine Ratio Ur 15.7 <30 ug/mg cr [facility] Comment:Albumin/Creatinine R atio Reference Ranges: Normal: < 30 ug/mg creatinine Microalbuminuria: 30 - 300 ug/mg creatinineClinical Albuminuria: > 300 ug/mg creatinine Urine (Urine, Random) 01/04/2025 11:44 AM EST 01/04/2025 1:04 PM EST us Cindy Clay DO LAB URINE ORDERABLES Final R esult Performing Organization Address City/[facility]/ZIP Co de Phone Number [facility] [facility] [address] [place] [phone] * Hepatitis C Antibody with Reflex to HCV, RNA, Quantitative, Real-Time PCR (01/04/2025 11:44 AM EST) Hepatitis C Antibody Nonreactive Nonreactive [facility] Comment:Antibodies to HCV no t detected; does not exclude early acuteHCV infection. Blood Venous blood specimen / Unknown 01/04/2025 11:44 AM EST 01/04/2025 1:27 PM EST Cindy Clay DO LAB BLOOD ORDERABLES Final R esult Performing Organization Address [facility] Co de Phone Number [facility] [address] [place] [address] [phone] * Hepatitis B surface antigen, EIA (01/04/2025 11:44 AM EST) Hepatitis B Surface Ag Negative Negative [facility] Blood Venous blood specimen / Unknown 01/04/2025 11:44 AM EST 01/04/2025 1:27 PM EST us Cindy Clay DO LAB BLOOD ORDERABLES Final R esult Performing Organization Address [facility] Phone Number [facility] [address] [place] [address] [phone] * RPR (Monitor) with Reflex to??Titer (01/04/2025 11:44 AM EST) RPR (Monitor) w/Refl Titer NON-REACTI VE NON-REACT SANDRA [facility] Comment:THIS TEST WAS PERFOR MED AT:[employer] [place] [phone] YOUNG MD Rapid Plasma Reagin Ab Titer TNP [facility] Blood Venous blood specimen / Unknown 01/04/2025 11:44 AM EST 01/04/2025 1:19 PM EST Cindy Clay DO LAB BLOOD ORDERABLES Final R esult Performing Organization Address [facility] Co de Phone Number [facility] [address] [place] [address] [phone] * HIV-1/2 Antigen and Antibodies, Fourth Generation, with Reflexes (01/04/2025 11:44 AM EST) HIV AB/AG Nonreactive Nonreactive [facility] Comment:HIV-1 p24 Ag and/or HIV-1/HIV-2 Ab not detected.A test result that is nonreactive does not exclude thepossibility of exposure to or infection with HIV-1 and/orHIV-2. Nonreactive results in this assay for individualswith prior exposure to HIV-1 and/or HIV-2 may be due toantigen and antibody levels that are below the limit ofdetection of this assay.[employer] HIV Ag/Ab Combo assay result andsupplemental assay results should be interpreted inconjunction with the patient's clinical presentation,history and other laboratory results. If the results areinconsistent with clinical evidence, additional testing issuggested to confirm the result. Blood Venous blood specimen / Unknown 01/04/2025 11:44 AM EST 01/04/2025 1:27 PM EST Cindy Clay LAB BLOOD ORDERABLES Final R esult Performing Organization Address City/[facility] Co de Phone Number [facility] [address] [place] [address] [phone] * Hepatitis B Surface Antibody, Qualitative (01/04/2025 11:44 AM EST) [facility] ~Hepatitis B Surface Antibody NONREACTIVE Nonreactive [facility] Comment:Nonreactive: < 8.00 mIU/mL Blood Venous blood specimen / Unknown 01/04/2025 11:44 AM EST 01/04/2025 1:27 PM EST Cindy Giveyizaiah [employer] LAB BLOOD ORDERABLES Final R esult Performing Organization Address [facility] Co de Phone Number [facility] [address] [place] [address] [phone] * (ABNORMAL) CBC (01/04/2025 11:44 AM EST) [facility] White Blood Count 6.0 4.8 - 10.8 X10*3/uL [facility] Red Blood Count 5.57(H) 4.20 - 5.50 X10*6/uL [facility] Hemoglobin 14.4 12.0 - 16.0 g/dl [facility] Hematocrit 45.2 37.0 - 47.0 % [facility] Mean Corpuscular Volume 81.1 80.0 - 98.0 fL [facility] Mean Corpuscular Hemoglobin 25.9(L) 27.0 - 33.0 pg [facility] Mean Corpuscular HGB Conc 31.9 31.0 - 35.0 g/dl [facility] Red Cell Distribution Width 14.0 11.0 - 16.0 % [facility] Platelet Count 294 160 - 400 X10*3/uL [facility] Mean Platelet Volume 10.3 9.4 - 12.3 fL [facility] NRBC Pct Auto 0.0 0.0 - 0.2 /100WBC [facility] NRBC Abs Auto 0.000 0.0 - 0.012 X10*3/uL [facility] Blood Venous blood specimen / Unknown 01/04/2025 11:44 AM EST 01/04/2025 1:27 PM EST Cindy Clay DO LAB BLOOD ORDERABLES Final R esult [facility] [address] [place] [address] [phone] * TSH (01/04/2025 11:44 AM EST) Thyroid Stimulating Hormone 1.54 0.32 - 4.0 uIU/mL [facility] Comment:TSH 3rd Generation ( [facility]) Blood Venous blood specimen / Unknown 01/04/2025 11:44 AM EST 01/04/2025 1:27 PM EST Cindy Clay DO LAB BLOOD ORDERABLES Final R esult [facility] [address] [place] [phone] * T4, Free (01/04/2025 11:44 AM EST) Free T4 (Free Thyroxine) 0.92 0.71 - 1.85 ng/dL [facility] Blood Venous blood specimen / Unknown 01/04/2025 11:44 AM EST 01/04/2025 1:27 PM EST us Cindy Clay DO LAB BLOOD ORDERABLES Final R esult Performing Organization Address City/[facility]/ZIP Co de Phone Number [facility] [address] [place] [address] [phone] * (ABNORMAL) PTH, Intact Without Calcium (01/04/2025 11:44 AM EST) Pathologist [facility] Parathyroid Hormone, Intact 136.5(H) 8.7 - 77.1 pg/mL [facility] 01/04/2025 11:4 4 AM EST 01/04/2025 1:19 PM EST us Generic External Data Provider LAB BLOOD ORDERAB LES Final Result Performing Organization Address City/[facility] Co de Phone Number [facility] [address] [place] [address] [phone] * Hemoglobin A1c (01/04/2025 11:44 AM EST) Hemoglobin A1c 5.7 <6.0 % [facility] Comment:Hemoglobin A1C Refer ence Range Adults: 4.8 - 6.0 % Non diabetic: < 6.0 % Goal: < 7.0 %Additional Action Suggested: > 8.0 %Note: Hemoglobin A1c results are invalid for patients with abnormal amounts of HbF. Blood transfusions may impact the HbA1c concentration in the patient sample. Estimated Average Glucose 117 mg/dL [facility] Comment:eAG = Estimated ave rage glucose which is %A1C expressed asaverage glucose, using the formula of the D1K-VrhtuhuUokntne Glucose study (ADAG), Diabetes Care, Vol.31,#8,2007 Blood Venous blood specimen / Unknown 01/04/2025 11:44 AM EST 01/04/2025 1:27 PM EST us Cindy Clay DO LAB BLOOD ORDERABLES Final R esult Performing Organization Address City/[facility]/ZIP Co de Phone Number [facility] [address] [place] [address] [phone] * (ABNORMAL) Hepatic Function Panel (01/04/2025 11:44 AM EST) Bilirubin, Total 0.8 0.0 - 1.0 mg/dL [facility] Bilirubin, Direct 0.2 0.0 - 0.5 mg/dL [facility] Aspartate Amino Transferase 25 5 - 31 U/L [facility] Alanine Aminotransferase 23 0 - 31 U/L [facility] Total Protein 7.6 6.5 - 8.0 g/dL [facility] Albumin Level 4.5 3.5 - 5.0 g/dL [facility] Alkaline Phosphatase 135(H) 39 - 117 U/L [facility] Blood Venous blood specimen / Unknown 01/04/2025 11:44 AM EST 01/04/2025 1:27 PM EST us Cindy Clay DO LAB BLOOD ORDERABLES Final R esult Performing Organization Address City/[facility]/ZIP Co de Phone Number [facility] [address] [place] [address] [phone] * (ABNORMAL) Lipid Panel, Standard (01/04/2025 11:44 AM EST) Triglycerides 291(H) <150 mg/dL [facility] Comment:Desirable Triglyceri de: less than 150 mg/dLBorderline High Triglyceride 150-199 mg/dLHigh Triglyceride: 200-499 mg/dLVery High Triglyceride: greater than or equal to 5OO mg/dL Cholesterol 241(H) <200 mg/dL [facility] Comment:Desirable Cholestero l: less than 200 mg/dLBorderline High Cholesterol: 200-239 mg/dLHigh Cholesterol: greater than 239 mg/dL LDL Cholesterol Calculated 146(H) <100 mg/dL [facility] Comment:Desirable LDL: less than 100 mg/dLNear Optimal/Above Optimal LDL: 110- 129 mg/dLBorderline High LDL: 130-159 mg/dLHigh LDL: 160-189 mg/dLVery High LDL: greater than or equal to 190 mg/dL HDL Cholesterol 37(L) >40 mg/dL [facility] Comment:Desirable HDL: great er than 40 mg/dL Note: This HDL assay may give artificially low results in patients with liver disease. Blood Venous blood specimen / Unknown 01/04/2025 11:44 AM EST 01/04/2025 1:27 PM EST Cindy Clay DO LAB BLOOD ORDERABLES Final R esult [facility] [address] [place] [phone] * (ABNORMAL) Basic Metabolic Panel (01/04/2025 11:44 AM EST) Sodium 141 135 - 145 mmol/L [facility] Potassium 3.9 3.3 - 5.1 mmol/L [facility] Chloride 107 96 - 108 mmol/L [facility] Carbon Dioxide 28 22 - 29 mmol/L [facility] Anion Gap 10(L) 12 - 20 [facility] Urea Nitrogen (BUN) 17(H) 9 - 16 mg/dL [facility] Creatinine, Serum 0.65 0.5 - 1.4 mg/dL [facility] Estimated Glomerular Filt Rate >60 [facility] Comment:Chronic Kidney Disea se: Estimated GFR < 60 mL/min/[id number] Kidney Disease: Estimated GFR < 15 mL/min/1.73m2 Glucose 105 60 - 115 mg/dL [facility] Calcium 10.1 8.4 - 10.2 mg/dL [facility] Blood Venous blood specimen / Unknown 01/04/2025 11:44 AM EST 01/04/2025 1:27 PM EST us Cindy Clya DO LAB BLOOD ORDERABLES Final R esult Performing Organization Address [facility]/ZIP Co de Phone Number [facility] [address] [place] [address] [phone] * SARS-CoV-2 RNA, Influenza A/B, and RSV RNA, Ql NAAT (12/05/2024 10:25 AM EDT) Influenza A PCR NEGATIVE Negative [facility] Influenza B PCR NEGATIVE Negative [facility] Resp Syncy Virus RNA Qual PCR NEGATIVE Negative [facility] SARS COV2 PCR NEGATIVE Negative [facility] Comment:All test results mus t be correlated with clinical findings.Negative results do not preclude SARS-CoV2, influenza Avirus, influenza B virus and/or RSV infectionand should not be used as the sole basis for treatment orother patient management decisions. Negative results must becombined with clinical observations, patient history, andepidemiological information.This test has not been evaluated for monitoring treatment ofinfection.This test has been authorized by the FDA under an EmergencyUse Authorization (EUA) for use by authorized laboratories.Testing performed on the [employer] GeneXpert utilizingreal-time RT-PCR.All SARS CoV2 and positive influenza A/B results arereported to [facility]. 12/05/2024 10:2 5 AM EDT 12/05/2024 10:39 AM EDT us Generic External Data Provider LAB MICROBIOLOGY - GENERAL ORDERABLES Final Result Performing Organization Address City/[facility]/ZIP Co de Phone Number [facility] [address] [place] [address] [phone] * (ABNORMAL) Urinalysis, Complete, with Reflex to Culture (12/04/2024 10:22 PM EDT) Color Urine Yellow [facility] Appearance Urine Clear [facility] PH 5.5 5.0 - 9.0 [facility] Glucose Urine UA Negative Negative mg/dL [facility] Urine Blood Small (1+)(A) Negative [facility] Specific [place] - Urine >=1.030(H) 1.005 - 1.025 [facility] Urine Protein Negative Neg-Trace mg/dL [facility] Urine Ketones Negative Negative mg/dL [facility] Nitrite Urine Positive(A) Negative [facility] Leukocyte Esterase Urine Trace(A) Negative [facility] RBC Urine 0-2 0 - 2 /HPF [facility] Urine WBC 0-5 0 - 5 /HPF [facility] Urine Squamous Epithelial Cell 6-10 0 - 2 /HPF [facility] Urine Bacteria 4+ None Seen [facility] Hyaline Casts, Urine 0-2 0 - 2 /LPF [facility] 12/04/2024 10:2 2 PM EDT 12/04/2024 10:26 PM EDT Narrative [facility] - 12/04/2024 10:45 PM EDT [id number], Clean Catch us Generic External Data Provider LAB URINE ORDERAB LES Final Result Performing Organization Address City/State/[facility] Co de Phone Number [facility] [address] [place] [address] [phone] * Culture, Urine, Routine (12/04/2024 10:22 PM EDT) Urine Urine specimen obtained by clean catch procedure / Unknown 12/04/2024 10:22 PM EDT 12/04/2024 10:46 PM EDT Comment:UACC Narrative [facility] - 12/07/2024 7:30 AM EDT Staphylococcus epidermidis Quant > 100,000 cfu/mL Staphylococcus epidermidis: Clindamycin <=0.25(S) Staphylococcus epidermidis: Erythromycin <=0.25(S) Staphylococcus epidermidis: Nitrofurantoin <=16(S) Staphylococcus epidermidis: Oxacillin >=4(R) Staphylococcus epidermidis: Penicillin-G >=0.5(R) Staphylococcus epidermidis: Tetracycline 2(S) Staphylococcus epidermidis: Trimethoprim/Sulfamethoxazole <=10(S) Staphylococcus epidermidis: Vancomycin 1(S) Specimen Source: Urine clean catch us Generic External Data Provider LAB MICROBIOLOGY - GENERAL ORDERABLES Final Result Performing Organization Address City/State/[facility] Co de Phone Number [facility] [address] [place] [phone] * CT Femur w/ Contrast Right (12/04/2024 3:47 AM EDT) Anatomical Region Laterality Modality Lower Extremities, Femur Right Compute d Tomography 12/04/2024 3:47 AM EDT Narrative 12/04/2024 3:48 AM EDT [address] [address] [address] Scan Report Signed Patient: Emerita Wills MR#: [id number] : 1970 Acct:[id number] Age/Sex: 54 / F ADM Date: 12/04/24 Loc: HO.ED Attending Dr: Ordering Physician: Venkatesh Pino PA-C Date of Service: 12/04/24 Procedure(s): CT femur RT w IV con Accession Number(s): [id number] cc: Cindy Clay DO; Venkatesh Pion PA-C Report Number: [id number]: Total DLP = 294.00 mGy-cm Reason for Exam: Fall; Trauma; R leg severe pain/limited ROM CLINICAL HISTORY: Fall; Trauma; R leg severe pain limited ROM CT right femur with contrast Comparison: None provided Findings: No fracture, dislocation, arthritic changes, or joint effusions. No mass, adenopathy, or fluid collection. There is edema at the proximal tendon of the semimembranosus muscle. No abnormal contrast enhancement. Impression: 1. There is likely a partial tear at the musculotendinous junction of proximal semimembranosus muscle. This document has been electronically signed by: Dannielle Flores MD on 12/04/2024 03:47:28 Dictated By: Dannielle Flores MD Signed By: <Electronically signed by Dannielle Flores MD in OV> 12/04/24347 DD/ 6 TD/TT: 12/04/24346 Ticket Marker: Procedure Note Donotuseinterpreter, Image - 12/04/[address] [place] [address] [address] Scan Report Signed Patient: Jey Wills#: [id number] : 1970Acct:[id number] Age/Sex: 54 / FADM Date: 12/04/24 Loc: HO.ED Attending Dr: Ordering Physician: Venkatesh Pino PA-C Date of Service: 12/04/24 Procedure(s): CT femur RT w IV con Accession Number(s): [id number] cc: Cindy Clay DO; Venkatesh Pino PA-C Report Number: [id number]: Total DLP = 294.00 mGy-cm Reason for Exam: Fall; Trauma; R leg severe pain/limited ROM CLINICAL HISTORY: Fall; Trauma; R leg severe pain limited ROM CT right femur with contrast Comparison: None provided Findings: No fracture, dislocation, arthritic changes, or joint effusions. No mass, adenopathy, or fluid collection. There is edema at the proximal tendon of the semimembranosus muscle. No abnormal contrast enhancement. Impression: 1. There is likely a partial tear at the musculotendinous junction of proximal semimembranosus muscle. This document has been electronically signed by: Dannielle Flores MD on 12/04/2024 03:47:28 Dictated By: Dannielle Flores MD Signed By: <Electronically signed by Dannielle Flores MD in OV> 12/04/24347 DD/ 6 TD/TT: 12/04/24346 Ticket Marker: us [facility] External Provider IMG CT PROCEDURES Edited Result - Final * CT Abdomen Pelvis w/ Contrast (12/04/2024 3:44 AM EDT) Anatomical Region Laterality Modality Body, Pelvis, Abdomen Computed T omography 12/04/2024 3:44 AM EDT Narrative 12/04/2024 3:45 AM EDT [address] [address] [address] Scan Report Signed Patient: Emerita Wills MR#: [id number] : 1970 Acct:[id number] Age/Sex: 54 / F ADM Date: 12/04/24 Loc: HO.ED Attending Dr: Ordering Physician: Venkatesh Pino PA-C Date of Service: 12/04/24 Procedure(s): CT abdomen pelvis w IV con Accession Number(s): [id number] cc: Cindy Clay DO; Venkatesh Pino PA-C Report Number: [id number]: Total DLP = 783.00 mGy-cm Reason for Exam: Fall; BLQ Pain/Tenderness; R Gluteus Tenderness CLINICAL HISTORY: Fall; BLQ Pain Tenderness; R Gluteus Tenderness CT abdomen and pelvis with contrast Comparison: None provided Findings: Minor atelectasis at the lung bases. Partially peripherally calcified splenic cyst 4.5 cm. Hepatosplenomegaly. Gallbladder and solid organs otherwise unremarkable. No urolithiasis. No bowel obstruction, pneumoperitoneum, or pneumatosis. Mesenteric vessels patent. Moderate stool. Distal colonic diverticulosis without diverticulitis. Hysterectomy. Ovaries unremarkable. Normal appendix. Mild urinary bladder distention. No inflammatory changes. The bones are intact. IMPRESSION: 1. No acute injury of the abdomen or pelvis. 2. Partially peripherally calcified splenic cyst. Correlate with history of prior infection. 3. Hepatosplenomegaly. This document has been electronically signed by: Dannielle Flores MD on 12/04/2024 03:44:39 Dictated By: Dannielle Flores MD Signed By: <Electronically signed by Dannielle Flores MD in OV> 12/04/24344 DD/ 3 TD/TT: 12/04/24343 Ticket Marker: Procedure Note Donotuseinterpreter, Image - 12/04/[address] [address] [address] Scan Report Signed Patient: Jey Wills#: [id number] : 1970Acct:[id number] Age/Sex: 54 / FADM Date: 12/04/24 Loc: HO.ED Attending Dr: Ordering Physician: Venkatesh Pino PA-C Date of Service: 12/04/24 Procedure(s): CT abdomen pelvis w IV con Accession Number(s): [id number] cc: Cindy Clay DO; Venkatesh Pino PA-C Report Number: [id number]: Total DLP = 783.00 mGy-cm Reason for Exam: Fall; BLQ Pain/Tenderness; R Gluteus Tenderness CLINICAL HISTORY: Fall; BLQ Pain Tenderness; R Gluteus Tenderness CT abdomen and pelvis with contrast Comparison: None provided Findings: Minor atelectasis at the lung bases. Partially peripherally calcified splenic cyst 4.5 cm. Hepatosplenomegaly. Gallbladder and solid organs otherwise unremarkable. No urolithiasis. No bowel obstruction, pneumoperitoneum, or pneumatosis. Mesenteric vessels patent. Moderate stool. Distal colonic diverticulosis without diverticulitis. Hysterectomy. Ovaries unremarkable. Normal appendix. Mild urinary bladder distention. No inflammatory changes. The bones are intact. IMPRESSION: 1. No acute injury of the abdomen or pelvis. 2. Partially peripherally calcified splenic cyst. Correlate with history of prior infection. 3. Hepatosplenomegaly. This document has been electronically signed by: Dannielle Flores MD on 12/04/2024 03:44:39 Dictated By: Dannielle Flores MD Signed By: <Electronically signed by Dannielle Flores MD in OV> 12/04/24344 DD/ 3 TD/TT: 12/04/24343 Ticket Marker: [facility] External Provider IMG CT PROCEDURES Edited Result - Final * (ABNORMAL) CBC auto differential (12/04/2024 3:03 AM EDT) White Blood Count 11.5(H) 4.8 - 10.8 X10*3/uL [facility] Red Blood Count 5.45 4.20 - 5.50 X10*6/uL [facility] Hemoglobin 13.9 12.0 - 16.0 g/dl [facility] Hematocrit 43.5 37.0 - 47.0 % [facility] Mean Corpuscular Volume 79.8(L) 80.0 - 98.0 fL [facility] Mean Corpuscular Hemoglobin 25.5(L) 27.0 - 33.0 pg [facility] Mean Corpuscular HGB Conc 32.0 31.0 - 35.0 g/dl [facility] Red Cell Distribution Width 13.8 11.0 - 16.0 % [facility] Platelet Count 341 160 - 400 X10*3/uL [facility] Mean Platelet Volume 10.0 9.4 - 12.3 fL [facility] Neutrophils Percent Auto 67.0 45 - 73 % [facility] Imm Gran Pct Auto 0.3 0.0 - 0.4 % [facility] Lymphocytes Percent Auto 26.3 20 - 40 % [facility] Monocytes Percent Auto 5.5 2 - 11 % [facility] Eosinophils Percent Auto 0.6 0 - 4 % [facility] Basophils Percent Auto 0.3 0 - 2 % [facility] NRBC Pct Auto 0.0 0.0 - 0.2 /100WBC [facility] Neutrophils Absolute Auto 7.7 2.0 - 8.3 x10*3/uL [facility] Imm Gran Abs Auto 0.04(H) 0.00 - 0.03 X10*3/uL [facility] Lymphocytes Absolute Auto 3.0 1.2 - 4.9 X10*3/uL [facility] Monocytes Absolute Auto 0.6 0.1 - 1.2 X10*3/uL [facility] Eosinophils Absolute Auto 0.1 0.0 - 0.4 X10*3/uL [facility] Basophils Absolute Auto 0.0 0.0 - 0.2 X10*3/uL [facility] NRBC Abs Auto 0.000 0.0 - 0.012 X10*3/uL [facility] 12/04/2024 3:03 AM EDT 12/04/2024 3:06 AM EDT us Generic External Data Provider LAB BLOOD ORDERAB LES Final Result [facility] [address] [place] [phone] * (ABNORMAL) Comprehensive Metabolic Panel (12/04/2024 3:03 AM EDT) Sodium 138 135 - 145 mmol/L [facility] Potassium 4.4 3.3 - 5.1 mmol/L [facility] Chloride 105 96 - 108 mmol/L [facility] Carbon Dioxide 25 22 - 29 mmol/L [facility] Anion Gap 12 12 - 20 [facility] Urea Nitrogen (BUN) 25(H) 9 - 16 mg/dL [facility] Creatinine, Serum 0.67 0.5 - 1.4 mg/dL [facility] Creatinine Clr Calc Pharmacy 111.5 [facility] Comment:Provided height and weight: 167.64 cm,92.986 kg.eGFR (calculated from the MDRD study equation) and eCrCl(calculated from the Cockcroft-Gault equation) are based ondifferent parameters and may not yield comparable results.If eCrCl result is absurd, please check patient'sheight/weight. Estimated Glomerular Filt Rate >60 [facility] Comment:Chronic Kidney Disea se: Estimated GFR < 60 mL/min/1.15b5Cvdkhn Kidney Disease: Estimated GFR < 15 mL/min/1.73m2 Glucose 90 60 - 115 mg/dL [facility] Calcium 9.6 8.4 - 10.2 mg/dL [facility] Bilirubin, Total 0.9 0.0 - 1.0 mg/dL [facility] Aspartate Amino Transferase 19 5 - 31 U/L [facility] Alanine Aminotransferase 14 0 - 31 U/L [facility] Total Protein 6.9 6.5 - 8.0 g/dL [facility] Albumin Level 4.0 3.5 - 5.0 g/dL [facility] Alkaline Phosphatase 126(H) 39 - 117 U/L [facility] 12/04/2024 3:03 AM EDT 12/04/2024 3:06 AM EDT us Generic External Data Provider LAB BLOOD ORDERAB LES Final Result Performing Organization Address City/State/[facility] [facility] Co de Phone Number [facility] [address] [place] [address] [phone] * CT Lumbar Spine w/o Contrast (12/03/2024 8:42 PM EDT) Anatomical Region Laterality Modality Spine, L-spine Computed Tomogra phy 12/03/2024 8:42 PM EDT Narrative 12/03/2024 8:43 PM EDT [place] [address] [place] Scan Report Signed Patient: Emerita Wills MR#: [id number] : 1970 Acct:[id number] Age/Sex: 54 / F ADM Date: 12/03/24 Loc: HO.ED Attending Dr: Ordering Physician: Radha Nesbitt NP Date of Service: 12/03/24 Procedure(s): CT lumbar spine wo IV con Accession Number(s): [id number] cc: Cindy Clay DO; Radha Nesbitt NP Report Number: [id number]: Total DLP = 683.00 mGy-cm Reason for [...] in OV> 12/03/242042 DD/ 41 TD/TT: 12/03/242041 Ticket Marker: Procedure Note Donotuseinterpreter, Image - 12/03/[address] [place] [address] [address] Scan Report Signed Patient: Jey Wills#: [id number] : 1970Acct:[id number] Age/Sex: 54 / FADM Date: 12/03/24 Loc: HO.ED Attending Dr: Ordering Physician: Radha Nesbitt NP Date of Service: 12/03/24 Procedure(s): CT lumbar spine wo IV con Accession Number(s): [id number] cc: Cindy Clay DO; Radha Nesbitt NP Report Number: [id number]: Total DLP = 683.00 mGy-cm Reason for [...] in OV> 12/03/242042 DD/ 41 TD/TT: 12/03/242041 Ticket Marker: [facility] External Provider IMG CT PROCEDURES Edited Result - Final * XR Clavicle Right (11/16/2024 12:20 PM EDT) Anatomical Region Laterality Modality Body, Clavicle Right Radiographic Larticia ging 11/16/2024 12:2 0 PM EDT Narrative 11/16/2024 12:33 PM EDT [facility] [address] [place] [address] XRay Report Signed Patient: Emerita Wills MR#: [id number] : 1970 Acct:[id number] Age/Sex: 54 / F ADM Date: 11/16/24 Loc: HO.HHCX Attending Dr: Cindy Clay DO Ordering Physician: Cindy Clay DO Date of Service: 11/16/24 Procedure(s): XR clavicle RT Accession Number(s): [id number] cc: Cindy Clay DO Reason for Exam: [...] 11/16/24 1230 DD/ 1220 TD/TT: 11/16/24 1224 Ticket Marker: Procedure Note Donotuseinterpreter, Image - 11/16/2024 [facility] [address] [place] [address] XRay Report Signed Patient: Jey Wills#: [id number] : 1970Acct:[id number] Age/Sex: 54 / FADM Date: 11/16/24 Loc: HO.HHCX Attending Dr: Cindy Clay DO Ordering Physician: Cindy Clay DO Date of Service: 11/16/24 Procedure(s): XR clavicle RT Accession Number(s): [id number] cc: Cindy Clay DO Reason for Exam: [...] Benito Pena MD 11/16/2024 12:30 PM EDT Dictated By: Benito Finn MD Signed By: <Electronically signed by Benito Rivero MDin OV> 11/16/24 1230 DD/ 1220 TD/TT: 11/16/24 1224 Ticket Marker: us Cindy Clay DO IMG XR PROCEDURES Final Resu lt * Pap Smear (04/28/2023 1:03 PM EDT) 04/28/2023 1:03 PM EDT 04/29/2023 12:25 PM EDT [facility] - 05/05/2023 9:33 AM EDT ----- ------- Name: Emerita Wills Age/Sex: 52/F : 1970 Unit#: [id number] Attend Dr: Cindy Clay DO Re04/28/23 Status: DEP REF Location: [facility] Disch: ----- ------- SPEC : [id number] RECD: 04/29/23-1225 STATUS: ASHLEY MACIEL NUM: [id number] MANJULA: 04/28/23-[address] [facility] [address]: Cindy Clay DO ENTERED: 04/29/23-1254 SP TYPE: Pap Smr OTHR DR: ORDERED: Pap Smear Interpretation Satisfactory for evaluation. Negative for intraepithelial lesion or malignancy. HPV mRNA E6/E7: NOT DETECTED This assay detects E6/E7 viral messenger RNA (mRNA) from 14 high-risk HPV types (16, 18, 31, 33, 35, 39, 45, 51, 52, 56, 58, 59, 66, 68) HPV testing performed by [facility], [place], [place]. See reference laboratory portion of the EMR for entire report. Clinical Information LMP: Unknown date Previous PAP test: Unknown date, WNL Other surgery: s/p hysterectomy Material Received ThinPrep-Vaginal ----- ------- Signed (signature on file) RAN Church (ASCP) 05/05/23 0933 ----- ------- END OF REPORT us Cindy Clay DO LAB CYTOLOGY ORDERABLES Jenelle kumar Result [facility] [address] [place] [phone] * HPV mRNA E6/E7 w/Reflex to HPV Genotypes 16, 18/45 (04/28/2023 10:30 AM EDT) HPV nRNA E6/E7 Not Detected Not Detected [facility] Comment:Methodology: Transcr iption-Mediated AmplificationThis assay detects E6/E7 viral messenger RNA (mRNA) from 14high-risk HPV types (16,18,31,33,35,39,45,51,52,56,58,59,66,68).Cervical sources are required for HPV testing.If a vaginal source from a patient who has had atotal hysterectomy with removal of cervix wassubmitted, please contact the testing laboratoryfor alternative testing options.For additional information, please refer tohttp://education.Inmagic/faq/EOE212m3(This link if provided for information/educational purposes only.)THIS TEST WAS PERFORMED AT:[employer] [place] [phone] YOUNG MD HPV mRNA E6/E7 [facility] HPV 16 RNA [facility] HPV 18/45 RNA [facility] 04/28/2023 10:3 0 AM EDT 04/29/2023 12:25 PM EDT Cindy Clay DO LAB CYTOLOGY ORDERABLES Jenelle l Result [facility] [address] [place] [address] [phone] * BI Mammogram Screen w/ Scott w/ Implants Rosalio (02/25/2023 11:55 AM EST) Anatomical Region Laterality Modality Mammography 02/25/2023 11:5 5 AM EST Narrative 03/16/2023 10:51 AM EST [address] [place] [address] Mammography Report Signed Patient: Emerita Wills MR#: [id number] : 1970 Acct:[id number] Age/Sex: 52 / F ADM Date: 02/25/23 Loc: HO.MAMMO Attending Dr: Cindy Clay DO Ordering Physician: Cindy Clay DO Results: 1N egative Date of Service: 02/25/23 Follow Up: 1 Year From [facility] ina Mammogram Procedure(s): MM tomosynthesis screen imp BI Accession Number(s): [id number] cc: Cindy Clay DO EXAMINATION: MM SCREENING [...] in OV> 03/16/23 1047 DD/ 1155 TD/TT: Ticket Marker: Procedure Note Donotuseinterpreter, Image - 03/16/2023 [facility] [address] [place] [address] Mammography Report Signed Patient: Jey Wills#: [id number] : 1970Acct:[id number] Age/Sex: 52 / FADM Date: 02/25/23 Loc: HO.MAMMO Attending Dr: Cindy Clay DO Ordering Physician: Cindy Clayults: 1N egative Date of Service: 02/25/23Follow Up: 1 Year From Orig inal Mammogram Procedure(s): MM tomosynthesis screen imp BI Accession Number(s): [id number] cc: Cindy Clay DO EXAMINATION: MM SCREENING [...] in OV> 03/16/23 1047 DD/ 1155 TD/TT: Ticket Marker: Cindy Clay DO IMG BI PROCEDURES Final Resu lt from Last 3 Months or Most Recently Relevant to Health Maintenance [place] [address] [place] [address] C3 Care Teams Mint Wafer Depositor Relationship Specialty Start Date End Date Cindy Clay DO [address] [place] [address] PCP - General Family Medicine 05/13/22 Erika RIVERA 12/28/24
--- OUTSIDE RECORDS SUMMARY | 2025-01-26 21:44 | XMS_ITS | Clinical Summary ---
Author Organization [facility] Address [address] [address] Phone Care Team Providers Care Corporate Attorney Name Role Phone Danna Cindy Primary Care Provider + [phone] Allergies No known active allergies Medications lisinopril [...] Active gabapentin (NEURONTIN) 100 MG capsule Take 300 mg by mouth nightly at bedtime. 12/26/2024 [...] Encounters Date Type Department Care Team Description 01/24/2025 Home Care Visit [facility] [address] [place] [phone] Mark Pepper, JOSSIE TELEPHONE ENCOUNTER 01/11/2025 Episode Documentation Update [facility] [address] [place] [address] Quita Dee 01/10/2025 Episode Documentation Update [facility] [address] [place] [address] Quita Dee 01/09/2025 10:00 AM EST Home Care Visit [facility] [address] [place] [address] Melany Bishop, PT PT HOME VISIT 01/05/2025 12:30 PM EST Home Care Visit [facility] [address] [place] [address] Mark Pepper, OT OT HOME VISIT 01/05/2025 10:00 AM EST Home Care Visit [facility] [address] [place] [address] Melany Bishop, PT PT HOME VISIT 01/03/2025 1:30 PM EST Home Care Visit [facility] [address] [place] [address] Mark Pepper, OT OT HOME VISIT 01/03/2025 10:00 AM EST Home Care Visit [facility] [address] [place] [address] Melany Bishop, PT PT HOME VISIT 12/30/2024 10:00 AM EST Home Care Visit [facility] [address] [place] [address] Mark Pepper, OT OT HOME VISIT 12/29/2024 10:30 AM EST Home Care Visit [facility] [address] [place] [address] Melany Bishop, PT PT HOME VISIT 12/28/2024 2:30 PM EST Home Care Visit [facility] [address] [place] [address] Mark Pepper, OT OT EVALUATION 12/26/2024 11:45 AM EST Home Care Visit [facility] [address] [place] [phone] Melany Bishop, PT PT OASIS START OF CARE (SOC) 12/26/2024 Plan of Care Documentation [facility] [address] [place] [address] 12/25/2024 Home Care Visit [facility] [address] [place] [address] Evelyn Meadows, RN CASE COMMUNICATION 12/21/2024 Orders Only [facility] [address] [place] [address] Homehealth, Interface ProviderMD 12/10/2024 4:08 PM EDT - 12/10/2024 11:59 PM EDT Hospital Encounter [facility] [address] [place] [address] Rhett Palafox MD Discharge Disposition: Home or Self Care 12/10/2024 Transcribe Orders [facility] Phleb Main [address] [place] [address] Rhett Palafox MD Illness (Primary Dx) 12/08/2024 7:27 AM EDT - 12/08/2024 11:59 PM EDT Hospital Encounter [facility] [address] [place] [address] Johnna Bright NP Discharge Disposition: Home or Self Care 12/08/2024 Transcribe Orders [facility] Specimen Processing [address] [place] [address] Johnna Bright NP Fall, subsequent encounter (Primary [...] Sign Reading Time Taken Comments Blood Pressure 118/70 01/09/2025 10:25 AM EST Pulse 92 01/09/2025 10:25 AM EST Temperature 36.7 C (98 F) 01/09/2025 10:25 AM EST Respiratory Rate 16 01/09/2025 10:25 AM EST Oxygen Saturation 98% 01/09/2025 10:25 AM EST Inhaled Oxygen Concentration - - Weight 97.5 kg (215 lb) 10/10/2021 7:30 AM EDT Height 162.6 cm (5' 4 ) 10/10/2021 7:30 AM EDT Body Mass Index 36.9 10/10/2021 7:30 AM EDT Plan of Treatment Upcoming Encounters Date Type Department Care Team (Late st Contact Info) Description 01/27/2025 12:45 AM EST Appointment [facility] [address] [place], [place] [phone] Melany Bishop, PT [address] [employer] [place] [address] [email or web address] Health Maintenance Due Date Last Done Comments [...] 07/06/2021 INFLUENZA VACCINE (#1) 2024 COVID-19 VACCINE (3 - season) 2024 11/01/2020, 10/11/2020 CREATININE LEVEL 12/08/2025 12/08/2024, 09/2021, 04/15/2021, Additional history exists POTASSIUM LEVEL 12/08/2025 12/08/2024, 0909/2021, 04/15/2021, Additional history exists Adult Td,Tdap Booster 02/26/2027 02/26/2017 LIPID PANEL 01/04/2030 01/04/2025, 02/12/2024 RSV VACCINE (1 - 1-dose 75+ [...] Special Requests None 12/10/2024 4:10 PM EDT [facility] Urine Culture 10,000 to 100,000 colony forming units per mL MIXED DIANA (3 OR MORE COLONY TYPES) Culture indicates contamination . Please resubmit if necessary.(A) 12/12/2024 7:31 AM EDT [facility] Urine (Urine) 12/10/2024 1:0 0 PM EDT 12/10/2024 6:15 PM EDT Comment:CLEAN CATCH Rhett Palafox MD LAB MICROBIOLOGY CULTURE ORDERAB LES Final Result Performing Organization Address [facility] de Phone Number [address] [address] * Urinalysis (12/10/2024 1:00 PM EDT) COLOR Yellow Yellow [facility] CLARITY Clear [facility] GLUCOSE Negative Negative [facility] BILI Negative Negative [facility] KETONES Negative Negative [facility] SPECIFIC GRAVITY 1.020 1.005 - 1.030 [facility] BLOOD Negative Negative [facility] PH 6.0 5.0 - 8.0 [facility] Protein-UA Negative Negative [facility] NITRITE Negative Negative [facility] Leukocyte esterase, ur Negative Negative [facility] Urine (Urine) 12/10/2024 1: 00 PM EDT 12/10/2024 6:16 PM EDT Rhett Palafox MD LAB URINE ORDERABLES Final Resul t Performing Organization Address [facility] Co de Phone Number [address] [address] * (ABNORMAL) Comprehensive metabolic panel (12/08/2024 6:30 AM EDT) SODIUM 138 133 - 146 mmol/L [facility] POTASSIUM 4.1 3.3 - 5.1 mmol/L [facility] CHLORIDE 100 96 - 108 mmol/L [facility] CO2 28 21 - 35 mmol/L [facility] BUN 31(H) 6 - 19 mg/dL [facility] CREATININE 1.10 0.5 - 1.5 mg/dL [facility] GLUCOSE 102(H) 70 - 99 mg/dL [facility] ALBUMIN 3.7(L) 3.9 - 4.8 g/dL [facility] TOTAL PROTEIN 6.6 6.5 - 8.0 g/dL [facility] CALCIUM 10.1 8.4 - 10.3 mg/dL [facility] ALKALINE PHOSPHATASE 139(H) 39 - 117 U/L [facility] TOTAL BILIRUBIN 0.6 0.0 - 1.2 mg/dL [facility] AST 15 0 - 37 U/L [facility] ALT 14 0 - 40 U/L [facility] GLOBULIN 2.9 1 - 4.8 g/dL [facility] EGFR 60 >59 mL/min/1.7 3m2 [facility] Comment:Estimated glomerular filtration rate calculated using the CKD-EPI refit equation. ANION GAP 14 10 - 20 mmol/L [facility] Blood 12/08/2024 6:30 AM EDT 12/08/2024 7:32 AM EDT us Johnna Bright RUG UNDERLAY MACHINE OPERATOR LAB BLOOD BKR ORDERABLES Final R esult Performing Organization Address City/State/[facility] Co de Phone Number [address] [phone] * (ABNORMAL) CBC (12/08/2024 6:30 AM EDT) WBC 7.31 4.00 - 11.00 K/uL [facility] RBC 5.42(H) 4.00 - 5.20 M/uL [facility] HGB 14.1 12.0 - 16.0 g/dL [facility] HCT 44.6 36.0 - 46.0 % [facility] PLT 389 150 - 450 K/uL [facility] MCV 82.3 80.0 - 100.0 fL [facility] MCH 26.0(L) 27.0 - 31.0 pg [facility] MCHC 31.6(L) 32.0 - 36.0 g/dL [facility] RDW 14.0 11.5 - 14.5 % [facility] MPV 10.6 8.4 - 12.0 fL [facility] NRBC 0.00 0.00 /100 WBCs [facility] ABSOLUTE NRBC 0.00 0.00 K/uL [facility] Blood 12/08/2024 6:30 AM EDT 12/08/2024 7:32 AM EDT us Johnna Bright NP LAB BLOOD BKR ORDERABLES Final R esult [facility] [address] [place] [address] from Last 3 Months Insurance C3 ACO C3 ACO #[address] C3 ACO C3 ACO C3 ACO #[address] [place] [id number] [place] [address] [place] [address] [place] [address] C3 ACO [facility] C3 ACO WORKERS COMPENSATION Advance Directives For more information, please contact: [phone] (9AM - 5PM [facility], Thursday-Thursday) * Full Code (Latest Code Status on File) Date Activated Date Inactivated Comments 04/16/2021 12:49 AM Question Answer Comments Code Status Confirmed With: Patient Care Teams Corporate Attorney Relationship Specialty Start Date End Date Cindy Clay DO [address] [place] [phone] PCP - General Family Medicine 12/23/24 Additional Source Comments The information contained in this document represents components of the legal health record. It is not the complete legal health record.[facility]
--- OUTSIDE RECORDS SUMMARY | 2025-01-26 21:45 | XMS_ITS | Encounter Summary ---
Author Organization [employer] Address [address] [facility] 7t [place] [address] Care Team Providers Care Ticket Scheduler Name Role Phone Cindy Clay DO Primary Care Provider + [phone] Encounter Details Date Type Department Care Team (Latest Contact Info) Description 01/24/2025 Travel Social History Tobacco Use Types Packs/Day [...] with others, in a hotel, in a residential, living outside on the street, on a [...] documented as of this encounter Care Teams Ticket Scheduler Relationship Specialty Start Date End Date Cindy Clay DO [address] [place] [address] PCP - General Family Medicine 05/13/22 Erika RIVERA 12/28/24 documented as of this encounter
--- OUTSIDE RECORDS SUMMARY | 2025-01-26 21:45 | XMS_ITS | Encounter Summary ---
Author Organization [facility] Address [address] [facility] [address] [place] [phone] Phone Care Team Providers Care Rehab Technician Name Role Phone Sharifa Moncada MD Primary Care Provider + Cindy Clay DO Primary Care Provider + [phone] Encounter Details Date Type Department Care Team (Late st Contact Info) Description 04/15/2021 Procedure Pass [facility], Ct Scan - [address] [address] Social History Tobacco Use Types Packs/Day Years [...] 04/15/2021 7:47 PM [place] Haas RN * [place] Suicide Severity Rating Scale (Screener/Recent Self-Report) Question [...] Appointment [facility] [address] [place] [phone] Melany Bishop, PT [address] [place] [address] [email or web address] documented as of this encounter Visit Diagnoses Not on filedocumented in this encounter Additional Health Concerns Infection Onset Date Last Indicated Resolved Time CoV-Risk 10/24/2021 10/24/2021 11/04/2021 1:22 AM EDT documented as of this encounter Care Teams Rehab Technician Relationship Specialty Start Date End Date Sharifa Moncada MD [address] [place] [phone] PCP - General Internal Medicine 06/23/20 12/22/24 Cindy Clay DO [address] [place] [address] [phone] PCP - General Family Medicine 12/23/24 documented as of this encounter Additional Source Comments The information contained in this document represents components of the legal health record. It is not the complete legal health record.[facility]
--- OUTSIDE RECORDS SUMMARY | 2025-01-26 21:45 | XMS_ITS | Encounter Summary ---
Author Organization [facility] Address [address] [facility] [address] [place] [phone] Phone Care Team Providers Care Display Decorator Name Role Phone Sharifa Moncada MD Primary Care Provider + Cindy Clay DO Primary Care Provider + [phone] Encounter Details Date Type Department Care Team (Late st Contact Info) Description 04/16/2021 Procedure Pass [facility] [address] [place] [address] Social History Tobacco Use Types Packs/Day Years [...] Info) Description 01/27/2025 12:45 AM EST [facility] [address] [place] [phone] Melany Bishop, PT [address] [place] [address] [email or web address] documented as of this encounter Visit Diagnoses Not on filedocumented in this encounter Additional Health Concerns Infection Onset Date Last Indicated Resolved Time CoV-Risk 10/24/2021 10/24/2021 11/04/2021 1:22 AM EDT documented as of this encounter Care Teams Display Decorator Relationship Specialty Start Date End Date Sharifa Moncada MD [address] [place] [address] [address] [place] [phone] PCP - General Internal Medicine 06/23/20 12/22/24 Cindy Clay DO [address] [place] [address] PCP - General Family Medicine 12/23/24 documented as of this encounter Additional Source Comments The information contained in this document represents components of the legal health record. It is not the complete legal health record.[facility]
--- OUTSIDE RECORDS SUMMARY | 2025-01-26 21:45 | XMS_ITS | Encounter Summary ---
Author Organization [email or web address] Address [address] [facility] 7t [place] [address] Care Team Providers Care International Affairs Vice President Name Role Phone Cindy Clay DO Primary Care Provider + [phone] Reason for Visit * Reason Onset Date Comments chart prep 01/24/2025 Encounter Details Date Type Department Care Team ([facility] st Contact Info) Description 01/24/2025 Telephone [facility] [address] [place] [address] Cindy Clay DO [address] [place] [address] chart prep Social History Tobacco Use Types Packs/Day Years [...] with others, in a hotel, in a long term, living outside on the street, on a [...] encounter Miscellaneous Notes * Telephone Encounter - Shantanu Gonzales [place] - 01/24/2025 1:29 PM EST Chart Prep Labs: done Images: not done Referrals: complete Vaccines due: Covid, Flu, PCV20, Hep B, Hep A, RSV, and Zoster Screenings: colonoscopy and mammogram Overdue care gaps: Glucose documented in this encounter Plan of Treatment Not on file documented as of this encounter Visit Diagnoses Not on filedocumented in this encounter Additional Health Concerns Assessment Noted Time PHQ-9 Depression Total Score: 24 025 10:42 AM EDT documented as of this encounter Care Teams International Affairs Vice President Relationship Specialty Start Date End Date Cindy Clay DO [address] [place] [address] PCP - General Family Medicine 05/13/22 Erika RIVERA 12/28/24 documented as of this encounter
--- OUTSIDE RECORDS SUMMARY | 2025-01-26 21:45 | XMS_ITS | Encounter Summary ---
Author Organization [employer] Address [address] [facility] 7t [place] [address] Care Team Providers Care Actuary Manager Name Role Phone Cindy Clay DO Primary Care Provider + [phone] Reason for Visit * Reason Onset Date Comments Results 01/20/2025 Encounter Details Date Type Department Care Team ([facility] st Contact Info) Description 01/20/2025 Refill [facility] [address] [place] [address] Cindy Clay DO [address] [place] [address] Social History Tobacco Use Types Packs/Day Years [...] as of this encounter Miscellaneous Notes * Addendum Note - Laura Murrieta RN - 01/24/2025 3:30 PM ESTAddended by: LAURA MURRIETA on: 01/24/2025 03:30 PM Modules accepted: Orders * Telephone Encounter - Laura Murrieta RN - 01/24/2025 2:20 PM EST TC placed to patient [phone] in regards to below message. PCP reports she would like patient to start Lipitor 10mg nightly. Patient verbalized understanding and did not have any further questions. Patient to f/u PRN. * Telephone Encounter - Laura Murrieta RN - 01/23/2025 4:06 PM EST TC placed to patient [phone] in regards to below message. Patient reports she WAS fasting at the time of her BW. Patient advised RN would discuss with PCP and return call to patient if PCP wouldlike to initiate medication. Patient verbalized understanding. Patient to f/u PRN. * Telephone Encounter - Yanni Barrientos - 01/23/2025 3:54 PM EST Tc from pt retuning call. Contact pt at [phone] * Telephone Encounter - Laura Murrieta RN - 01/23/2025 1:34 PM EST TC x2 placed to patient [phone] however no answer, RN left VM requesting CB to red team nurses. TC placed to [phone] however also no answer, RN left VM requesting CB to red team nurses. RN will re-attempt in AM. * Telephone Encounter - Laura Murrieta RN - 01/20/2025 2:09 PM EST RN reviewed BW results from 01/04/25 with PCP. Lipid panel returned elevated and PCP would like to know if patient was fasting. If patient was not fasting PCP will repeat BW at next appointment with patient fasting. TC placed to patient [phone] in regards to above message. Patient did not answer, RN left VM requesting CB to red team nurses. RN will re-attempt on Thursday AM. documented in this encounter Plan of Treatment Not on file documented as of this encounter Visit Diagnoses Not on filedocumented in this encounter Additional Health Concerns Assessment Noted Time PHQ-9 Depression Total Score: 24 025 10:42 AM EDT documented as of this encounter Care Teams Actuary Manager Relationship Specialty Start Date End Date Cindy Clay DO [address] [place] [address] PCP - General Family Medicine 05/13/22 Erika RIVERA 12/28/24 documented as of this encounter
--- OUTSIDE RECORDS SUMMARY | 2025-01-26 21:45 | XMS_ITS | Encounter Summary ---
Author Organization [facility] Address [address] [facility] [address] [place] [address] Phone Care Team Providers Care Bag Repairer Name Role Phone Sharifa Moncaad MD Primary Care Provider + Cindy Clay DO Primary Care Provider + [phone] Encounter Details Date Type Department Care Team (Late st Contact Info) Description 04/16/2021 Procedure Pass [facility] [address] [place] [address] Social History Tobacco Use Types Packs/Day Years [...] Appointment [facility] [address] [place], [place] [phone] Melany Bishop, PT [address] [place] [address] [email or web address] documented as of this encounter Visit Diagnoses Not on filedocumented in this encounter Additional Health Concerns Infection Onset Date Last Indicated Resolved Time CoV-Risk 10/24/2021 10/24/2021 11/04/2021 1:22 AM EDT documented as of this encounter Care Teams Bag Repairer Relationship Specialty Start Date End Date Sharifa Moncada MD [address] [place], [place] [id number] [place] [address] PCP - General Internal Medicine 06/23/20 12/22/24 Cindy Clay DO [address] [place] [address] PCP - General Family Medicine 12/23/24 documented as of this encounter Additional Source Comments The information contained in this document represents components of the legal health record. It is not the complete legal health record.[facility]
== END 2025-01-26 15:02 | disposition home or self-care (01) ==
LOC: HO.PMC 14:13
PROVIDERS: PCP Family Medicine; Visit Provider Nurse Practitioner Family
DX: M79.604 Pain in right leg (principal); M79.605 Pain in left leg; S76.311A Strain of muscle, fascia and tendon of the posterior muscle group at thigh level, right thigh, initial encounter; M54.16 Radiculopathy, lumbar region; M47.817 Spondylosis without myelopathy or radiculopathy, lumbosacral region; M51.369 Other intervertebral disc degeneration, lumbar region without mention of lumbar back pain or lower extremity pain
CPT/HCPCS: 99204

== ENCOUNTER → 2025-01-26 14:12 | Outpatient (BNVA) | payer MEDICAID, SELFPAY | PROVIDERS: PCP Family Medicine; Visit Provider Nurse Practitioner Family | DX: M79.604 Pain in right leg (principal); M79.605 Pain in left leg; M47.26 Other spondylosis with radiculopathy, lumbar region; M51.16 Intervertebral disc disorders with radiculopathy, lumbar region; S76.311A Strain of muscle, fascia and tendon of the posterior muscle group at thigh level, right thigh, initial encounter; W19.XXXA Unspecified fall, initial encounter; Y92.9 Unspecified place or not applicable; Y93.9 Activity, unspecified; Y99.9 Unspecified external cause status | CPT/HCPCS: 99212 ==

== ENCOUNTER 2025-02-13 10:18 | Outpatient (REF) | payer MEDICAID, SELFPAY ==
--- OUTSIDE RECORDS SUMMARY | 2025-02-07 09:00 | XMS_ITS | Encounter Summary ---
Author Organization [facility] Address [address] [facility] [address] [place] [address] Phone Care Team Providers Care Payroll Benefits Clerk Name Role Phone Cindy Clay DO Primary Care Provider [phone] Reason for Visit * Auth/Cert (Routine) Specialty Diagnoses / Procedures Referred By Cholo t Referred To Contact Referral ID Status Reason Start Date Expiration Date Visits Re quested Visits Authorized [id number] 1 1 Encounter Details Date Type Department Care Team (Late st Contact Info) Description 02/07/2025 9:00 AM EST Home Care Visit [facility] [address] [place] [address] Melany Bishop, PT [address] [place] [address] PT HOME VISIT Social History Tobacco Use [...] on file 06/13/2022 No 06/13/2022 No 06/13/2022 Food Answer Date Recorded Within the past 6 months we worried whether our food would run out before we got money to buy more. Never True 01/29/2025 Within the past 6 months the food we bought just didn't last and we didn't have enough money to get more. Never True Residential Stability Answer Date Recor ded What is your housing situation today? I have yelena hope 01/29/2025 How many times have you move d in the past 12 months? Zero (I did not move) 01/29/2025 Paying for Meds Answer Date Recorded Do you have trouble paying for medicines? No 01/29/2025 Paying Utility Bills Answer Date Record ed Do you have trouble paying your heating or elect ricity bill? No 01/29/2025 Transportation Answer Date Recorded Has the lack of transportati on kept you from medical appointments or from getting medications? No 01/29/2025 Digital Access Answer Date Recorded No 01/29/2025 Yes 01/29/2025 Do you have reliable internet access at home? Ye s 01/29/2025 Do you have a device (e.g., phone, tablet, computer) with a working camera? Yes 01/29/2025 Intimate Partner Violence Answer Date R ecorded Are you denied basic needs s uch as food, clothing, or medical care? No 01/29/2025 In the past 12 months have y ou been in a relationship with a person who hurts, threatens, or tries to control you? No 01/29/2025 Are you denied basic needs s uch as food, clothing, or medical care? No 01/29/2025 In the past 12 months have y ou been in a relationship with a person who hurts, threatens, or tries to control you? No 01/29/2025 Comments Unknown Sex and Gender Information Value Date Recorded Sex Assigned at Female 11/11/2019 3:40 PM EDT Legal Sex Female 3:22 PM EDT Gender Identity Female 11/11/2019 3:40 PM EDT Sexual Orientation Straight 06/23/2020 3: 57 PM EDT documented as of this encounter Last Filed Vital Signs Vital Sign Reading Time Taken Comments Blood Pressure 122/78 02/07/2025 9:25 AM EST Pulse 78 02/07/2025 9:25 AM EST Temperature 36.6 C (97.8 F) 02/07/2025 9:25 AM EST Respiratory Rate 16 02/07/2025 9:25 AM EST Oxygen Saturation 97% 02/07/2025 9:25 AM EST Inhaled Oxygen Concentration - - Weight - - Height - - Body Mass Index - - documented in this encounter Plan of Treatment Upcoming Encounters Date Type Department Care Team (Late st Contact Info) Description 02/14/2025 9:30 AM EST Appointment [facility] [address] [place], [place] [phone] Melany Bishop, PT [address] [place] [address] 02/17/2025 2:00 PM EST Appointment [facility] [address] [place] [address] Melany Bishop, PT [address] [place] [address] 02/20/2025 3:45 AM EST Appointment [facility] [address] [place] [address] Melany Bishop, PT [address] [place] [address] documented as of this encounter Visit Diagnoses [...] scheduled/document ed in this visit HH - Health Maintenance Disciplines: All Active Home Health Disciplines 12/26/2024 Active 1 goal linked to scheduled/document ed intervention HH - Focus of Care and Teaching [...] scheduled/document ed in this visit HH - Orthopedic Aftercare Disciplines: All Active Home Health Disciplines 12/26/2024 Active 1 goal linked to scheduled/document ed intervention 2 goal interventions scheduled/document ed in this visit Goals Goal Associated Problem Outcome Goal Met? Visit Notes HH - Demonstrate/verbalize improvement in depressive symptoms HH - Depression - Actual or Risk of Impairment Progressing No HH - Decrease anxiety through knowledge and management of triggers. HH - Anxiety - Actual or Risk of Impairment Progressing No HH - Safe medication management, avoid unnecessary harm related to medication errors and/or interactions HH - Medication Management Progressing No HH - Patient preferences will be utilized to achieve optimal wellness and home safety. HH - Health Maintenance Progressing No HH - Communication and collaboration [...] daily, but not constantly. HH - Pain Progressing No HH - Demonstrate maximum mobility and activity level for safe function Description: PT goals started 12/26/24, updated 02/03/25 1. Patient will demonstrate knowledge in fall prevention techniques so patient can remain safe at home by: 01/21/25. 02/03/25 progressing cont to 02/23/25 2. Patient will demonstrate ind transfers using LRD from all surfaces in her home in order to safely access home enviroment by 01/21/25 02/03/25 progressing cont to 02/23/25 3. Patient will demon . mod ind standing with LRD WB bilat le's x 10 minutes for task performance, transfers, and ambulation b y 01/21/25. 02/03/25 progressing cont to 02/23/25 4. Patient will demonsrate mod ind ambulation wbat RLE, using LRD x 100 ft in order to access home enviroment by 01/21/25. 02/03/25 progressing cont to 02/23/25 5. Patient will demonstrate independance wi th HEP in order to decrease pain and increase strength/ ROM to improve/maintain mobility and safety in home by: 01/21/25. 02/03/25 progressing cont to 02/23/25 6. Patient will demonstrate stair negotiation to enter/exit home and FOS to 2nd floor bathroo m with supervision (using HR) by 01/21/25. 02/03/25 progressing cont to 02/23/25 HH - Mobility and Activity Tolerance - Impaired Progressing No HH - Demonstrate/verbalize management of orthopedic aftercare HH - Orthopedic Aftercare Progressing No Interventions Intervention Associated Problem/Goal Status Variance Visit Notes HH - I/E depression management, causes, s/s, treatment options and coping mechanisms Problem:HH - Depression - Actual or Risk of Impairment Goal:HH - Demonstrate/verbalize improvement in depressive symptoms Performed HH - Assess s/s of depression Problem:HH - Depression - Actual or Risk of Impairment Goal:HH - Demonstrate/verbalize improvement in depressive symptoms Performed HH - I/E anxiety management, causes, treatment options and coping mechanisms Problem: - Anxiety - Actual or Risk of Impairment Goal:HH - Decrease anxiety through knowledge and management of triggers. Performed HH - I/E medication management: administration, purpose, dosages, preparation, setup, scheduling, side effects, food/drug interactions, and potential complications as indicated Description: Update patient's copy of medication list as needed. Problem: - Medication Management Goal:HH - Safe medication management, avoid unnecessary harm related to medication errors and/or interactions Performed - Complete medication review every visit and medication reconciliation as indicated. Pharmacy information: Problem: - Medication Management Goal:HH - Safe medication management, avoid unnecessary harm related to medication errors and/or interactions Performed - Focus of care, teaching completed and plan for next visit Problem: - Focus of Care and Teaching Goal: - Communication and collaboration to achieve patient goals Performed Primary Clinical Focus this Visit & Instruction Provided: Manual rx in prone, positioning for pain relief (lower back / RLE ) supine with le's flexed 90/90 supported on arm of sofa/pillows, gait training (short distance with ww), stair training (instru ction/ demon) for modified technique descending (backwards with B hands on HR, leading with RLE). pt declined to return demon today. Instruction Provided to: patient Response to Instruction/Teachin g: Is fully able to teach back topics as evidenced by discussion (for modif technique descending stairs), and discussion/ return demon for improved back protection/ and avoiding overdoing activity Plan for Next Visit Specific Focus & Education Needed: New Orders: Updated Discharge Plan: HH - I/E management of care in an urgent or emergency (ER) situation: When to call your Home Care Team/911, ER plans, supplies, evacuation, when to contact local ER officials and how to stay informed Problem: - Emergency Planning - Knowledge of Goal: - Knowledge of options for managing care in the event of an emergency related situation. Performed - Emergency planning assessment: the emergency plan, supplies needed, emergency contact numbers and an evacuation plan were reviewed Description: Patient and Caregiver is/are knowledgeable of emergency plans. Problem: - Emergency Planning - Knowledge of Goal: - Knowledge of options for managing care [...] optimize vision, adequate lighting, and functional vision Problem:HH - Falls - Risk of Goal:HH [...] level for safe function Performed This visit Manual rx in prone, positioning for pain relief (lower back / RLE ) supine with le's flexed 90/90 supported on arm of sofa/pillows, gait training (short distance with ww), stair training (instruction/ demon) for modified technique descendin g (backwards with B hands on HR, leading with RLE). pt declined to return demon today. HH - I/E therapeutic function/activity: Description: As indicated: activity promotion and management, functional mobility training, therapeutic exercise and home exercise program, device use. Problem:HH - Mobility and Activity Tolerance - Impaired Goal:HH - Demonstrate maximum mobility and activity level for safe function Performed HH - I/E orthopedic management: normal healing process, abnormal findings, use of devices, and precautions/restriction s Problem:HH - Orthopedic Aftercare Goal:HH - Demonstrate/verbalize management of orthopedic aftercare Performed HH - Assess orthopedic aftercare and healing process. Assess peripheral circulation, pulses, color, sensation, and movement Problem:HH - Orthopedic Aftercare Goal:HH - Demonstrate/verbalize management of orthopedic aftercare Performed documented in this encounter Care Teams Payroll Benefits Clerk Relationship Specialty Start Date End Date Cindy Clay DO [address] [place] [address] PCP - General Family Medicine 12/23/24 documented as of this encounter Additional Source Comments The information contained in this document represents components of the legal health record. It is not the complete legal health record.[facility]
--- NOTE | ~2025-02-13 | MR_ITS ---
EXAMINATION: MR LUMBAR SPINE WITHOUT CONTRAST CLINICAL INFORMATION: Low back pain radiating down legs right greater than left, since fall 11/2024. COMPARISON: No prior. TECHNIQUE: Multiplanar multisequence MR imaging of the lumbar spine was done without IV contrast. Examination was performed on a 1.5 Karol Siemens magnet, utilizing standard sequences. FINDINGS: CORONAL ALIGNMENT: -There is a minimal right convex scoliosis, apex at L1-2. This could be positional. SAGITTAL ALIGNMENT: - Normal lordosis. No subluxations. LUMBOSACRAL JUNCTION: -Normal. There are 5 [id number] lumbar-type vertebral bodies. VERTEBRAL BODIES/BONE MARROW: -There are no fractures, compression deformities, regions of bone marrow edema, or abnormal infiltrating bone marrow signal. There are fatty type endplate changes at T11-T12. DISCS: -There is mild loss of disc height and signal diffusely. There is mild to moderate loss at T11-T12. SPINAL CANAL: -No abnormal developmental findings. CONUS MEDULLARIS: -Terminates at L2. Morphology and signal is normal. INTRADURAL NERVE ROOTS: - Within normal limits. No evidence of nerve root clumping or mass. Axial Disc Space Images: T12-L1: There is no central canal or neural foraminal narrowing. Normal facets. L1-L2: There is no central canal or neural foraminal narrowing. There is mild left facet hypertrophic arthropathy. L2-L3: There is no central canal or neural foraminal narrowing. There is very mild bilateral facet hypertrophic arthropathy. L3-L4: There is no central canal or neural foraminal narrowing. There is very mild bilateral facet hypertrophic arthropathy. L4-L5: There is no significant central canal or neural foraminal narrowing. There is very mild facet hypertrophic arthropathy. L5-S1: There is a trace disc bulge present with right foraminal annular fissuring, asymmetrically prominent into the left neural foramen. There are mild degenerative facet changes bilaterally. There is no central canal or subarticular recess narrowing. There is mild left neural foraminal narrowing. The right neural foramen is widely patent. IMAGED SI JOINTS: -Minimal degenerative arthritis bilaterally. PARAVERTEBRAL AND INCLUDED EXTRASPINAL SOFT TISSUES: -There are tiny subcentimeter cysts in the left kidney. Remainder of the imaged retroperitoneal and intraperitoneal soft tissues, as well as the paravertebral and paraspinal soft tissues, are normal. MR/MR lumbar spine wo con IMPRESSION: 1. There are no acute bony or soft tissue findings. 2. Minimal spondylosis most significant at L5-S1 as discussed above. There is no evidence of significant central canal stenosis, or nerve root impingement at any level. Electronically signed by: Venkatesh Hernandez MD 02/13/2025 11:33 AM [facility]
--- OUTSIDE RECORDS SUMMARY | 2025-02-13 11:41 | XMS_ITS | Encounter Summary ---
Author Organization [employer] Address [address] [facility] 7t [place] [address] Care Team Providers Care Paint Line Supervisor Name Role Phone Cindy Clay DO Primary Care Provider + [phone] Reason for Visit * Reason Comments Med Refill Encounter Details Date Type Department Care Team ([facility] st Contact Info) Description 02/11/2025 Refill [facility] MED[facility] [address] [place] [address] Cindy Clay DO [address] [place] [address] Social History Tobacco Use Types Packs/Day Years [...] with others, in a hotel, in a fci, living outside on the street, on a [...] Care Team (Late st Contact Info) Description 02/13/2025 12:00 PM EST Office Visit [facility] [address] [place] [address] Cindy Clay DO [address] [place] [address] documented as of this encounter Visit Diagnoses Not on filedocumented in this encounter Additional Health Concerns Assessment Noted Time PHQ-9 Depression Total Score: 24 025 10:42 AM EDT documented as of this encounter Care Teams Paint Line Supervisor Relationship Specialty Start Date End Date Cindy Clay DO [address] [place] [address] PCP - General Family Medicine 05/13/22 Erika RIVERA 12/28/24 documented as of this encounter
--- OUTSIDE RECORDS SUMMARY | 2025-02-13 11:41 | XMS_ITS | Encounter Summary ---
Author Organization [employer] Address [address] [place] [address] 7t [place] [address] Care Team Providers Care Farmworker Dairy Name Role Phone Cindy Clay DO Primary Care Provider + [phone] Reason for Visit * Reason Comments Med Refill Encounter Details Date Type Department Care Team ([facility] Contact Info) Description 11/03/2022 Refill [facility] [address] [place] [address] Sharifa Moncada MD [address] [place] [phone] Anxiety Social History Tobacco Use Types Packs/Day [...] Encounters Date Type Department Care Team (Late Contact Info) Description 02/13/2025 12:00 PM EST Office Visit [facility] [address] [place] [address] Cindy Clay DO [address] [place] [address] documented as of this encounter Visit Diagnoses Diagnosis Anxiety Anxiety state, unspecified documented in this encounter Additional Health Concerns Assessment Noted Time PHQ-9 Depression Total Score: 24 023 10:07 AM EDT documented as of this encounter Care Teams Farmworker Dairy Relationship Specialty Start Date End Date Cindy Clay DO [address] [place] [address] PCP - General Family Medicine 05/13/22 Erika RIVERA 12/28/24 documented as of this encounter
--- OUTSIDE RECORDS SUMMARY | 2025-02-13 11:41 | XMS_ITS | Encounter Summary ---
Author Organization [employer] Address [address] [facility] 7t [place] [address] Care Team Providers Care Stump Shooter Name Role Phone Cindy Clay DO Primary Care Provider + [phone] Encounter Details Date Type Department Care Team (Late st Contact Info) Description 02/20/2023 Orders Only [facility] MEDICINE [address] [place] [address] Cindy Clay DO [address] [place] [address] Social History Tobacco Use Types Packs/Day Years [...] Description 02/13/2025 12:00 PM EST Office Visit [facility] MED[facility]INE [address] [place] [address] Cindy Clay DO [address] [place] [address] documented as of this encounter Visit Diagnoses Not on filedocumented in this encounter Additional Health Concerns Assessment Noted Time PHQ-9 Depression Total Score: 24 023 10:07 AM EDT documented as of this encounter Care Teams Stump Shooter Relationship Specialty Start Date End Date Cindy Clay DO 230 [place] [address] PCP - General Family Medicine 05/13/22 Erika RIVEAR 12/28/24 documented as of this encounter
--- OUTSIDE RECORDS SUMMARY | 2025-02-13 11:41 | XMS_ITS | Encounter Summary ---
Author Organization [employer] Address [address] [facility] 7t [place] [address] Care Team Providers Care Title Search Manager Name Role Phone MirnaCindy bliss Primary Care Provider + [phone] Encounter Details Date Type Department Care Team ([facility] Contact Info) Description 01/30/[address] [facility] [address] [place] [address] Provider, MD Felix Social History Tobacco Use Types Packs/Day Years [...] with others, in a hotel, in a custodial, living outside on the street, on a [...] Description 02/13/2025 12:00 PM EST Office Visit [facility] [address] [place] [address] Cindy Clay DO [address] [place] [address] documented as of this encounter Procedures Procedure Name Priority Date/Time Associated Diagnosis Comments CT HEAD WO CONTRAST Routine 01/29/2025 documented in this encounter Results * CT Head w/o Contrast (01/29/2025) Anatomical Region Laterality Modality Head, Neck Computed Tomogra phy us Historical Provider MD [facility] CT PROCEDURES Final R esult documented in this encounter Visit Diagnoses Not on filedocumented in this encounter Additional Health Concerns Assessment Noted Time PHQ-9 Depression Total Score: 24 025 10:42 AM EDT documented as of this encounter Care Teams Title Search Manager Relationship Specialty Start Date End Date Cindy Clay DO [address] [place], [place] [phone] PCP - General Family Medicine 05/13/22 Erika RIVERA 12/28/24 documented as of this encounter
--- OUTSIDE RECORDS SUMMARY | 2025-02-13 11:41 | XMS_ITS | Encounter Summary ---
Author Organization [facility] Address [address] [place] [address] Phone Care Team Providers Care Casino Games Dealer Name Role Phone Cindy Clay DO Primary Care Provider + [phone] Encounter Details Date Type Department Care Team (Late st Contact Info) Description 01/29/2025 Procedure Pass [facility] Ct Scan - [address] [address] Social History Tobacco Use Types Packs/Day Years [...] your housing situation today? I have yelena sing 01/29/2025 How many times have you move [...] Info) Description 02/14/2025 9:30 AM EST Appointment [facility] [address] [place], [place] [phone] Melany Bishop, PT [address] [place] [address] 02/17/2025 2:00 PM EST Appointment [facility] [address] [place], [place] [phone] Melany Bishop, PT [address] [place] [address] 02/20/2025 3:45 AM EST Appointment [facility] [address] [place], [place] [phone] Melany Bishop, PT [address] [place] [address] [email or web address] documented as of this encounter Visit Diagnoses Not on filedocumented in this encounter Care Teams Casino Games Dealer Relationship Specialty Start Date End Date Cindy Clay DO [address] [place] [address] PCP - General Family Medicine 12/23/24 documented as of this encounter Additional Source Comments The information contained in this document represents components of the legal health record. It is not the complete legal health record.[facility]
--- OUTSIDE RECORDS SUMMARY | 2025-02-13 11:41 | XMS_ITS | Encounter Summary ---
Author Organization [facility] Address [address] [facility] [address] [place] [address] Phone Care Team Providers Care Web Site Project Manager Name Role Phone Cindy Clay DO Primary Care Provider + [phone] Encounter Details Date Type Department Care Team (Late st Contact Info) Description 01/29/2025 Procedure Pass [facility], Ct Scan - [address] [address] Social History Tobacco Use Types Packs/Day Years [...] Appointment [facility] [address] [place], [place] [phone] Melany Bishop, PT [address] [place] [address] 02/17/2025 2:00 PM EST Appointment [facility] [address] [place], [place] [phone] Melany Bishop, PT [address] [place] [address] 02/20/2025 3:45 AM EST Appointment [facility] [address] [place], [place] [phone] Melany Bishop, PT [address] [place] [address] [email or web address] documented as of this encounter Visit Diagnoses Not on filedocumented in this encounter Care Teams Web Site Project Manager Relationship Specialty Start Date End Date Cindy Clay DO [address] [place] [address] PCP - General Family Medicine 12/23/24 documented as of this encounter Additional Source Comments The information contained in this document represents components of the legal health record. It is not the complete legal health record.[facility]
--- OUTSIDE RECORDS SUMMARY | 2025-02-13 11:41 | XMS_ITS | Encounter Summary ---
Author Organization [employer] Address [address] [facility] 7t [place] [address] Care Team Providers Care Intellectual Property Paralegal Name Role Phone Sharifa Moncada MD Primary Care Provider + Cindy Clay DO Primary Care Provider [phone] Encounter Details Date Type Department Care Team ([facility] Contact Info) Description 05/09/2022 Orders Only [facility] [address] [place] [id number] Alayna Newberry LPN Social History Tobacco Use [...] Upcoming Encounters Date Type Department Care Team ([facility] Contact Info) Description 02/13/2025 12:00 PM EST Office Visit [facility] [address] [place] [address] [phone] Cindy Clay DO [address] [place] [address] [phone] documented as of this encounter Visit Diagnoses Not on filedocumented in this encounter Care Teams Intellectual Property Paralegal Relationship Specialty Start Date End Date Sharifa Moncada MD [address] [place] [address] PCP - General Family Medicine 02/25/16 05/12/22 Cindy Clay DO [address] [place] [address] PCP - General Family Medicine 05/13/22 Erika RIVERA 12/28/24 documented as of this encounter
--- OUTSIDE RECORDS SUMMARY | 2025-02-13 11:41 | XMS_ITS | Encounter Summary ---
Author Organization [employer] Address [address] [facility] 7t [place] [address] Care Team Providers Care Customer Service Coordinator Name Role Phone Cindy Clay DO Primary Care Provider + [phone] Reason for Visit * Reason Comments Med Refill Encounter Details Date Type Department Care Team (Late Contact Info) Description 07/27/2022 Refill [facility] [address] [place] [phone] Kendell Nolasco MD [address] [place] [address] Social History Tobacco Use Types Packs/Day Years [...] Description 02/13/2025 12:00 PM EST Office Visit [facility] [address] [place] [phone] Cindy Clay DO [address] [place] [address] documented as of this encounter Visit Diagnoses Not on filedocumented in this encounter Additional Health Concerns Assessment Noted Time PHQ-9 Depression Total Score: 18 023 9:31 AM EDT documented as of this encounter Care Teams Customer Service Coordinator Relationship Specialty Start Date End Date Cindy Clay DO [address] [place] [address] PCP - General Family Medicine 05/13/22 Erika RIVERA 12/28/24 documented as of this encounter
--- OUTSIDE RECORDS SUMMARY | 2025-02-13 11:41 | XMS_ITS | Encounter Summary ---
Author Organization [employer] Address [address] [facility] 7t [place] [address] Care Team Providers Care Laborer Brush Clearing Name Role Phone Cindy Clay DO Primary Care Provider + [phone] Reason for Visit * Reason Comments Med Refill Encounter Details Date Type Department Care Team ([facility] st Contact Info) Description 08/12/2024 Refill [facility] [address] [place] [address] Cindy Clay DO [address] [place] [address] Social History Tobacco Use Types Packs/Day Years [...] with others, in a hotel, in a [place] [facility], living outside on the street, on a [...] EST Office Visit [facility] [address] [place] [address] Cindy Clay DO [address] [place] [address] documented as of this encounter Visit Diagnoses Not on filedocumented in this encounter Additional Health Concerns Assessment Noted Time PHQ-9 Depression Total Score: 25 025 12:05 PM EDT documented as of this encounter Care Teams Laborer Brush Clearing Relationship Specialty Start Date End Date Cindy Clay DO [address] [place] [address] PCP - General Family Medicine 05/13/22 Erika RIVERA 12/28/24 documented as of this encounter
--- OUTSIDE RECORDS SUMMARY | 2025-02-13 11:41 | XMS_ITS | Encounter Summary ---
Author Organization [facility] Address [address] [place] [phone] Phone Care Team Providers Care Front Office Director Name Role Phone Cindy Clay DO Primary Care Provider + [phone] Encounter Details Date Type Department Care Team (Late st Contact Info) Description 01/29/2025 Procedure Pass [facility], Ct Scan - [address] [address] Social History Tobacco Use Types Packs/Day Years [...] Appointment [facility] [address] [place], [place] [phone] Melany Bishop, PT [address] [place] [address] 02/17/2025 2:00 PM EST Appointment [facility] [address] [place], [place] [phone] Melany Bishop, PT [address] [place] [address] 02/20/2025 3:45 AM EST Appointment [facility] [address] [place], [place] [phone] Melany Bishop, PT [address] [place] [address] [email or web address] documented as of this encounter Visit Diagnoses Not on filedocumented in this encounter Care Teams Front Office Director Relationship Specialty Start Date End Date Cindy Clay DO [address] [place] [address] PCP - General Family Medicine 12/23/24 documented as of this encounter Additional Source Comments The information contained in this document represents components of the legal health record. It is not the complete legal health record.[facility]
--- OUTSIDE RECORDS SUMMARY | 2025-02-13 11:41 | XMS_ITS | Encounter Summary ---
Author Organization [facility] Address [address] [facility] [address] [place] [address] Phone Care Team Providers Care Mailroom Assistant Name Role Phone Cindy Clay DO Primary Care Provider + [phone] Encounter Details Date Type Department Care Team (Late st Contact Info) Description 01/29/2025 Procedure Pass [facility], Ct Scan - [address] [address] Social History Tobacco Use Types Packs/Day Years [...] Appointment [facility] [address] [place], [place] [phone] Melany Bishop, PT [address] [place] [address] 02/17/2025 2:00 PM EST Appointment [facility] [address] [place], [place] [phone] Melany Bishop, PT [address] [place] [address] 02/20/2025 3:45 AM EST Appointment [facility] [address] [place], [place] [phone] Melany Bishop, PT [address] [place] [address] [email or web address] documented as of this encounter Visit Diagnoses Not on filedocumented in this encounter Care Teams Mailroom Assistant Relationship Specialty Start Date End Date Cindy Clay DO [address] [place] [address] PCP - General Family Medicine 12/23/24 documented as of this encounter Additional Source Comments The information contained in this document represents components of the legal health record. It is not the complete legal health record.[facility]
--- OUTSIDE RECORDS SUMMARY | 2025-02-13 11:41 | XMS_ITS | Encounter Summary ---
Author Organization [employer] Address [address] [facility] 7t [place] [address] Care Team Providers Care Surfacer Name Role Phone Cindy Clay DO Primary Care Provider + [phone] Reason for Visit * Reason Comments Med Refill Encounter Details Date Type Department Care Team ([facility] st Contact Info) Description 04/01/2023 Refill [facility] [address] [place] [address] Taryn Parsons MD [address] [place] [address] Vitamin D deficiency Social History Tobacco Use [...] Description 02/13/2025 12:00 PM EST Office Visit [facility] [address] [place] [address] Cindy Clay DO [address] [place] [address] documented as of this encounter Visit Diagnoses Diagnosis Vitamin D deficiency documented in this encounter Additional Health Concerns Assessment Noted Time PHQ-9 Depression Total Score: 24 023 10:07 AM EDT documented as of this encounter Care Teams Surfacer Relationship Specialty Start Date End Date Cindy Clay DO [address] [place] [address] PCP - General Family Medicine 05/13/22 Erika RIVERA 12/28/24 documented as of this encounter
--- OUTSIDE RECORDS SUMMARY | 2025-02-13 11:41 | XMS_ITS | Encounter Summary ---
Author Organization [employer] Address [address] [facility] 7t [place] [address] Care Team Providers Care Golf Ball Molder Name Role Phone Cindy Clay DO Primary Care Provider + [phone] Reason for Visit * Reason Comments Med Refill Encounter Details Date Type Department Care Team ([facility] st Contact Info) Description 04/03/2024 Refill [facility] [address] [place] [address] Taryn Parsons MD [address] [place] [address] Social History Tobacco Use Types Packs/Day Years [...] Description 02/13/2025 12:00 PM EST Office Visit [facility] [address] [place] [address] Cindy Clay DO [address] [place] [address] documented as of this encounter Visit Diagnoses Not on filedocumented in this encounter Additional Health Concerns Assessment Noted Time PHQ-9 Depression Total Score: 19 024 10:31 AM EDT documented as of this encounter Care Teams Golf Ball Molder Relationship Specialty Start Date End Date Cindy Clay DO [address] [place] [address] PCP - General Family Medicine 05/13/22 Erika RIVERA 12/28/24 documented as of this encounter
--- OUTSIDE RECORDS SUMMARY | 2025-02-13 11:42 | XMS_ITS | Encounter Summary ---
Author Organization [facility] Address [address] [facility] [address] [place] [phone] Phone Care Team Providers Care Pet Sitter Name Role Phone Sharifa Moncada MD Primary Care Provider + Cindy Clay DO Primary Care Provider + [phone] Encounter Details Date Type Department Care Team (Late st Contact Info) Description 04/16/2021 Procedure Pass [facility], [address] [address] Social History Tobacco Use Types Packs/Day Years [...] Description 02/14/2025 9:30 AM EST Appointment [facility] [address] [place] [phone] Melany Bishop, PT [address] [place] [address] 02/17/2025 2:00 PM EST Appointment [facility] [address] [place] [phone] Melany Bishop, PT [address] [place] [address] [email or web address] 02/20/2025 3:45 AM EST Appointment [facility] [address] [place] [phone] Melany Bishop, PT [address] [place] [address] documented as of this encounter Visit Diagnoses Not on filedocumented in this encounter Additional Health Concerns Infection Onset Date Last Indicated Resolved Time CoV-Risk 10/24/2021 10/24/2021 11/04/2021 1:22 AM EDT documented as of this encounter Care Teams Pet Sitter Relationship Specialty Start Date End Date Sharifa Moncada MD [address] [place] [phone] PCP - General Internal Medicine 06/23/20 12/22/24 Cindy Clay DO [address] [place] [address] [phone] PCP - General Family Medicine 12/23/24 documented as of this encounter Additional Source Comments The information contained in this document represents components of the legal health record. It is not the complete legal health record.[facility]
--- OUTSIDE RECORDS SUMMARY | 2025-02-13 11:42 | XMS_ITS | Encounter Summary ---
Author Organization [facility] Address [address] [facility] [address] [place] [address] Phone Care Team Providers Care Mortarman Name Role Phone Sharifa Moncada MD Primary Care Provider + Cindy Clay DO Primary Care Provider + [phone] Encounter Details Date Type Department Care Team (Late st Contact Info) Description 04/16/2021 Procedure Pass [facility] [address] [place] [address] Social History Tobacco Use Types Packs/Day Years [...] Appointment [facility] [address] [place] [phone] Melany Bishop, PT [address] [place] [address] 02/17/2025 2:00 PM EST Appointment [facility] [address] [place] [phone] Melany Bishop, PT [address] [place] [address] 02/20/2025 3:45 AM EST Appointment [facility] [address] [place] [phone] Melany Bishop, PT [address] [place] [address] documented as of this encounter Visit Diagnoses Not on filedocumented in this encounter Additional Health Concerns Infection Onset Date Last Indicated Resolved Time CoV-Risk 10/24/2021 10/24/2021 11/04/2021 1:22 AM EDT documented as of this encounter Care Teams Mortarman Relationship Specialty Start Date End Date Sharifa Moncada MD [address] [place] [phone] PCP - General Internal Medicine 06/23/20 12/22/24 Cindy Clay DO [address] [place] [address] [phone] PCP - General Family Medicine 12/23/24 documented as of this encounter Additional Source Comments The information contained in this document represents components of the legal health record. It is not the complete legal health record.[facility]
--- OUTSIDE RECORDS SUMMARY | 2025-02-13 11:42 | XMS_ITS | Clinical Summary ---
Author Organization [employer] Address [address] [facility] [address] [place] [address] Care Team Providers Care Continuing Education Dean Name Role Phone Cindy Clay DO Primary Care Provider [phone] Allergies Active Allergy Reactions Criticality Noted Date [...] Active cholecalcifero l (Vitamin D-3) 50 MCG (1999 UT) capsule Take 1 capsule (50 mcg) by mouth Once per day. 30 capsule 11 06/18/19 25 Active amitriptyline (Elavil) 25 MG tablet [...] capsule 2 5 12:06 PM EST 01/03/20 25 026 Active losartan (Cozaar) 50 MG tablet Take [...] by mouth Once per day. 01/06/20 Active hydroCHLOROthi azide (HYDRODiuril) 25 MG tablet Take 25 mg by mouth. 12/05/19 Active acetaminophen (Tylenol 8 Hour) 650 MG [...] 1 5 3:54 PM EST 01/26/20 25 Active Diclofenac Sodium 1 % gel Apply [...] patch 3 5 3:54 PM EST 01/26/20 Active melatonin 5 MG tablet TAKE 2 TABLETS BY MOUTH EVERY DAY AT BEDTIME 180 tablet 1 02/03/20 Active montelukast (Singulair) 10 MG tablet TAKE 1 TABLET BY MOUTH EVERY EVENING 90 tablet 1 12/18/20 25 Active oxyCODONE (Roxicodone) 5 MG immediate release tabletIndicati ons:Partial tear of right hamstring TAKE 1 TABLET BY MOUTH AT BEDTIME NEEDED FOR SEVERE PAIN 7 tablet 5 5:58 PM EST 02/03/20 25 Active melatonin 5 MG tablet TAKE 2 TABLETS BY MOUTH EVERY DAY AT BEDTIME 180 tablet 1 07/21/19 25 025 Discontinued montelukast (Singulair) 10 MG tablet TAKE 1 TABLET BY MOUTH EVERY EVENING 90 tablet 1 07/21/19 25 025 Discontinued gabapentin (Neurontin) 100 MG capsule 025 Discontinued oxyCODONE (Roxicodone) 5 MG immediate [...] order (will not trigger notification to Pharmacy)) DULoxetine (Cymbalta) [address] capsule Take 60 mg by mouth 2 times daily. 01/06/20 25 025 oxyCODONE (Roxicodone) 5 MG immediate release tabletIndicati ons:Partial tear of right hamstring Take 1 tablet (5 mg) by mouth if needed at bedtime for severe pain. 7 tablet 5 3:54 PM EST 01/26/20 25 025 Discontinued Active Problems Problem Noted Date [...] wants to hold for now. S/p Tdap 2017. Hep B neg, refused vaccination. -labs x [...] healthy life style -Will need to discuss embedded case manager referral at next apt. -Will monitor HbA1c [...] LUIS, RF, and elevated CRP. F w machine welt butter. Not yet Dx w inflammatory arthritis. Pt was referred for further lab testing. -Tylenol PRN -Prescribed today Meloxicam PRN for moderate pain. Pt not taking Ibuprofen. -Continue w machine welt butter f up. Assessment & Plan (05/27/2022 4:10 PM EDT): I referred patient to rheumatology Rheumatoid factor positive 05/27/2022 History of COVID-19 05/13/2022 Essential hypertension 05/13/2022 Assessment & Plan (10/04/2022 7:05 PM EDT): BP well controlled. 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 -Microalb ordered today. Chronic gastroesophageal reflux disease 05/14/19 23 Severe persistent asthma 05/13/2022 Assessment & Plan (10/04/2022 7:20 PM EDT): Currently reported as better controlled. -Continue treatment -Pt referred for nuclear scientist before. I request court specialist to check for status of referral. Recommend pt to discuss w nuclear scientist as well about penicillin allergy and test to confirm if it's true allergy. 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 Major depressive disorder, r ecurrent, severe with [...] 05/13/2022 Neck pain 05/13/2022 05/13/2022 Oropharyngeal dysphagia 05/13/202204/173 Postoperative pain 05/13/2022 Right leg pain 05/13/2022 05/13/2022 Superficial incisional surgi kale site infection 05/13/2022 05/13/2022 Xerostomia 05/13/2022 05/13/2022 Knee pain 03/04/2016 05/13/2022 Skin tag 03/04/2016 05/13/2022 Encounters * This document contains information received from the source organization and may not represent a complete record from that organization. Date Type Department Care Team Description 02/11/2025 Refill [facility] [place] [address] Cindy Clay DO 02/07/2025 Telephone [facility] [place] [address] Cindy Clay DO Chart Prep 02/03/2025 Telephone [facility] [place] [address] Cindy Clay DO FYI 02/02/2025 Refill [facility] [place] [address] Cinyd Clay DO Partial tear of right hamstring 01/30/2025 Orders Only [facility] [place] [address] Provider, MD Felix 01/27/2025 Telephone [facility] MED[facility]INE [address] [place] [phone] Cindy Clay DO 01/25/2025 3:00 PM EST Office Visit [facility] [place] [address] Cindy Clay DO Pre-diabetes; Partial tear of right hamstring 01/25/2025 Travel 01/24/2025 Travel 01/24/2025 Telephone [facility] [place] [address] Cindy Clay DO chart prep 01/20/2025 Refill [facility] [place] [address] Cindy Clay DO 01/19/2025 Telephone [facility] MEDICINE [address] [place] [address], [place] [address] Cindy Clay, Recall Appointment 01/19/2025 Travel 01/19/[address] [place] [address] Cindy Clay, verbal orders 01/18/[address] [place] [address] Cindy Clay, FYI 01/17/[address] [place] [address] [place], [place]a, 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 Partial tear of right hamstring 01/16/[address] [place] [address] Cindy Clay, FYI 01/10/[address] [address] Cindy Clay, FYI 01/10/[address] [address] Cindy Clay, fyi 01/05/[address] [address] Cindy Clay, Medication Question 01/04/2025 Orders Only GENERIC EXTERNAL DATA DEPARTMENT Provider, Generic External Data 01/02/2025 1:00 PM EST Office Visit [address] [address] Taryn Parsons MD Chronic midline low back pain with bilateral sciatica; Hyperparathyroidism (CMS/HCC); Tear of right hamstring; Partial tear of right hamstring 01/02/2025 Travel 12/28/[address] [place] [address] Cindy Clay, verbal order 12/28/[address] [address] Cindy Clay DO Call Back Request 12/27/[address] [address] Cindy Clay DO FYi 12/26/[address] [address] Cindy Clay DO Durable Medical Equipment (DME: Transfer Bench) 12/26/[address] [address] Cindy Clay DO Partial tear of right hamstring (Primary Dx) 12/22/2024 Patient Outreach [address] [address] Cindy Clay DO Transition Of Care (Tcm) (HDF- Scheduled Direct) 12/16/[address] [address] Cindy Clay DO 12/13/[address] [address] Cindy Clay DO Nurse Triage 12/05/2024 Orders Only GENERIC EXTERNAL DATA DEPARTMENT Provider, Generic External Data 12/04/2024 Orders Only GENERIC EXTERNAL DATA DEPARTMENT Provider, Generic External Data 11/30/[address] [address] Cindy Clay DO Nurse Triage 11/17/2024 Telephone [facility] [address] [place] [phone] Cindy Clay DO EYE CARE REFERRAL 11/16/2024 10:00 AM EDT Office Visit [address] [address] Cindy Clay DO Essential hypertension (Primary Dx); [...] neoplasm of breast 11/16/2024 Travel 11/15/2024 Telephone [facility] MEDICINE [address] [place] [address] Cindy Clay DO Chart Prep from Last [...] with others, in a hotel, in a nursing home, living outside on the street, on [...] 01/25/2025 3:21 PM EST Plan of Treatment Upcoming Encounters Date Type Department Care Team (Late st Contact Info) Description 02/13/2025 12:00 PM EST Office Visit [facility] MEDIC[facility] [address] [place] [address] Cindy Clay DO [address] [place], [place] [phone] Health Maintenance Due Date Last Done Comments [...] Mammogram 02/25/2025 02/25/2023 Depression Monitoring 05/17/2025 11/16/2024, Alcohol/Substance Use Screening 06/17/2025 06/17/2024 SDOH Screening [...] Procedure Name Priority Date/Time Associated Diagnosis Comments MR LUMBAR SPINE WO CONTRAST Routine 02/13/2025 10:23 AM EST Chronic midline low back pain with bilateral sciatica CT HEAD WO CONTRAST Routine 01/29/2025 POCT GLUCOSE (CPT-46773) Routine 01/25/2025 3:23 PM EST Pre-diabetes VITAMIN [...] Recently Relevant to Health Maintenance Results * MR Lumbar Spine w/o Contrast (02/13/2025 10:23 AM EST) Anatomical Region Laterality Modality Spine, L-spine Magnetic Resonan ce 02/13/2025 10:2 3 AM EST Narrative 02/13/2025 11:36 AM EST [address] [address] Magnetic Resonance Report Signed Patient: Emerita Wills MR#: [id number] : 1970 Acct:[id number] Age/Sex: 54 / F ADM Date: 02/13/25 Loc: HO.MRI Attending Dr: Taryn Montoya MD Ordering Physician: Taryn Parsons MD Date of Service: 02/13/25 Procedure(s): MR lumbar spine wo con Accession Number(s): [id number] cc: Taryn Parsons MD; Cindy Clay DO Reason for Exam: worsening pain EXAMINATION: MR LUMBAR SPINE WITHOUT CONTRAST CLINICAL INFORMATION: Low back pain radiating down legs right greater than left, since fall 11/2024. COMPARISON: No prior. TECHNIQUE: Multiplanar multisequence MR imaging of the lumbar spine was done without IV contrast. Examination was performed on a 1.5 Karol Siemens magnet, utilizing standard sequences. FINDINGS: CORONAL ALIGNMENT: -There is a minimal right convex scoliosis, apex at L1-2. This could be positional. SAGITTAL ALIGNMENT: - Normal lordosis. No subluxations. LUMBOSACRAL JUNCTION: -Normal. There are 5 [id number] lumbar-type vertebral bodies. VERTEBRAL BODIES/BONE MARROW: -There are no fractures, compression deformities, regions of bone marrow edema, or abnormal infiltrating bone marrow signal. There are fatty type endplate changes at T11-T12. DISCS: -There is mild loss of disc height and signal diffusely. There is mild to moderate loss at T11-T12. SPINAL CANAL: -No abnormal developmental findings. CONUS MEDULLARIS: -Terminates at L2. Morphology and signal is normal. INTRADURAL NERVE ROOTS: - Within normal limits. No evidence of nerve root clumping or mass. Axial Disc Space Images: T12-L1: There is no central canal or neural foraminal narrowing. Normal facets. L1-L2: There is no central canal or neural foraminal narrowing. There is mild left facet hypertrophic arthropathy. L2-L3: There is no central canal or neural foraminal narrowing. There is very mild bilateral facet hypertrophic arthropathy. L3-L4: There is no central canal or neural foraminal narrowing. There is very mild bilateral facet hypertrophic arthropathy. L4-L5: There is no significant central canal or neural foraminal narrowing. There is very mild facet hypertrophic arthropathy. L5-S1: There is a trace disc bulge present with right foraminal annular fissuring, asymmetrically prominent into the left neural foramen. There are mild degenerative facet changes bilaterally. There is no central canal or subarticular recess narrowing. There is mild left neural foraminal narrowing. The right neural foramen is widely patent. IMAGED SI JOINTS: -Minimal degenerative arthritis bilaterally. PARAVERTEBRAL AND INCLUDED EXTRASPINAL SOFT TISSUES: -There are tiny subcentimeter cysts in the left kidney. Remainder of the imaged retroperitoneal and intraperitoneal soft tissues, as well as the paravertebral and paraspinal soft tissues, are normal. MR/MR lumbar spine wo con IMPRESSION: 1. There are no acute bony or soft tissue findings. 2. Minimal spondylosis most significant at L5-S1 as discussed above. There is no evidence of significant central canal stenosis, or nerve root impingement at any level. Electronically signed by: Venkatesh Hernandez MD 02/13/2025 11:33 AM [facility] Dictated By: Venkatesh Hernandez MD Signed By: <Electronically signed by Venkatesh Hernandez MD in OV> 02/13/25 1133 DD/ 1023 TD/TT: 02/13/25 1053 Home Health Registered Nurse: Procedure Note Donotuseinterpreter, Image - 02/13/2025 [place] [address] Magnetic Resonance Report Signed Patient: Jey Wills#: [id number] : 1970Acct:[id number] Age/Sex: 54 / FADM Date: 02/13/25 Loc: HO.MRI Attending Dr: Taryn Montoya MD Ordering Physician: Taryn Parsons MD Date of Service: 02/13/25 Procedure(s): MR lumbar spine wo con Accession Number(s): [id number] cc: Taryn Parsons MD; Cindy Clay DO Reason for Exam: worsening pain EXAMINATION: MR LUMBAR SPINE WITHOUT CONTRAST CLINICAL INFORMATION: Low back pain radiating down legs right greater than left, since fall 11/2024. COMPARISON: No prior. TECHNIQUE: Multiplanar multisequence MR imaging of the lumbar spine was done without IV contrast. Examination was performed on a 1.5 Karol Siemens magnet, utilizing standard sequences. FINDINGS: CORONAL ALIGNMENT: -There is a minimal right convex scoliosis, apex at L1-2. This could be positional. SAGITTAL ALIGNMENT: - Normal lordosis. No subluxations. LUMBOSACRAL JUNCTION: -Normal. There are 5 bzm-sib-pnvhsrm lumbar-type vertebral bodies. VERTEBRAL BODIES/BONE MARROW: -There are no fractures, compression deformities, regions of bone marrow edema, or abnormal infiltrating bone marrow signal. There are fatty type endplate changes at T11-T12. DISCS: -There is mild loss of disc height and signal diffusely. There is mild to moderate loss at T11-T12. SPINAL CANAL: -No abnormal developmental findings. CONUS MEDULLARIS: -Terminates at L2. Morphology and signal is normal. INTRADURAL NERVE ROOTS: - Within normal limits. No evidence of nerve root clumping or mass. Axial Disc Space Images: T12-L1: There is no central canal or neural foraminal narrowing. Normal facets. L1-L2: There is no central canal or neural foraminal narrowing. There is mild left facet hypertrophic arthropathy. L2-L3: There is no central canal or neural foraminal narrowing. There is very mild bilateral facet hypertrophic arthropathy. L3-L4: There is no central canal or neural foraminal narrowing. There is very mild bilateral facet hypertrophic arthropathy. L4-L5: There is no significant central canal or neural foraminal narrowing. There is very mild facet hypertrophic arthropathy. L5-S1: There is a trace disc bulge present with right foraminal annular fissuring, asymmetrically prominent into the left neural foramen. There are mild degenerative facet changes bilaterally. There is no central canal or subarticular recess narrowing. There is mild left neural foraminal narrowing. The right neural foramen is widely patent. IMAGED SI JOINTS: -Minimal degenerative arthritis bilaterally. PARAVERTEBRAL AND INCLUDED EXTRASPINAL SOFT TISSUES: -There are tiny subcentimeter cysts in the left kidney. Remainder of the imaged retroperitoneal and intraperitoneal soft tissues, as well as the paravertebral and paraspinal soft tissues, are normal. MR/MR lumbar spine wo con IMPRESSION: 1. There are no acute bony or soft tissue findings. 2. Minimal spondylosis most significant at L5-S1 as discussed above. There is no evidence of significant central canal stenosis, or nerve root impingement at any level. Electronically signed by: Venkatesh Hernandez MD 02/13/2025 11:33 AM EST Dictated By: Venkatesh Hernandez MD Signed By: <Electronically signed by Venkatesh Hernandez MD in OV> 02/13/25 1133 DD/ 1023 TD/TT: 02/13/25 1053 Home Health Registered Nurse: Taryn Montoya MD IMG MRI PROCEDURES Fi nal Result * CT Head w/o Contrast (01/29/2025) Anatomical Region Laterality Modality Head, Neck Computed Tomogra phy Historical Provider IMG CT PROCEDURES Final R esult * POCT Glucose (01/25/2025 3:23 PM EST) Pathologist [facility] Glucose Blood, POC 108 60 - 200 mg/dL QC Media Lot # [id number] Lot# Expiration Date [id number] Blood Capillary blood specimen / Unknown 01/25/2025 3:23 PM EST Cindy Danna DO POINT OF CARE TEST ENTER/MELISSA T ORDERABLES Final Result * (ABNORMAL) Vitamin D, 25-Hydroxy, Total, Immunoassay (01/04/2025 11:44 AM EST) Pathologist [facility] Vitamin D 25-OH Total 23.5(L) >30 ng/mL [facility] Comment: Health Based Reference Values*< 20 ng/mL [id number] ng/mL Insufficient> 30 ng/mL Sufficient*Shyann DORADO. N [...] ORDERAB LES Final Result Performing Organization Address [facility] de Phone Number [facility] [address] [place] [address] [phone] * Albumin, Random Urine W/Creatinine (01/04/2025 11:44 AM EST) Creatinine, Urine 184.68 mg/dL [facility] Microalbumin Urine 29.0 mg/L [facility] Microalbum Creatinine Ratio Ur 15.7 <30 ug/mg cr [facility] Comment:Albumin/Creatinine R atio Reference Ranges: Normal: < 30 ug/mg creatinine Microalbuminuria: 30 - 300 ug/mg creatinineClinical Albuminuria: > 300 ug/mg creatinine Urine (Urine, Random) 01/04/2025 11:44 AM EST 01/04/2025 1:04 PM EST Cindy Clay DO LAB URINE ORDERABLES Final R esult Performing Organization Address [facility] Co de Phone Number [facility] [address] [place] [address] [phone] * Hepatitis C Antibody with Reflex to HCV, RNA, Quantitative, Real-Time PCR (01/04/2025 11:44 AM EST) Hepatitis C Antibody Nonreactive Nonreactive [facility] Comment:Antibodies to HCV no t detected; does not exclude early acuteHCV infection. Blood Venous blood specimen / Unknown 01/04/2025 11:44 AM EST 01/04/2025 1:27 PM EST Cindy Clay DO LAB BLOOD ORDERABLES Final R esult Performing Organization Address [facility] Co de Phone Number [facility] [address] [place] [phone] * Hepatitis B surface antigen, EIA (01/04/2025 11:44 AM EST) Hepatitis B Surface Ag Negative Negative [facility] Blood Venous blood specimen / Unknown 01/04/2025 11:44 AM EST 01/04/2025 1:27 PM EST Cindy Clay DO LAB BLOOD ORDERABLES Final R esult Performing Organization Address [facility] Co de Phone Number [facility] [address] [place] [phone] * RPR (Monitor) with Reflex to??Titer (01/04/2025 11:44 AM EST) RPR (Monitor) w/Refl Titer NON-REACTI VE NON-REACT [facility] Comment:THIS TEST WAS PERFOR MED AT:FRM Study Course [address] [id number] YOUNG MD Rapid Plasma Reagin Ab Titer TNP [facility] Blood Venous blood specimen / Unknown 01/04/2025 11:44 AM EST 01/04/2025 1:19 PM EST Cindy Clay DO LAB BLOOD ORDERABLES Final R esult Performing Organization Address [facility] Co de Phone Number [facility] [address] [place] [phone] * HIV-1/2 Antigen and Antibodies, Fourth Generation, with Reflexes (01/04/2025 11:44 AM EST) HIV AB/AG Nonreactive Nonreactive [facility] Comment:HIV-1 p24 Ag and/or HIV-1/HIV-2 Ab not detected.A test result that is nonreactive does not exclude thepossibility of exposure to or infection with HIV-1 and/orHIV-2. Nonreactive results in this assay for individualswith prior exposure to HIV-1 and/or HIV-2 may be due toantigen and antibody levels that are below the limit ofdetection of this assay.The [employer] HIV Ag/Ab Combo assay result andsupplemental assay results should be interpreted inconjunction with the patient's clinical presentation,history and other laboratory results. If the results areinconsistent with clinical evidence, additional testing issuggested to confirm the result. Blood Venous blood specimen / Unknown 01/04/2025 11:44 AM EST 01/04/2025 1:27 PM EST Cindy Clay Nuji LAB BLOOD ORDERABLES Final R esult Performing Organization Address City/[facility]/ZIP Co de Phone Number [facility] [address] [place] [phone] * Hepatitis B Surface Antibody, Qualitative (01/04/2025 11:44 AM EST) ~Hepatitis B Surface Antibody NONREACTIVE Nonreactive [facility] Comment:Nonreactive: < 8.00 mIU/mL Blood Venous blood specimen / Unknown 01/04/2025 11:44 AM EST 01/04/2025 1:27 PM EST Cindy Clay Nuji LAB BLOOD ORDERABLES Final R esult Performing Organization Address City/[facility]/ZIP Co de Phone Number [facility] [address] [place] [phone] * (ABNORMAL) CBC (01/04/2025 11:44 AM EST) White Blood Count 6.0 4.8 - 10.8 X10*3/uL [facility] Red Blood Count 5.57(H) 4.20 - 5.50 X10*6/uL [facility] Hemoglobin 14.4 12.0 - 16.0 g/dl [facility] Hematocrit 45.2 37.0 - 47.0 % [facility] Mean Corpuscular Volume 81.1 80.0 - 98.0 fL [facility] Mean Corpuscular Hemoglobin 25.9(L) 27.0 - 33.0 pg [facility] Mean Corpuscular HGB Conc 31.9 31.0 - 35.0 g/dl [facility] Red Cell Distribution Width 14.0 11.0 - 16.0 % [facility] Platelet Count 294 160 - 400 X10*3/uL [facility] Mean Platelet Volume 10.3 9.4 - 12.3 fL [facility] NRBC Pct Auto 0.0 0.0 - 0.2 /100WBC [facility] NRBC Abs Auto 0.000 0.0 - 0.012 X10*3/uL [facility] Blood Venous blood specimen / Unknown 01/04/2025 11:44 AM EST 01/04/2025 1:27 PM EST us Cindy Clay DO LAB BLOOD ORDERABLES Final R esult [facility] [address] [place] [phone] * TSH (01/04/2025 11:44 AM EST) Thyroid Stimulating Hormone 1.54 0.32 - 4.0 uIU/mL [facility] Comment:TSH 3rd Generation ( [facility]) Blood Venous blood specimen / Unknown 01/04/2025 11:44 AM EST 01/04/2025 1:27 PM EST Cindy Dnana DO LAB BLOOD ORDERABLES Final R esult Performing Organization Address [facility]/ZIP Co de Phone Number [facility] [address] [place] [phone] * T4, Free (01/04/2025 11:44 AM EST) Free T4 (Free Thyroxine) 0.92 0.71 - 1.85 ng/dL [facility] Blood Venous blood specimen / Unknown 01/04/2025 11:44 AM EST 01/04/2025 1:27 PM EST Cindy Danna DO LAB BLOOD ORDERABLES Final R esult Performing Organization Address [facility] Co de Phone Number [facility] [address] [place] [phone] * (ABNORMAL) PTH, Intact Without Calcium (01/04/2025 11:44 AM EST) Parathyroid Hormone, Intact 136.5(H) 8.7 - 77.1 pg/mL [facility] 01/04/2025 11:4 4 AM EST 01/04/2025 1:19 PM EST Generic External Data Provider LAB BLOOD ORDERAB LES Final Result Performing Organization Address [facility] Co de Phone Number [facility] [address] [place] [phone] * Hemoglobin A1c (01/04/2025 11:44 AM EST) Hemoglobin A1c 5.7 <6.0 % [facility] Comment:Hemoglobin A1C Refer ence Range Adults: 4.8 - 6.0 % Non diabetic: < 6.0 % Goal: < 7.0 %Additional Action Suggested: > 8.0 %Note: Hemoglobin A1c results are invalid for patients with abnormal amounts of HbF. Blood transfusions may impact the HbA1c concentration in the patient sample. Estimated Average Glucose 117 mg/dL [facility] Comment:eAG = Estimated ave rage glucose which is %A1C expressed asaverage glucose, using the formula of the S3H-NciawjoUbckjxl Glucose study (ADAG), Diabetes Care, Vol.31,#8,2007 Blood Venous blood specimen / Unknown 01/04/2025 11:44 AM EST 01/04/2025 1:27 PM EST Cindy Danna DO LAB BLOOD ORDERABLES Final R esult [facility] [address] [place] [address] [phone] * (ABNORMAL) Hepatic Function Panel (01/04/2025 11:44 AM EST) Bilirubin, Total 0.8 0.0 - 1.0 mg/dL [facility] Bilirubin, Direct 0.2 0.0 - 0.5 mg/dL [facility] Aspartate Amino Transferase 25 5 - 31 U/L [facility] Alanine Aminotransferase 23 0 - 31 U/L [facility] Total Protein 7.6 6.5 - 8.0 g/dL [facility] Albumin Level 4.5 3.5 - 5.0 g/dL [facility] Alkaline Phosphatase 135(H) 39 - 117 U/L [facility] Blood Venous blood specimen / Unknown 01/04/2025 11:44 AM EST 01/04/2025 1:27 PM EST Cindy Danna DO LAB BLOOD ORDERABLES Final R esult [facility] [address] [place] [address] [phone] * (ABNORMAL) Lipid Panel, Standard (01/04/2025 11:44 AM EST) Triglycerides 291(H) <150 mg/dL [facility] Comment:Desirable Triglyceri de: less than 150 mg/dLBorderline High Triglyceride 150-199 mg/dLHigh Triglyceride: 200-499 mg/dLVery High Triglyceride: greater than or equal to 5OO mg/dL Cholesterol 241(H) <200 mg/dL [facility] Comment:Desirable Cholestero l: less than 200 mg/dLBorderline High Cholesterol: 200-239 mg/dLHigh Cholesterol: greater than 239 mg/dL LDL Cholesterol Calculated 146(H) <100 mg/dL [facility] Comment:Desirable LDL: less than 100 mg/dLNear Optimal/Above Optimal LDL: 110- 129 mg/dLBorderline High LDL: 130-159 mg/dLHigh LDL: 160-189 mg/dLVery High LDL: greater than or equal to 190 mg/dL HDL Cholesterol 37(L) >40 mg/dL [facility] Comment:Desirable HDL: great er than 40 mg/dL Note: This HDL assay may give artificially low results in patients with liver disease. Blood Venous blood specimen / Unknown 01/04/2025 11:44 AM EST 01/04/2025 1:27 PM EST us Cindy Clay DO LAB BLOOD ORDERABLES Final R esult [facility] [address] [place] [address] [phone] * (ABNORMAL) Basic Metabolic Panel (01/04/2025 11:44 AM EST) Sodium 141 135 - 145 mmol/L [facility] Potassium 3.9 3.3 - 5.1 mmol/L [facility] Chloride 107 96 - 108 mmol/L [facility] Carbon Dioxide 28 22 - 29 mmol/L [facility] Anion Gap 10(L) 12 - 20 [facility] Urea Nitrogen (BUN) 17(H) 9 - 16 mg/dL [facility] Creatinine, Serum 0.65 0.5 - 1.4 mg/dL [facility] Estimated Glomerular Filt Rate >60 [facility] Comment:Chronic Kidney Disea se: Estimated GFR < 60 mL/min/1.66o5Iesjsf Kidney Disease: Estimated GFR < 15 mL/min/1.73m2 Glucose 105 60 - 115 mg/dL [facility] Calcium 10.1 8.4 - 10.2 mg/dL [facility] Blood Venous blood specimen / Unknown 01/04/2025 11:44 AM EST 01/04/2025 1:27 PM EST Cindy Clay DO LAB BLOOD ORDERABLES Final R esult Performing Organization Address [facility]/ZIP Co de Phone Number [facility] [address] [place] [address] [phone] * SARS-CoV-2 RNA, Influenza A/B, and RSV RNA, Ql NAAT (12/05/2024 10:25 AM EDT) Influenza A PCR NEGATIVE Negative [facility] Influenza B PCR NEGATIVE Negative [facility] Resp Syncy Virus RNA Qual PCR NEGATIVE Negative [facility] SARS COV2 PCR NEGATIVE Negative [facility] Comment:All test results mus t be [...] use by authorized laboratories.Testing performed on the [employer] GeneXpert utilizingreal-time RT-PCR.All SARS CoV2 and positive influenza A/B results arereported to [facility]. 12/05/2024 10:2 5 AM EDT 12/05/2024 10:39 AM EDT us Generic External Data Provider LAB MICROBIOLOGY - GENERAL ORDERABLES Final Result Performing Organization Address [facility]/ZIP Co de Phone Number [facility] [address] [place] [address] [phone] * (ABNORMAL) Urinalysis, Complete, with Reflex to Culture (12/04/2024 10:22 PM EDT) Color Urine Yellow [facility] Appearance Urine Clear [facility] PH 5.5 5.0 - 9.0 [facility] Glucose Urine UA Negative Negative mg/dL [facility] Urine Blood Small (1+)(A) Negative [facility] Specific [place] - Urine >=1.030(H) 1.005 - 1.025 [facility] Urine Protein Negative Neg-Trace mg/dL [facility] Urine Ketones Negative Negative mg/dL [facility] Nitrite Urine Positive(A) Negative [facility] Leukocyte Esterase Urine Trace(A) Negative [facility] RBC Urine 0-2 0 - 2 /HPF [facility] Urine WBC 0-5 0 - 5 /HPF [facility] Urine Squamous Epithelial Cell 6-10 0 - 2 /HPF [facility] Urine Bacteria 4+ None Seen [facility] Hyaline Casts, Urine 0-2 0 - 2 /LPF [facility] 12/04/2024 10:2 2 PM EDT 12/04/2024 10:26 PM EDT [facility] - 12/04/2024 10:45 PM EDT [id number], Clean Catch us Generic External Data Provider LAB URINE ORDERAB LES Final Result [facility] [address] [place] [address] [phone] * Culture, Urine, Routine (12/04/2024 10:22 PM EDT) Urine Urine specimen obtained by clean catch procedure / Unknown 12/04/2024 10:22 PM EDT 12/04/2024 10:46 PM EDT Comment:UACC Narrative [facility] - 12/07/2024 7:30 AM EDT Staphylococcus [...] GENERAL ORDERABLES Final Result Performing Organization Address City/State/[facility] Co de Phone Number [facility] [address] [place] [phone] * CT Femur w/ Contrast Right (12/04/2024 3:47 AM EDT) Anatomical Region Laterality Modality Lower Extremities, Femur Right Compute d Tomography 12/04/2024 3:47 AM EDT Narrative 12/04/2024 3:48 AM EDT [address] [address] [address] Scan Report Signed Patient: Emerita Wills MR#: [id number] : 1970 Acct:[id number] Age/Sex: 54 / F ADM Date: 12/04/24 Loc: .ED Attending Dr: Ordering Physician: Venkatesh Pino PA-C Date of Service: 12/04/24 Procedure(s): CT femur RT w IV con Accession Number(s): [id number] cc: Cindy Clay Ryan PA-C Report Number: [id number]: Total DLP = 294.00 mGy-cm Reason for [...] in OV> 12/04/24347 DD/ 6 TD/TT: 12/04/24346 Home Health Registered Nurse: Procedure Note Donotuseinterpreter, Image - 12/04/[address] [place] [address] [address] Scan Report Signed Patient: Jey Wills#: [id number] : 1970Acct:[id number] Age/Sex: 54 / FADM Date: 12/04/24 Loc: HO.ED Attending Dr: Ordering Physician: Venkatesh Pino PA-C Date of Service: 12/04/24 Procedure(s): CT femur RT w IV con Accession Number(s): [id number] cc: Cindy Clay DO; Venkatesh Pino PA-C Report Number: [id number]: Total DLP = 294.00 mGy-cm Reason for [...] in OV> 12/04/24347 DD/ 6 TD/TT: 12/04/24346 Home Health Registered Nurse: us [facility] External Provider IMG CT PROCEDURES Edited Result - Final * CT Abdomen Pelvis w/ Contrast (12/04/2024 3:44 AM EDT) Anatomical Region Laterality Modality Body, Pelvis, Abdomen Computed T omography 12/04/2024 3:44 AM EDT Narrative 12/04/2024 3:45 AM EDT [place] [address] CT Scan Report Signed Patient: Emerita Wills MR#: [id number] : 1970 Acct:[id number] Age/Sex: 54 / F ADM Date: 12/04/24 Loc: .ED Attending Dr: Ordering Physician: Venkatesh Pino PA-C Date of Service: 12/04/24 Procedure(s): CT abdomen pelvis w IV con Accession Number(s): [id number] cc: Cindy Clay DO; Venkatesh Pino PA-C Report Number: [id number]: Total DLP = 783.00 mGy-cm Reason for [...] signed by Dannielle Flores MD in OV> 12/04/245 DD/ 3 TD/TT: 12/04/24343 Home Health Registered Nurse: Procedure Note Donotuseinterpreter, Image - 12/04/[address] [address] [address] Scan Report Signed Patient: Jey Wills#: [id number] : 1970Acct:[id number] Age/Sex: 54 / FADM Date: 12/04/24 Loc: HO.ED Attending Dr: Ordering Physician: Venkatesh Pino PA-C Date of Service: 12/04/24 Procedure(s): CT abdomen pelvis w IV con Accession Number(s): [id number] cc: Cindy Clay DO; Venkatesh Pino PA-C Report Number: [id number]: Total DLP = 783.00 mGy-cm Reason for [...] in OV> 12/04/24344 DD/ 3 TD/TT: 12/04/24343 Home Health Registered Nurse: [facility] External Provider IMG CT PROCEDURES Edited Result - Final * (ABNORMAL) CBC auto differential (12/04/2024 3:03 AM EDT) White Blood Count 11.5(H) 4.8 - 10.8 X10*3/uL [facility] Red Blood Count 5.45 4.20 - 5.50 X10*6/uL [facility] Hemoglobin 13.9 12.0 - 16.0 g/dl [facility] Hematocrit 43.5 37.0 - 47.0 % [facility] Mean Corpuscular Volume 79.8(L) 80.0 - 98.0 fL [facility] Mean Corpuscular Hemoglobin 25.5(L) 27.0 - 33.0 pg [facility] Mean Corpuscular HGB Conc 32.0 31.0 - 35.0 g/dl [facility] Red Cell Distribution Width 13.8 11.0 - 16.0 % [facility] Platelet Count 341 160 - 400 X10*3/uL [facility] Mean Platelet Volume 10.0 9.4 - 12.3 fL [facility] Neutrophils Percent Auto 67.0 45 - 73 % [facility] Imm Gran Pct Auto 0.3 0.0 - 0.4 % [facility] Lymphocytes Percent Auto 26.3 20 - 40 % [facility] Monocytes Percent Auto 5.5 2 - 11 % [facility] Eosinophils Percent Auto 0.6 0 - 4 % [facility] Basophils Percent Auto 0.3 0 - 2 % [facility] NRBC Pct Auto 0.0 0.0 - 0.2 /100WBC [facility] Neutrophils Absolute Auto 7.7 2.0 - 8.3 x10*3/uL [facility] Imm Gran Abs Auto 0.04(H) 0.00 - 0.03 X10*3/uL [facility] Lymphocytes Absolute Auto 3.0 1.2 - 4.9 X10*3/uL [facility] Monocytes Absolute Auto 0.6 0.1 - 1.2 X10*3/uL [facility] Eosinophils Absolute Auto 0.1 0.0 - 0.4 X10*3/uL [facility] Basophils Absolute Auto 0.0 0.0 - 0.2 X10*3/uL [facility] NRBC Abs Auto 0.000 0.0 - 0.012 X10*3/uL [facility] 12/04/2024 3:03 AM EDT 12/04/2024 3:06 AM EDT us Generic External Data Provider LAB BLOOD ORDERAB LES Final Result [facility] [address] [place] [phone] * (ABNORMAL) Comprehensive Metabolic Panel (12/04/2024 3:03 AM EDT) Sodium 138 135 - 145 mmol/L [facility] Potassium 4.4 3.3 - 5.1 mmol/L [facility] Chloride 105 96 - 108 mmol/L [facility] Carbon Dioxide 25 22 - 29 mmol/L [facility] Anion Gap 12 12 - 20 [facility] Urea Nitrogen (BUN) 25(H) 9 - 16 mg/dL [facility] Creatinine, Serum 0.67 0.5 - 1.4 mg/dL [facility] Creatinine Clr Calc Pharmacy 111.5 [facility] Comment:Provided height and weight: 167.64 cm,92.986 kg.eGFR (calculated from the MDRD study equation) and eCrCl(calculated from the Cockcroft-Gault equation) are based ondifferent parameters and may not yield comparable results.If eCrCl result is absurd, please check patient'sheight/weight. Estimated Glomerular Filt Rate >60 [facility] Comment:Chronic Kidney Disea se: Estimated GFR < 60 mL/min/1.83i8Tvebta Kidney Disease: Estimated GFR < 15 mL/min/1.73m2 Glucose 90 60 - 115 mg/dL [facility] Calcium 9.6 8.4 - 10.2 mg/dL [facility] Bilirubin, Total 0.9 0.0 - 1.0 mg/dL [facility] Aspartate Amino Transferase 19 5 - 31 U/L [facility] Alanine Aminotransferase 14 0 - 31 U/L [facility] Total Protein 6.9 6.5 - 8.0 g/dL [facility] Albumin Level 4.0 3.5 - 5.0 g/dL [facility] Alkaline Phosphatase 126(H) 39 - 117 U/L [facility] 12/04/2024 3:03 AM EDT 12/04/2024 3:06 AM EDT us Generic External Data Provider LAB BLOOD ORDERAB LES Final Result Performing Organization Address City/State/[facility] de Phone Number [facility] [address] [place] [phone] * CT Lumbar Spine w/o Contrast (12/03/2024 8:42 PM EDT) Anatomical Region Laterality Modality Spine, L-spine Computed Tomogra phy 12/03/2024 8:42 PM EDT Narrative 12/03/2024 8:43 PM EDT [place] [address] [address] Scan Report Signed Patient: Emerita Wills MR#: [id number] : 1970 Acct:[id number] Age/Sex: 54 / F ADM Date: 12/03/24 Loc: HO.ED Attending Dr: Ordering Physician: Radha Nesbitt NP Date of Service: 12/03/24 Procedure(s): CT lumbar spine wo IV con Accession Number(s): [id number] cc: Cindy Clay DO; Radha Nesbitt NP Report Number: [id number]: Total DLP = 683.00 mGy-cm Reason for [...] in OV> 12/03/242042 DD/ 41 TD/TT: 12/03/242041 Home Health Registered Nurse: Procedure Note Donotuseinterpreter, Image - 12/03/[address] [place] [address] [address] Scan Report Signed Patient: Jey Wills#: [id number] : 1970Acct:[id number] Age/Sex: 54 / FADM Date: 12/03/24 Loc: .ED Attending Dr: Ordering Physician: Radha Nesbitt NP Date of Service: 12/03/24 Procedure(s): CT lumbar spine wo IV con Accession Number(s): [id number] cc: Cindy Clay DO; Radha Nesbitt NP Report Number: [id number]: Total DLP = 683.00 mGy-cm Reason for [...] in OV> 12/03/242042 DD/ 41 TD/TT: 12/03/242041 Home Health Registered Nurse: [facility] External Provider IMG CT PROCEDURES Edited Result - Final * XR Clavicle Right (11/16/2024 12:20 PM EDT) Anatomical Region Laterality Modality Body, Clavicle Right Radiographic Latricia ging 11/16/2024 12:2 0 PM EDT Narrative 11/16/2024 12:33 [place] [address] XRay Report Signed Patient: Emerita Wills MR#: [id number] : 1970 Acct:[id number] Age/Sex: 54 / F ADM Date: 11/16/24 Loc: HO.HHCX Attending Dr: Cindy Clay DO Ordering Physician: Cindy Clay DO Date of Service: 11/16/24 Procedure(s): XR clavicle RT Accession Number(s): [id number] cc: Cindy Clay DO Reason for Exam: [...] in OV> 11/16/24 1230 DD/ 1220 TD/TT: 11/16/244 Home Health Registered Nurse: Procedure Note Donotuseinterpreter, Image - 11/16/[address] [address] XRay Report Signed Patient: Jey Wills#: [id number] : 1970Acct:[id number] Age/Sex: 54 / FADM Date: 11/16/24 Loc: .HHCX Attending Dr: Cindy Clay DO Ordering Physician: Cindy Clay DO Date of Service: 11/16/24 Procedure(s): XR clavicle RT Accession Number(s): [id number] cc: Cindy Clay DO Reason for Exam: [...] 11/16/24 1230 DD/ 1220 TD/TT: 11/16/24 1224 Home Health Registered Nurse: Cindy Clay DO IMG XR PROCEDURES Final Resu lt * Pap Smear (04/28/2023 1:03 PM EDT) 04/28/2023 1:03 PM EDT 04/29/2023 12:25 PM EDT Debi [facility] - 05/05/2023 9:33 AM EDT ----- ------- Name: Emerita Wills Age/Sex: 52/F : 1970 Unit#: [id number] Attend Dr: Cindy Clay DO Re04/28/23 Status: DEP REF Location: [facility] Disch: ----- ------- SPEC : [id number] RECD: 04/29/23-1224 STATUS: ASHLEY MACIEL NUM: [id number] MANJULA: 04/28/23-13[address] [facility] DR: Cindy Clay DO ENTERED: 04/29/23-1254 SP TYPE: Pap Smr OT DR: ORDERED: Pap Smear Interpretation Satisfactory for evaluation. Negative for intraepithelial lesion or malignancy. HPV mRNA E6/E7: NOT DETECTED This assay detects E6/E7 viral messenger RNA (mRNA) from 14 high-risk HPV types (16, 18, 31, 33, 35, 39, 45, 51, 52, 56, 58, 59, 66, 68) HPV testing performed by [facility], [place], [place]. See reference laboratory portion of the EMR for entire report. Clinical Information LMP: Unknown date Previous PAP test: Unknown date, WNL Other surgery: s/p hysterectomy Material Received ThinPrep-Vaginal ----- ------- Signed (signature on file) RAN Church (ASC) 05/05/23 0933 ----- ------- END OF REPORT us Cindy Clay DO LAB CYTOLOGY ORDERABLES Jenelle kumar Result [facility] [address] [place] [phone] * HPV mRNA E6/E7 w/Reflex to HPV Genotypes 16, 18/45 (04/28/2023 10:30 AM EDT) HPV nRNA E6/E7 Not Detected Not Detected [facility] Comment:Methodology: Transcr iption-Mediated AmplificationThis assay detects E6/E7 viral messenger RNA (mRNA) from 14high-risk HPV types (16,18,31,33,35,39,45,51,52,56,58,59,66,68).Cervical sources are required for HPV testing.If a vaginal source from a patient who has had atotal hysterectomy with removal of cervix wassubmitted, please contact the testing laboratoryfor alternative testing options.For additional information, please refer [email or web address] [email or web address](This link if provided for information/educational purposes only.)THIS TEST WAS PERFORMED AT:[facility] [place] [phone] YOUNG MD HPV mRNA E6/E7 TNP [facility] HPV 16 RNA TNP [facility] HPV 18/45 RNA [facility] 04/28/2023 10:3 0 AM EDT 04/29/2023 12:25 PM EDT Cindy Clay DO LAB CYTOLOGY ORDERABLES Jenelle l Result [facility] [address] [place] [address] [phone] * BI Mammogram Screen w/ Scott w/ Implants Rosalio (02/25/2023 11:55 AM EST) Anatomical Region Laterality Modality Mammography 02/25/2023 11:5 5 AM EST Narrative 03/16/2023 10:51 AM EST [facility] [address] [place] [address] Mammography Report Signed Patient: Emerita Wills MR#: [id number] : 1970 Acct:[id number] Age/Sex: 52 / F ADM Date: 02/25/23 Loc: HO.MAMMO Attending Dr: Cindy Clay DO Ordering Physician: Cindy Clay DO Results: 1N egative Date of Service: 02/25/23 Follow Up: 1 Year From [facility] Mammogram Procedure(s): MM tomosynthesis screen imp BI Accession Number(s): [id number] cc: Cindy Clay DO EXAMINATION: MM SCREENING [...] in OV> 03/16/23 1047 DD/ 1155 TD/TT: Home Health Registered Nurse: Procedure Note Donotuseinterpreter, Image - 03/16/2023 [facility] [address] [place] [address] Mammography Report Signed Patient: Jey Wills#: [id number] : 1970Acct:[id number] Age/Sex: 52 / FADM Date: 02/25/23 Loc: EMERITA Attending Dr: Cindy Clay DO Ordering Physician: Cindy Clayults: 1N egative Date of Service: 02/25/23Follow Up: 1 Year From Orig inal Mammogram Procedure(s): MM tomosynthesis screen imp BI Accession Number(s): [id number] cc: Cindy Clay DO EXAMINATION: MM SCREENING [...] in OV> 03/16/23 1047 DD/ 1155 TD/TT: Home Health Registered Nurse: Cindy Clay DO IMG BI PROCEDURES Final Resu lt from Last 3 Months or Most Recently Relevant to Health Maintenance Insurance [facility] C3 Care Teams Continuing Education Dean Relationship Specialty Start Date End Date Cindy Clay DO [address] [place] [phone] PCP - General Family Medicine 05/13/22 Erika RIVERA 12/28/24
--- OUTSIDE RECORDS SUMMARY | 2025-02-13 11:42 | XMS_ITS | Clinical Summary ---
Author Organization [facility] Address [address] [facility] [address] [place] [id number] Phone Care Team Providers Care Tub Operator Name Role Phone Cindy Clay DO Primary Care Provider + [phone] Allergies No known active allergies Medications lisinopril [...] Encounters Date Type Department Care Team Description 02/07/2025 9:00 AM EST Home Care Visit [facility] [address] [place] [phone] Melany Bishop, PT PT HOME VISIT 02/06/2025 11:00 AM EST Home Care Visit [facility] [address] [place] [phone] Melany Bishop, PT PT HOME VISIT 02/03/2025 1:15 PM EST Home Care Visit [facility] [address] [place] [phone] Melany Bishop, PT PT TFA VISIT 02/03/2025 Home Care Visit [facility] [address] [place] [address] Mark Pepper, OT OT DISCIPLINE DISCHARGE NON VISIT/TELEPHONE 01/29/2025 5:25 PM EST - 01/29/2025 9:27 PM EST Emergency [facility] [address] [place] [phone] Tom Robbins MD Discharge Disposition: Home or Self Care 01/29/[address] [address] 01/29/[address] [address] 01/29/[address] [address] 01/29/[address] [address] 01/24/2025 Home Care Visit [facility] [address] [place] [phone] Mark Pepper, OT TELEPHONE ENCOUNTER 01/11/2025 Episode Documentation Update [facility] [address] [place] [phone] [place] 01/10/2025 Episode Documentation Update [facility] [address] [place] [phone] [place] 01/09/2025 10:00 AM EST Home Care Visit [facility] [address] [place], [place] [phone] Melany Bishop, PT PT HOME VISIT 01/05/2025 12:30 PM EST Home Care Visit [facility] [address] [place] [address] Mark Pepper, OT OT HOME VISIT 01/05/2025 10:00 AM EST Home [facility] Visit [facility] [address] [place] [address] Melany Bishop, PT PT HOME VISIT 01/03/2025 1:30 PM EST Home Care Visit [facility] [address] [place] [address] Mark Pepper, OT OT HOME VISIT 01/03/2025 10:00 AM EST [facility] Visit [facility] [address] [place] [address] Melany Bishop, PT PT HOME VISIT 12/30/2024 10:00 AM EST [facility] Visit [facility] [address] [place] [address] Mark Pepper, OT OT HOME VISIT 12/29/2024 10:30 AM EST [facility] Visit [facility] [address] [place] [address] Melany Bishop, PT PT HOME VISIT 12/28/2024 2:30 PM EST Home [facility] Visit [facility] [address] [place] [address] Mark Pepper, OT OT EVALUATION 12/26/2024 11:45 AM EST Home Care Visit [facility] [address] [place] [address] Melany Bishop, PT PT OASIS START OF CARE (SOC) 12/26/2024 Plan of Care Documentation [facility] [address] [place] [phone] 12/25/2024 Home [facility] Visit [facility] [address] [place] [phone] Evelyn Meadows, RN CASE COMMUNICATION 12/21/2024 Orders Only [facility] [address] [place] [phone] Homehealth, Maurilio Correa MD 12/10/2024 4:08 PM EDT - 12/10/2024 11:59 PM EDT Hospital Encounter [facility] [address] [place] [address] Rhett Palafox MD Discharge Disposition: Home or Self Care 12/10/2024 Transcribe Orders [facility] [address] [place] [address] Rhett Palafox MD Illness (Primary Dx) 12/08/2024 7:27 AM EDT - 12/08/2024 11:59 PM EDT Hospital Encounter [facility] [address] [place] [address] Johnna Bright NP Discharge Disposition: Home or Self Care 12/08/2024 Transcribe Orders [facility] Specimen Processing [address] [place] [address] Johnna Bright NP Fall, subsequent encounter (Primary [...] EST Inhaled Oxygen Concentration - - Weight 99 kg (218 lb 4.1 oz) 01/29/2025 5:36 PM EST Height 162.6 cm (5' 4 ) 10/10/2021 7:30 AM EDT Body Mass Index 37.46 10/10/2021 7:30 AM EDT Plan of Treatment Upcoming Encounters Date Type Department Care Team (Late st Contact Info) Description 02/14/2025 9:30 AM EST Appointment [facility] [address] [place] [phone] Melany Bishop, PT [address] [place] [address] 02/17/2025 2:00 PM EST Appointment [facility] [address] [place] [phone] Melany Bishop, PT [address] [place] [address] 02/20/2025 3:45 AM EST Appointment [facility] [address] [place] [phone] Melany Bishop, PT [address] [place] [address] Health Maintenance Due Date Last Done Comments [...] VACCINE (#1) 2024 COVID-19 VACCINE (3 - 2025-26 season) 2024 11/01/2020, 10/11/2020 CREATININE LEVEL 12/08/2025 12/08/2024, 09/2021, 04/15/2021, Additional history exists POTASSIUM LEVEL 12/08/2025 12/08/2024, 09/0 09/2021, 04/15/2021, Additional history exists Adult Td,Tdap Booster 02/26/2027 02/26/2017 SCREENING FOR DIABETES 01/26/2028 01/25/2025, 2024 LIPID PANEL 01/04/2030 01/04/2025, 02/12/2024 RSV VACCINE [...] Procedure Name Priority Date/Time Associated Diagnosis Comments XR KNEE 4 OR MORE VIEWS (LEFT) Routine 01/29/2025 7:02 PM EST XR KNEE 4 OR MORE VIEWS (RIGHT) Routine 01/29/2025 7:02 PM EST XR SHOULDER 2 VIEWS (RIGHT) Routine 01/29/2025 7:02 PM EST POCT GLUCOSE STAT 01/29/2025 5:54 PM EST ECG 12-LEAD STAT 01/29/2025 5:[address] LUMBAR SPINE WITHOUT CONTRAST STAT 01/29/2025 5:[address] THORACIC SPINE WITHOUT CONTRAST STAT 01/29/2025 5:[address] CERVICAL SPINE WITHOUT CONTRAST STAT 01/29/2025 5:[address] HEAD WITHOUT CONTRAST STAT 01/29/2025 5:50 PM EST URINALYSIS Routine 12/10/2024 1:00 PM EDT Illness URINE CULTURE Routine 12/10/2024 1:00 PM EDT Illness COMPREHENSIVE METABOLIC PANEL (CMP) Routine 12/08/2024 6:30 AM EDT Fall, subsequent encounter CBC Routine 12/08/2024 6:30 AM EDT Fall, subsequent encounter from Last 3 Months Results * XR KNEE 4 OR MORE VIEWS (LEFT) (01/29/2025 7:02 PM EST) Anatomical Region Laterality Modality Knee Left Computed Radiogr aphy 01/29/2025 7:55 PM EST Impressions 01/29/2025 7:56 PM EST No acute osseous abnormality of the right shoulder or bilateral knees. Narrative 01/29/2025 7:56 PM EST XR SHOULDER 2 OR MORE VIEWS (RIGHT), XR KNEE 4 OR MORE VIEWS (LEFT), XR KNEE 4 OR MORE VIEWS (RIGHT) Referring clinician's provided indication for this examination in Epic: Trauma; S/P Fall COMPARISON: None FINDINGS: Right shoulder: No acute fracture or dislocation. Joint spaces are normal in appearance. Right knee: No acute fracture or dislocation. No significant joint effusion. Left knee: No acute fracture or dislocation. No joint effusion. Procedure Note Myrna Page MD, PhD - 01/29/2025 XR SHOULDER 2 OR MORE VIEWS (RIGHT), XR KNEE 4 OR MORE VIEWS (LEFT), XRKNEE 4 OR MORE VIEWS (RIGHT) Referring clinician's provided indication for this examination in Epic:Trauma; S/P Fall COMPARISON: None FINDINGS: Right shoulder: No acute fracture or dislocation. Joint spaces are normalin appearance. Right knee: No acute fracture or dislocation. No significant jointeffusion. Left knee: No acute fracture or dislocation. No joint effusion. IMPRESSION: No acute osseous abnormality of the right shoulder or bilateral knees. us Tom Robbins MD IMG XR LOWER EXTREMITY Final Re sult * XR KNEE 4 OR MORE VIEWS (RIGHT) (01/29/2025 7:02 PM EST) Anatomical Region Laterality Modality Knee Right Computed Radiogr aphy 01/29/2025 7:55 PM EST Impressions 01/29/2025 7:56 PM EST No acute osseous abnormality of the right shoulder or bilateral knees. Narrative 01/29/2025 7:56 PM EST XR SHOULDER 2 OR MORE VIEWS (RIGHT), XR KNEE 4 OR MORE VIEWS (LEFT), XR KNEE 4 OR MORE VIEWS (RIGHT) Referring clinician's provided indication for this examination in Epic: Trauma; S/P Fall COMPARISON: None FINDINGS: Right shoulder: No acute fracture or dislocation. Joint spaces are normal in appearance. Right knee: No acute fracture or dislocation. No significant joint effusion. Left knee: No acute fracture or dislocation. No joint effusion. Procedure Note Myrna Page MD, PhD - 01/29/2025 XR SHOULDER 2 OR MORE VIEWS (RIGHT), XR KNEE 4 OR MORE VIEWS (LEFT), XRKNEE 4 OR MORE VIEWS (RIGHT) Referring clinician's provided indication for this examination in Epic:Trauma; S/P Fall COMPARISON: None FINDINGS: Right shoulder: No acute fracture or dislocation. Joint spaces are normalin appearance. Right knee: No acute fracture or dislocation. No significant jointeffusion. Left knee: No acute fracture or dislocation. No joint effusion. IMPRESSION: No acute osseous abnormality of the right shoulder or bilateral knees. us Tom Robbins MD IMG XR LOWER EXTREMITY Final Re sult * XR SHOULDER 2 VIEWS (RIGHT) (01/29/2025 7:02 PM EST) Anatomical Region Laterality Modality Shoulder Right Computed Radiogr aphy 01/29/2025 7:55 PM EST Impressions 01/29/2025 7:56 PM EST No acute osseous abnormality of the right shoulder or bilateral knees. Narrative 01/29/2025 7:56 PM EST XR SHOULDER 2 OR MORE VIEWS (RIGHT), XR KNEE 4 OR MORE VIEWS (LEFT), XR KNEE 4 OR MORE VIEWS (RIGHT) Referring clinician's provided indication for this examination in Epic: Trauma; S/P Fall COMPARISON: None FINDINGS: Right shoulder: No acute fracture or dislocation. Joint spaces are normal in appearance. Right knee: No acute fracture or dislocation. No significant joint effusion. Left knee: No acute fracture or dislocation. No joint effusion. Procedure Note Myrna Page MD, PhD - 01/29/2025 XR SHOULDER 2 OR MORE VIEWS (RIGHT), XR KNEE 4 OR MORE VIEWS (LEFT), XRKNEE 4 OR MORE VIEWS (RIGHT) Referring clinician's provided indication for this examination in Epic:Trauma; S/P Fall COMPARISON: None FINDINGS: Right shoulder: No acute fracture or dislocation. Joint spaces are normalin appearance. Right knee: No acute fracture or dislocation. No significant jointeffusion. Left knee: No acute fracture or dislocation. No joint effusion. IMPRESSION: No acute osseous abnormality of the right shoulder or bilateral knees. us Tom Robbins MD IMG XR UPPER EXTREMITY Final Re sult * (ABNORMAL) POCT Glucose (01/29/2025 5:54 PM EST) Glucose 147(H) 70 - 99 mg/dL 01/29/2025 5:59 PM EST [facility] Blood (Blood) 01/29/2025 5:5 4 PM EST 01/29/2025 5:59 PM EST us Tom Robbins MD LAB POCT DOCKED DEVICE UNSOLICT ED RESULTS Final Result Performing Organization Address City/[facility]/ZIP Co de Phone Number [address] [address] * ECG 12-LEAD (01/29/2025 5:50 PM EST) Ventricular Rate EKG/MIN 80 BPM [facility] Atrial Rate 80 BPM [facility] GA Interval 144 ms [facility] QRS Duration 90 ms [facility] QT Interval 388 ms [facility] QTC Interval 447 ms [facility] P Novinger 53 degrees [facility] R Wave Novinger -31 degrees [facility] T Wave Novinger 21 degrees [facility] 01/29/2025 5:50 PM EST 01/30/2025 3:25 PM EST Narrative [facility] - 01/30/2025 3:25 PM EST Normal sinus rhythm Left axis deviation Moderate voltage criteria for LVH, may be normal variant Abnormal ECG When compared with ECG of 24-Oct-2021 05:16, No significant change was found Confirmed by Rhett Morataya ([id number]) on 01/30/2025 3:25:41 PM us Sanjay Nina PA-C ECG ORDERABLES Final Result Performing Organization Address [facility] Co de Phone Number [email or web address] * CT THORACIC SPINE WITHOUT CONTRAST (01/29/2025 5:50 PM EST) Anatomical Region Laterality Modality T-spine Computed Tomogra phy 01/29/2025 5:51 PM EST Impressions 01/29/2025 6:29 PM EST 1. No acute intracranial abnormality. 2. No acute fracture or traumatic malalignment involving the cervical spine. 3. No acute fracture or traumatic malalignment of the thoracic or lumbar spine. 4. Partially visualized cystic lesion with peripheral calcifications in the left upper abdomen likely arising from the spleen. Suggest further evaluation with nonemergent CT abdomen. Follow-up recommendations were communicated and documented using a closed loop communication system. Narrative 01/29/2025 6:[address] HEAD WITHOUT CONTRAST, CT LUMBAR SPINE WITHOUT CONTRAST, CT THORACIC SPINE WITHOUT CONTRAST, CT CERVICAL SPINE WITHOUT CONTRAST Reason for exam (per EHR order): * Head trauma, mod-severe TECHNIQUE: CT scans of: * Head, without intravenous contrast. Multiplanar reformations were created. * Cervical spine, without intravenous contrast. Multiplanar reformations were created. * Thoracic and Lumbar spine, without intravenous contrast. Multiplanar reformations were created. COMPARISON: April 2021 FINDINGS: HEAD: Brain Parenchyma: No midline shift, mass effect, parenchymal hemorrhage, or evidence of acute territorial infarct. Ventricular System and Extra-Axial Spaces: No extra-axial fluid collections. Basilar cisterns are patent. No hydrocephalus. Calvarium, Skull Base, and Sella: No calvarial fracture. No significant scalp hematoma. Paranasal Sinuses and Mastoid Air Cells: Left maxillary sinus mucosal thickening. Orbits: Normal. CERVICAL SPINE: Craniocervical Junction: Alignment is normal. No fracture. Alignment and Curvature: No traumatic malalignment. Vertebrae and disc spaces: No acute fracture. C6-C7 degenerative changes. Soft Tissues: No prevertebral soft tissue swelling. Lung Apices: Normal. THORACIC AND LUMBAR SPINE: Alignment and Curvature: Normal. No traumatic malalignment. Vertebrae and disc spaces: No acute fracture. Mild multilevel degenerative changes. Soft Tissues: Normal. Partially visualized cystic lesion with peripheral calcifications in the left upper abdomen likely arising from the spleen. Procedure Note Marlon Borges, [facility] - 01/29/2025 CT HEAD WITHOUT CONTRAST, CT LUMBAR SPINE WITHOUT CONTRAST, CT THORACICSPINE WITHOUT CONTRAST, CT CERVICAL SPINE WITHOUT CONTRAST Reason for exam (per EHR order): * Head trauma, mod-severe TECHNIQUE: CT scans of: * Head, without intravenous contrast. Multiplanar reformations werecreated. * Cervical spine, without intravenous contrast. Multiplanar reformationswere created. * Thoracic and Lumbar spine, without intravenous contrast. Multiplanarreformations were created. COMPARISON: April 2021 FINDINGS: HEAD: Brain Parenchyma: No midline shift, mass effect, parenchymal hemorrhage,or evidence of acute territorial infarct. Ventricular System and Extra-Axial Spaces: No extra-axial fluidcollections. Basilar cisterns are patent. No hydrocephalus. Calvarium, Skull Base, and Sella: No calvarial fracture. No significantscalp hematoma. Paranasal Sinuses and Mastoid Air Cells: Left maxillary sinus mucosalthickening. Orbits: Normal. CERVICAL SPINE: Craniocervical Junction: Alignment is normal. No fracture. Alignment and Curvature: No traumatic malalignment. Vertebrae and disc spaces: No acute fracture. C6-C7 degenerativechanges. Soft Tissues: No prevertebral soft tissue swelling. Lung Apices: Normal. THORACIC AND LUMBAR SPINE: Alignment and Curvature: Normal. No traumatic malalignment. Vertebrae and disc spaces: No acute fracture. Mild multilevel degenerativechanges. Soft Tissues: Normal. Partially visualized cystic lesion with peripheral calcifications in theleft upper abdomen likely arising from the spleen. IMPRESSION: 1. No acute intracranial abnormality. 2. No acute fracture or traumatic malalignment involving the cervicalspine. 3. No acute fracture or traumatic malalignment of the thoracic or lumbarspine. 4. Partially visualized cystic lesion with peripheral calcifications inthe left upper abdomen likely arising from the spleen. Suggest furtherevaluation with nonemergent CT abdomen. Follow-up recommendations were communicated and documented using a closedloop communication system. Tom Robbins MD IMG CT XSPECIALTY ORDERABLES Fi nal Result * CT LUMBAR SPINE WITHOUT CONTRAST (01/29/2025 5:50 PM EST) Anatomical Region Laterality Modality L-spine Computed Tomogra phy 01/29/2025 5:51 PM EST Impressions 01/29/2025 6:29 PM EST 1. No acute intracranial abnormality. 2. No acute fracture or traumatic malalignment involving the cervical spine. 3. No acute fracture or traumatic malalignment of the thoracic or lumbar spine. 4. Partially visualized cystic lesion with peripheral calcifications in the left upper abdomen likely arising from the spleen. Suggest further evaluation with nonemergent CT abdomen. Follow-up recommendations were communicated and documented using a closed loop communication system. Narrative 01/29/2025 6:[address] HEAD WITHOUT CONTRAST, CT LUMBAR SPINE WITHOUT CONTRAST, CT THORACIC SPINE WITHOUT CONTRAST, CT CERVICAL SPINE WITHOUT CONTRAST Reason for exam (per EHR order): * Head trauma, mod-severe TECHNIQUE: CT scans of: * Head, without intravenous contrast. Multiplanar reformations were created. * Cervical spine, without intravenous contrast. Multiplanar reformations were created. * Thoracic and Lumbar spine, without intravenous contrast. Multiplanar reformations were created. COMPARISON: April 2021 FINDINGS: HEAD: Brain Parenchyma: No midline shift, mass effect, parenchymal hemorrhage, or evidence of acute territorial infarct. Ventricular System and Extra-Axial Spaces: No extra-axial fluid collections. Basilar cisterns are patent. No hydrocephalus. Calvarium, Skull Base, and Sella: No calvarial fracture. No significant scalp hematoma. Paranasal Sinuses and Mastoid Air Cells: Left maxillary sinus mucosal thickening. Orbits: Normal. CERVICAL SPINE: Craniocervical Junction: Alignment is normal. No fracture. Alignment and Curvature: No traumatic malalignment. Vertebrae and disc spaces: No acute fracture. C6-C7 degenerative changes. Soft Tissues: No prevertebral soft tissue swelling. Lung Apices: Normal. THORACIC AND LUMBAR SPINE: Alignment and Curvature: Normal. No traumatic malalignment. Vertebrae and disc spaces: No acute fracture. Mild multilevel degenerative changes. Soft Tissues: Normal. Partially visualized cystic lesion with peripheral calcifications in the left upper abdomen likely arising from the spleen. Procedure Note Marlon Borges MBBS - 01/29/2025 CT HEAD WITHOUT CONTRAST, CT LUMBAR SPINE WITHOUT CONTRAST, CT THORACICSPINE WITHOUT CONTRAST, CT CERVICAL SPINE WITHOUT CONTRAST Reason for exam (per EHR order): * Head trauma, mod-severe TECHNIQUE: CT scans of: * Head, without intravenous contrast. Multiplanar reformations werecreated. * Cervical spine, without intravenous contrast. Multiplanar reformationswere created. * Thoracic and Lumbar spine, without intravenous contrast. Multiplanarreformations were created. COMPARISON: April 2021 FINDINGS: HEAD: Brain Parenchyma: No midline shift, mass effect, parenchymal hemorrhage,or evidence of acute territorial infarct. Ventricular System and Extra-Axial Spaces: No extra-axial fluidcollections. Basilar cisterns are patent. No hydrocephalus. Calvarium, Skull Base, and Sella: No calvarial fracture. No significantscalp hematoma. Paranasal Sinuses and Mastoid Air Cells: Left maxillary sinus mucosalthickening. Orbits: Normal. CERVICAL SPINE: Craniocervical Junction: Alignment is normal. No fracture. Alignment and Curvature: No traumatic malalignment. Vertebrae and disc spaces: No acute fracture. C6-C7 degenerativechanges. Soft Tissues: No prevertebral soft tissue swelling. Lung Apices: Normal. THORACIC AND LUMBAR SPINE: Alignment and Curvature: Normal. No traumatic malalignment. Vertebrae and disc spaces: No acute fracture. Mild multilevel degenerativechanges. Soft Tissues: Normal. Partially visualized cystic lesion with peripheral calcifications in theleft upper abdomen likely arising from the spleen. IMPRESSION: 1. No acute intracranial abnormality. 2. No acute fracture or traumatic malalignment involving the cervicalspine. 3. No acute fracture or traumatic malalignment of the thoracic or lumbarspine. 4. Partially visualized cystic lesion with peripheral calcifications inthe left upper abdomen likely arising from the spleen. Suggest furtherevaluation with nonemergent CT abdomen. Follow-up recommendations were communicated and documented using a closedloop communication system. Tom Robbins MD IMG CT XSPECIALTY ORDERABLES Fi nal Result * CT CERVICAL SPINE WITHOUT CONTRAST (01/29/2025 5:50 PM EST) Anatomical Region Laterality Modality C-spine Computed Tomogra phy 01/29/2025 5:51 PM EST Impressions 01/29/2025 6:29 PM EST 1. No acute intracranial abnormality. 2. No acute fracture or traumatic malalignment involving the cervical spine. 3. No acute fracture or traumatic malalignment of the thoracic or lumbar spine. 4. Partially visualized cystic lesion with peripheral calcifications in the left upper abdomen likely arising from the spleen. Suggest further evaluation with nonemergent CT abdomen. Follow-up recommendations were communicated and documented using a closed loop communication system. Narrative 01/29/2025 6:[address] HEAD WITHOUT CONTRAST, CT LUMBAR SPINE WITHOUT CONTRAST, CT THORACIC SPINE WITHOUT CONTRAST, CT CERVICAL SPINE WITHOUT CONTRAST Reason for exam (per EHR order): * Head trauma, mod-severe TECHNIQUE: CT scans of: * Head, without intravenous contrast. Multiplanar reformations were created. * Cervical spine, without intravenous contrast. Multiplanar reformations were created. * Thoracic and Lumbar spine, without intravenous contrast. Multiplanar reformations were created. COMPARISON: April 2021 FINDINGS: HEAD: Brain Parenchyma: No midline shift, mass effect, parenchymal hemorrhage, or evidence of acute territorial infarct. Ventricular System and Extra-Axial Spaces: No extra-axial fluid collections. Basilar cisterns are patent. No hydrocephalus. Calvarium, Skull Base, and Sella: No calvarial fracture. No significant scalp hematoma. Paranasal Sinuses and Mastoid Air Cells: Left maxillary sinus mucosal thickening. Orbits: Normal. CERVICAL SPINE: Craniocervical Junction: Alignment is normal. No fracture. Alignment and Curvature: No traumatic malalignment. Vertebrae and disc spaces: No acute fracture. C6-C7 degenerative changes. Soft Tissues: No prevertebral soft tissue swelling. Lung Apices: Normal. THORACIC AND LUMBAR SPINE: Alignment and Curvature: Normal. No traumatic malalignment. Vertebrae and disc spaces: No acute fracture. Mild multilevel degenerative changes. Soft Tissues: Normal. Partially visualized cystic lesion with peripheral calcifications in the left upper abdomen likely arising from the spleen. Procedure Note Marlon Borges, [facility] - 01/29/2025 CT HEAD WITHOUT CONTRAST, CT LUMBAR SPINE WITHOUT CONTRAST, CT THORACICSPINE WITHOUT CONTRAST, CT CERVICAL SPINE WITHOUT CONTRAST Reason for exam (per EHR order): * Head trauma, mod-severe TECHNIQUE: CT scans of: * Head, without intravenous contrast. Multiplanar reformations werecreated. * Cervical spine, without intravenous contrast. Multiplanar reformationswere created. * Thoracic and Lumbar spine, without intravenous contrast. Multiplanarreformations were created. COMPARISON: April 2021 FINDINGS: HEAD: Brain Parenchyma: No midline shift, mass effect, parenchymal hemorrhage,or evidence of acute territorial infarct. Ventricular System and Extra-Axial Spaces: No extra-axial fluidcollections. Basilar cisterns are patent. No hydrocephalus. Calvarium, Skull Base, and Sella: No calvarial fracture. No significantscalp hematoma. Paranasal Sinuses and Mastoid Air Cells: Left maxillary sinus mucosalthickening. Orbits: Normal. CERVICAL SPINE: Craniocervical Junction: Alignment is normal. No fracture. Alignment and Curvature: No traumatic malalignment. Vertebrae and disc spaces: No acute fracture. C6-C7 degenerativechanges. Soft Tissues: No prevertebral soft tissue swelling. Lung Apices: Normal. THORACIC AND LUMBAR SPINE: Alignment and Curvature: Normal. No traumatic malalignment. Vertebrae and disc spaces: No acute fracture. Mild multilevel degenerativechanges. Soft Tissues: Normal. Partially visualized cystic lesion with peripheral calcifications in theleft upper abdomen likely arising from the spleen. IMPRESSION: 1. No acute intracranial abnormality. 2. No acute fracture or traumatic malalignment involving the cervicalspine. 3. No acute fracture or traumatic malalignment of the thoracic or lumbarspine. 4. Partially visualized cystic lesion with peripheral calcifications inthe left upper abdomen likely arising from the spleen. Suggest furtherevaluation with nonemergent CT abdomen. Follow-up recommendations were communicated and documented using a closedloop communication system. Tom Robbins MD IMG CT XSPECIALTY ORDERABLES Fi nal Result * CT HEAD WITHOUT CONTRAST (01/29/2025 5:50 PM EST) MGB IMG RECOMMENDATION COMMENT Partially visualized spleen; visualized cystic lesion left upper abdomen; peripheral calcifications left upper abdomen [facility] Anatomical Region Laterality Modality Head Computed Tomogra phy 01/29/2025 5:51 PM EST Impressions 01/29/2025 6:29 PM EST 1. No acute intracranial abnormality. 2. No acute fracture or traumatic malalignment involving the cervical spine. 3. No acute fracture or traumatic malalignment of the thoracic or lumbar spine. 4. Partially visualized cystic lesion with peripheral calcifications in the left upper abdomen likely arising from the spleen. Suggest further evaluation with nonemergent CT abdomen. Follow-up recommendations were communicated and documented using a closed loop communication system. Narrative 01/29/2025 6:[address] HEAD WITHOUT CONTRAST, CT LUMBAR SPINE WITHOUT CONTRAST, CT THORACIC SPINE WITHOUT CONTRAST, CT CERVICAL SPINE WITHOUT CONTRAST Reason for exam (per EHR order): * Head trauma, mod-severe TECHNIQUE: CT scans of: * Head, without intravenous contrast. Multiplanar reformations were created. * Cervical spine, without intravenous contrast. Multiplanar reformations were created. * Thoracic and Lumbar spine, without intravenous contrast. Multiplanar reformations were created. COMPARISON: April 2021 FINDINGS: HEAD: Brain Parenchyma: No midline shift, mass effect, parenchymal hemorrhage, or evidence of acute territorial infarct. Ventricular System and Extra-Axial Spaces: No extra-axial fluid collections. Basilar cisterns are patent. No hydrocephalus. Calvarium, Skull Base, and Sella: No calvarial fracture. No significant scalp hematoma. Paranasal Sinuses and Mastoid Air Cells: Left maxillary sinus mucosal thickening. Orbits: Normal. CERVICAL SPINE: Craniocervical Junction: Alignment is normal. No fracture. Alignment and Curvature: No traumatic malalignment. Vertebrae and disc spaces: No acute fracture. C6-C7 degenerative changes. Soft Tissues: No prevertebral soft tissue swelling. Lung Apices: Normal. THORACIC AND LUMBAR SPINE: Alignment and Curvature: Normal. No traumatic malalignment. Vertebrae and disc spaces: No acute fracture. Mild multilevel degenerative changes. Soft Tissues: Normal. Partially visualized cystic lesion with peripheral calcifications in the left upper abdomen likely arising from the spleen. Procedure Note Marlon Borges, [facility] [place] - 01/29/2025 CT HEAD WITHOUT CONTRAST, CT LUMBAR SPINE WITHOUT CONTRAST, CT THORACICSPINE WITHOUT CONTRAST, CT CERVICAL SPINE WITHOUT CONTRAST Reason for exam (per EHR order): * Head trauma, mod-severe TECHNIQUE: CT scans of: * Head, without intravenous contrast. Multiplanar reformations werecreated. * Cervical spine, without intravenous contrast. Multiplanar reformationswere created. * Thoracic and Lumbar spine, without intravenous contrast. Multiplanarreformations were created. COMPARISON: April 2021 FINDINGS: HEAD: Brain Parenchyma: No midline shift, mass effect, parenchymal hemorrhage,or evidence of acute territorial infarct. Ventricular System and Extra-Axial Spaces: No extra-axial fluidcollections. Basilar cisterns are patent. No hydrocephalus. Calvarium, Skull Base, and Sella: No calvarial fracture. No significantscalp hematoma. Paranasal Sinuses and Mastoid Air Cells: Left maxillary sinus mucosalthickening. Orbits: Normal. CERVICAL SPINE: Craniocervical Junction: Alignment is normal. No fracture. Alignment and Curvature: No traumatic malalignment. Vertebrae and disc spaces: No acute fracture. C6-C7 degenerativechanges. Soft Tissues: No prevertebral soft tissue swelling. Lung Apices: Normal. THORACIC AND LUMBAR SPINE: Alignment and Curvature: Normal. No traumatic malalignment. Vertebrae and disc spaces: No acute fracture. Mild multilevel degenerativechanges. Soft Tissues: Normal. Partially visualized cystic lesion with peripheral calcifications in theleft upper abdomen likely arising from the spleen. IMPRESSION: 1. No acute intracranial abnormality. 2. No acute fracture or traumatic malalignment involving the cervicalspine. 3. No acute fracture or traumatic malalignment of the thoracic or lumbarspine. 4. Partially visualized cystic lesion with peripheral calcifications inthe left upper abdomen likely arising from the spleen. Suggest furtherevaluation with nonemergent CT abdomen. Follow-up recommendations were communicated and documented using a closedloop communication system. Tom Robbins MD IMG CT HEAD/NECK Final Result * (ABNORMAL) Urine Culture (12/10/2024 1:00 PM EDT) Special Requests None 12/10/2024 4:10 PM EDT [facility] Urine Culture 10,000 to 100,000 colony forming units per mL MIXED DIANA (3 OR MORE COLONY TYPES) Culture indicates contamination . Please resubmit if necessary.(A) 12/12/2024 7:31 AM EDT [facility] Urine (Urine) 12/10/2024 1:0 0 PM EDT 12/10/2024 6:15 PM EDT Comment:CLEAN CATCH Rhett Palafox MD LAB MICROBIOLOGY CULTURE ORDERAB LES Final Result [facility] [address] [place] [address] * Urinalysis (12/10/2024 1:00 PM EDT) COLOR Yellow Yellow [facility] CLARITY Clear [facility] GLUCOSE Negative Negative [facility] BILI Negative Negative [facility] KETONES Negative Negative [facility] SPECIFIC GRAVITY 1.020 1.005 - 1.030 [facility] BLOOD Negative Negative [facility] PH 6.0 5.0 - 8.0 [facility] Protein-UA Negative Negative [facility] NITRITE Negative Negative [facility] Leukocyte esterase, ur Negative Negative [facility] Urine (Urine) 12/10/2024 1:0 0 PM EDT 12/10/2024 6:16 PM EDT us Rhett Palafox MD LAB URINE ORDERABLES Final Resul t Performing Organization Address City/State/[facility] Co de Phone Number [address] [address] * (ABNORMAL) Comprehensive metabolic panel (12/08/2024 6:30 AM EDT) SODIUM 138 133 - 146 mmol/L [facility] POTASSIUM 4.1 3.3 - 5.1 mmol/L [facility] CHLORIDE 100 96 - 108 mmol/L [facility] CO2 28 21 - 35 mmol/L [facility] BUN 31(H) 6 - 19 mg/dL [facility] CREATININE 1.10 0.5 - 1.5 mg/dL [facility] GLUCOSE 102(H) 70 - 99 mg/dL [facility] ALBUMIN 3.7(L) 3.9 - 4.8 g/dL [facility] TOTAL PROTEIN 6.6 6.5 - 8.0 g/dL [facility] CALCIUM 10.1 8.4 - 10.3 mg/dL [facility] ALKALINE PHOSPHATASE 139(H) 39 - 117 U/L [facility] TOTAL BILIRUBIN 0.6 0.0 - 1.2 mg/dL [facility] AST 15 0 - 37 U/L [facility] ALT 14 0 - 40 U/L [facility] GLOBULIN 2.9 1 - 4.8 g/dL [facility] EGFR 60 >59 mL/min/1.7 3m2 [facility] Comment:Estimated glomerular filtration rate calculated using the CKD-EPI refit equation. ANION GAP 14 10 - 20 mmol/L [facility] Blood 12/08/2024 6:30 AM EDT 12/08/2024 7:32 AM EDT us Johnna Bright METAL MINE INSPECTOR LAB BLOOD BKR ORDERABLES Final R esult Performing Organization Address City/[facility]/ZIP Co de Phone Number [address] [address] * (ABNORMAL) CBC (12/08/2024 6:30 AM EDT) WBC 7.31 4.00 - 11.00 K/uL [facility] RBC 5.42(H) 4.00 - 5.20 M/uL [facility] HGB 14.1 12.0 - 16.0 g/dL [facility] HCT 44.6 36.0 - 46.0 % [facility] PLT 389 150 - 450 K/uL [facility] MCV 82.3 80.0 - 100.0 fL [facility] MCH 26.0(L) 27.0 - 31.0 pg [facility] MCHC 31.6(L) 32.0 - 36.0 g/dL [facility] RDW 14.0 11.5 - 14.5 % [facility] MPV 10.6 8.4 - 12.0 fL [facility] NRBC 0.00 0.00 /100 WBCs [facility] ABSOLUTE NRBC 0.00 0.00 K/uL [facility] Blood 12/08/2024 6:30 AM EDT 12/08/2024 7:32 AM EDT us Johnna Bright METAL MINE INSPECTOR LAB BLOOD BKR ORDERABLES Final R esult Performing Organization Address City/[facility]/ZIP Co de Phone Number [address] [address] from Last [address] [place] [address] [employer] [facility] [address] [place], [place] [id number] [place] [address] [place] [address] [place] [address] [employer] [employer] [employer] [address] [employer] [place] [address] [place] [address] [place] [address] [employer] [address] [address] [place] [address] WORKERS COMPENSATION Advance Directives For more information, please contact: [phone] (9AM - 5PM [facility], Thursday-Thursday) * Full Code (Latest Code Status on File) Date Activated Date Inactivated Comments 04/16/2021 12:49 AM Question Answer Comments Code Status Confirmed With: Patient Care Teams Tub Operator Relationship Specialty Start Date End Date Cindy Clay DO [address] [place] [id number] PCP - General Family Medicine 12/23/24 Additional Source Comments The information contained in this document represents components of the legal health record. It is not the complete legal health record.[facility]
--- OUTSIDE RECORDS SUMMARY | 2025-02-13 11:42 | XMS_ITS | Encounter Summary ---
Author Organization [facility] Address [address] [place] [address] Phone Care Team Providers Care Fire Extinguisher Inspector Name Role Phone Sharifa Moncada MD Primary Care Provider + Cindy Clay DO Primary Care Provider + [phone] Encounter Details Date Type Department Care Team (Late st Contact Info) Description 04/15/2021 Procedure Pass [facility], Ct Scan - [facility] [address] [place] [address] Social History Tobacco Use Types Packs/Day Years [...] Description 02/14/2025 9:30 AM EST Appointment [facility] [address] [place] [address] Melany Bishop, PT [address] [place] [address] 02/17/2025 2:00 PM EST Appointment [facility] [address] [place] [address] Melany Bishop, PT [address] [place] [address] 02/20/2025 3:45 AM EST Appointment [facility] [address] [place] [address] Melany Bishop, PT [address] [place] [address] documented as of this encounter Visit Diagnoses Not on filedocumented in this encounter Additional Health Concerns Infection Onset Date Last Indicated Resolved Time CoV-Risk 10/24/2021 10/24/2021 11/04/2021 1:22 AM EDT documented as of this encounter Care Teams Fire Extinguisher Inspector Relationship Specialty Start Date End Date Sharifa Moncada MD [address] [place] [phone] PCP - General Internal Medicine 06/23/20 12/22/24 Cindy Clay DO [address] [place] [address] [phone] PCP - General Family Medicine 12/23/24 documented as of this encounter Additional Source Comments The information contained in this document represents components of the legal health record. It is not the complete legal health record.[facility]
== END 2025-02-13 10:19 ==
LOC: HO.MRI 10:18
PROVIDERS: PCP Family Medicine; Visit Provider Internal Medicine
DX: G89.29 Other chronic pain (principal); M54.41 Lumbago with sciatica, right side; M54.42 Lumbago with sciatica, left side
CPT/HCPCS: 72148

== ENCOUNTER → 2025-02-13 10:18 | Outpatient (BNV) | payer MEDICAID, SELFPAY | PROVIDERS: PCP Family Medicine; Visit Provider Radiology Diagnostic Radiology | DX: M47.816 Spondylosis without myelopathy or radiculopathy, lumbar region (principal) | CPT/HCPCS: 72148 ==